=== PATIENT | male | born 1955 | race Caucasian/White ===

== ENCOUNTER → 2016-08-02 | Outpatient (CLI) | payer BC ==
[~2016-08-02] MED LIST: BISO1TAB4 PO; LEVO200T30 PO
--- NOTE | 2016-08-02 15:55 | Diagnostic Imaging Report ---
Indication: Cough since March. COMPARISON STUDIES: None. FINDINGS: Frontal and lateral views of the chest demonstrate the lungs to be clear, the heart, mediastinum and pulmonary vascularity are normal. IMPRESSION: Normal chest. Dictated by: Dictated on workstation # [id number]
== END ==
LOC: RAD 15:04
PROVIDERS: ATTEND Family Medicine
DX: R05 Cough (principal)
CPT/HCPCS: 71020

== ENCOUNTER 2017-07-08 05:38 | Outpatient (CLI) | payer BC ==
[~2017-07-08] VITALS: Ht 172.7 cm; Wt 77.1 kg
[2017-07-08] MEDS ORDERED: ATOR80TA76 PO (12:59)
[2017-07-08] MEDS ORDERED: GEMF600T3 PO (12:59)
[2017-07-08] MEDS ORDERED: BISO1TAB3 PO (12:59)
[2017-07-08] MEDS ORDERED: LEVO175T5 PO (12:59)
== END 2017-07-08 13:01 ==
LOC: PREOP 05:38
PROVIDERS: ATTEND Surgery
DX: Z01.818 Encounter for other preprocedural examination (principal); R19.4 Change in bowel habit; Z87.19 Personal history of other diseases of the digestive system

== ENCOUNTER 2018-07-16 10:35 | Outpatient (CLI) | payer BC ==
[~2018-07-16] VITALS: Ht 172.7 cm; Wt 77.1 kg
[~2018-07-16 10:35] MED LIST changes: +ATOR80TA76 PO; +BISO1TAB3 PO; +GEMF600T8 PO; +LEVO175T5 PO
[2018-07-17] MEDS ORDERED: HYDR-34 PO (12:08)
== END 2018-07-16 13:32 | disposition home or self-care (01) ==
LOC: PREOP 10:35
PROVIDERS: ATTEND Surgery
DX: Z01.818 Encounter for other preprocedural examination (principal)

== ENCOUNTER 2018-07-17 11:14 | Day surgery (SDC) | payer BC ==
[~2018-07-17] VITALS: Ht 172.7 cm; Wt 79.4 kg
[2018-07-17] VITALS (13 sets, daily range): BP systolic 96–130; BP diastolic 48–82
--- OUTSIDE RECORDS SUMMARY | 2018-07-17 11:21 | XMS REPORT | CCD ---
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 Name Role Phone PP Unavailable CCM Unavailable Summary Purpose Interface Exchange Insurance Providers Payer name Policy type / Coverage type Covered republican ID Effective Begin Date Effective End Date Blue Cross Blue [facility] Blue Cross/Blue Shield [id number] Unknown Unknown Family history Mother Diagnosis Age At Onset Coronary Artery Disease Unknown Breast cancer Unknown Father Diagnosis Age At Onset Hypertension Unknown Cancer Unknown Social History Social History Element Codes Description Effective Dates Frequency of drinks SNOMED CT: 168203439 10 drinks per week -varies- more on weekends 08/02/2016 Employment Unknown 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 [employer] 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 Marital status Unknown Single 08/12/2014 Number of children Unknown 0 08/12/[address]: 5135191 Quit less than 10 years ago 200608/12/[address]: 456930 Currently drinks alcohol 08/12/2014 Allergies, Adverse Reactions, Alerts Substance Reaction Codes Entered Date Inactivated Date Status * NO KNOWN DRUG ALLERGIES Unknown 08/12/2014 No Inactive Date Active Past Medical History Illness Codes Condition Status Onset Date Resolved Date Atrophy of thyroid (acquired) ICD-9: 244.8 ICD-10: E03.4 Active 02/01/2016 Unknown Essential (primary) hypertension ICD-9: 401.1 ICD-10: I10 Active 02/01/2016 Unknown Mixed hyperlipidemia ICD-9: 272.2 ICD-10: E78.2 Active 02/01/2016 Unknown Pain in right knee ICD -9: 719.46 ICD-10: M25.561 Active 11/27/2017 Unknown Cellulitis of back [any part except buttock] ICD-9: 682.2 ICD-10: L03.312 Active 09/19/2017 Unknown Encounter for general adult medical examination without abnormal findings ICD-9: V70.0 ICD-10: Z00.00 Active 08/11/2014 Unknown VACCIN FOR INFLUENZA ICD-9: V04.81 ICD-10: Z23 Active 01/01/2016 Unknown Melanocytic nevi of left lower limb, including hip ICD-9: 216.7 ICD-10: D22.72 Active 08/02/2016 Unknown Melanocytic nevi of right lower limb, including hip ICD-9: 216.7 ICD-10: D22.71 Active 08/02/2016 Unknown Other allergic rhinitis ICD-9: 477.8 ICD-10: J30.89 Active 08/02/2016 Unknown Candidal stomatitis ICD-9: 112.0 ICD-10: B37.0 Active 05/17/2016 Unknown Cough ICD-9: 786.2 ICD-10: R05 Active 05/17/2016 Unknown Acute bronchitis due to other specified organisms ICD-9: 466.0 ICD-10: J20.8 Active 05/02/2016 Unknown Cellulitis of head [any part, except face] ICD-9: 682.8 ICD-10: L03.811 Active 01/01/2016 Unknown Rash and other nonspecific skin eruption ICD-9: 782.1 ICD-10: R21 Active 01/01/2016 Unknown Other acute sinusitis ICD-9: 461.8 ICD-10: J01.80 Active 06/28/2015 Unknown Low back pain ICD-9: 724.2 ICD-10: M54.5 Active 05/18/2015 Unknown Hypothryroidism Unknown Active 12/28/2014 Unknown Hypothyroidism, unspecified ICD-9: 244.9 ICD-10: E03.9 Active 12/27/2014 Unknown Well adult exam ICD-9 : V70.0 Active 08/11/2014 Unknown Problems Condition Codes Effective Dates Condition Status Atrophy of thyroid (acquired) ICD-9: 244.8 ICD-10: E03.4 02/01/2016 Active Essential (primary) hypertension ICD-9: 401.1 ICD-10: I10 02/01/2016 Active Mixed hyperlipidemia ICD-9: 272.2 ICD-10: E78.2 02/01/2016 Active Pain in right knee ICD -9: 719.46 ICD-10: M25.561 11/27/2017 Active Cellulitis of back [any part except buttock] ICD-9: 682.2 ICD-10: L03.312 09/19/2017 Active Encounter for general adult medical examination without abnormal findings ICD-9: V70.0 ICD-10: Z00.00 08/11/2014 Active VACCIN FOR INFLUENZA ICD-9: V04.81 ICD-10: Z23 01/01/2016 Active Melanocytic nevi of left lower limb, including hip ICD-9: 216.7 ICD-10: D22.72 08/02/2016 Active Melanocytic nevi of right lower limb, including hip ICD-9: 216.7 ICD-10: D22.71 08/02/2016 Active Other allergic rhinitis ICD-9: 477.8 ICD-10: J30.89 08/02/2016 Active Candidal stomatitis ICD-9: 112.0 ICD-10: B37.0 05/17/2016 Active Cough ICD-9: 786.2 ICD-10: R05 05/17/2016 Active Acute bronchitis due to other specified organisms ICD-9: 466.0 ICD-10: J20.8 05/02/2016 Active Cellulitis of head [any part, except face] ICD-9: 682.8 ICD-10: L03.811 01/01/2016 Active Rash and other nonspecific skin eruption ICD-9: 782.1 ICD-10: R21 01/01/2016 Active Other acute sinusitis ICD-9: 461.8 ICD-10: J01.80 06/28/2015 Active Low back pain ICD-9: 724.2 ICD-10: M54.5 05/18/2015 Active Hypothryroidism Unknown 12/28/2014 Active Hypothyroidism, unspecified ICD-9: 244.9 ICD-10: E03.9 12/27/2014 Active Well adult exam ICD-9 : V70.0 08/11/2014 Active Medications Medication Codes Instructions Start Date Stop Date Status Fill Instructions gemfibrozil 600 mg tablet RxNorm: 286232 1 Tablet(s) PO BID 06/201802/19/2019 Active acyclovir 400 mg tablet RxNorm: 058231 TAKE ONE TABLET BY MOUTH DAILY 05/15/2018 08/12/2018 Active Flagyl 500 mg tablet RxNorm: 469882 1 Tablet(s) PO TID 201805/07/2018 Inactive Cipro 500 mg tablet RxNorm: 671505 1 Tablet(s) PO BID 201805/04/2018 Inactive Levothroid 175 mcg tablet RxNorm: 096450 TAKE ONE TABLET BY MOUTH DAILY ON EMPTY STOMACH 04/18/2018 10/14/2018 Active bisoprolol 5 mg-hydrochlorothiazide 6.25 mg tablet RxNorm: 806915 TAKE ONE TABLET BY MOUTH DAILY 04/18/2018 10/14/2018 Active Lipitor 80 mg tablet RxNorm: 839394 TAKE ONE TABLET BY MOUTH EVERY NIGHT AT BEDTIME 03/24/2018 07/21/2018 Active Penlac 8 % topical solution RxNorm: 742411 APPLY TO AFFECTED AREA(S) DAILY 03/24/2018 04/12/2018 Inactive alprazolam 0.5 mg tablet RxNorm: 209259 1/2 Tablet(s) PO BID as needed 02/18/2018 04/18/2018 Inactive acyclovir 400 mg tablet RxNorm: 088272 TAKE ONE TABLET BY MOUTH DAILY 02/18/2018 05/14/2018 Inactive acyclovir 400 mg tablet RxNorm: 963829 TAKE ONE TABLET BY MOUTH DAILY 11/11/2017 02/08/2018 Inactive bisoprolol 5 mg-hydrochlorothiazide 6.25 mg tablet RxNorm: 427876 TAKE ONE TABLET BY MOUTH DAILY 09/30/2017 03/28/2018 Inactive Lipitor 80 mg tablet RxNorm: 583750 TAKE ONE TABLET BY MOUTH EVERY NIGHT AT BEDTIME 09/30/2017 02/26/2018 Inactive Levothroid 175 mcg tablet RxNorm: 376579 Tablet(s) TAKE ONE TABLET BY MOUTH DAILY ON AN EMPTY STOMACH . 09/30/20172018 Inactive Bactrim DS 800 mg-160 mg tablet RxNorm: 484230 1 Tablet(s) PO BID 09/19/2017 09/25/2017 Inactive alprazolam 0.5 mg tablet RxNorm: 505773 1/2 Tablet(s) PO BID as needed 07/24/2017 09/20/2017 Inactive Zithromax Z-Bassam 250 mg tablet RxNorm: 552263 1 Tablet(s) PO UD 06/17/2017 07/23/2017 Inactive z pack as directed Levothroid 175 mcg tablet RxNorm: 353191 TAKE ONE TABLET BY MOUTH DAILY ON AN EMPTY STOMACH . NEED TO REPEAT LAB FOR TSH AND FREE T4 201708/31/2017 Inactive gemfibrozil 600 mg tablet RxNorm: 040849 1 Tablet(s) PO BID 03/201702/16/2018 Inactive Penlac 8 % topical solution RxNorm: 293505 1 Application TOP daily 05/23/2017 06/21/2017 Inactive ketoconazole 2 % topical cream RxNorm: 128798 1 Application TOP BID 05/23/2017 06/05/2017 Inactive Cipro 500 mg tablet RxNorm: 180134 1 Tablet(s) PO BID 201705/30/2017 Inactive Flagyl 500 mg tablet RxNorm: 447212 1 Tablet(s) PO TID 201705/30/2017 Inactive acyclovir 400 mg tablet RxNorm: 146375 TAKE ONE TABLET BY MOUTH DAILY 04/26/2017 10/22/2017 Inactive bisoprolol 5 mg-hydrochlorothiazide 6.25 mg tablet RxNorm: 472017 TAKE ONE TABLET BY MOUTH DAILY 03/11/2017 09/06/2017 Inactive Levothroid 175 mcg tablet RxNorm: 841664 TAKE ONE TABLET BY MOUTH DAILY ON AN EMPTY STOMACH . NEED TO REPEAT LAB FOR TSH AND FREE T4 201606/02/2017 Inactive Lipitor 80 mg tablet RxNorm: 571102 Tablet(s) PO TAKE ONE TABLET BY MOUTH EVERY NIGHT AT BEDTIME 12/24/2016 11/26/2017 Inactive Levothroid 175 mcg tablet RxNorm: 267574 TAKE ONE TABLET BY MOUTH DAILY ON AN EMPTY STOMACH . NEED TO REPEAT LAB FOR TSH AND FREE T4 201603/10/2017 Inactive hydrocodone 7.5 mg-acetaminophen 325 mg tablet RxNorm: 628744 1 Tablet(s) PO Q6 PRN 11/06/2016 12/05/2016 Inactive [SAVINGS FOR NON-COVERED DRUGS -- BIN:[id number], PCN: ASPROD1, Group: XXXXX, ID# [id number], Questions: . THIS IS NOT INSURANCE.] Soma 350 mg tablet RxNorm: 855029 1 Tablet(s) PO TID as needed 11/06/2016 No Stop Date Active alprazolam 0.5 mg tablet RxNorm: 735867 1/2 Tablet(s) PO BID as needed 10/05/2016 11/26/2017 Inactive Lipitor 80 mg tablet RxNorm: 572756 Tablet(s) PO TAKE ONE TABLET BY MOUTH EVERY NIGHT AT BEDTIME 09/04/2016 12/23/2016 Inactive Lipitor 40 mg tablet RxNorm: 806413 TAKE ONE TABLET BY MOUTH EVERY NIGHT AT BEDTIME 09/04/2016 09/03/2016 Inactive acyclovir 400 mg tablet RxNorm: 570388 TAKE ONE TABLET BY MOUTH DAILY 08/23/2016 02/18/2017 Inactive bisoprolol 5 mg-hydrochlorothiazide 6.25 mg tablet RxNorm: 485198 TAKE ONE TABLET BY MOUTH DAILY 08/23/2016 02/18/2017 Inactive Levothroid 175 mcg tablet RxNorm: 775225 Tablet(s) TAKE ONE TABLET BY MOUTH DAILY 08/22/2016 11/19/2016 Inactive Needs to repeat TSH et Free T4 labs acyclovir 400 mg tablet RxNorm: 649517 TAKE ONE TABLET BY MOUTH DAILY 08/21/2016 08/22/2016 Inactive prednisone 10 mg tablet RxNorm: 098378 Tablet(s) PO UD dispense a medrol dose pack 08/10/2016 07/23/2017 Inactive 6,5,4,3,2,1 prednisone 10 mg tablet RxNorm: 525791 Tablet(s) PO UD dispense a medrol dose pack 07/30/2016 08/09/2016 Inactive 6,5,4,3,2,1 cefdinir 300 mg capsule RxNorm: 668138 1 Capsule(s) PO BID 10/201608/08/2016 Inactive cefdinir 300 mg capsule RxNorm: 710309 1 Capsule(s) PO BID 10/201607/29/2016 Inactive Lipitor 40 mg tablet RxNorm: 351318 TAKE ONE TABLET BY MOUTH EVERY NIGHT AT BEDTIME 06/25/2016 09/03/2016 Inactive nystatin 100,000 unit/mL oral suspension RxNorm: 845682 5 Milliliter(s) PO TID 05/17/2016 05/21/2016 Inactive Zyrtec 10 mg tablet RxNorm: 1913913 1 Tablet(s) PO daily 05/1706/15/2016 Inactive Levothroid 175 mcg tablet RxNorm: 154240 TAKE ONE TABLET BY MOUTH DAILY 05/16/2016 08/13/2016 Inactive Levaquin 750 mg tablet RxNorm: 281969 1 Tablet(s) PO daily 05/09/2016 Inactive Levaquin 750 mg tablet RxNorm: 755211 1 Tablet(s) PO daily 05/14/2016 Inactive Phenergan-Codeine 6.25 mg-10 mg/5 mL syrup RxNorm: 184883 5-10 Milliliter(s) PO Q6 as needed cough 05/02/2016 No Stop Date Active prednisone 10 mg tablet RxNorm: 643470 Tablet(s) PO UD 201607/29/2016 Inactive 6,5,4,3,2,1 Kenalog 40 mg/mL suspension for injection RxNorm: 5728324 Milliliter(s) Inj 05/02/2016 05/02/2016 Inactive Phenergan-Codeine 6.25 mg-10 mg/5 mL syrup RxNorm: 876649 5-10 Milliliter(s) PO Q6 as needed cough 04/25/2016 05/01/2016 Inactive Zithromax Z-Bassam 250 mg tablet RxNorm: 888203 1 Tablet(s) PO UD 04/25/2016 07/29/2016 Inactive z pack as directed acyclovir 400 mg tablet RxNorm: 590135 TAKE ONE TABLET BY MOUTH DAILY 04/10/2016 07/08/2016 Inactive Zetia 10 mg tablet RxNorm: 428259 1 Tablet(s) PO daily 201505/22/2017 Inactive Zetia 10 mg tablet RxNorm: 178521 1 Tablet(s) PO daily 201503/06/2016 Inactive Lipitor 40 mg tablet RxNorm: 849932 Tablet(s) PO TAKE ONE TABLET BY MOUTH EVERY NIGHT AT BEDTIME 03/07/2016 06/24/2016 Inactive Patient is requesting 90 days supply Diflucan 150 mg tablet RxNorm: 462008 1 Tablet(s) PO daily 01/11/2016 Inactive Diflucan 150 mg tablet RxNorm: 421356 1 Tablet(s) PO daily 01/04/2016 Inactive hydrocodone 7.5 mg-acetaminophen 325 mg tablet RxNorm: 155859 1 Tablet(s) PO Q6 PRN 12/28/2015 01/26/2016 Inactive [SAVINGS FOR NON-COVERED DRUGS -- BIN:[id number], PCN: ASPROD1, Group: XXXXX, ID# [id number], Questions: . THIS IS NOT INSURANCE.] alprazolam 0.5 mg tablet RxNorm: 829766 1/2 Tablet(s) PO BID as needed 11/30/2015 10/04/2016 Inactive Levothroid 175 mcg tablet RxNorm: 687292 Tablet(s) TAKE ONE TABLET BY MOUTH DAILY 10/26/2015 04/22/2016 Inactive hydrocodone 7.5 mg-acetaminophen 325 mg tablet RxNorm: 009431 1 Tablet(s) PO Q6 PRN 08/30/2015 09/28/2015 Inactive [SAVINGS FOR NON-COVERED DRUGS -- BIN:836630, PCN: ASPROD1, Group: XXXXX, ID# [id number], Questions: . THIS IS NOT INSURANCE.] Ventolin HFA 90 mcg/actuation aerosol inhaler RxNorm: 981084 2 INH PRN dyspnea 08/04/2015 No Stop Date Active bisoprolol 5 mg-hydrochlorothiazide 6.25 mg tablet RxNorm: 210160 TAKE ONE TABLET BY MOUTH DAILY 07/11/2015 01/06/2016 Inactive Patient is requesting 90 days supply bisoprolol 5 mg-hydrochlorothiazide 6.25 mg tablet RxNorm: 409716 TAKE ONE TABLET BY MOUTH DAILY 07/11/2015 01/06/2016 Inactive Lipitor 10 mg tablet RxNorm: 829883 TAKE ONE TABLET BY MOUTH EVERY NIGHT AT BEDTIME 07/11/2015 01/06/2016 Inactive Patient is requesting 90 days supply Lipitor 10 mg tablet RxNorm: 707432 TAKE ONE TABLET BY MOUTH EVERY NIGHT AT BEDTIME 07/11/2015 05/13/2016 Inactive acyclovir 400 mg tablet RxNorm: 428025 1 Tablet(s) PO daily 08/22/2016 Inactive acyclovir 400 mg tablet RxNorm: 043432 1 Tablet(s) PO daily 07/10/2015 Inactive Zithromax Z-Bassam 250 mg tablet RxNorm: 626602 Tablet(s) PO UD 08/03/2015 Inactive acyclovir 400 mg tablet RxNorm: 829070 1 Tablet(s) PO daily 08/201507/05/2015 Inactive meloxicam 15 mg tablet RxNorm: 518305 TAKE ONE TABLET BY MOUTH DAILY 06/27/2015 11/23/2015 Inactive triamcinolone acetonide 0.1 % topical cream RxNorm: 3970965 1 Application TOP BID 05/19/2015 06/01/2015 Inactive apply very thin layer as directed hydrocodone 7.5 mg-acetaminophen 325 mg tablet RxNorm: 861659 1 Tablet(s) PO Q6 PRN 05/19/2015 08/29/2015 Inactive [SAVINGS FOR NON-COVERED DRUGS -- BIN:[id number], PCN: ASPROD1, Group: XXXXX, ID# [id number], Questions: . THIS IS NOT INSURANCE.] Cipro 500 mg tablet RxNorm: 282518 1 Tablet(s) PO BID 201504/20/2015 Inactive Cipro 500 mg tablet RxNorm: 016358 1 Tablet(s) PO BID 201504/30/2015 Inactive Flagyl 500 mg tablet RxNorm: 952712 1 Tablet(s) PO TID 201504/30/2015 Inactive Flagyl 500 mg tablet RxNorm: 231466 1 Tablet(s) PO TID 201504/20/2015 Inactive bisoprolol 5 mg-hydrochlorothiazide 6.25 mg tablet RxNorm: 342286 1 Tablet(s) PO daily 04/21/2015 07/10/2015 Inactive Levothroid 175 mcg tablet RxNorm: 499014 TAKE ONE TABLET BY MOUTH DAILY 04/18/2015 10/14/2015 Inactive hydrocodone 7.5 mg-acetaminophen 325 mg tablet RxNorm: 365420 1 Tablet(s) PO Q6 PRN 04/04/2015 05/18/2015 Inactive [SAVINGS FOR NON-COVERED DRUGS -- BIN:631719, PCN: ASPROD1, Group: XXXXX, ID# [id number], Questions: . THIS IS NOT INSURANCE.] Lipitor 10 mg tablet RxNorm: 796657 1 Tablet(s) PO QHS 201507/02/2015 Inactive azithromycin 250 mg tablet RxNorm: 997444 1 Tablet(s) PO UD Take 2 tabs on day one and 1 tab day 2-5 02/03/20152014 Inactive azithromycin 250 mg tablet RxNorm: 298846 1 Tablet(s) PO UD Take 2 tabs on day one and 1 tab day 2-5 02/03/20152014 Inactive Levothroid 175 mcg tablet RxNorm: 029048 TAKE ONE TABLET BY MOUTH DAILY 12/16/2014 03/15/2015 Inactive Lipitor 10 mg tablet RxNorm: 497923 1 Tablet(s) PO QHS 201403/07/2015 Inactive hydrocodone 7.5 mg-acetaminophen 325 mg tablet RxNorm: 708080 1 Tablet(s) PO Q6 PRN 12/08/2014 04/03/2015 Inactive [SAVINGS FOR NON-COVERED DRUGS -- BIN:386566, PCN: ASPROD1, Group: XXXXX, ID# [id number], Questions: . THIS IS NOT INSURANCE.] Lipitor 10 mg tablet RxNorm: 968892 1 Tablet(s) PO QHS 201412/07/2014 Inactive meloxicam 15 mg tablet RxNorm: 613407 1 Tablet(s) PO daily 04/01/2015 Inactive Levothroid 175 mcg tablet RxNorm: 668981 1 Tablet(s) PO daily 09/28/2014 12/15/2014 Inactive meloxicam 15 mg tablet RxNorm: 658485 1 Tablet(s) PO daily 09/10/2014 Inactive bisoprolol 2.5 mg-hydrochlorothiazide 6.25 mg tablet RxNorm: 323410 1 Tablet(s) PO daily 08/12/2014 11/09/2014 Inactive Levothroid 175 mcg tablet RxNorm: 002289 1 Tablet(s) PO daily 08/12/2014 09/27/2014 Inactive hydrocodone 7.5 mg-acetaminophen 325 mg tablet RxNorm: 535251 1 Tablet(s) PO Q6 PRN 08/12/2014 12/07/2014 Inactive [SAVINGS FOR NON-COVERED DRUGS -- BIN:[id number], PCN: ASPROD1, Group: XXXXX, ID# [id number], Questions: . THIS IS NOT INSURANCE.] acyclovir 400 mg tablet RxNorm: 876001 1 Tablet(s) PO daily 09/10/2014 Inactive hydrocodone 7.5 mg-acetaminophen 325 mg tablet RxNorm: 767035 1 Tablet(s) PO No Start Date 08/11/2014 Inactive Soma 350 mg tablet RxNorm: 366466 1 Tablet(s) PO TID as needed No Start Date 11/05/2016 Inactive alprazolam 0.5 mg tablet RxNorm: 826861 1/2 Tablet(s) PO BID as needed No Start Date 11/29/2015 Inactive Phenergan-Codeine 6.25 mg-10 mg/5 mL syrup RxNorm: 741854 5-10 Milliliter(s) PO Q6 as needed cough No Start Date 2016 Inactive Medication Administered Medication Codes Instructions Start Date Status Kenalog 40 mg/mL suspension for injection RxNorm: 9102620 Milliliter 05/02/2016 No longer Active Immunizations Vaccine Codes Date Status Influenza CVX: 141 01/28/2017 completed Influenza CVX: 141 01/02/2016 completed Influenza CVX: 141 12/28/2014 completed Assessments Condition Codes Effective Dates Essential (primary) hypertension ICD-10: I10 ICD-9: 401.1 11/27/2017 Pain in right knee ICD-10: M25.561 ICD-9: 719.46 11/27/2017 Atrophy of thyroid (acquired) ICD-10: E03.4 ICD-9: 244.8 11/27/2017 Mixed hyperlipidemia ICD-10: E78.2 ICD-9: 272.2 11/27/2017 Cellulitis of back [any part except buttock] ICD-10: L03.312 ICD-9: 682.2 09/19/2017 Encounter for general adult medical examination without abnormal findings ICD-10: Z00.00 ICD-9: V70.0 05/23/2017 VACCIN FOR INFLUENZA ICD-10: Z23 ICD-9: V04.81 01/28/2017 Melanocytic nevi of left lower limb, including hip ICD-10: D22.72 ICD-9: 216.7 08/02/2016 Melanocytic nevi of right lower limb, including hip ICD-10: D22.71 ICD-9: 216.7 08/02/2016 Other allergic rhinitis ICD-10: J30.89 ICD-9: 477.8 08/02/2016 Cough ICD-10: R05 ICD-9: 786.2 05/17/2016 Candidal stomatitis ICD-10: B37.0 ICD-9: 112.0 05/17/2016 Acute bronchitis due to other specified organisms ICD-10: J20.8 ICD-9: 466.0 05/02/2016 Rash and other nonspecific skin eruption ICD-10: R21 ICD-9: 782.1 01/02/2016 Cellulitis of head [any part, except face] ICD-10: L03.811 ICD-9: 682.8 01/02/2016 Other acute sinusitis ICD-10: J01.80 ICD-9: 461.8 06/29/2015 Low back pain ICD-10: M54.5 ICD-9: 724.2 05/19/2015 Hypothyroidism, unspecified ICD-10: E03.9 ICD-9: 244.9 12/28/2014 Well adult exam ICD-9: V70.0 08/12/2014 Reason For Visit Reason For Visit Effective Dates Notes hypertension 11/27/2017 arthropod bite 09/19/2017 hypertension 05/23/2017 vaccination against influenza 01/28/2017 hypertension 08/02/2016 sinus congestion 05/17/2016 sinus congestion 05/02/2016 hypertension 02/02/2016 rash 01/02/2016 scalp hypertension 08/04/2015 cough 06/29/2015 rash 05/19/2015 dry skin to upper eye lids cyst 12/28/2014 hypothyroid 08/12/2014 Results Observation Observation Code Item Item Code Result Date Thyroxine (T4) Free, Direct, S 360756 T4, FREE(DIRECT) 1.56 NG/DL 11/28/2017 TSH 620258 TSH 1.530 UIU/ML 11/28/2017 CBC With Differential/Platelet 949742 WBC 10.0 X10E3/UL 08/2017 CBC With Differential/Platelet 766633 RBC 4.78 X10E6/UL 08/2017 CBC With Differential/Platelet 312705 HEMOGLOBIN 14.3 G/DL 11/28/2017 CBC With Differential/Platelet 936790 HEMATOCRIT 41.9 % 08/2017 CBC With Differential/Platelet 462908 MCV 88 FL 11/28/2017 CBC With Differential/Platelet 796292 MCH 29.9 PG 2017 CBC With Differential/Platelet 264985 MCHC 34.1 G/DL 2017 CBC With Differential/Platelet 462502 RDW 13.4 % 11/28/2017 CBC With Differential/Platelet 088666 PLATELETS 309 X10E3/UL 11/28/2017 CBC With Differential/Platelet 896693 NEUTROPHILS 61 % 11/28 CBC With Differential/Platelet 186138 LYMPHS 30 % 2017 CBC With Differential/Platelet 537063 MONOCYTES 6 % 2017 CBC With Differential/Platelet 208123 EOS 2 % 11/28/2017 CBC With Differential/Platelet 234533 BASOS 0 % 11/28/2017 CBC With Differential/Platelet 961111 NEUTROPHILS (ABSOLUTE) 6.2 X10E3/UL 11/28/2017 CBC With Differential/Platelet 879296 LYMPHS (ABSOLUTE) 3.0 X10E3/UL 11/28/2017 CBC With Differential/Platelet 260709 MONOCYTES(ABSOLUTE) 0.6 X10E3/UL 11/28/2017 CBC With Differential/Platelet 255489 EOS (ABSOLUTE) 0.2 X10E3/UL 11/28/2017 CBC With Differential/Platelet 344431 BASO (ABSOLUTE) 0.0 X10E3/UL 11/28/2017 CBC With Differential/Platelet 164233 IMMATURE GRANULOCYTES 1 % 11/28/2017 CBC With Differential/Platelet 050800 IMMATURE GRANS (ABS) 0.1 X10E3/UL 11/28/2017 Lipid Panel w/ Chol/HDL Ratio 557914 CHOLESTEROL, TOTAL 145 MG/DL 11/28/2017 Lipid Panel w/ Chol/HDL Ratio 616177 TRIGLYCERIDES 216 MG/DL 11/28/2017 Lipid Panel w/ Chol/HDL Ratio 208188 HDL CHOLESTEROL 60 MG/DL 11/28/2017 Lipid Panel w/ Chol/HDL Ratio 050845 VLDL CHOLESTEROL CINDI 43 MG/DL 11/28/2017 Lipid Panel w/ Chol/HDL Ratio 091242 LDL CHOLESTEROL CALC 42 MG/DL 11/28/2017 Lipid Panel w/ Chol/HDL Ratio 781212 T. CHOL/HDL RATIO 2.4 RATIO 11/28/2017 Comp. Metabolic Panel (14) 298111 GLUCOSE 96 MG/DL 11/28 Comp. Metabolic Panel (14) 244276 BUN 15 MG/DL 11/28/2017 Comp. Metabolic Panel (14) 209228 CREATININE 0.91 MG/DL 11/28/2017 Comp. Metabolic Panel (14) 244597 EGFR IF NONAFRICN AM 91 ML/MIN/1.73 11/28/2017 Comp. Metabolic Panel (14) 723236 EGFR IF AFRICN AM 106 ML/MIN/1.73 11/28/2017 Comp. Metabolic Panel (14) 157216 BUN/ CREATININE RATIO 16 11/28/2017 Comp. Metabolic Panel (14) 310389 SODIUM 140 MMOL/L 2017 Comp. Metabolic Panel (14) 420327 POTASSIUM 4.1 MMOL/L 11/28/2017 Comp. Metabolic Panel (14) 435627 CHLORIDE 100 MMOL/L Comp. Metabolic Panel (14) 731813 CARBON DIOXIDE, TOTAL 25 MMOL/L 11/28/2017 Comp. Metabolic Panel (14) 532413 CALCIUM 9.1 MG/DL 08/2017 Comp. Metabolic Panel (14) 936975 Protein , Total 6.9 G/DL 11/28 Comp. Metabolic Panel (14) 645302 ALBUMIN 4.5 G/DL 11/28 Comp. Metabolic Panel (14) 457908 GLOBULIN, TOTAL 2.4 G/DL 11/28/2017 Comp. Metabolic Panel (14) 438068 A/G Ratio 1.9 11/28/2017 Comp. Metabolic Panel (14) 059065 BILIRUBIN, TOTAL 0.5 MG/DL 11/28/2017 Comp. Metabolic Panel (14) 000078 ALKALINE PHOSPHATASE 55 IU/L 11/28/2017 Comp. Metabolic Panel (14) 950532 AST ( SGOT) 18 IU/L 2017 Comp. Metabolic Panel (14) 261896 ALT ( SGPT) 24 IU/L 2017 Thyroxine (T4) Free, Direct, S 135263 T4, FREE(DIRECT) 1.35 ng/dL 06/24/2017 CBC With Differential/Platelet 607176 WBC 6.6 x10E3/uL 06/24 CBC With Differential/Platelet 089157 RBC 4.89 x10E6/uL 04/2017 CBC With Differential/Platelet 855703 HEMOGLOBIN 14.6 g/dL 06/24/2017 CBC With Differential/Platelet 874765 HEMATOCRIT 43.7 % 04/2017 CBC With Differential/Platelet 803401 MCV 89 fL 06/24/2017 CBC With Differential/Platelet 200399 MCH 29.9 pg 2017 CBC With Differential/Platelet 538599 MCHC 33.4 g/dL 2017 CBC With Differential/Platelet 200624 RDW 13.6 % 06/24/2017 CBC With Differential/Platelet 301900 PLATELETS 258 x10E3/uL 06/24/2017 CBC With Differential/Platelet 133471 NEUTROPHILS 51 % 06/24 CBC With Differential/Platelet 266198 LYMPHS 36 % 2017 CBC With Differential/Platelet 610166 MONOCYTES 9 % 2017 CBC With Differential/Platelet 260038 EOS 4 % 06/24/2017 CBC With Differential/Platelet 169237 BASOS 0 % 06/24/2017 CBC With Differential/Platelet 514510 NEUTROPHILS (ABSOLUTE) 3.3 x10E3/uL 06/24/2017 CBC With Differential/Platelet 005152 LYMPHS (ABSOLUTE) 2.3 x10E3/uL 06/24/2017 CBC With Differential/Platelet 832972 MONOCYTES(ABSOLUTE) 0.6 x10E3/uL 06/24/2017 CBC With Differential/Platelet 234995 EOS (ABSOLUTE) 0.3 x10E3/uL 06/24/2017 CBC With Differential/Platelet 013998 BASO (ABSOLUTE) 0.0 x10E3/uL 06/24/2017 CBC With Differential/Platelet 024885 IMMATURE GRANULOCYTES 0 % 06/24/2017 CBC With Differential/Platelet 439599 IMMATURE GRANS (ABS) 0.0 x10E3/uL 06/24/2017 Lipid Panel 397131 CHOLESTEROL, TOTAL 122 mg/dL 06/24/2017 Lipid Panel 315211 TRIGLYCERIDES 155 mg/dL 06/24/2017 Lipid Panel 311217 HDL CHOLESTEROL 52 mg/dL 06/24/2017 Lipid Panel 547243 VLDL CHOLESTEROL CINDI 31 mg/dL 06/24/2017 Lipid Panel 808745 LDL CHOLESTEROL CALC 39 mg/dL 06/24/2017 Comp. Metabolic Panel (14) 967895 GLUCOSE 101 mg/dL 04/2017 Comp. Metabolic Panel (14) 347013 BUN 12 mg/dL 06/24/2017 Comp. Metabolic Panel (14) 204856 CREATININE 0.95 mg/dL 06/24/2017 Comp. Metabolic Panel (14) 934921 EGFR IF NONAFRICN AM 87 mL/min/1.73 06/24/2017 Comp. Metabolic Panel (14) 346041 EGFR IF AFRICN AM 100 mL/min/1.73 06/24/2017 Comp. Metabolic Panel (14) 318632 BUN/ CREATININE RATIO 13 06/24/2017 Comp. Metabolic Panel (14) 125143 SODIUM 140 mmol/L 2017 Comp. Metabolic Panel (14) [id number] POTASSIUM 4.1 mmol/L 06/24/2017 Comp. Metabolic Panel (14) 941003 CHLORIDE 99 mmol/L 04/2017 Comp. Metabolic Panel (14) 584461 CARBON DIOXIDE, TOTAL 25 mmol/L 06/24/2017 Comp. Metabolic Panel (14) 853796 CALCIUM 9.5 mg/dL 04/2017 Comp. Metabolic Panel (14) 252789 Protein , Total 7.1 g/dL 06/24 Comp. Metabolic Panel (14) 518489 ALBUMIN 4.6 g/dL 06/24 Comp. Metabolic Panel (14) 779715 GLOBULIN, TOTAL 2.5 g/dL 06/24/2017 Comp. Metabolic Panel (14) 460139 A/G Ratio 1.8 06/24/2017 Comp. Metabolic Panel (14) 307623 BILIRUBIN, TOTAL 0.4 mg/dL 06/24/2017 Comp. Metabolic Panel (14) 483076 ALKALINE PHOSPHATASE 66 IU/L 06/24/2017 Comp. Metabolic Panel (14) 970330 AST ( SGOT) 45 IU/L 2017 Comp. Metabolic Panel (14) 731237 ALT ( SGPT) 41 IU/L 2017 TSH 843682 TSH 0.749 uIU/mL 06/24/2017 Comp. Metabolic Panel (14) 661365 GLUCOSE , SERUM 111 MG/DL Comp. Metabolic Panel (14) 362283 BUN 14 MG/DL 02/22/2016 Comp. Metabolic Panel (14) 656568 CREATININE, SERUM 1.03 MG/DL 02/22/2016 Comp. Metabolic Panel (14) 265078 EGFR IF NONAFRICN AM 79 ML/MIN/1.73 02/22/2016 Comp. Metabolic Panel (14) 584525 EGFR IF AFRICN AM 91 ML/MIN/1.73 02/22/2016 Comp. Metabolic Panel (14) 065642 BUN/ CREATININE RATIO 14 02/22/2016 Comp. Metabolic Panel (14) 605032 SODIUM , SERUM 140 MMOL/L Comp. Metabolic Panel (14) 073879 POTASSIUM, SERUM 3.9 MMOL/L 02/22/2016 Comp. Metabolic Panel (14) 071691 CHLORIDE, SERUM 99 MMOL/L 02/22/2016 Comp. Metabolic Panel (14) 712475 CARBON DIOXIDE, TOTAL 25 MMOL/L 02/22/2016 Comp. Metabolic Panel (14) 901295 CALCIUM , SERUM 9.1 MG/DL Comp. Metabolic Panel (14) 088449 PROTEIN , TOTAL, SERUM 6.5 G/DL 02/22/2016 Comp. Metabolic Panel (14) 193759 ALBUMIN , SERUM 4.1 G/DL 02/21 Comp. Metabolic Panel (14) 132113 GLOBULIN, TOTAL 2.4 G/DL 02/22/2016 Comp. Metabolic Panel (14) 318972 A/G Ratio 1.7 02/22/2016 Comp. Metabolic Panel (14) 321407 BILIRUBIN, TOTAL 0.2 MG/DL 02/22/2016 Comp. Metabolic Panel (14) 630472 ALKALINE PHOSPHATASE, S 72 IU/L 02/22/2016 Comp. Metabolic Panel (14) 207578 AST ( SGOT) 30 IU/L 2015 Comp. Metabolic Panel (14) 523802 ALT ( SGPT) 43 IU/L 2015 Lipid Panel 823175 CHOLESTEROL, TOTAL 183 MG/DL 02/22/2016 Lipid Panel 983098 TRIGLYCERIDES 509 MG/DL 02/22/2016 Lipid Panel 839263 HDL CHOLESTEROL 47 MG/DL 02/22/2016 Lipid Panel 372168 VLDL CHOLESTEROL CINDI COMMENT MG/DL 2015 Lipid Panel 875426 LDL CHOLESTEROL CALC COMMENT MG/DL 2015 TSH 454600 TSH 0.510 UIU/ML 02/22/2016 CBC With Differential/Platelet 629077 WBC 6.9 X10E3/UL 02/21 CBC With Differential/Platelet 908339 RBC 4.79 X10E6/UL CBC With Differential/Platelet 388872 HEMOGLOBIN 14.4 G/DL 02/22/2016 CBC With Differential/Platelet 322659 HEMATOCRIT 43.1 % CBC With Differential/Platelet 112332 MCV 90 FL 02/22/2016 CBC With Differential/Platelet 986236 MCH 30.1 PG 2015 CBC With Differential/Platelet 681095 MCHC 33.4 G/DL 2015 CBC With Differential/Platelet 263330 RDW 13.5 % 02/22/2016 CBC With Differential/Platelet 131765 PLATELETS 257 X10E3/UL 02/22/2016 CBC With Differential/Platelet 493396 NEUTROPHILS 57 % 02/21 CBC With Differential/Platelet 834643 LYMPHS 32 % 2015 CBC With Differential/Platelet 385211 MONOCYTES 8 % 2015 CBC With Differential/Platelet 935265 EOS 3 % 02/22/2016 CBC With Differential/Platelet 714242 BASOS 0 % 02/22/2016 CBC With Differential/Platelet 117143 NEUTROPHILS (ABSOLUTE) 4.0 X10E3/UL 02/22/2016 CBC With Differential/Platelet 085399 LYMPHS (ABSOLUTE) 2.2 X10E3/UL 02/22/2016 CBC With Differential/Platelet 933514 MONOCYTES(ABSOLUTE) 0.5 X10E3/UL 02/22/2016 CBC With Differential/Platelet 109094 EOS (ABSOLUTE) 0.2 X10E3/UL 02/22/2016 CBC With Differential/Platelet 730706 BASO (ABSOLUTE) 0.0 X10E3/UL 02/22/2016 CBC With Differential/Platelet 715676 IMMATURE GRANULOCYTES 0 % 02/22/2016 CBC With Differential/Platelet 087022 IMMATURE GRANS (ABS) 0.0 X10E3/UL 02/22/2016 Thyroxine (T4) Free, Direct, S 139058 T4, FREE(DIRECT) 1.39 NG/DL 02/22/2016 Cbc With Differential Ord2 WBC 6.1 K/uL 12/02/2014 Cbc With Differential Ord2 LYM 2.2 K/uL 12/02/2014 Cbc With Differential Ord2 LYM% 36.2 % 12/02/2014 Cbc With Differential Ord2 NEUT/GRAN 3.3 K/uL 12/02/2014 Cbc With Differential Ord2 NEUT/GRAN % 54.1 % 12/02/2014 Cbc With Differential Ord2 MID 0.6 K/uL 12/02/2014 Cbc With Differential Ord2 MID% 9.7 % 12/02/2014 Cbc With Differential Ord2 RBC 4.56 M/uL 12/02/2014 Cbc With Differential Ord2 HGB 14.2 g/dL 12/02/2014 Cbc With Differential Ord2 HCT 41.5 % 12/02/2014 Cbc With Differential Ord2 MCV 91 fL 12/02/2014 Cbc With Differential Ord2 MCH 31 pg 12/02/2014 Cbc With Differential Ord2 MCHC 34 g/dL 12/02/2014 Cbc With Differential Ord2 PLT 253 K/uL 12/02/2014 Cbc With Differential Ord2 RDW 13.2 % 12/02/2014 Comp Metabolic Jax249 NA 132 mEq/L 12/02/2014 Comp Metabolic Pva608 K 4.1 mEq/L 12/02/2014 Comp Metabolic Nqe206 CL 100 mEq/L 12/02/2014 Comp Metabolic Ekn498 CO2 26.0 mEq/L 12/02/2014 Comp Metabolic Kjg442 ANION GAP 10 12/02/2014 Comp Metabolic Lru543 GLUCOSE 107 mg/dL 12/02/2014 Comp Metabolic Bcb357 Creat 1.1 mg/dL 12/02/2014 Comp Metabolic Zpq136 eGFR 73 ml/min/1.73m2 12/02/2014 Comp Metabolic Rmr703 BUN 16 mg/dL 12/02/2014 Comp Metabolic Qry321 B/C Ratio 14.5 Ratio 12/02/2014 Comp Metabolic Zko919 CALCIUM 9.5 mg/dL 12/02/2014 Comp Metabolic Utj721 ALK PHOS 39 U/L 12/02/2014 Comp Metabolic Qfq358 AST(SGOT) 18 U/L 12/02/2014 Comp Metabolic Jje657 ALT(SGPT) 24 U/L 12/02/2014 Comp Metabolic Ojs248 BILI T 0.5 mg/dL 12/02/2014 Comp Metabolic Fnc271 ALBUMIN 4.2 g/dL 12/02/2014 Comp Metabolic Tzw214 TPRO 6.5 g/dL 12/02/2014 Comp Metabolic Jql046 GLOB 2.3 g/dL 12/02/2014 Comp Metabolic Pkk053 A/G Ratio 1.8 Ratio 12/02/2014 Comp Metabolic Uir050 Osmo 266 mOsmo 12/02/2014 Tsh Ord6 hTSH II 0.45 uIU/mL 12/02/2014 Total Psa Ord10 PSA 1.04 ng/mL 12/02/2014 Lipid Ord30 CHOL 226 mg/dL 12/02/2014 Lipid Ord30 HDL 42.0 mg/dl 12/02/2014 Lipid Ord30 TRIG 426 mg/dL 12/02/2014 Lipid Ord30 LDL Unable to calculate Due to elevated triglycerides mg/dL 12/02/2014 Lipid Ord30 C/HDL 5.4 Ratio 12/02/2014 Review of Systems System Result Effective Dates Constitutional recent illness 11/27/2017 Constitutional No anorexia 11/27/2017 Constitutional No night sweats 2017 Constitutional No chills 11/27/2017 Constitutional No diaphoresis 11/27/2017 Constitutional No fatigue 11/27/2017 Constitutional No fever 11/27/2017 Constitutional No insomnia 11/27/2017 Constitutional No malaise 11/27/2017 Eyes No eye discharge 11/27/2017 Eyes No eye erythema 11/27/2017 Ears/Nose/Throat/Neck No dizziness 2017 Ears/Nose/Throat/Neck No headache 2017 Ears/Nose/Throat/Neck nasal allergies 07/2017 Cardiovascular No chest pain/pressure 07/2017 Cardiovascular No edema 11/27/2017 Respiratory chest congestion 11/27/2017 Respiratory cough 11/27/2017 Gastrointestinal No abdominal pain 2017 Gastrointestinal No constipation 2017 Gastrointestinal No diarrhea 11/27/2017 Genitourinary/Nephrology No dysuria 11/27 Musculoskeletal stiffness 11/27/2017 Musculoskeletal arthralgia(s) 11/27/2017 Dermatologic No rash 11/27/2017 Dermatologic No sores 11/27/2017 Neurologic No alteration of consciousness 11/27/2017 Psychiatric No anxiety 11/27/2017 Psychiatric No depression 11/27/2017 Constitutional weight loss 11/27/2017 Constitutional No recent illness 2017 Constitutional No chills 09/19/2017 Constitutional No diaphoresis 09/19/2017 Constitutional No fever 09/19/2017 Eyes No eye erythema 09/19/2017 Ears/Nose/Throat/Neck No nasal discharge 09/19/2017 Cardiovascular No chest pain/pressure Cardiovascular No dyspnea 09/19/2017 Respiratory No dyspnea 09/19/2017 Respiratory No cough 09/19/2017 Gastrointestinal No abdominal pain 2017 Musculoskeletal No joint complaint 2017 Dermatologic sores 09/19/2017 Neurologic No alteration of consciousness 09/19/2017 Neurologic No mental status change 2017 Constitutional recent illness 05/23/2017 Constitutional No anorexia 05/23/2017 Constitutional No night sweats 2017 Constitutional No chills 05/23/2017 Constitutional No diaphoresis 05/23/2017 Constitutional No fatigue 05/23/2017 Constitutional No fever 05/23/2017 Constitutional No insomnia 05/23/2017 Constitutional No malaise 05/23/2017 Eyes No eye discharge 05/23/2017 Eyes No eye erythema 05/23/2017 Ears/Nose/Throat/Neck No dizziness 2017 Ears/Nose/Throat/Neck No headache 2017 Ears/Nose/Throat/Neck nasal allergies 03/2017 Cardiovascular No chest pain/pressure 03/2017 Cardiovascular No edema 05/23/2017 Respiratory chest congestion 05/23/2017 Respiratory cough 05/23/2017 Gastrointestinal No abdominal pain 2017 Gastrointestinal No constipation 2017 Gastrointestinal No diarrhea 05/23/2017 Genitourinary/Nephrology No dysuria 05/23 Musculoskeletal stiffness 05/23/2017 Musculoskeletal arthralgia(s) 05/23/2017 Dermatologic mole change 05/23/2017 Dermatologic No rash 05/23/2017 Dermatologic No sores 05/23/2017 Neurologic No alteration of consciousness 05/23/2017 Psychiatric No anxiety 05/23/2017 Psychiatric No depression 05/23/2017 Constitutional recent illness 08/02/2016 Constitutional No anorexia 08/02/2016 Constitutional No night sweats 2016 Constitutional No chills 08/02/2016 Constitutional No diaphoresis 08/02/2016 Constitutional No fatigue 08/02/2016 Constitutional No fever 08/02/2016 Constitutional No insomnia 08/02/2016 Constitutional No malaise 08/02/2016 Eyes No eye discharge 08/02/2016 Eyes No eye erythema 08/02/2016 Ears/Nose/Throat/Neck No dizziness 2016 Ears/Nose/Throat/Neck No headache 2016 Cardiovascular No chest pain/pressure 01/2017 Cardiovascular No edema 08/02/2016 Respiratory cough 08/02/2016 Gastrointestinal No abdominal pain 2016 Gastrointestinal No constipation 2016 Gastrointestinal No diarrhea 08/02/2016 Genitourinary/Nephrology No dysuria 08/02 Musculoskeletal stiffness 08/02/2016 Musculoskeletal arthralgia(s) 08/02/2016 Dermatologic mole change 08/02/2016 Dermatologic No rash 08/02/2016 Dermatologic No sores 08/02/2016 Neurologic No alteration of consciousness 08/02/2016 Psychiatric No anxiety 08/02/2016 Psychiatric No depression 08/02/2016 Ears/Nose/Throat/Neck nasal allergies 01/2017 Respiratory chest congestion 08/02/2016 Constitutional recent illness 05/17/2016 Constitutional No chills 05/17/2016 Constitutional No diaphoresis 05/17/2016 Constitutional No fever 05/17/2016 Eyes No eye erythema 05/17/2016 Ears/Nose/Throat/Neck nasal allergies Ears/Nose/Throat/Neck nasal discharge Ears/Nose/Throat/Neck postnasal drip Cardiovascular No chest pain/pressure Cardiovascular No dyspnea 05/17/2016 Respiratory productive sputum 05/17/2016 Respiratory cough 05/17/2016 Respiratory No dyspnea 05/17/2016 Respiratory No wheezing 05/17/2016 Gastrointestinal No constipation 2016 Gastrointestinal No diarrhea 05/17/2016 Gastrointestinal No nausea 05/17/2016 Gastrointestinal No vomiting 05/17/2016 Dermatologic No rash 05/17/2016 Neurologic No alteration of consciousness 05/17/2016 Neurologic No mental status change 2016 Constitutional recent illness 05/02/2016 Constitutional No chills 05/02/2016 Constitutional No diaphoresis 05/02/2016 Constitutional No fever 05/02/2016 Eyes No eye erythema 05/02/2016 Ears/Nose/Throat/Neck nasal allergies 10/2016 Ears/Nose/Throat/Neck nasal discharge 10/2016 Ears/Nose/Throat/Neck postnasal drip 10/2016 Cardiovascular No chest pain/pressure 10/2016 Cardiovascular No dyspnea 05/02/2016 Respiratory cough 05/02/2016 Respiratory No dyspnea 05/02/2016 Gastrointestinal No constipation 2016 Gastrointestinal No diarrhea 05/02/2016 Gastrointestinal No nausea 05/02/2016 Gastrointestinal No vomiting 05/02/2016 Dermatologic No rash 05/02/2016 Neurologic No alteration of consciousness 05/02/2016 Neurologic No mental status change 2016 Respiratory wheezing 05/02/2016 Respiratory productive sputum 05/02/2016 Constitutional No recent illness 2015 Constitutional No anorexia 02/02/2016 Constitutional No night sweats 2015 Constitutional No chills 02/02/2016 Constitutional No diaphoresis 02/02/2016 Constitutional No fatigue 02/02/2016 Constitutional No fever 02/02/2016 Constitutional No insomnia 02/02/2016 Constitutional No malaise 02/02/2016 Eyes No eye discharge 02/02/2016 Eyes No eye erythema 02/02/2016 Ears/Nose/Throat/Neck No dizziness 2015 Ears/Nose/Throat/Neck No headache 2015 Cardiovascular No chest pain/pressure 12/2015 Cardiovascular No edema 02/02/2016 Respiratory No cough 02/02/2016 Gastrointestinal No abdominal pain 2015 Gastrointestinal No constipation 2015 Gastrointestinal No diarrhea 02/02/2016 Genitourinary/Nephrology No dysuria 02/01 Dermatologic No rash 02/02/2016 Dermatologic No sores 02/02/2016 Neurologic No alteration of consciousness 02/02/2016 Dermatologic mole change 02/02/2016 Psychiatric No anxiety 02/02/2016 Psychiatric No depression 02/02/2016 Musculoskeletal stiffness 02/02/2016 Musculoskeletal arthralgia(s) 02/02/2016 Dermatologic rash 01/02/2016 Constitutional No recent illness 2015 Constitutional No anorexia 01/02/2016 Constitutional No night sweats 2015 Constitutional No chills 01/02/2016 Constitutional No diaphoresis 01/02/2016 Constitutional No fatigue 01/02/2016 Constitutional No fever 01/02/2016 Constitutional No insomnia 01/02/2016 Constitutional No malaise 01/02/2016 Constitutional No weight loss 01/02/2016 Constitutional No weight gain 01/02/2016 Constitutional No recent illness 2015 Constitutional No anorexia 08/04/2015 Constitutional No night sweats 2015 Constitutional No chills 08/04/2015 Constitutional No diaphoresis 08/04/2015 Constitutional No fatigue 08/04/2015 Constitutional No fever 08/04/2015 Constitutional No insomnia 08/04/2015 Constitutional No malaise 08/04/2015 Eyes No eye discharge 08/04/2015 Eyes No eye erythema 08/04/2015 Ears/Nose/Throat/Neck No dizziness 2015 Ears/Nose/Throat/Neck No headache 2015 Cardiovascular No chest pain/pressure 02/2016 Cardiovascular No edema 08/04/2015 Respiratory No cough 08/04/2015 Gastrointestinal No abdominal pain 2015 Gastrointestinal No constipation 2015 Gastrointestinal No diarrhea 08/04/2015 Genitourinary/Nephrology No dysuria 08/03 Musculoskeletal joint complaint 2015 Dermatologic No rash 08/04/2015 Dermatologic No sores 08/04/2015 Neurologic No alteration of consciousness 08/04/2015 Constitutional No chills 06/29/2015 Constitutional No diaphoresis 06/29/2015 Constitutional No fatigue 06/29/2015 Constitutional fever 06/29/2015 Constitutional No insomnia 06/29/2015 Constitutional No malaise 06/29/2015 Eyes No eye discharge 06/29/2015 Eyes No eye erythema 06/29/2015 Eyes eye discharge 06/29/2015 Ears/Nose/Throat/Neck nasal allergies 08/2015 Ears/Nose/Throat/Neck nasal discharge 08/2015 Cardiovascular No chest pain/pressure 08/2015 Cardiovascular No dyspnea 06/29/2015 Respiratory No chest congestion 2015 Respiratory cough 06/29/2015 Respiratory No dyspnea on exertion 2015 Respiratory No dyspnea 06/29/2015 Gastrointestinal No constipation 2015 Gastrointestinal No diarrhea 06/29/2015 Genitourinary/Nephrology No dysuria 06/28 Eyes No eye erythema 06/29/2015 Ears/Nose/Throat/Neck postnasal drip 08/2015 Ears/Nose/Throat/Neck sinus congestion Ears/Nose/Throat/Neck sore throat 2015 Respiratory productive sputum 06/29/2015 Gastrointestinal No nausea 06/29/2015 Gastrointestinal No vomiting 06/29/2015 Musculoskeletal No joint complaint 2015 Dermatologic No rash 06/29/2015 Constitutional No recent illness 2015 Constitutional No anorexia 05/19/2015 Constitutional No night sweats 2015 Constitutional No chills 05/19/2015 Constitutional No diaphoresis 05/19/2015 Constitutional No fatigue 05/19/2015 Constitutional No fever 05/19/2015 Constitutional No insomnia 05/19/2015 Constitutional No malaise 05/19/2015 Constitutional No weight loss 05/19/2015 Constitutional No weight gain 05/19/2015 Constitutional No obesity 05/19/2015 Eyes No eye discharge 05/19/2015 Eyes No eye erythema 05/19/2015 Eyes eyelid erythema 05/19/2015 Eyes No eyelid pain 05/19/2015 Ears/Nose/Throat/Neck nasal allergies Ears/Nose/Throat/Neck nasal discharge Musculoskeletal No muscle weakness 2015 Musculoskeletal myalgias 05/19/2015 Musculoskeletal joint complaint 2015 Cardiovascular No chest pain/pressure Cardiovascular No dyspnea 05/19/2015 Gastrointestinal No constipation 2015 Gastrointestinal No diarrhea 05/19/2015 Genitourinary/Nephrology No dysuria 05/19 Respiratory No cough 05/19/2015 Respiratory No chest tightness 2015 Respiratory No chest congestion 2015 Respiratory No dyspnea on exertion 2015 Respiratory No dyspnea 05/19/2015 Respiratory No cigarette smoking 2015 Dermatologic rash 05/19/2015 Constitutional No recent illness 2014 Constitutional No anorexia 12/28/2014 Constitutional No night sweats 2014 Constitutional No chills 12/28/2014 Constitutional No diaphoresis 12/28/2014 Constitutional No fatigue 12/28/2014 Constitutional No fever 12/28/2014 Constitutional No insomnia 12/28/2014 Constitutional No malaise 12/28/2014 Constitutional No weight loss 12/28/2014 Constitutional No weight gain 12/28/2014 Eyes No eye discharge 12/28/2014 Eyes No eye erythema 12/28/2014 Ears/Nose/Throat/Neck No dizziness 2014 Ears/Nose/Throat/Neck No headache 2014 Cardiovascular No chest pain/pressure 08/2014 Cardiovascular No edema 12/28/2014 Respiratory No cough 12/28/2014 Gastrointestinal No abdominal pain 2014 Gastrointestinal No constipation 2014 Gastrointestinal No diarrhea 12/28/2014 Genitourinary/Nephrology No dysuria 12/28 Dermatologic No rash 12/28/2014 Dermatologic No sores 12/28/2014 Neurologic No alteration of consciousness 12/28/2014 Musculoskeletal joint complaint 2014 Constitutional No recent illness 2014 Constitutional No anorexia 08/12/2014 Constitutional No night sweats 2014 Constitutional No diaphoresis 08/12/2014 Constitutional No chills 08/12/2014 Constitutional No fever 08/12/2014 Constitutional No fatigue 08/12/2014 Constitutional No insomnia 08/12/2014 Constitutional No malaise 08/12/2014 Constitutional No weight loss 08/12/2014 Constitutional No weight gain 08/12/2014 Eyes No eye discharge 08/12/2014 Eyes No eye erythema 08/12/2014 Ears/Nose/Throat/Neck No dizziness 2014 Ears/Nose/Throat/Neck No headache 2014 Cardiovascular No chest pain/pressure Cardiovascular No edema 08/12/2014 Respiratory No cough 08/12/2014 Gastrointestinal No abdominal pain 2014 Gastrointestinal No constipation 2014 Gastrointestinal No diarrhea 08/12/2014 Genitourinary/Nephrology No dysuria 08/12 Musculoskeletal joint complaint 2014 Dermatologic No rash 08/12/2014 Dermatologic No sores 08/12/2014 Neurologic No alteration of consciousness 08/12/2014 Physical Exam Exam Name System Name Item Name Status Result Effective Dates Notes Full Exam - General 1994 Constitutional general appearance Overall: well developed 11/27/2017 None Full Exam - General 1994 Constitutional general appearance Overall: in no acute distress 11/27/2017 None Full Exam - General 1994 Constitutional general appearance Overall: well nourished 11/27/2017 None Full Exam - General 1994 Eyes conjunctiva /eyelids Overall: conjunctiva clear 11/27/2017 None Full Exam - General 1994 Eyes conjunctiva /eyelids Overall: cornea clear 11/27/2017 None Full Exam - General 1994 Eyes conjunctiva /eyelids Overall: eyelids normal 11/27/2017 None Full Exam - General 1994 Eyes pupils and irises Overall: pupils equal, round, reactive to light and accomodation 11/27/2017 None Full Exam - General 1994 Ears/Nose/Throat otoscopic exam Overall: external auditory canals clear 11/27/2017 None Full Exam - General 1994 Ears/Nose/Throat otoscopic exam Tympanic membrane: bulging 11/27/2017 None Full Exam - General 1994 Ears/Nose/Throat otoscopic exam Tympanic membrane: air- fluid level 11/27/2017 None Full Exam - General 1994 Ears/Nose/Throat oral cavity/pharynx/larynx Overall: oral mucosa clear 11/27/2017 None Full Exam - General 1995 Ears/Nose/Throat oral cavity/pharynx/larynx Overall: oropharyngeal mucosa clear 11/27/2017 None Full Exam - General 1995 Ears/Nose/Throat oral cavity/pharynx/larynx Overall: no masses 11/27/2017 None Full Exam - General 1994 Respiratory auscultation Overall: breath sounds clear bilaterally 11/27/2017 None Full Exam - General 1994 Respiratory respiratory effort/rhythm Overall: no retractions 11/27/2017 None Full Exam - General 1994 Respiratory respiratory effort/rhythm Overall: normal rate 11/27/2017 None Full Exam - General 1994 Cardiovascular auscultation of heart Overall: regular rate 11/27/2017 None Full Exam - General 1994 Cardiovascular auscultation of heart Overall: normal heart sounds 11/27/2017 None Full Exam - General 1994 Cardiovascular auscultation of heart Overall: no murmurs 11/27/2017 None Full Exam - General 1994 Abdomen abdominal exam Overall: no tenderness 11/27/2017 None Full Exam - General 1994 Abdomen abdominal exam Overall: normal bowel sounds 11/27/2017 None Full Exam - General 1994 Lymphatic neck nodes Overall: anterior cervical chain benign 11/27/2017 None Full Exam - General 1994 Lymphatic neck nodes Overall: posterior cervical chain benign 11/27/2017 None Full Exam - General 1994 Musculoskeletal digits and nails MCPs: third 11/27/2017 None Full Exam - General 1994 Musculoskeletal digits and nails MCPs: nodule 11/27/2017 cyst at the base of 3rd finger Full Exam - General 1994 Musculoskeletal gait and station Overall: normal gait 11/27/2017 None Full Exam - General 1994 Musculoskeletal gait and station Overall: normal station 11/27/2017 None Full Exam - General 1994 Musculoskeletal head and neck Overall: head atraumatic 11/27/2017 None Full Exam - General 1994 Musculoskeletal head and neck Overall: cervical spine benign 11/27/2017 None Full Exam - General 1994 Neurologic deep tendon reflexes Overall: deep tendon reflexes intact 11/27/2017 None Full Exam - General 1994 Neurologic cranial nerves Overall: crainial nerves 2 - 12 grossly intact 11/27/2017 None Full Exam - General 1994 Psychiatric orientation/consciousness Overall: oriented to person, place and time 11/27/2017 None Full Exam - General 1994 Musculoskeletal digits and nails Nails: thickened 11/27/2017 great toenailes bilaterally - improved from last office visit Full Exam - Dermatology Constitutional general appearance Overall: well nourished 09/19/2017 None Full Exam - Dermatology Constitutional general appearance Overall: well developed 09/19/2017 None Full Exam - Dermatology Constitutional general appearance Overall: in no acute distress 09/19/2017 None Full Exam - Dermatology Eyes conjunctiva/ eyelids Overall: clear conjunctiva bilaterally 09/19/2017 None Full Exam - Dermatology Eyes conjunctiva/ eyelids Overall: clear corneas 09/19/2017 None Full Exam - Dermatology Eyes conjunctiva/ eyelids Overall: normal eyelids 09/19/2017 None Full Exam - Dermatology Ears/Nose/Throat lips/teeth/gingiva Overall: benign lips 09/19/2017 None Full Exam - Dermatology Respiratory respiratory effort/rhythm Overall: normal rate 09/19/2017 None Full Exam - Dermatology Respiratory respiratory effort/rhythm Overall: no retractions 09/19/2017 None Full Exam - Dermatology Musculoskeletal head and neck Overall: head atraumatic 09/19/2017 None Full Exam - Dermatology Musculoskeletal gait and station Overall: normal station 09/19/2017 None Full Exam - Dermatology Musculoskeletal gait and station Overall: normal gait 09/19/2017 None Full Exam - Dermatology Integument insp & palp - back Lesion: patch 09/19/2017 None Full Exam - Dermatology Integument insp & palp - back Location: on the left upper back 09/19/2017 side Full Exam - Dermatology Integument insp & palp - back Color: erythematous 09/19/2017 mild Full Exam - Dermatology Psychiatric orientation Overall: oriented to person, place and time 09/19/2017 None Full Exam - Dermatology Psychiatric mood and affect Overall: normal mood and affect 09/19/2017 None Full Exam - General 1994 Constitutional general appearance Overall: well developed 05/23/2017 None Full Exam - General 1994 Constitutional general appearance Overall: in no acute distress 05/23/2017 None Full Exam - General 1994 Constitutional general appearance Overall: well nourished 05/23/2017 None Full Exam - General 1994 Eyes conjunctiva /eyelids Overall: conjunctiva clear 05/23/2017 None Full Exam - General 1994 Eyes conjunctiva /eyelids Overall: cornea clear 05/23/2017 None Full Exam - General 1994 Eyes conjunctiva /eyelids Overall: eyelids normal 05/23/2017 None Full Exam - General 1994 Eyes pupils and irises Overall: pupils equal, round, reactive to light and accomodation 05/23/2017 None Full Exam - General 1994 Ears/Nose/Throat otoscopic exam Overall: external auditory canals clear 05/23/2017 None Full Exam - General 1994 Ears/Nose/Throat otoscopic exam Tympanic membrane: bulging 05/23/2017 None Full Exam - General 1994 Ears/Nose/Throat otoscopic exam Tympanic membrane: air- fluid level 05/23/2017 None Full Exam - General 1994 Ears/Nose/Throat oral cavity/pharynx/larynx Overall: oral mucosa clear 05/23/2017 None Full Exam - General 1994 Ears/Nose/Throat oral cavity/pharynx/larynx Overall: oropharyngeal mucosa clear 05/23/2017 None Full Exam - General 1994 Ears/Nose/Throat oral cavity/pharynx/larynx Overall: no masses 05/23/2017 None Full Exam - General 1994 Respiratory auscultation Overall: breath sounds clear bilaterally 05/23/2017 None Full Exam - General 1994 Respiratory respiratory effort/rhythm Overall: no retractions 05/23/2017 None Full Exam - General 1994 Respiratory respiratory effort/rhythm Overall: normal rate 05/23/2017 None Full Exam - General 1994 Cardiovascular auscultation of heart Overall: regular rate 05/23/2017 None Full Exam - General 1994 Cardiovascular auscultation of heart Overall: normal heart sounds 05/23/2017 None Full Exam - General 1994 Cardiovascular auscultation of heart Overall: no murmurs 05/23/2017 None Full Exam - General 1994 Abdomen abdominal exam Overall: no tenderness 05/23/2017 None Full Exam - General 1994 Abdomen abdominal exam Overall: normal bowel sounds 05/23/2017 None Full Exam - General 1994 Lymphatic neck nodes Overall: anterior cervical chain benign 05/23/2017 None Full Exam - General 1994 Lymphatic neck nodes Overall: posterior cervical chain benign 05/23/2017 None Full Exam - General 1994 Musculoskeletal gait and station Overall: normal gait 05/23/2017 None Full Exam - General 1994 Musculoskeletal gait and station Overall: normal station 05/23/2017 None Full Exam - General 1994 Musculoskeletal head and neck Overall: head atraumatic 05/23/2017 None Full Exam - General 1994 Musculoskeletal head and neck Overall: cervical spine benign 05/23/2017 None Full Exam - General 1994 Neurologic deep tendon reflexes Overall: deep tendon reflexes intact 05/23/2017 None Full Exam - General 1994 Neurologic cranial nerves Overall: crainial nerves 2 - 12 grossly intact 05/23/2017 None Full Exam - General 1994 Psychiatric orientation/consciousness Overall: oriented to person, place and time 05/23/2017 None Full Exam - General 1994 Constitutional general appearance Overall: well developed 08/02/2016 None Full Exam - General 1994 Constitutional general appearance Overall: in no acute distress 08/02/2016 None Full Exam - General 1994 Constitutional general appearance Overall: well nourished 08/02/2016 None Full Exam - General 1994 Eyes conjunctiva /eyelids Overall: conjunctiva clear 08/02/2016 None Full Exam - General 1994 Eyes conjunctiva /eyelids Overall: cornea clear 08/02/2016 None Full Exam - General 1994 Eyes conjunctiva /eyelids Overall: eyelids normal 08/02/2016 None Full Exam - General 1994 Eyes pupils and irises Overall: pupils equal, round, reactive to light and accomodation 08/02/2016 None Full Exam - General 1994 Ears/Nose/Throat otoscopic exam Overall: external auditory canals clear 08/02/2016 None Full Exam - General 1994 Ears/Nose/Throat oral cavity/pharynx/larynx Overall: oral mucosa clear 08/02/2016 None Full Exam - General 1994 Ears/Nose/Throat oral cavity/pharynx/larynx Overall: oropharyngeal mucosa clear 08/02/2016 None Full Exam - General 1994 Ears/Nose/Throat oral cavity/pharynx/larynx Overall: no masses 08/02/2016 None Full Exam - General 1994 Respiratory auscultation Overall: breath sounds clear bilaterally 08/02/2016 None Full Exam - General 1994 Respiratory respiratory effort/rhythm Overall: no retractions 08/02/2016 None Full Exam - General 1994 Respiratory respiratory effort/rhythm Overall: normal rate 08/02/2016 None Full Exam - General 1994 Cardiovascular auscultation of heart Overall: regular rate 08/02/2016 None Full Exam - General 1994 Cardiovascular auscultation of heart Overall: normal heart sounds 08/02/2016 None Full Exam - General 1994 Cardiovascular auscultation of heart Overall: no murmurs 08/02/2016 None Full Exam - General 1994 Abdomen abdominal exam Overall: no tenderness 08/02/2016 None Full Exam - General 1994 Abdomen abdominal exam Overall: normal bowel sounds 08/02/2016 None Full Exam - General 1994 Lymphatic neck nodes Overall: anterior cervical chain benign 08/02/2016 None Full Exam - General 1994 Lymphatic neck nodes Overall: posterior cervical chain benign 08/02/2016 None Full Exam - General 1994 Musculoskeletal digits and nails MCPs: third 08/02/2016 None Full Exam - General 1994 Musculoskeletal digits and nails MCPs: nodule 08/02/2016 cyst at the base of 3rd finger Full Exam - General 1994 Musculoskeletal gait and station Overall: normal gait 08/02/2016 None Full Exam - General 1994 Musculoskeletal gait and station Overall: normal station 08/02/2016 None Full Exam - General 1994 Musculoskeletal head and neck Overall: head atraumatic 08/02/2016 None Full Exam - General 1994 Musculoskeletal head and neck Overall: cervical spine benign 08/02/2016 None Full Exam - General 1994 Neurologic deep tendon reflexes Overall: deep tendon reflexes intact 08/02/2016 None Full Exam - General 1994 Neurologic cranial nerves Overall: crainial nerves 2 - 12 grossly intact 08/02/2016 None Full Exam - General 1994 Psychiatric orientation/consciousness Overall: oriented to person, place and time 08/02/2016 None Full Exam - General 1994 Ears/Nose/Throat otoscopic exam Tympanic membrane: bulging 08/02/2016 None Full Exam - General 1994 Ears/Nose/Throat otoscopic exam Tympanic membrane: air- fluid level 08/02/2016 None Full Exam - General 1994 Integument inspection of skin Rash/Lesions: macule 08/02/2016 4th toe on left foot under nail bed, 3rd toe on right foot under nail bed Full Exam - ENT Constitutional general appearance Overall: well nourished 05/17/2016 None Full Exam - ENT Constitutional general appearance Overall: well developed 05/17/2016 None Full Exam - ENT Constitutional general appearance Overall: in no acute distress 05/17/2016 None Full Exam - ENT Ears/Nose/Throat otoscopic exam Overall: external auditory canals normal 05/17/2016 None Full Exam - ENT Ears/Nose/Throat otoscopic exam Overall: tympanic membranes normal 05/17/2016 None Full Exam - ENT Ears/Nose/Throat lips/ teeth/gingiva Overall: benign lips 05/17/2016 None Full Exam - ENT Ears/Nose/Throat oropharynx Posterior Pharynx: clear post nasal drainage 05/17/2016 None Full Exam - ENT Respiratory inspection Overall: no retractions 05/17/2016 None Full Exam - ENT Respiratory inspection Overall: normal rate None Full Exam - ENT Cardiovascular auscultation of heart Rate: normal rate 05/17/2016 None Full Exam - ENT Cardiovascular auscultation of heart Rhythm: regular rhythm 05/17/2016 None Full Exam - ENT Lymphatic palpation of lymph nodes Overall: anterior cervical chain benign 05/17/2016 None Full Exam - ENT Lymphatic palpation of lymph nodes Overall: posterior cervical chain benign 05/17/2016 None Full Exam - ENT Neurologic mood and affect Overall: normal mood 05/17/2016 None Full Exam - ENT Neurologic mood and affect Overall: normal affect 05/17/2016 None Full Exam - ENT Neurologic orientation Overall: oriented to person, place and time 05/17/2016 None Full Exam - ENT Respiratory auscultation Overall: breath sounds clear bilaterally 05/17/2016 None Full Exam - ENT Ears/Nose/Throat oropharynx Oral mucosa: thrush 05/17/2016 None Full Exam - ENT Constitutional general appearance Overall: well nourished 05/02/2016 None Full Exam - ENT Constitutional general appearance Overall: well developed 05/02/2016 None Full Exam - ENT Constitutional general appearance Overall: in no acute distress 05/02/2016 None Full Exam - ENT Ears/Nose/Throat otoscopic exam Overall: external auditory canals normal 05/02/2016 None Full Exam - ENT Ears/Nose/Throat lips/ teeth/gingiva Overall: benign lips 05/02/2016 None Full Exam - ENT Ears/Nose/Throat oropharynx Overall: oral mucosa clear 05/02/2016 None Full Exam - ENT Ears/Nose/Throat oropharynx Posterior Pharynx: clear post nasal drainage 05/02/2016 None Full Exam - ENT Respiratory inspection Overall: no retractions 05/02/2016 None Full Exam - ENT Respiratory inspection Overall: normal rate 10/2016 None Full Exam - ENT Cardiovascular auscultation of heart Rate: normal rate 05/02/2016 None Full Exam - ENT Cardiovascular auscultation of heart Rhythm: regular rhythm 05/02/2016 None Full Exam - ENT Lymphatic palpation of lymph nodes Overall: anterior cervical chain benign 05/02/2016 None Full Exam - ENT Lymphatic palpation of lymph nodes Overall: posterior cervical chain benign 05/02/2016 None Full Exam - ENT Neurologic mood and affect Overall: normal mood 05/02/2016 None Full Exam - ENT Neurologic mood and affect Overall: normal affect 05/02/2016 None Full Exam - ENT Neurologic orientation Overall: oriented to person, place and time 05/02/2016 None Full Exam - ENT Ears/Nose/Throat otoscopic exam Overall: tympanic membranes normal 05/02/2016 None Full Exam - ENT Respiratory auscultation Diffuse: expiratory wheezes 05/02/2016 None Full Exam - General 1994 Constitutional general appearance Overall: well developed 02/02/2016 None Full Exam - General 1994 Constitutional general appearance Overall: in no acute distress 02/02/2016 None Full Exam - General 1994 Constitutional general appearance Overall: well nourished 02/02/2016 None Full Exam - General 1994 Eyes conjunctiva /eyelids Overall: conjunctiva clear 02/02/2016 None Full Exam - General 1994 Eyes conjunctiva /eyelids Overall: cornea clear 02/02/2016 None Full Exam - General 1994 Eyes conjunctiva /eyelids Overall: eyelids normal 02/02/2016 None Full Exam - General 1994 Eyes pupils and irises Overall: pupils equal, round, reactive to light and accomodation 02/02/2016 None Full Exam - General 1994 Ears/Nose/Throat otoscopic exam Overall: external auditory canals clear 02/02/2016 None Full Exam - General 1994 Ears/Nose/Throat otoscopic exam Overall: tympanic membranes clear 02/02/2016 None Full Exam - General 1994 Ears/Nose/Throat oral cavity/pharynx/larynx Overall: oral mucosa clear 02/02/2016 None Full Exam - General 1994 Ears/Nose/Throat oral cavity/pharynx/larynx Overall: oropharyngeal mucosa clear 02/02/2016 None Full Exam - General 1994 Ears/Nose/Throat oral cavity/pharynx/larynx Overall: no masses 02/02/2016 None Full Exam - General 1994 Neck thyroid Size: enlarged gland 12/2015 None Full Exam - General 1994 Respiratory auscultation Overall: breath sounds clear bilaterally 02/02/2016 None Full Exam - General 1994 Respiratory respiratory effort/rhythm Overall: no retractions 02/02/2016 None Full Exam - General 1994 Respiratory respiratory effort/rhythm Overall: normal rate 02/02/2016 None Full Exam - General 1994 Cardiovascular auscultation of heart Overall: regular rate 02/02/2016 None Full Exam - General 1994 Cardiovascular auscultation of heart Overall: normal heart sounds 02/02/2016 None Full Exam - General 1994 Cardiovascular auscultation of heart Overall: no murmurs 02/02/2016 None Full Exam - General 1994 Abdomen abdominal exam Overall: no tenderness 02/02/2016 None Full Exam - General 1994 Abdomen abdominal exam Overall: normal bowel sounds 02/02/2016 None Full Exam - General 1994 Lymphatic neck nodes Overall: anterior cervical chain benign 02/02/2016 None Full Exam - General 1994 Lymphatic neck nodes Overall: posterior cervical chain benign 02/02/2016 None Full Exam - General 1994 Musculoskeletal digits and nails MCPs: third 02/02/2016 None Full Exam - General 1994 Musculoskeletal digits and nails MCPs: nodule 02/02/2016 cyst at the base of 3rd finger Full Exam - General 1994 Musculoskeletal gait and station Overall: normal gait 02/02/2016 None Full Exam - General 1994 Musculoskeletal gait and station Overall: normal station 02/02/2016 None Full Exam - General 1994 Musculoskeletal head and neck Overall: head atraumatic 02/02/2016 None Full Exam - General 1994 Musculoskeletal head and neck Overall: cervical spine benign 02/02/2016 None Full Exam - General 1994 Integument inspection of skin Overall: no rash, lesions 02/02/2016 None Full Exam - General 1994 Neurologic deep tendon reflexes Overall: deep tendon reflexes intact 02/02/2016 None Full Exam - General 1994 Neurologic cranial nerves Overall: crainial nerves 2 - 12 grossly intact 02/02/2016 None Full Exam - General 1994 Psychiatric orientation/consciousness Overall: oriented to person, place and time 02/02/2016 None Full Exam - Dermatology Constitutional general appearance Overall: well nourished 01/02/2016 None Full Exam - Dermatology Constitutional general appearance Overall: well developed 01/02/2016 None Full Exam - Dermatology Constitutional general appearance Overall: in no acute distress 01/02/2016 None Full Exam - Dermatology Constitutional general appearance Overall: of normal body habitus 01/02/2016 None Full Exam - Dermatology Constitutional general appearance Overall: well groomed 01/02/2016 None Full Exam - Dermatology Psychiatric orientation Overall: oriented to person, place and time 01/02/2016 None Full Exam - Dermatology Integument insp & palp - head/face Location: on the scalp 01/02/2016 None Full Exam - Dermatology Integument insp & palp - head/face Lesion: papule 01/02/2016 None Full Exam - General 1994 Constitutional general appearance Overall: well developed 08/04/2015 None Full Exam - General 1994 Constitutional general appearance Overall: in no acute distress 08/04/2015 None Full Exam - General 1994 Constitutional general appearance Overall: well nourished 08/04/2015 None Full Exam - General 1994 Eyes conjunctiva /eyelids Overall: conjunctiva clear 08/04/2015 None Full Exam - General 1994 Eyes conjunctiva /eyelids Overall: cornea clear 08/04/2015 None Full Exam - General 1994 Eyes conjunctiva /eyelids Overall: eyelids normal 08/04/2015 None Full Exam - General 1994 Eyes pupils and irises Overall: pupils equal, round, reactive to light and accomodation 08/04/2015 None Full Exam - General 1994 Ears/Nose/Throat otoscopic exam Overall: external auditory canals clear 08/04/2015 None Full Exam - General 1994 Ears/Nose/Throat otoscopic exam Overall: tympanic membranes clear 08/04/2015 None Full Exam - General 1994 Ears/Nose/Throat oral cavity/pharynx/larynx Overall: oral mucosa clear 08/04/2015 None Full Exam - General 1994 Ears/Nose/Throat oral cavity/pharynx/larynx Overall: oropharyngeal mucosa clear 08/04/2015 None Full Exam - General 1994 Ears/Nose/Throat oral cavity/pharynx/larynx Overall: no masses 08/04/2015 None Full Exam - General 1994 Neck thyroid Size: enlarged gland 02/2016 None Full Exam - General 1994 Respiratory auscultation Overall: breath sounds clear bilaterally 08/04/2015 None Full Exam - General 1994 Respiratory respiratory effort/rhythm Overall: no retractions 08/04/2015 None Full Exam - General 1994 Respiratory respiratory effort/rhythm Overall: normal rate 08/04/2015 None Full Exam - General 1994 Cardiovascular auscultation of heart Overall: regular rate 08/04/2015 None Full Exam - General 1994 Cardiovascular auscultation of heart Overall: normal heart sounds 08/04/2015 None Full Exam - General 1994 Cardiovascular auscultation of heart Overall: no murmurs 08/04/2015 None Full Exam - General 1994 Abdomen abdominal exam Overall: no tenderness 08/04/2015 None Full Exam - General 1994 Abdomen abdominal exam Overall: normal bowel sounds 08/04/2015 None Full Exam - General 1994 Lymphatic neck nodes Overall: anterior cervical chain benign 08/04/2015 None Full Exam - General 1994 Lymphatic neck nodes Overall: posterior cervical chain benign 08/04/2015 None Full Exam - General 1994 Musculoskeletal digits and nails MCPs: third 08/04/2015 None Full Exam - General 1994 Musculoskeletal digits and nails MCPs: nodule 08/04/2015 cyst at the base of 3rd finger Full Exam - General 1994 Musculoskeletal gait and station Overall: normal gait 08/04/2015 None Full Exam - General 1994 Musculoskeletal gait and station Overall: normal station 08/04/2015 None Full Exam - General 1994 Musculoskeletal head and neck Overall: head atraumatic 08/04/2015 None Full Exam - General 1994 Musculoskeletal head and neck Overall: cervical spine benign 08/04/2015 None Full Exam - General 1994 Integument inspection of skin Overall: no rash, lesions 08/04/2015 None Full Exam - General 1994 Neurologic deep tendon reflexes Overall: deep tendon reflexes intact 08/04/2015 None Full Exam - General 1994 Neurologic cranial nerves Overall: crainial nerves 2 - 12 grossly intact 08/04/2015 None Full Exam - General 1994 Psychiatric orientation/consciousness Overall: oriented to person, place and time 08/04/2015 None Full Exam - General 1994 Constitutional general appearance Overall: well developed 06/29/2015 None Full Exam - General 1994 Constitutional general appearance Overall: in no acute distress 06/29/2015 None Full Exam - General 1994 Constitutional general appearance Overall: well nourished 06/29/2015 None Full Exam - General 1994 Eyes conjunctiva /eyelids Overall: conjunctiva clear 06/29/2015 None Full Exam - General 1994 Eyes conjunctiva /eyelids Overall: cornea clear 06/29/2015 None Full Exam - General 1994 Eyes pupils and irises Overall: pupils equal, round, reactive to light and accomodation 06/29/2015 None Full Exam - General 1994 Respiratory auscultation Overall: breath sounds clear bilaterally 06/29/2015 None Full Exam - General 1994 Respiratory respiratory effort/rhythm Overall: no retractions 06/29/2015 None Full Exam - General 1994 Respiratory respiratory effort/rhythm Overall: normal rate 06/29/2015 None Full Exam - General 1994 Cardiovascular extremities Overall: no clubbing 06/29/2015 None Full Exam - General 1994 Cardiovascular auscultation of heart Overall: regular rate 06/29/2015 None Full Exam - General 1994 Cardiovascular auscultation of heart Overall: normal heart sounds 06/29/2015 None Full Exam - General 1994 Musculoskeletal gait and station Overall: normal gait 06/29/2015 None Full Exam - General 1994 Musculoskeletal gait and station Overall: normal station 06/29/2015 None Full Exam - General 1994 Psychiatric orientation/consciousness Overall: oriented to person, place and time 06/29/2015 None Full Exam - General 1994 Psychiatric behavior/psychomotor activity Overall: no tics, normal psychomotor activity 06/29/2015 None Full Exam - General 1994 Psychiatric appearance Overall: well-groomed, good eye contact 06/29/2015 None Full Exam - General 1994 Eyes conjunctiva /eyelids Overall: eyelids normal 06/29/2015 None Full Exam - General 1994 Ears/Nose/Throat otoscopic exam Overall: external auditory canals clear 06/29/2015 None Full Exam - General 1994 Ears/Nose/Throat otoscopic exam Tympanic membrane: air- fluid level 06/29/2015 None Full Exam - General 1994 Ears/Nose/Throat internal nose Sinus tenderness: left maxillary 06/29/2015 None Full Exam - General 1994 Ears/Nose/Throat internal nose Sinus tenderness: right maxillary 06/29/2015 None Full Exam - General 1994 Ears/Nose/Throat internal nose Drainage: clear 06/29/2015 None Full Exam - General 1994 Ears/Nose/Throat internal nose Drainage: yellow 06/29/2015 None Full Exam - General 1994 Ears/Nose/Throat lips/teeth/gingiva Overall: benign lips 06/29/2015 None Full Exam - General 1994 Ears/Nose/Throat oral cavity/pharynx/larynx Overall: oral mucosa clear 06/29/2015 None Full Exam - General 1994 Ears/Nose/Throat oral cavity/pharynx/larynx Posterior Pharynx: clear post nasal drainage 06/29/2015 None Full Exam - General 1994 Constitutional general appearance Overall: well nourished 05/19/2015 None Full Exam - General 1994 Constitutional general appearance Overall: well developed 05/19/2015 None Full Exam - General 1994 Constitutional general appearance Overall: in no acute distress 05/19/2015 None Full Exam - General 1994 Eyes pupils and irises Overall: pupils equal, round, reactive to light and accomodation 05/19/2015 None Full Exam - General 1994 Eyes conjunctiva /eyelids Eyelid: edema 05/19/2015 None Full Exam - General 1994 Eyes conjunctiva /eyelids Eyelid: erythema 05/19/2015 None Full Exam - General 1994 Eyes conjunctiva /eyelids Overall: cornea clear 05/19/2015 None Full Exam - General 1994 Eyes conjunctiva /eyelids Overall: conjunctiva clear 05/19/2015 None Full Exam - General 1994 Respiratory auscultation Overall: breath sounds clear bilaterally 05/19/2015 None Full Exam - General 1994 Respiratory respiratory effort/rhythm Overall: normal rate 05/19/2015 None Full Exam - General 1994 Respiratory respiratory effort/rhythm Overall: no retractions 05/19/2015 None Full Exam - General 1994 Cardiovascular auscultation of heart Overall: regular rate 05/19/2015 None Full Exam - General 1994 Cardiovascular auscultation of heart Overall: normal heart sounds 05/19/2015 None Full Exam - General 1994 Cardiovascular auscultation of heart Overall: no murmurs 05/19/2015 None Full Exam - General 1994 Cardiovascular extremities Overall: no clubbing 05/19/2015 None Full Exam - General 1994 Musculoskeletal gait and station Overall: normal station 05/19/2015 None Full Exam - General 1994 Musculoskeletal gait and station Overall: normal gait 05/19/2015 None Full Exam - General 1994 Integument inspection of skin Dermatitis: dryness/ flaking 05/19/2015 None Full Exam - General 1994 Integument inspection of skin Dermatitis: erythema 05/19/2015 None Full Exam - General 1994 Integument inspection of skin Location: face 05/19/2015 BILATERAL EYELIDS Full Exam - General 1994 Psychiatric orientation/consciousness Overall: oriented to person, place and time 05/19/2015 None Full Exam - General 1994 Psychiatric behavior/psychomotor activity Overall: no tics, normal psychomotor activity 05/19/2015 None Full Exam - General 1994 Psychiatric appearance Overall: well-groomed, good eye contact 05/19/2015 None Full Exam - General 1994 Constitutional general appearance Overall: well developed 12/28/2014 None Full Exam - General 1994 Constitutional general appearance Overall: in no acute distress 12/28/2014 None Full Exam - General 1994 Constitutional general appearance Overall: well nourished 12/28/2014 None Full Exam - General 1994 Eyes conjunctiva /eyelids Overall: conjunctiva clear 12/28/2014 None Full Exam - General 1994 Eyes conjunctiva /eyelids Overall: cornea clear 12/28/2014 None Full Exam - General 1994 Eyes conjunctiva /eyelids Overall: eyelids normal 12/28/2014 None Full Exam - General 1994 Eyes pupils and irises Overall: pupils equal, round, reactive to light and accomodation 12/28/2014 None Full Exam - General 1994 Ears/Nose/Throat otoscopic exam Overall: external auditory canals clear 12/28/2014 None Full Exam - General 1994 Ears/Nose/Throat otoscopic exam Overall: tympanic membranes clear 12/28/2014 None Full Exam - General 1994 Ears/Nose/Throat oral cavity/pharynx/larynx Overall: oral mucosa clear 12/28/2014 None Full Exam - General 1994 Ears/Nose/Throat oral cavity/pharynx/larynx Overall: oropharyngeal mucosa clear 12/28/2014 None Full Exam - General 1994 Ears/Nose/Throat oral cavity/pharynx/larynx Overall: no masses 12/28/2014 None Full Exam - General 1994 Neck thyroid Size: enlarged gland 08/2014 None Full Exam - General 1994 Respiratory auscultation Overall: breath sounds clear bilaterally 12/28/2014 None Full Exam - General 1994 Respiratory respiratory effort/rhythm Overall: no retractions 12/28/2014 None Full Exam - General 1994 Respiratory respiratory effort/rhythm Overall: normal rate 12/28/2014 None Full Exam - General 1994 Cardiovascular auscultation of heart Overall: regular rate 12/28/2014 None Full Exam - General 1994 Cardiovascular auscultation of heart Overall: normal heart sounds 12/28/2014 None Full Exam - General 1994 Cardiovascular auscultation of heart Overall: no murmurs 12/28/2014 None Full Exam - General 1994 Abdomen abdominal exam Overall: no tenderness 12/28/2014 None Full Exam - General 1994 Abdomen abdominal exam Overall: normal bowel sounds 12/28/2014 None Full Exam - General 1994 Lymphatic neck nodes Overall: anterior cervical chain benign 12/28/2014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 opposite hand per nostril to spray in the nasal steroid allergy spray. Thrush - recent abx use - will send RX Ongoing cough - will have pt take his PPI daily, will treat for allergies 05/17/2016 Appointment: Rose Ferrer WPtel: [address] [place] [address] (15 min) Moderate 05/17/2016 Patient Education: Patient Medication Summary Completed 05/17/2016 Patient Education: Obesity Completed 05/17/2016 Visit Plan: Bronchitis - acute case of bronchitis identified. Pt has been given antibiotics, steroids as appropriate, and pt has been instructed to call if symptoms are not improved, or if symptoms acutely worsen. 05/02/2016 Visit Plan: Bronchitis - acute case of bronchitis identified. Pt has been given antibiotics, steroids as appropriate, and pt has been instructed to call if symptoms are not improved, or if symptoms acutely worsen. 05/02/2016 Appointment: Rose Ferrer WPtel: [facility] (15 min) Moderate 05/02/2016 Patient Education: Patient Medication Summary Completed 05/02/2016 Visit Plan: Well Adult - pt was counseled about diet, exercise, and encouraged to follow a heart healthy diet and increase activity level. The patient was instructed to RTC yearly for well adult exams and PRN for acute illnesses. The pt was also instructed to have yearly labs for check of cholesterol, thyroid, chem panel, CBC, and renal functioning. Hypertension - well controlled - continue with current medications, continue with no added salt diet. Pt has been encouraged to exercise daily. The pt has been advised to call the office if there are any acute concerns about change in blood pressure readings at home. Hyperlipidemia - pt has been counseled about appropriate diet , exercise, and need for low fat food choices. I have discussed the need for the patient to take medications as prescribed. If the patient has negative side effects from the medication, they are to CALL the office and not abruptly discontinue the medication without discussion with a practitioner in the office. We will check labs in 3-6 months for follow up on the patient's chronic medical problem and to assure normal liver response to medications. 02/02/2016 Visit Plan: Well Adult - pt was counseled about diet, exercise, and encouraged to follow a heart healthy diet and increase activity level. The patient was instructed to RTC yearly for well adult exams and PRN for acute illnesses. The pt was also instructed to have yearly labs for check of cholesterol, thyroid, chem panel, CBC, and renal functioning. Hypertension - well controlled - continue with current medications, continue with no added salt diet. Pt has been encouraged to exercise daily. The pt has been advised to call the office if there are any acute concerns about change in blood pressure readings at home. Hyperlipidemia - pt has been counseled about appropriate diet , exercise, and need for low fat food choices. I have discussed the need for the patient to take medications as prescribed. If the patient has negative side effects from the medication, they are to CALL the office and not abruptly discontinue the medication without discussion with a practitioner in the office. We will check labs in 3-6 months for follow up on the patient's chronic medical problem and to assure normal liver response to medications. 02/02/2016 Appointment: [facility] [address] [id number] [place] (30 min) Complex 02/02/2016 Patient Education: Patient Medication Summary Completed 02/02/2016 Visit Plan: Wkltdbiglgbd-dzuxj-fhupvpa of pustule today in the office-will treat as indicated-patient verbalized understanding of plan. 01/02/2016 Visit Plan: Rfbgllhdzbnr-levch-nohhrlg of pustule today in the office-will treat as indicated-patient verbalized understanding of plan. 01/02/2016 Appointment: Mon[facility] Berkowitz [facility] [address] [id number] [place] (30 min) Complex 01/02/2016 Patient Education: Patient Medication Summary Completed 01/02/2016 Visit Plan: Hypertension - well controlled - continue with current medications, continue with no added salt diet. Pt has been encouraged to exercise daily. The pt has been advised to call the office if there are any acute concerns about change in blood pressure readings at home. 08/04/2015 Appointment: Laura Hurt [facility] [address] [id number] (30 min) Complex 08/04/2015 Patient Education: Patient Medication Summary Completed 08/04/2015 Patient Education: Obesity Completed 08/04/2015 Appointment: (30 min) Complex 07/05/2015 Visit Plan: Allergies - chronic - recommended pt to use allergy medication as prescribed. Pt has been counseled as to the appropriate use of the medication. Pt to call if allergy symptoms are not controlled with the medication. If using nasal spray, instructions as follows: Nasal spray- use twice daily, one spray per nostril twice daily, after 30 minutes, rinse out nose with saline spray.. Use opposite hand per nostril to spray in the nasal steroid allergy spray. Sinusitis - Pt has acute infection - pain in face, maxillary region, Pt informed to use decongestant, RX given to patient, sinus rinses also recommended. Call if symptoms do not show improvement. 06/29/2015 Appointment: (15 min) Moderate 06/29/2015 Patient Education: Patient Medication Summary Completed 06/29/2015 Patient Education: Obesity Completed 06/29/2015 Visit Plan: Chronic Back pain - the patient was counseled to always first attempt to use modalities other than pain medication for alleviation of the muscle spasms and pain. The patient was also encouraged to continue with back exercises as previously directed. Pt is to use pain medication as directed. If pain medications are used inappropriately or early refills are requested, the patient understands that is a breech of trust/ contract and could result in the patient's termination from this medical practice. Erythema of eyelids-RX sent to patient's pharmacy and instructed on use-recommend washing with cetaphil-start anti histamine daily for allergies and call in 2 weeks with update on symptoms 05/19/2015 Appointment: (30 min) Complex 05/19/2015 Patient Education: Patient Medication Summary Completed 05/19/2015 Visit Plan: Hypothyroidism - pt with chronic hypothyroidism , continue with current medication, will monitor pt to signs or symptoms of lack of adequate supplementation. Pt is to continue with current dose of medication unless directed otherwise. Check labs at regular intervals wither q 3 months or q 6 months based on previous levels of control. Hyperlipidemia - pt has been counseled about appropriate diet, exercise, and need for low fat food choices. I have discussed the need for the patient to take medications as prescribed. If the patient has negative side effects from the medication, they are to CALL the office and not abruptly discontinue the medication without discussion with a practitioner in the office. We will check labs in 3-6 months for follow up on the patient's chronic medical problem and to assure normal liver response to medications. Cyst of right 3rd finger-use pennsaid to area- call if painful-increasing in size or new symptoms develop 12/28/2014 Appointment: (15 min) Moderate 12/28/2014 Patient Education: Patient Medication Summary Completed 12/28/2014 Visit Plan: Well Adult - pt was counseled about diet, exercise, and encouraged to follow a heart healthy diet and increase activity level. The patient was instructed to RTC yearly for well adult exams and PRN for acute illnesses. The pt was also instructed to have yearly labs for check of cholesterol, thyroid, chem panel, CBC, and renal functioning. Hypothyroidism - pt with chronic hypothyroidism, continue with current medication, will monitor pt to signs or symptoms of lack of adequate supplementation. Pt is to continue with current dose of medication unless directed otherwise. Check labs at regular intervals wither q 3 months or q 6 months based on previous levels of control. Chronic Back pain - the patient was counseled to always first attempt to use modalities other than pain medication for alleviation of the muscle spasms and pain. The patient was also encouraged to continue with back exercises as previously directed. Pt is to use pain medication as directed. If pain medications are used inappropriately or early refills are requested, the patient understands that is a breech of trust/contract and could result in the patient's termination from this medical practice. 08/12/2014 Appointment: (S) New Patient 08/12/2014 Patient Education: Patient Medication Summary Completed 08/12/2014 Appointment: (S) New Patient 08/10/2014 Referral: Ricardo Guzman 05/28 Referral info faxed. 05/29 Referral info received. They have called and left a message for him to call back to schedule. Appointment Requested Referral: Ricardo Guzman Referral Appointment Requested Instructions Comment carbon fiber arch support spray anti-persperant cuturelle - probiotic - over the counter supplement - take daily . Hypertension - well controlled - continue with current medications, continue with no added salt diet. Pt has been encouraged to exercise daily. The pt has been advised to call the office if there are any acute concerns about change in blood pressure readings at home. . Hypertension - well controlled - continue with current medications, continue with no added salt diet. Pt has been encouraged to exercise daily. The pt has been advised to call the office if there are any acute concerns about change in blood pressure readings at home. Hyperlipidemia - pt has been counseled about appropriate diet, exercise, and need for low fat food choices. I have discussed the need for the patient to take medications as prescribed. If the patient has negative side effects from the medication, they are to CALL the office and not abruptly discontinue the medication without discussion with a practitioner in the office. We will check labs in 3-6 months for follow up on the patient's chronic medical problem and to assure normal liver response to medications. Hypothyroidism - pt with chronic hypothyroidism, continue with current medication, will monitor pt to signs or symptoms of lack of adequate supplementation. Pt is to continue with current dose of medication unless directed otherwise. Check labs at regular intervals wither q 3 months or q 6 months based on previous levels of control. Knee pain - chronic intermittent pain - worse with specific activities - recommended only as needed use of the hydrocodone. Prevacid - daily in the morning for 2 weeks Zyrtec allergy medicine - 1 daily for 2 weeks Nystatin Swish and Swallow. . Allergies - chronic - recommended pt to use allergy medication as prescribed. Pt has been counseled as to the appropriate use of the medication. Pt to call if allergy symptoms are not controlled with the medication. If using nasal spray, instructions as follows: Nasal spray- use twice daily, one spray per nostril twice daily, after 30 minutes, rinse out nose with saline spray.. Use opposite hand per nostril to spray in the nasal steroid allergy spray. Thrush - recent abx use - will send RX Ongoing cough - will have pt take his PPI daily, will treat for allergies . Bronchitis - acute case of bronchitis identified. Pt has been given antibiotics, steroids as appropriate, and pt has been instructed to call if symptoms are not improved, or if symptoms acutely worsen. . Bronchitis - acute case of bronchitis identified. Pt has been given antibiotics, steroids as appropriate, and pt has been instructed to call if symptoms are not improved, or if symptoms acutely worsen. . Hypothyroidism - pt with chronic hypothyroidism, continue with current medication, will monitor pt to signs or symptoms of lack of adequate supplementation. Pt is to continue with current dose of medication unless directed otherwise. Check labs at regular intervals wither q 3 months or q 6 months based on previous levels of control. Hyperlipidemia - pt has been counseled about appropriate diet, exercise, and need for low fat food choices. I have discussed the need for the patient to take medications as prescribed. If the patient has negative side effects from the medication, they are to CALL the office and not abruptly discontinue the medication without discussion with a practitioner in the office. We will check labs in 3-6 months for follow up on the patient's chronic medical problem and to assure normal liver response to medications. Cyst of right 3rd finger-use pennsaid to area-call if painful-increasing in size or new symptoms develop . Well Adult - pt was counseled about diet, exercise, and encouraged to follow a heart healthy diet and increase activity level. The patient was instructed to RTC yearly for well adult exams and PRN for acute illnesses. The pt was also instructed to have yearly labs for check of cholesterol, thyroid, chem panel, CBC, and renal functioning. Hypertension - well controlled - continue with current medications, continue with no added salt diet. Pt has been encouraged to exercise daily. The pt has been advised to call the office if there are any acute concerns about change in blood pressure readings at home. Hyperlipidemia - pt has been counseled about appropriate diet, exercise, and need for low fat food choices. I have discussed the need for the patient to take medications as prescribed. If the patient has negative side effects from the medication, they are to CALL the office and not abruptly discontinue the medication without discussion with a practitioner in the office. We will check labs in 3-6 months for follow up on the patient's chronic medical problem and to assure normal liver response to medications. . Well Adult - pt was counseled about diet, exercise, and encouraged to follow a heart healthy diet and increase activity level. The patient was instructed to RTC yearly for well adult exams and PRN for acute illnesses. The pt was also instructed to have yearly labs for check of cholesterol, thyroid, chem panel, CBC, and renal functioning. Hypertension - well controlled - continue with current medications, continue with no added salt diet. Pt has been encouraged to exercise daily. The pt has been advised to call the office if there are any acute concerns about change in blood pressure readings at home. Hyperlipidemia - pt has been counseled about appropriate diet, exercise, and need for low fat food choices. I have discussed the need for the patient to take medications as prescribed. If the patient has negative side effects from the medication, they are to CALL the office and not abruptly discontinue the medication without discussion with a practitioner in the office. We will check labs in 3-6 months for follow up on the patient's chronic medical problem and to assure normal liver response to medications. . Nggtgsszcgkl-hrsju-yhozmvg of pustule today in the office -will treat as indicated-patient verbalized understanding of plan. . Rdttgdjrdsmq-vgukv-lxgxrct of pustule today in the office -will treat as indicated-patient verbalized understanding of plan. . Allergies - chronic - recommended pt to use allergy medication as prescribed. Pt has been counseled as to the appropriate use of the medication. Pt to call if allergy symptoms are not controlled with the medication. If using nasal spray, instructions as follows: Nasal spray- use twice daily, one spray per nostril twice daily, after 30 minutes, rinse out nose with saline spray.. Use opposite hand per nostril to spray in the nasal steroid allergy spray. Sinusitis - Pt has acute infection - pain in face, maxillary region, Pt informed to use decongestant, RX given to patient, sinus rinses also recommended. Call if symptoms do not show improvement. . Hypertension - well controlled - continue with current medications, continue with no added salt diet. Pt has been encouraged to exercise daily. The pt has been advised to call the office if there are any acute concerns about change in blood pressure readings at home. Hypothyroidism - pt with chronic hypothyroidism, continue with current medication, will monitor pt to signs or symptoms of lack of adequate supplementation. Pt is to continue with current dose of medication unless directed otherwise. Check labs at regular intervals wither q 3 months or q 6 months based on previous levels of control. Hyperlipidemia - pt has been counseled about appropriate diet, exercise, and need for low fat food choices. I have discussed the need for the patient to take medications as prescribed. If the patient has negative side effects from the medication, they are to CALL the office and not abruptly discontinue the medication without discussion with a practitioner in the office. We will check labs in 3-6 months for follow up on the patient's chronic medical problem and to assure normal liver response to medications. dark macular lesions under nails - pt to call if not improved in one month . Cellulitis - continue with oral antibiotics as previously directed, return to clinic as previously directed, call for acute change in symptoms, worsening redness, warmth, discharge. we will call dr. guzman for colonoscopy - to be done sometime after the first week of june . Well Adult - pt was counseled about diet, exercise, and encouraged to follow a heart healthy diet and increase activity level. The patient was instructed to RTC yearly for well adult exams and PRN for acute illnesses. The pt was also instructed to have yearly labs for check of cholesterol, thyroid, chem panel, CBC, and renal functioning. Hypertension - well controlled - continue with current medications, continue with no added salt diet. Pt has been encouraged to exercise daily. The pt has been advised to call the office if there are any acute concerns about change in blood pressure readings at home. Hypothyroidism - pt with chronic hypothyroidism, continue with current medication, will monitor pt to signs or symptoms of lack of adequate supplementation. Pt is to continue with current dose of medication unless directed otherwise. Check labs at regular intervals wither q 3 months or q 6 months based on previous levels of control. referral to dr guzman for colonoscopy . Chronic Back pain - the patient was counseled to always first attempt to use modalities other than pain medication for alleviation of the muscle spasms and pain. The patient was also encouraged to continue with back exercises as previously directed. Pt is to use pain medication as directed. If pain medications are used inappropriately or early refills are requested, the patient understands that is a breech of trust/contract and could result in the patient's termination from this medical practice. Erythema of eyelids-RX sent to patient's pharmacy and instructed on use- recommend washing with cetaphil-start anti histamine daily for allergies and call in 2 weeks with update on symptoms . Well Adult - pt was counseled about diet, exercise, and encouraged to follow a heart healthy diet and increase activity level. The patient was instructed to RTC yearly for well adult exams and PRN for acute illnesses. The pt was also instructed to have yearly labs for check of cholesterol, thyroid, chem panel, CBC, and renal functioning. Hypothyroidism - pt with chronic hypothyroidism, continue with current medication, will monitor pt to signs or symptoms of lack of adequate supplementation. Pt is to continue with current dose of medication unless directed otherwise. Check labs at regular intervals wither q 3 months or q 6 months based on previous levels of control. Chronic Back pain - the patient was counseled to always first attempt to use modalities other than pain medication for alleviation of the muscle spasms and pain. The patient was also encouraged to continue with back exercises as previously directed. Pt is to use pain medication as directed. If pain medications are used inappropriately or early refills are requested, the patient understands that is a breech of trust/contract and could result in the patient's termination from this medical practice.
--- OUTSIDE RECORDS SUMMARY | 2018-07-17 11:23 | XMS REPORT | CCD ---
Author Author Monae Berkowitz MD, [facility] Address [address] [place] [address] Phone Care Team Providers Care [employer] Reading Teacher Name Role Phone PP Unavailable CCM Unavailable Summary Purpose Interface Exchange Insurance Providers Payer name Policy type / Coverage type Covered green party ID Effective Begin Date Effective End Date Blue Cross Blue [facility] Blue Cross/Blue Shield [id number] Unknown Unknown Family history Mother Diagnosis Age At Onset Coronary Artery Disease Unknown Breast cancer Unknown Father Diagnosis Age At Onset Hypertension Unknown Cancer Unknown Social History Social History Element Codes Description Effective Dates Frequency of drinks SNOMED CT: 116251066 10 drinks per week -varies- more on weekends 08/02/2016 Employment Unknown 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 Marital status Unknown Single 08/12/2014 Number of children Unknown 0 08/12/[address]: 3886099 Quit less than 10 years ago 200608/12/[address]: 390187 Currently drinks alcohol 08/12/2014 Allergies, Adverse Reactions, [...] Start Date Stop Date Status Fill Instructions Flagyl 500 mg tablet RxNorm: 696897 1 Tablet(s) PO TID 201805/07/2018 Inactive Cipro 500 mg tablet RxNorm: 913169 1 Tablet(s) PO BID 201805/04/2018 Inactive Levothroid 175 mcg tablet RxNorm: 791860 TAKE ONE TABLET BY MOUTH DAILY ON EMPTY STOMACH 04/18/2018 10/14/2018 Active bisoprolol 5 mg-hydrochlorothiazide 6.25 mg tablet RxNorm: 241163 TAKE ONE TABLET BY MOUTH DAILY 04/18/2018 10/14/2018 Active Lipitor 80 mg tablet RxNorm: 980463 TAKE ONE TABLET BY MOUTH EVERY NIGHT AT BEDTIME 03/24/2018 07/21/2018 Active Penlac 8 % topical solution RxNorm: 259165 APPLY TO AFFECTED AREA(S) DAILY 03/24/2018 04/12/2018 Inactive alprazolam 0.5 mg tablet RxNorm: 826967 1/2 Tablet(s) PO BID as needed 02/18/2018 04/18/2018 Inactive acyclovir 400 mg tablet RxNorm: 153261 TAKE ONE TABLET BY MOUTH DAILY 02/18/2018 05/14/2018 Inactive acyclovir 400 mg tablet RxNorm: 540081 TAKE ONE TABLET BY MOUTH DAILY 11/11/2017 02/08/2018 Inactive bisoprolol 5 mg-hydrochlorothiazide 6.25 mg tablet RxNorm: 510539 TAKE ONE TABLET BY MOUTH DAILY 09/30/2017 03/28/2018 Inactive Lipitor 80 mg tablet RxNorm: 601712 TAKE ONE TABLET BY MOUTH EVERY NIGHT AT BEDTIME 09/30/2017 02/26/2018 Inactive Levothroid 175 mcg tablet RxNorm: 953078 Tablet(s) TAKE ONE TABLET BY MOUTH DAILY ON AN EMPTY STOMACH . 09/30/20172018 Inactive Bactrim DS 800 mg-160 mg tablet RxNorm: 847532 1 Tablet(s) PO BID 09/19/2017 09/25/2017 Inactive alprazolam 0.5 mg tablet RxNorm: 327470 1/2 Tablet(s) PO BID as needed 07/24/2017 09/20/2017 Inactive Zithromax Z-Bassam 250 mg tablet RxNorm: 638222 1 Tablet(s) PO UD 06/17/2017 07/23/2017 Inactive z pack as directed Levothroid 175 mcg tablet RxNorm: 497575 TAKE ONE TABLET BY MOUTH DAILY ON AN EMPTY STOMACH . NEED TO REPEAT LAB FOR TSH AND FREE T4 201708/31/2017 Inactive gemfibrozil 600 mg tablet RxNorm: 824850 1 Tablet(s) PO BID 03/201702/16/2018 Inactive Penlac 8 % topical solution RxNorm: 269780 1 Application TOP daily 05/23/2017 06/21/2017 Inactive ketoconazole 2 % topical cream RxNorm: 441156 1 Application TOP BID 05/23/2017 06/05/2017 Inactive Cipro 500 mg tablet RxNorm: 661847 1 Tablet(s) PO BID 201705/30/2017 Inactive Flagyl 500 mg tablet RxNorm: 643234 1 Tablet(s) PO TID 201705/30/2017 Inactive acyclovir 400 mg tablet RxNorm: 962623 TAKE ONE TABLET BY MOUTH DAILY 04/26/2017 10/22/2017 Inactive bisoprolol 5 mg-hydrochlorothiazide 6.25 mg tablet RxNorm: 298010 TAKE ONE TABLET BY MOUTH DAILY 03/11/2017 09/06/2017 Inactive Levothroid 175 mcg tablet RxNorm: 780518 TAKE ONE TABLET BY MOUTH DAILY ON AN EMPTY STOMACH . NEED TO REPEAT LAB FOR TSH AND FREE T4 201606/02/2017 Inactive Lipitor 80 mg tablet RxNorm: 961486 Tablet(s) PO TAKE ONE TABLET BY MOUTH EVERY NIGHT AT BEDTIME 12/24/2016 11/26/2017 Inactive Levothroid 175 mcg tablet RxNorm: 888154 TAKE ONE TABLET BY MOUTH DAILY ON AN EMPTY STOMACH . NEED TO REPEAT LAB FOR TSH AND FREE T4 201603/10/2017 Inactive hydrocodone 7.5 mg-acetaminophen 325 mg tablet RxNorm: 145384 1 Tablet(s) PO Q6 PRN 11/06/2016 12/05/2016 Inactive [SAVINGS FOR NON-COVERED DRUGS -- BIN:[id number], PCN: ASPROD1, Group: XXXXX, ID# [id number], Questions: . THIS IS NOT INSURANCE.] Soma 350 mg tablet RxNorm: 747213 1 Tablet(s) PO TID as needed 11/06/2016 No Stop Date Active alprazolam 0.5 mg tablet RxNorm: 786582 1/2 Tablet(s) PO BID as needed 10/05/2016 11/26/2017 Inactive Lipitor 80 mg tablet RxNorm: 784193 Tablet(s) PO TAKE ONE TABLET BY MOUTH EVERY NIGHT AT BEDTIME 09/04/2016 12/23/2016 Inactive Lipitor 40 mg tablet RxNorm: 926640 TAKE ONE TABLET BY MOUTH EVERY NIGHT AT BEDTIME 09/04/2016 09/03/2016 Inactive acyclovir 400 mg tablet RxNorm: 980266 TAKE ONE TABLET BY MOUTH DAILY 08/23/2016 02/18/2017 Inactive bisoprolol 5 mg-hydrochlorothiazide 6.25 mg tablet RxNorm: 407204 TAKE ONE TABLET BY MOUTH DAILY 08/23/2016 02/18/2017 Inactive Levothroid 175 mcg tablet RxNorm: 928047 Tablet(s) TAKE ONE TABLET BY MOUTH DAILY 08/22/2016 11/19/2016 Inactive Needs to repeat TSH et Free T4 labs acyclovir 400 mg tablet RxNorm: 969698 TAKE ONE TABLET BY MOUTH DAILY 08/21/2016 08/22/2016 Inactive prednisone 10 mg tablet RxNorm: 103741 Tablet(s) PO UD dispense a medrol dose pack 08/10/2016 07/23/2017 Inactive 6,5,4,3,2,1 prednisone 10 mg tablet RxNorm: 733827 Tablet(s) PO UD dispense a medrol dose pack 07/30/2016 08/09/2016 Inactive 6,5,4,3,2,1 cefdinir 300 mg capsule RxNorm: 384154 1 Capsule(s) PO BID 10/201608/08/2016 Inactive cefdinir 300 mg capsule RxNorm: 353049 1 Capsule(s) PO BID 10/201607/29/2016 Inactive Lipitor 40 mg tablet RxNorm: 405396 TAKE ONE TABLET BY MOUTH EVERY NIGHT AT BEDTIME 06/25/2016 09/03/2016 Inactive nystatin 100,000 unit/mL oral suspension RxNorm: 462746 5 Milliliter(s) PO TID 05/17/2016 05/21/2016 Inactive Zyrtec 10 mg tablet RxNorm: 5832860 1 Tablet(s) PO daily 05/1706/15/2016 Inactive Levothroid 175 mcg tablet RxNorm: 539724 TAKE ONE TABLET BY MOUTH DAILY 05/16/2016 08/13/2016 Inactive Levaquin 750 mg tablet RxNorm: 393534 1 Tablet(s) PO daily 05/09/2016 Inactive Levaquin 750 mg tablet RxNorm: 249810 1 Tablet(s) PO daily 05/14/2016 Inactive Phenergan-Codeine 6.25 mg-10 mg/5 mL syrup RxNorm: 818963 5-10 Milliliter(s) PO Q6 as needed cough 05/02/2016 No Stop Date Active prednisone 10 mg tablet RxNorm: 426914 Tablet(s) PO UD 201607/29/2016 Inactive 6,5,4,3,2,1 Kenalog 40 mg/mL suspension for injection RxNorm: 9807587 Milliliter(s) Inj 05/02/2016 05/02/2016 Inactive Phenergan-Codeine 6.25 mg-10 mg/5 mL syrup RxNorm: 083169 5-10 Milliliter(s) PO Q6 as needed cough 04/25/2016 05/01/2016 Inactive Zithromax Z-Bassam 250 mg tablet RxNorm: 075714 1 Tablet(s) PO UD 04/25/2016 07/29/2016 Inactive z pack as directed acyclovir 400 mg tablet RxNorm: 304281 TAKE ONE TABLET BY MOUTH DAILY 04/10/2016 07/08/2016 Inactive Zetia 10 mg tablet RxNorm: 186467 1 Tablet(s) PO daily 201505/22/2017 Inactive Zetia 10 mg tablet RxNorm: 818942 1 Tablet(s) PO daily 201503/06/2016 Inactive Lipitor 40 mg tablet RxNorm: 639160 Tablet(s) PO TAKE ONE TABLET BY MOUTH EVERY NIGHT AT BEDTIME 03/07/2016 06/24/2016 Inactive Patient is requesting 90 days supply Diflucan 150 mg tablet RxNorm: 403553 1 Tablet(s) PO daily 01/11/2016 Inactive Diflucan 150 mg tablet RxNorm: 491649 1 Tablet(s) PO daily 01/04/2016 Inactive hydrocodone 7.5 mg-acetaminophen 325 mg tablet RxNorm: 702303 1 Tablet(s) PO Q6 PRN 12/28/2015 01/26/2016 Inactive [SAVINGS FOR NON-COVERED DRUGS -- BIN:[id number], PCN: ASPROD1, Group: XXXXX, ID# [id number], Questions: . THIS IS NOT INSURANCE.] alprazolam 0.5 mg tablet RxNorm: 977216 1/2 Tablet(s) PO BID as needed 11/30/2015 10/04/2016 Inactive Levothroid 175 mcg tablet RxNorm: 307570 Tablet(s) TAKE ONE TABLET BY MOUTH DAILY 10/26/2015 04/22/2016 Inactive hydrocodone 7.5 mg-acetaminophen 325 mg tablet RxNorm: 260453 1 Tablet(s) PO Q6 PRN 08/30/2015 09/28/2015 Inactive [SAVINGS FOR NON-COVERED DRUGS -- BIN:388909, PCN: ASPROD1, Group: XXXXX, ID# [id number], Questions: . THIS IS NOT INSURANCE.] Ventolin HFA 90 mcg/actuation aerosol inhaler RxNorm: 833503 2 INH PRN dyspnea 08/04/2015 No Stop Date Active bisoprolol 5 mg-hydrochlorothiazide 6.25 mg tablet RxNorm: 165007 TAKE ONE TABLET BY MOUTH DAILY 07/11/2015 01/06/2016 Inactive Patient is requesting 90 days supply bisoprolol 5 mg-hydrochlorothiazide 6.25 mg tablet RxNorm: 426299 TAKE ONE TABLET BY MOUTH DAILY 07/11/2015 01/06/2016 Inactive Lipitor 10 mg tablet RxNorm: 524906 TAKE ONE TABLET BY MOUTH EVERY NIGHT AT BEDTIME 07/11/2015 01/06/2016 Inactive Patient is requesting 90 days supply Lipitor 10 mg tablet RxNorm: 769622 TAKE ONE TABLET BY MOUTH EVERY NIGHT AT BEDTIME 07/11/2015 05/13/2016 Inactive acyclovir 400 mg tablet RxNorm: 390112 1 Tablet(s) PO daily 08/22/2016 Inactive acyclovir 400 mg tablet RxNorm: 889457 1 Tablet(s) PO daily 07/10/2015 Inactive Zithromax Z-Bassam 250 mg tablet RxNorm: 161676 Tablet(s) PO UD 08/03/2015 Inactive acyclovir 400 mg tablet RxNorm: 583071 1 Tablet(s) PO daily 08/201507/05/2015 Inactive meloxicam 15 mg tablet RxNorm: 237580 TAKE ONE TABLET BY MOUTH DAILY 06/27/2015 11/23/2015 Inactive triamcinolone acetonide 0.1 % topical cream RxNorm: 9702970 1 Application TOP BID 05/19/2015 06/01/2015 Inactive apply very thin layer as directed hydrocodone 7.5 mg-acetaminophen 325 mg tablet RxNorm: 438684 1 Tablet(s) PO Q6 PRN 05/19/2015 08/29/2015 Inactive [SAVINGS FOR NON-COVERED DRUGS -- BIN:787043, PCN: ASPROD1, Group: XXXXX, ID# [id number], Questions: . THIS IS NOT INSURANCE.] Cipro 500 mg tablet RxNorm: 453603 1 Tablet(s) PO BID 201504/20/2015 Inactive Cipro 500 mg tablet RxNorm: 380612 1 Tablet(s) PO BID 201504/30/2015 Inactive Flagyl 500 mg tablet RxNorm: 683053 1 Tablet(s) PO TID 201504/30/2015 Inactive Flagyl 500 mg tablet RxNorm: 725539 1 Tablet(s) PO TID 201504/20/2015 Inactive bisoprolol 5 mg-hydrochlorothiazide 6.25 mg tablet RxNorm: 701464 1 Tablet(s) PO daily 04/21/2015 07/10/2015 Inactive Levothroid 175 mcg tablet RxNorm: 773312 TAKE ONE TABLET BY MOUTH DAILY 04/18/2015 10/14/2015 Inactive hydrocodone 7.5 mg-acetaminophen 325 mg tablet RxNorm: 775672 1 Tablet(s) PO Q6 PRN 04/04/2015 05/18/2015 Inactive [SAVINGS FOR NON-COVERED DRUGS -- BIN:202763, PCN: ASPROD1, Group: XXXXX, ID# [id number], Questions: . THIS IS NOT INSURANCE.] Lipitor 10 mg tablet RxNorm: 304563 1 Tablet(s) PO QHS 201507/02/2015 Inactive azithromycin 250 mg tablet RxNorm: 876275 1 Tablet(s) PO UD Take 2 tabs on day one and 1 tab day 2-5 02/03/20152014 Inactive azithromycin 250 mg tablet RxNorm: 741189 1 Tablet(s) PO UD Take 2 tabs on day one and 1 tab day 2-5 02/03/20152014 Inactive Levothroid 175 mcg tablet RxNorm: 619294 TAKE ONE TABLET BY MOUTH DAILY 12/16/2014 03/15/2015 Inactive Lipitor 10 mg tablet RxNorm: 394420 1 Tablet(s) PO QHS 201403/07/2015 Inactive hydrocodone 7.5 mg-acetaminophen 325 mg tablet RxNorm: 315798 1 Tablet(s) PO Q6 PRN 12/08/2014 04/03/2015 Inactive [SAVINGS FOR NON-COVERED DRUGS -- BIN:087512, PCN: ASPROD1, Group: XXXXX, ID# [id number], Questions: . THIS IS NOT INSURANCE.] Lipitor 10 mg tablet RxNorm: 502711 1 Tablet(s) PO QHS 201412/07/2014 Inactive meloxicam 15 mg tablet RxNorm: 417478 1 Tablet(s) PO daily 04/01/2015 Inactive Levothroid 175 mcg tablet RxNorm: 111317 1 Tablet(s) PO daily 09/28/2014 12/15/2014 Inactive meloxicam 15 mg tablet RxNorm: 213555 1 Tablet(s) PO daily 09/10/2014 Inactive bisoprolol 2.5 mg-hydrochlorothiazide 6.25 mg tablet RxNorm: 234862 1 Tablet(s) PO daily 08/12/2014 11/09/2014 Inactive Levothroid 175 mcg tablet RxNorm: 332346 1 Tablet(s) PO daily 08/12/2014 09/27/2014 Inactive hydrocodone 7.5 mg-acetaminophen 325 mg tablet RxNorm: 440111 1 Tablet(s) PO Q6 PRN 08/12/2014 12/07/2014 Inactive [SAVINGS FOR NON-COVERED DRUGS -- BIN:408888, PCN: ASPROD1, Group: XXXXX, ID# [id number], Questions: . THIS IS NOT INSURANCE.] acyclovir 400 mg tablet RxNorm: 694819 1 Tablet(s) PO daily 09/10/2014 Inactive hydrocodone 7.5 mg-acetaminophen 325 mg tablet RxNorm: 115571 1 Tablet(s) PO No Start Date 08/11/2014 Inactive Soma 350 mg tablet RxNorm: 337770 1 Tablet(s) PO TID as needed No Start Date 11/05/2016 Inactive alprazolam 0.5 mg tablet RxNorm: 240012 1/2 Tablet(s) PO BID as needed No Start Date 11/29/2015 Inactive Phenergan-Codeine 6.25 mg-10 mg/5 mL syrup RxNorm: 823293 5-10 Milliliter(s) PO Q6 as needed cough No Start Date 2016 Inactive Medication Administered Medication Codes Instructions Start Date Status Kenalog 40 mg/mL suspension for injection RxNorm: 3993655 Milliliter 05/02/2016 No longer Active Immunizations Vaccine [...] Observation Code Item Item Code Result Date Comp. Metabolic Panel (14) 089755 GLUCOSE 96 MG/DL 11/28 Comp. Metabolic Panel (14) 679149 BUN 15 MG/DL 11/28/2017 Comp. Metabolic Panel (14) 794000 CREATININE 0.91 MG/DL 11/28/2017 Comp. Metabolic Panel (14) 932458 EGFR IF NONAFRICN AM 91 ML/MIN/1.73 11/28/2017 Comp. Metabolic Panel (14) 347252 EGFR IF AFRICN AM 106 ML/MIN/1.73 11/28/2017 Comp. Metabolic Panel (14) 955369 BUN/ CREATININE RATIO 16 11/28/2017 Comp. Metabolic Panel (14) 949256 SODIUM 140 MMOL/L 2017 Comp. Metabolic Panel (14) 926858 POTASSIUM 4.1 MMOL/L 11/28/2017 Comp. Metabolic Panel (14) 822358 CHLORIDE 100 MMOL/L Comp. Metabolic Panel (14) 311264 CARBON DIOXIDE, TOTAL 25 MMOL/L 11/28/2017 Comp. Metabolic Panel (14) 422754 CALCIUM 9.1 MG/DL 08/2017 Comp. Metabolic Panel (14) 290379 Protein , Total 6.9 G/DL 11/28 Comp. Metabolic Panel (14) 848117 ALBUMIN 4.5 G/DL 11/28 Comp. Metabolic Panel (14) 722801 GLOBULIN, TOTAL 2.4 G/DL 11/28/2017 Comp. Metabolic Panel (14) 050340 A/G Ratio 1.9 11/28/2017 Comp. Metabolic Panel (14) 400928 BILIRUBIN, TOTAL 0.5 MG/DL 11/28/2017 Comp. Metabolic Panel (14) 743939 ALKALINE PHOSPHATASE 55 IU/L 11/28/2017 Comp. Metabolic Panel (14) 787222 AST ( SGOT) 18 IU/L 2017 Comp. Metabolic Panel (14) 329288 ALT ( SGPT) 24 IU/L 2017 Lipid Panel w/ Chol/HDL Ratio 482179 CHOLESTEROL, TOTAL 145 MG/DL 11/28/2017 Lipid Panel w/ Chol/HDL Ratio 746725 TRIGLYCERIDES 216 MG/DL 11/28/2017 Lipid Panel w/ Chol/HDL Ratio 325261 HDL CHOLESTEROL 60 MG/DL 11/28/2017 Lipid Panel w/ Chol/HDL Ratio 011445 VLDL CHOLESTEROL CINDI 43 MG/DL 11/28/2017 Lipid Panel w/ Chol/HDL Ratio 441053 LDL CHOLESTEROL CALC 42 MG/DL 11/28/2017 Lipid Panel w/ Chol/HDL Ratio 679144 T. CHOL/HDL RATIO 2.4 RATIO 11/28/2017 CBC With Differential/Platelet 490611 WBC 10.0 X10E3/UL 08/2017 CBC With Differential/Platelet 515872 RBC 4.78 X10E6/UL 08/2017 CBC With Differential/Platelet 489375 HEMOGLOBIN 14.3 G/DL 11/28/2017 CBC With Differential/Platelet 970932 HEMATOCRIT 41.9 % 08/2017 CBC With Differential/Platelet 173383 MCV 88 FL 11/28/2017 CBC With Differential/Platelet 650833 MCH 29.9 PG 2017 CBC With Differential/Platelet 730021 MCHC 34.1 G/DL 2017 CBC With Differential/Platelet 598544 RDW 13.4 % 11/28/2017 CBC With Differential/Platelet 940691 PLATELETS 309 X10E3/UL 11/28/2017 CBC With Differential/Platelet 931512 NEUTROPHILS 61 % 11/28 CBC With Differential/Platelet 430537 LYMPHS 30 % 2017 CBC With Differential/Platelet 155155 MONOCYTES 6 % 2017 CBC With Differential/Platelet 767855 EOS 2 % 11/28/2017 CBC With Differential/Platelet 359108 BASOS 0 % 11/28/2017 CBC With Differential/Platelet 946528 NEUTROPHILS (ABSOLUTE) 6.2 X10E3/UL 11/28/2017 CBC With Differential/Platelet 047259 LYMPHS (ABSOLUTE) 3.0 X10E3/UL 11/28/2017 CBC With Differential/Platelet 761251 MONOCYTES(ABSOLUTE) 0.6 X10E3/UL 11/28/2017 CBC With Differential/Platelet 529287 EOS (ABSOLUTE) 0.2 X10E3/UL 11/28/2017 CBC With Differential/Platelet 778835 BASO (ABSOLUTE) 0.0 X10E3/UL 11/28/2017 CBC With Differential/Platelet 690034 IMMATURE GRANULOCYTES 1 % 11/28/2017 CBC With Differential/Platelet 631954 IMMATURE GRANS (ABS) 0.1 X10E3/UL 11/28/2017 Thyroxine (T4) Free, Direct, S 285435 T4, FREE(DIRECT) 1.56 NG/DL 11/28/2017 TSH 561312 TSH 1.530 UIU/ML 11/28/2017 TSH 764319 TSH 0.749 uIU/mL 06/24/2017 Comp. Metabolic Panel (14) 940970 GLUCOSE 101 mg/dL 04/2017 Comp. Metabolic Panel (14) 303787 BUN 12 mg/dL 06/24/2017 Comp. Metabolic Panel (14) 592044 CREATININE 0.95 mg/dL 06/24/2017 Comp. Metabolic Panel (14) 196486 EGFR IF NONAFRICN AM 87 mL/min/1.73 06/24/2017 Comp. Metabolic Panel (14) 503618 EGFR IF AFRICN AM 100 mL/min/1.73 06/24/2017 Comp. Metabolic Panel (14) 932611 BUN/ CREATININE RATIO 13 06/24/2017 Comp. Metabolic Panel (14) 073726 SODIUM 140 mmol/L 2017 Comp. Metabolic Panel (14) 522577 POTASSIUM 4.1 mmol/L 06/24/2017 Comp. Metabolic Panel (14) 190285 CHLORIDE 99 mmol/L 04/2017 Comp. Metabolic Panel (14) 861008 CARBON DIOXIDE, TOTAL 25 mmol/L 06/24/2017 Comp. Metabolic Panel (14) 666764 CALCIUM 9.5 mg/dL 04/2017 Comp. Metabolic Panel (14) 321225 Protein , Total 7.1 g/dL 06/24 Comp. Metabolic Panel (14) 218670 ALBUMIN 4.6 g/dL 06/24 Comp. Metabolic Panel (14) 626711 GLOBULIN, TOTAL 2.5 g/dL 06/24/2017 Comp. Metabolic Panel (14) 006696 A/G Ratio 1.8 06/24/2017 Comp. Metabolic Panel (14) 958416 BILIRUBIN, TOTAL 0.4 mg/dL 06/24/2017 Comp. Metabolic Panel (14) 403026 ALKALINE PHOSPHATASE 66 IU/L 06/24/2017 Comp. Metabolic Panel (14) 150529 AST ( SGOT) 45 IU/L 2017 Comp. Metabolic Panel (14) 615560 ALT ( SGPT) 41 IU/L 2017 Lipid Panel 800686 CHOLESTEROL, TOTAL 122 mg/dL 06/24/2017 Lipid Panel 592257 TRIGLYCERIDES 155 mg/dL 06/24/2017 Lipid Panel 627310 HDL CHOLESTEROL 52 mg/dL 06/24/2017 Lipid Panel 628626 VLDL CHOLESTEROL CINDI 31 mg/dL 06/24/2017 Lipid Panel 881875 LDL CHOLESTEROL CALC 39 mg/dL 06/24/2017 CBC With Differential/Platelet 377324 WBC 6.6 x10E3/uL 06/24 CBC With Differential/Platelet 802109 RBC 4.89 x10E6/uL 04/2017 CBC With Differential/Platelet 455567 HEMOGLOBIN 14.6 g/dL 06/24/2017 CBC With Differential/Platelet 795475 HEMATOCRIT 43.7 % 04/2017 CBC With Differential/Platelet 149698 MCV 89 fL 06/24/2017 CBC With Differential/Platelet 434264 MCH 29.9 pg 2017 CBC With Differential/Platelet 888669 MCHC 33.4 g/dL 2017 CBC With Differential/Platelet 280344 RDW 13.6 % 06/24/2017 CBC With Differential/Platelet 391166 PLATELETS 258 x10E3/uL 06/24/2017 CBC With Differential/Platelet 653086 NEUTROPHILS 51 % 06/24 CBC With Differential/Platelet 436822 LYMPHS 36 % 2017 CBC With Differential/Platelet 261352 MONOCYTES 9 % 2017 CBC With Differential/Platelet 289581 EOS 4 % 06/24/2017 CBC With Differential/Platelet 791523 BASOS 0 % 06/24/2017 CBC With Differential/Platelet 746893 NEUTROPHILS (ABSOLUTE) 3.3 x10E3/uL 06/24/2017 CBC With Differential/Platelet 783949 LYMPHS (ABSOLUTE) 2.3 x10E3/uL 06/24/2017 CBC With Differential/Platelet 510103 MONOCYTES(ABSOLUTE) 0.6 x10E3/uL 06/24/2017 CBC With Differential/Platelet 553455 EOS (ABSOLUTE) 0.3 x10E3/uL 06/24/2017 CBC With Differential/Platelet 905028 BASO (ABSOLUTE) 0.0 x10E3/uL 06/24/2017 CBC With Differential/Platelet 742499 IMMATURE GRANULOCYTES 0 % 06/24/2017 CBC With Differential/Platelet 013663 IMMATURE GRANS (ABS) 0.0 x10E3/uL 06/24/2017 Thyroxine (T4) Free, Direct, S 110370 T4, FREE(DIRECT) 1.35 ng/dL 06/24/2017 Comp. Metabolic Panel (14) 537139 GLUCOSE , SERUM 111 MG/DL Comp. Metabolic Panel (14) 360413 BUN 14 MG/DL 02/22/2016 Comp. Metabolic Panel (14) 248287 CREATININE, SERUM 1.03 MG/DL 02/22/2016 Comp. Metabolic Panel (14) 108125 EGFR IF NONAFRICN AM 79 ML/MIN/1.73 02/22/2016 Comp. Metabolic Panel (14) 469445 EGFR IF AFRICN AM 91 ML/MIN/1.73 02/22/2016 Comp. Metabolic Panel (14) 440894 BUN/ CREATININE RATIO 14 02/22/2016 Comp. Metabolic Panel (14) 616499 SODIUM , SERUM 140 MMOL/L Comp. Metabolic Panel (14) 586505 POTASSIUM, SERUM 3.9 MMOL/L 02/22/2016 Comp. Metabolic Panel (14) 578537 CHLORIDE, SERUM 99 MMOL/L 02/22/2016 Comp. Metabolic Panel (14) 756453 CARBON DIOXIDE, TOTAL 25 MMOL/L 02/22/2016 Comp. Metabolic Panel (14) 779640 CALCIUM , SERUM 9.1 MG/DL Comp. Metabolic Panel (14) 275380 PROTEIN , TOTAL, SERUM 6.5 G/DL 02/22/2016 Comp. Metabolic Panel (14) 738958 ALBUMIN , SERUM 4.1 G/DL 02/21 Comp. Metabolic Panel (14) 032482 GLOBULIN, TOTAL 2.4 G/DL 02/22/2016 Comp. Metabolic Panel (14) 580097 A/G Ratio 1.7 02/22/2016 Comp. Metabolic Panel (14) 093749 BILIRUBIN, TOTAL 0.2 MG/DL 02/22/2016 Comp. Metabolic Panel (14) 338416 ALKALINE PHOSPHATASE, S 72 IU/L 02/22/2016 Comp. Metabolic Panel (14) 105540 AST ( SGOT) 30 IU/L 2015 Comp. Metabolic Panel (14) 513744 ALT ( SGPT) 43 IU/L 2015 CBC With Differential/Platelet 022146 WBC 6.9 X10E3/UL 02/21 CBC With Differential/Platelet 697801 RBC 4.79 X10E6/UL CBC With Differential/Platelet 353381 HEMOGLOBIN 14.4 G/DL 02/22/2016 CBC With Differential/Platelet 292301 HEMATOCRIT 43.1 % CBC With Differential/Platelet 840272 MCV 90 FL 02/22/2016 CBC With Differential/Platelet 148065 MCH 30.1 PG 2015 CBC With Differential/Platelet 940671 MCHC 33.4 G/DL 2015 CBC With Differential/Platelet 456136 RDW 13.5 % 02/22/2016 CBC With Differential/Platelet 130928 PLATELETS 257 X10E3/UL 02/22/2016 CBC With Differential/Platelet 064280 NEUTROPHILS 57 % 02/21 CBC With Differential/Platelet 636615 LYMPHS 32 % 2015 CBC With Differential/Platelet 888753 MONOCYTES 8 % 2015 CBC With Differential/Platelet 116567 EOS 3 % 02/22/2016 CBC With Differential/Platelet 820036 BASOS 0 % 02/22/2016 CBC With Differential/Platelet 475558 NEUTROPHILS (ABSOLUTE) 4.0 X10E3/UL 02/22/2016 CBC With Differential/Platelet 915207 LYMPHS (ABSOLUTE) 2.2 X10E3/UL 02/22/2016 CBC With Differential/Platelet 170645 MONOCYTES(ABSOLUTE) 0.5 X10E3/UL 02/22/2016 CBC With Differential/Platelet 953936 EOS (ABSOLUTE) 0.2 X10E3/UL 02/22/2016 CBC With Differential/Platelet 249117 BASO (ABSOLUTE) 0.0 X10E3/UL 02/22/2016 CBC With Differential/Platelet 796730 IMMATURE GRANULOCYTES 0 % 02/22/2016 CBC With Differential/Platelet 557586 IMMATURE GRANS (ABS) 0.0 X10E3/UL 02/22/2016 TSH 590690 TSH 0.510 UIU/ML 02/22/2016 Lipid Panel 416712 CHOLESTEROL, TOTAL 183 MG/DL 02/22/2016 Lipid Panel 418102 TRIGLYCERIDES 509 MG/DL 02/22/2016 Lipid Panel 661926 HDL CHOLESTEROL 47 MG/DL 02/22/2016 Lipid Panel 842443 VLDL CHOLESTEROL CINDI COMMENT MG/DL 2015 Lipid Panel 508217 LDL CHOLESTEROL CALC COMMENT MG/DL 2015 Thyroxine (T4) Free, Direct, S 718976 T4, FREE(DIRECT) 1.39 NG/DL 02/22/2016 Comp Metabolic Gva340 NA 132 mEq/L 12/02/2014 Comp Metabolic Vyn035 K 4.1 mEq/L 12/02/2014 Comp Metabolic Lyx763 CL 100 mEq/L 12/02/2014 Comp Metabolic Pym233 CO2 26.0 mEq/L 12/02/2014 Comp Metabolic Gfs441 ANION GAP 10 12/02/2014 Comp Metabolic Brq362 GLUCOSE 107 mg/dL 12/02/2014 Comp Metabolic Jzj660 Creat 1.1 mg/dL 12/02/2014 Comp Metabolic Hce736 eGFR 73 ml/min/1.73m2 12/02/2014 Comp Metabolic Gro856 BUN 16 mg/dL 12/02/2014 Comp Metabolic Krl378 B/C Ratio 14.5 Ratio 12/02/2014 Comp Metabolic Hwr243 CALCIUM 9.5 mg/dL 12/02/2014 Comp Metabolic Huu722 ALK PHOS 39 U/L 12/02/2014 Comp Metabolic Czm085 AST(SGOT) 18 U/L 12/02/2014 Comp Metabolic Vbw008 ALT(SGPT) 24 U/L 12/02/2014 Comp Metabolic Oom512 BILI T 0.5 mg/dL 12/02/2014 Comp Metabolic Jnd241 ALBUMIN 4.2 g/dL 12/02/2014 Comp Metabolic Zwd548 TPRO 6.5 g/dL 12/02/2014 Comp Metabolic Cpe672 GLOB 2.3 g/dL 12/02/2014 Comp Metabolic Icz954 A/G Ratio 1.8 Ratio 12/02/2014 Comp Metabolic Zly434 Osmo 266 mOsmo 12/02/2014 Tsh Ord6 hTSH II 0.45 uIU/mL 12/02/2014 Cbc With Differential Ord2 WBC 6.1 K/uL [...] With Differential Ord2 RDW 13.2 % 12/02/2014 Total Psa Ord10 PSA 1.04 ng/mL [...] 1994 Ears/Nose/Throat oral cavity/pharynx/larynx Overall: no masses 11/27/2017 None Full Exam - General 1995 Respiratory auscultation Overall: breath sounds clear bilaterally [...] Procedure Codes Date IMMUNIZATION ADMIN CPT -4: 34703 01/28/2017 FLU VAC NO PRSV 4 MONTY 3 YRS+ CPT-4: 45585 01/28/2017 TRIAMCINOLONE ACET INJ NOS CPT-4: J3301 05/02/2016 IMMUNIZATION ADMIN CPT -4: 23548 01/02/2016 FLU VACC 4 MONTY 3 YRS PLUS IM Assigned to/Ana Bella, Formatting Model/CDA Sections SNOMED CT: 33323074 CPT-4: 72856Evujjgh 01/02/2016 IMMUNIZATION ADMIN CPT -4: 78590 12/28/2014 IIV4 FLU VACC NO PRESERV ID Assigned to/Ana Bella, Formatting Model/CDA Sections SNOMED CT: 35815285 CPT-4: 74111Kfzjmdp 12/28/2014 Vital Signs Date Vital 11/27/2017 Blood Pressure 1: 122/76 Code : 8480-6 BMI: 27.2 Code : 24886-6 Heart Rate 1 : 58 bpm Height: 5'8" SpO2: 98% Weight: 179 lbs 09/19/2017 Blood Pressure 1: 122/60 Code : 8480-6 BMI: 29.8 Code : 73662-1 Heart Rate 1 : 57 bpm Height: 5'8" SpO2: 93% Weight: 196 lbs 05/23/2017 Blood Pressure 1: 122/74 Code : 8480-6 BMI: 29.2 Code : 18725-6 Heart Rate 1 : 68 bpm Height: 5'8" SpO2: 97% Weight: 192 lbs 08/02/2016 Blood Pressure 1: 142/80 Code : 8480-6 BMI: 28.1 Code : 31037-5 Heart Rate 1 : 61 bpm Height: 5'8" SpO2: 98% Weight: 185 lbs 05/17/2016 Blood Pressure 1: 126/74 Code : 8480-6 BMI: 27.7 Code : 74402-5 Heart Rate 1 : 60 bpm Height: 5'8" SpO2: 95% Temperature: 37.0 (C) / 98.6 (F) Weight: 182 lbs 05/02/2016 Blood Pressure 1: 106/68 Code : 8480-6 BMI: 27.8 Code : 40197-5 Heart Rate 1 : 58 bpm Height: 5'8" SpO2: 97% Temperature: 36.7 (C) / 98.1 (F) Weight: 183 lbs 02/02/2016 Blood Pressure 1: 124/76 Code : 8480-6 BMI: 28.0 Code : 94650-0 Heart Rate 1 : 68 bpm Height: 5'8" SpO2: 98% Weight: 184 lbs 01/02/2016 Blood Pressure 1: 130/72 Code : 8480-6 BMI: 28.0 Code : 91957-9 Heart Rate 1 : 62 bpm Height: 5'8" SpO2: 96% Weight: 184 lbs 08/04/2015 Blood Pressure 1: 128/76 Code : 8480-6 BMI: 27.7 Code : 85087-0 Heart Rate 1 : 64 bpm Height: 5'8" SpO2: 98% Weight: 182 lbs 06/29/2015 Blood Pressure 1: 142/84 Code : 8480-6 BMI: 28.0 Code : 33039-7 Heart Rate 1 : 55 bpm Height: 5'8" SpO2: 97% Weight: 184 lbs 05/19/2015 Blood Pressure 1: 120/78 Code : 8480-6 BMI: 27.2 Code : 96785-9 Heart Rate 1 : 86 bpm Height: 5'8" Weight: 179 lbs 12/28/2014 Blood Pressure 1: 130/68 Code : 8480-6 BMI: 27.7 Code : 51576-8 Heart Rate 1 : 52 bpm Height: 5'8" SpO2: 98% Weight: 182 lbs 08/12/2014 Blood Pressure 1: 118/70 Code : 8480-6 BMI: 27.7 Code : 41111-7 Heart Rate 1 : 64 bpm Height: [...] Directive data Encounters Encounter Performer Location Codes ([id number]) 87914 EST. PATIENT, LEVEL IV Diagnosis: Mixed hyperlipidemia[ICD10: E78.2] Diagnosis: Essential (primary) hypertension[ICD10: I10] Diagnosis: Atrophy of thyroid (acquired)[ICD10: E03.4] Diagnosis: Pain in right knee[ICD10: M25.561] Laura Hurt MD, [facility] CPT-4: 64832 11/27/2017 71403 EST. PATIENT, LEVEL III Diagnosis: Cellulitis of back [any part except buttock][ICD10: L03.312] [facility] CPT-4: 94623 09/19/2017 ([id number]) PREV VISIT EST AGE 40-64 Diagnosis: Encounter for general adult medical examination without abnormal findings[ICD10: Z00.00] Laura Hurt MD, [facility] CPT-4: 45948 05/23/2017 ([id number]) 14705 EST. PATIENT, LEVEL IV Diagnosis: Essential (primary) hypertension[ICD10: I10] Diagnosis: Atrophy of thyroid (acquired)[ICD10: E03.4] Diagnosis: Mixed hyperlipidemia[ICD10: E78.2] Diagnosis: Other allergic rhinitis[ICD10: J30.89] Diagnosis: Melanocytic nevi of left lower limb, including hip[ICD10: D22.72] Diagnosis: Melanocytic nevi of right lower limb, including hip[ICD10: D22.71] Laura Hurt MD, [facility] CPT-4: 71893 08/02/2016 14512 EST. PATIENT, LEVEL III Diagnosis: Other allergic rhinitis[ICD10: J30.89] Diagnosis: Cough[ICD10: R05] Diagnosis: Candidal stomatitis[ICD10: B37.0] [facility] CPT -4: 00346 05/17/2016 78417 EST. PATIENT, LEVEL III Diagnosis: Acute bronchitis due to other specified organisms[ICD10: J20.8] Rose Hurt MD, [facility] CPT-4: 67939 05/02/2016 ([id number]) PREV VISIT EST AGE 40-64 Diagnosis: Atrophy of thyroid (acquired)[ICD10: E03.4] Diagnosis: Mixed hyperlipidemia[ICD10: E78.2] Diagnosis: Essential (primary) hypertension[ICD10: I10] Diagnosis: Encounter for general adult medical examination without abnormal findings[ICD10: Z00.00] Laura Hurt MD, [facility] CPT-4: 90698 02/02/2016 41679 EST. PATIENT, LEVEL II Diagnosis: Cellulitis of head [any part, except face][ICD10: L03.811] Diagnosis: Rash and other nonspecific skin eruption[ICD10: R21] Diagnosis: VACCIN FOR INFLUENZA[ICD10: Z23] Monae Hurt MD, [facility] CPT-4: 40437 01/02/2016 ([id number]) 67171 EST. PATIENT, LEVEL III Diagnosis: Essential (primary) hypertension[ICD10: I10] Laura Hurt MD, [facility] CPT-4: 40144 08/04/2015 53867 EST. PATIENT, LEVEL IV Diagnosis: Other acute sinusitis[ICD10: J01.80] Diagnosis: Other allergic rhinitis[ICD10: J30.89] Rose Hurt MD, [facility] CPT-4: 67937 06/29/2015 ([id number]) 09857 EST. PATIENT, LEVEL III Diagnosis: Low back pain[ICD10: M54.5] Diagnosis: Rash and other nonspecific skin eruption[ICD10: R21] Monae Hurt MD, [facility] CPT-4: 56578 05/19/2015 ([id number]) 54271 EST. PATIENT, LEVEL III Diagnosis: Mixed hyperlipidemia[ICD10: E78.2] Diagnosis: Hypothyroidism, unspecified[ICD10: E03.9] Monae Hurt MD, [facility] CPT-4: 84124 12/28/2014 ([id number]) PREV VISIT NEW AGE 40-64 Diagnosis: Well adult exam[ICD9: V70.0] Monae Hurt MD, [facility] CPT-4: 72854 08/12/2014 Plan of Care Planned Activity Notes [...] the hydrocodone. 11/27/2017 Appointment: Laura Hurt WPtel: [facility]5 [facility] (15 min) Moderate 11/27/2017 Patient Education: [...] warmth, discharge. 09/19/2017 Appointment: Rose Ferrer WPtel: [facility]5 [facility] (15 min) Moderate 09/19/2017 Patient Education: Patient Medication Summary Completed 09/19/2017 Appointment: Rose Ferrer WPtel: [facility]5 [facility] (15 min) Moderate 06/18/2017 Visit Plan: Well [...] for colonoscopy 05/23/2017 [phone] ([facility] min) Moderate 05/23/2017 Patient Education: Patient Medication Summary Completed 05/23/2017 Care Plan: Referral Order SNOMED-CT : [id number] Pending 05/23/2017 Appointment: Injection 01/28/2017 Patient Education: [...] one month 08/02/2016 Appointment: [phone] (30 min) Complex 08/02/2016 Patient Education: Patient [...] for allergies 05/17/2016 Appointment: Rose Ferrer WPtel: [phone] [facility]66[facility] (15 min) Moderate 05/17/2016 Patient Education: Patient [...] acutely worsen. 05/02/2016 Appointment: Rose Ferrer WPtel: [phone] [facility] (15 min) Moderate 05/02/2016 Patient Education: Patient [...] to medications. 02/02/2016 Appointment: [phone] [place] (30 min) Complex 02/02/2016 Patient Education: Patient Medication Summary Completed 02/02/2016 Visit Plan: Okvwrytsztld-beouu-cznppvn of pustule today in the office-will treat as indicated-patient verbalized understanding of plan. 01/02/2016 Visit Plan: Radwdbtssmim-mtvzr-feyivpg of pustule today in the office-will treat as indicated-patient verbalized understanding of plan. 01/02/2016 App[facility]ment[phone] [place] (30 min) Complex 01/02/2016 Patient Education: [...] home. 08/04/2015 Appointment: [phone] (30 min) Complex 08/04/2015 Patient Education: Patient [...] daily in the morning for 2 weeks Zte allergy medicine - 1 daily for 2 [...] assure normal liver response to medications. . Zojalwxvudiw-otjgx-gwnyhvb of pustule today in the office -will treat as indicated-patient verbalized understanding of plan. . Cihueemmvgxd-pmzvh-qlweisi of pustule today in the office -will [...]
--- OUTSIDE RECORDS SUMMARY | 2018-07-17 11:25 | XMS REPORT | CCD ---
Author Author Monae Berkowitz MD, [facility] Address [address] [place] [address] Phone Care Team Providers Care Director Special Education Name Role Phone PP Unavailable CCM Unavailable Summary Purpose Interface Exchange Insurance Providers Payer name Policy type / Coverage type Covered constitution party ID Effective Begin Date Effective End Date Blue Cross Blue [facility] Blue Cross/Blue Shield [id number] Unknown Unknown Family history Mother Diagnosis Age At Onset Coronary Artery Disease Unknown Breast cancer Unknown Father Diagnosis Age At Onset Hypertension Unknown Cancer Unknown Social History Social History Element Codes Description Effective Dates Frequency of drinks SNOMED CT: 190884841 10 drinks per week -varies- more on weekends 08/02/2016 Employment Unknown 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 Marital status Unknown Single 08/12/2014 Number of children Unknown 0 08/12/[address]: 2063769 Quit less than 10 years ago 200608/12/[address]: 404622 Currently drinks alcohol 08/12/2014 Allergies, Adverse Reactions, [...] Fill Instructions Flagyl 500 mg tablet RxNorm: 996175 1 Tablet(s) PO TID 201805/07/2018 Active Cipro 500 mg tablet RxNorm: 094368 1 Tablet(s) PO BID 201805/04/2018 Active Levothroid 175 mcg tablet RxNorm: 104174 TAKE ONE TABLET BY MOUTH DAILY ON EMPTY STOMACH 04/18/2018 10/14/2018 Active bisoprolol 5 mg-hydrochlorothiazide 6.25 mg tablet RxNorm: 404063 TAKE ONE TABLET BY MOUTH DAILY 04/18/2018 10/14/2018 Active Lipitor 80 mg tablet RxNorm: 479958 TAKE ONE TABLET BY MOUTH EVERY NIGHT AT BEDTIME 03/24/2018 07/21/2018 Active Penlac 8 % topical solution RxNorm: 025286 APPLY TO AFFECTED AREA(S) DAILY 03/24/2018 04/12/2018 Inactive alprazolam 0.5 mg tablet RxNorm: 925145 1/2 Tablet(s) PO BID as needed 02/18/2018 04/18/2018 Inactive acyclovir 400 mg tablet RxNorm: 506277 TAKE ONE TABLET BY MOUTH DAILY 02/18/2018 05/18/2018 Active acyclovir 400 mg tablet RxNorm: 040745 TAKE ONE TABLET BY MOUTH DAILY 11/11/2017 02/08/2018 Inactive bisoprolol 5 mg-hydrochlorothiazide 6.25 mg tablet RxNorm: 485766 TAKE ONE TABLET BY MOUTH DAILY 09/30/2017 03/28/2018 Inactive Lipitor 80 mg tablet RxNorm: 428504 TAKE ONE TABLET BY MOUTH EVERY NIGHT AT BEDTIME 09/30/2017 02/26/2018 Inactive Levothroid 175 mcg tablet RxNorm: 087852 Tablet(s) TAKE ONE TABLET BY MOUTH DAILY ON AN EMPTY STOMACH . 09/30/20172018 Inactive Bactrim DS 800 mg-160 mg tablet RxNorm: 177807 1 Tablet(s) PO BID 09/19/2017 09/25/2017 Inactive alprazolam 0.5 mg tablet RxNorm: 439642 1/2 Tablet(s) PO BID as needed 07/24/2017 09/20/2017 Inactive Zithromax Z-Bassam 250 mg tablet RxNorm: 369191 1 Tablet(s) PO UD 06/17/2017 07/23/2017 Inactive z pack as directed Levothroid 175 mcg tablet RxNorm: 746725 TAKE ONE TABLET BY MOUTH DAILY ON AN EMPTY STOMACH . NEED TO REPEAT LAB FOR TSH AND FREE T4 201708/31/2017 Inactive gemfibrozil 600 mg tablet RxNorm: 648291 1 Tablet(s) PO BID 03/201702/16/2018 Inactive Penlac 8 % topical solution RxNorm: 855693 1 Application TOP daily 05/23/2017 06/21/2017 Inactive ketoconazole 2 % topical cream RxNorm: 876604 1 Application TOP BID 05/23/2017 06/05/2017 Inactive Cipro 500 mg tablet RxNorm: 693642 1 Tablet(s) PO BID 201705/30/2017 Inactive Flagyl 500 mg tablet RxNorm: 248380 1 Tablet(s) PO TID 201705/30/2017 Inactive acyclovir 400 mg tablet RxNorm: 658563 TAKE ONE TABLET BY MOUTH DAILY 04/26/2017 10/22/2017 Inactive bisoprolol 5 mg-hydrochlorothiazide 6.25 mg tablet RxNorm: 547290 TAKE ONE TABLET BY MOUTH DAILY 03/11/2017 09/06/2017 Inactive Levothroid 175 mcg tablet RxNorm: 809746 TAKE ONE TABLET BY MOUTH DAILY ON AN EMPTY STOMACH . NEED TO REPEAT LAB FOR TSH AND FREE T4 201606/02/2017 Inactive Lipitor 80 mg tablet RxNorm: 208593 Tablet(s) PO TAKE ONE TABLET BY MOUTH EVERY NIGHT AT BEDTIME 12/24/2016 11/26/2017 Inactive Levothroid 175 mcg tablet RxNorm: 600031 TAKE ONE TABLET BY MOUTH DAILY ON AN EMPTY STOMACH . NEED TO REPEAT LAB FOR TSH AND FREE T4 201603/10/2017 Inactive hydrocodone 7.5 mg-acetaminophen 325 mg tablet RxNorm: 491893 1 Tablet(s) PO Q6 PRN 11/06/2016 12/05/2016 Inactive [SAVINGS FOR NON-COVERED DRUGS -- BIN:[id number], PCN: ASPROD1, Group: XXXXX, ID# [id number], Questions: . THIS IS NOT INSURANCE.] Soma 350 mg tablet RxNorm: 373236 1 Tablet(s) PO TID as needed 11/06/2016 No Stop Date Active alprazolam 0.5 mg tablet RxNorm: 448476 1/2 Tablet(s) PO BID as needed 10/05/2016 11/26/2017 Inactive Lipitor 80 mg tablet RxNorm: 833163 Tablet(s) PO TAKE ONE TABLET BY MOUTH EVERY NIGHT AT BEDTIME 09/04/2016 12/23/2016 Inactive Lipitor 40 mg tablet RxNorm: 050495 TAKE ONE TABLET BY MOUTH EVERY NIGHT AT BEDTIME 09/04/2016 09/03/2016 Inactive acyclovir 400 mg tablet RxNorm: 819708 TAKE ONE TABLET BY MOUTH DAILY 08/23/2016 02/18/2017 Inactive bisoprolol 5 mg-hydrochlorothiazide 6.25 mg tablet RxNorm: 176404 TAKE ONE TABLET BY MOUTH DAILY 08/23/2016 02/18/2017 Inactive Levothroid 175 mcg tablet RxNorm: 835277 Tablet(s) TAKE ONE TABLET BY MOUTH DAILY 08/22/2016 11/19/2016 Inactive Needs to repeat TSH et Free T4 labs acyclovir 400 mg tablet RxNorm: 341737 TAKE ONE TABLET BY MOUTH DAILY 08/21/2016 08/22/2016 Inactive prednisone 10 mg tablet RxNorm: 790630 Tablet(s) PO UD dispense a medrol dose pack 08/10/2016 07/23/2017 Inactive 6,5,4,3,2,1 prednisone 10 mg tablet RxNorm: 497056 Tablet(s) PO UD dispense a medrol dose pack 07/30/2016 08/09/2016 Inactive 6,5,4,3,2,1 cefdinir 300 mg capsule RxNorm: 313125 1 Capsule(s) PO BID 10/201608/08/2016 Inactive cefdinir 300 mg capsule RxNorm: 359949 1 Capsule(s) PO BID 10/201607/29/2016 Inactive Lipitor 40 mg tablet RxNorm: 958637 TAKE ONE TABLET BY MOUTH EVERY NIGHT AT BEDTIME 06/25/2016 09/03/2016 Inactive nystatin 100,000 unit/mL oral suspension RxNorm: 990846 5 Milliliter(s) PO TID 05/17/2016 05/21/2016 Inactive Zyrtec 10 mg tablet RxNorm: 3053972 1 Tablet(s) PO daily 05/1706/15/2016 Inactive Levothroid 175 mcg tablet RxNorm: 210317 TAKE ONE TABLET BY MOUTH DAILY 05/16/2016 08/13/2016 Inactive Levaquin 750 mg tablet RxNorm: 731924 1 Tablet(s) PO daily 05/09/2016 Inactive Levaquin 750 mg tablet RxNorm: 490934 1 Tablet(s) PO daily 05/14/2016 Inactive Phenergan-Codeine 6.25 mg-10 mg/5 mL syrup RxNorm: 577635 5-10 Milliliter(s) PO Q6 as needed cough 05/02/2016 No Stop Date Active prednisone 10 mg tablet RxNorm: 911969 Tablet(s) PO UD 201607/29/2016 Inactive 6,5,4,3,2,1 Kenalog 40 mg/mL suspension for injection RxNorm: 9809474 Milliliter(s) Inj 05/02/2016 05/02/2016 Inactive Phenergan-Codeine 6.25 mg-10 mg/5 mL syrup RxNorm: 953516 5-10 Milliliter(s) PO Q6 as needed cough 04/25/2016 05/01/2016 Inactive Zithromax Z-Bassam 250 mg tablet RxNorm: 231463 1 Tablet(s) PO UD 04/25/2016 07/29/2016 Inactive z pack as directed acyclovir 400 mg tablet RxNorm: 881437 TAKE ONE TABLET BY MOUTH DAILY 04/10/2016 07/08/2016 Inactive Zetia 10 mg tablet RxNorm: 387439 1 Tablet(s) PO daily 201505/22/2017 Inactive Zetia 10 mg tablet RxNorm: 888209 1 Tablet(s) PO daily 201503/06/2016 Inactive Lipitor 40 mg tablet RxNorm: 807128 Tablet(s) PO TAKE ONE TABLET BY MOUTH EVERY NIGHT AT BEDTIME 03/07/2016 06/24/2016 Inactive Patient is requesting 90 days supply Diflucan 150 mg tablet RxNorm: 332801 1 Tablet(s) PO daily 01/11/2016 Inactive Diflucan 150 mg tablet RxNorm: 602286 1 Tablet(s) PO daily 01/04/2016 Inactive hydrocodone 7.5 mg-acetaminophen 325 mg tablet RxNorm: 950668 1 Tablet(s) PO Q6 PRN 12/28/2015 01/26/2016 Inactive [SAVINGS FOR NON-COVERED DRUGS -- BIN:090833, PCN: ASPROD1, Group: XXXXX, ID# [id number], Questions: . THIS IS NOT INSURANCE.] alprazolam 0.5 mg tablet RxNorm: 094094 1/2 Tablet(s) PO BID as needed 11/30/2015 10/04/2016 Inactive Levothroid 175 mcg tablet RxNorm: 877966 Tablet(s) TAKE ONE TABLET BY MOUTH DAILY 10/26/2015 04/22/2016 Inactive hydrocodone 7.5 mg-acetaminophen 325 mg tablet RxNorm: 099139 1 Tablet(s) PO Q6 PRN 08/30/2015 09/28/2015 Inactive [SAVINGS FOR NON-COVERED DRUGS -- BIN:945856, PCN: ASPROD1, Group: XXXXX, ID# [id number], Questions: . THIS IS NOT INSURANCE.] Ventolin HFA 90 mcg/actuation aerosol inhaler RxNorm: 399716 2 INH PRN dyspnea 08/04/2015 No Stop Date Active bisoprolol 5 mg-hydrochlorothiazide 6.25 mg tablet RxNorm: 966063 TAKE ONE TABLET BY MOUTH DAILY 07/11/2015 01/06/2016 Inactive Patient is requesting 90 days supply bisoprolol 5 mg-hydrochlorothiazide 6.25 mg tablet RxNorm: 224647 TAKE ONE TABLET BY MOUTH DAILY 07/11/2015 01/06/2016 Inactive Lipitor 10 mg tablet RxNorm: 832442 TAKE ONE TABLET BY MOUTH EVERY NIGHT AT BEDTIME 07/11/2015 01/06/2016 Inactive Patient is requesting 90 days supply Lipitor 10 mg tablet RxNorm: 177111 TAKE ONE TABLET BY MOUTH EVERY NIGHT AT BEDTIME 07/11/2015 05/13/2016 Inactive acyclovir 400 mg tablet RxNorm: 118655 1 Tablet(s) PO daily 08/22/2016 Inactive acyclovir 400 mg tablet RxNorm: 324243 1 Tablet(s) PO daily 07/10/2015 Inactive Zithromax Z-Bassam 250 mg tablet RxNorm: 755905 Tablet(s) PO UD 08/03/2015 Inactive acyclovir 400 mg tablet RxNorm: 088673 1 Tablet(s) PO daily 08/201507/05/2015 Inactive meloxicam 15 mg tablet RxNorm: 076086 TAKE ONE TABLET BY MOUTH DAILY 06/27/2015 11/23/2015 Inactive triamcinolone acetonide 0.1 % topical cream RxNorm: 9766502 1 Application TOP BID 05/19/2015 06/01/2015 Inactive apply very thin layer as directed hydrocodone 7.5 mg-acetaminophen 325 mg tablet RxNorm: 341807 1 Tablet(s) PO Q6 PRN 05/19/2015 08/29/2015 Inactive [SAVINGS FOR NON-COVERED DRUGS -- BIN:922012, PCN: ASPROD1, Group: XXXXX, ID# [id number], Questions: . THIS IS NOT INSURANCE.] Cipro 500 mg tablet RxNorm: 818447 1 Tablet(s) PO BID 201504/20/2015 Inactive Cipro 500 mg tablet RxNorm: 213906 1 Tablet(s) PO BID 201504/30/2015 Inactive Flagyl 500 mg tablet RxNorm: 780200 1 Tablet(s) PO TID 201504/30/2015 Inactive Flagyl 500 mg tablet RxNorm: 006535 1 Tablet(s) PO TID 201504/20/2015 Inactive bisoprolol 5 mg-hydrochlorothiazide 6.25 mg tablet RxNorm: 188620 1 Tablet(s) PO daily 04/21/2015 07/10/2015 Inactive Levothroid 175 mcg tablet RxNorm: 809564 TAKE ONE TABLET BY MOUTH DAILY 04/18/2015 10/14/2015 Inactive hydrocodone 7.5 mg-acetaminophen 325 mg tablet RxNorm: 223175 1 Tablet(s) PO Q6 PRN 04/04/2015 05/18/2015 Inactive [SAVINGS FOR NON-COVERED DRUGS -- BIN:880968, PCN: ASPROD1, Group: XXXXX, ID# [id number], Questions: . THIS IS NOT INSURANCE.] Lipitor 10 mg tablet RxNorm: 556991 1 Tablet(s) PO QHS 201507/02/2015 Inactive azithromycin 250 mg tablet RxNorm: 899978 1 Tablet(s) PO UD Take 2 tabs on day one and 1 tab day 2-5 02/03/20152014 Inactive azithromycin 250 mg tablet RxNorm: 944605 1 Tablet(s) PO UD Take 2 tabs on day one and 1 tab day 2-5 02/03/20152014 Inactive Levothroid 175 mcg tablet RxNorm: 945301 TAKE ONE TABLET BY MOUTH DAILY 12/16/2014 03/15/2015 Inactive Lipitor 10 mg tablet RxNorm: 304210 1 Tablet(s) PO QHS 201403/07/2015 Inactive hydrocodone 7.5 mg-acetaminophen 325 mg tablet RxNorm: 087364 1 Tablet(s) PO Q6 PRN 12/08/2014 04/03/2015 Inactive [SAVINGS FOR NON-COVERED DRUGS -- BIN:104818, PCN: ASPROD1, Group: XXXXX, ID# [id number], Questions: . THIS IS NOT INSURANCE.] Lipitor 10 mg tablet RxNorm: 881595 1 Tablet(s) PO QHS 201412/07/2014 Inactive meloxicam 15 mg tablet RxNorm: 819918 1 Tablet(s) PO daily 04/01/2015 Inactive Levothroid 175 mcg tablet RxNorm: 220452 1 Tablet(s) PO daily 09/28/2014 12/15/2014 Inactive meloxicam 15 mg tablet RxNorm: 004011 1 Tablet(s) PO daily 09/10/2014 Inactive bisoprolol 2.5 mg-hydrochlorothiazide 6.25 mg tablet RxNorm: 818607 1 Tablet(s) PO daily 08/12/2014 11/09/2014 Inactive Levothroid 175 mcg tablet RxNorm: 145120 1 Tablet(s) PO daily 08/12/2014 09/27/2014 Inactive hydrocodone 7.5 mg-acetaminophen 325 mg tablet RxNorm: 307206 1 Tablet(s) PO Q6 PRN 08/12/2014 12/07/2014 Inactive [SAVINGS FOR NON-COVERED DRUGS -- BIN:944011, PCN: ASPROD1, Group: XXXXX, ID# [id number], Questions: . THIS IS NOT INSURANCE.] acyclovir 400 mg tablet RxNorm: 817160 1 Tablet(s) PO daily 09/10/2014 Inactive hydrocodone 7.5 mg-acetaminophen 325 mg tablet RxNorm: 757749 1 Tablet(s) PO No Start Date 08/11/2014 Inactive Soma 350 mg tablet RxNorm: 216787 1 Tablet(s) PO TID as needed No Start Date 11/05/2016 Inactive alprazolam 0.5 mg tablet RxNorm: 078887 1/2 Tablet(s) PO BID as needed No Start Date 11/29/2015 Inactive Phenergan-Codeine 6.25 mg-10 mg/5 mL syrup RxNorm: 701885 5-10 Milliliter(s) PO Q6 as needed cough No Start Date 2016 Inactive Medication Administered Medication Codes Instructions Start Date Status Kenalog 40 mg/mL suspension for injection RxNorm: 0059081 Milliliter 05/02/2016 No longer Active Immunizations Vaccine [...] Code Result Date Comp. Metabolic Panel (14) 076555 GLUCOSE 96 MG/DL 11/28 Comp. Metabolic Panel (14) 922297 BUN 15 MG/DL 11/28/2017 Comp. Metabolic Panel (14) 308291 CREATININE 0.91 MG/DL 11/28/2017 Comp. Metabolic Panel (14) 852800 EGFR IF NONAFRICN AM 91 ML/MIN/1.73 11/28/2017 Comp. Metabolic Panel (14) 946682 EGFR IF AFRICN AM 106 ML/MIN/1.73 11/28/2017 Comp. Metabolic Panel (14) 691032 BUN/ CREATININE RATIO 16 11/28/2017 Comp. Metabolic Panel (14) 980067 SODIUM 140 MMOL/L 2017 Comp. Metabolic Panel (14) 591310 POTASSIUM 4.1 MMOL/L 11/28/2017 Comp. Metabolic Panel (14) 112402 CHLORIDE 100 MMOL/L Comp. Metabolic Panel (14) 127011 CARBON DIOXIDE, TOTAL 25 MMOL/L 11/28/2017 Comp. Metabolic Panel (14) 517749 CALCIUM 9.1 MG/DL 08/2017 Comp. Metabolic Panel (14) 534800 Protein , Total 6.9 G/DL 11/28 Comp. Metabolic Panel (14) 740071 ALBUMIN 4.5 G/DL 11/28 Comp. Metabolic Panel (14) 449198 GLOBULIN, TOTAL 2.4 G/DL 11/28/2017 Comp. Metabolic Panel (14) 191942 A/G Ratio 1.9 11/28/2017 Comp. Metabolic Panel (14) 692979 BILIRUBIN, TOTAL 0.5 MG/DL 11/28/2017 Comp. Metabolic Panel (14) 722962 ALKALINE PHOSPHATASE 55 IU/L 11/28/2017 Comp. Metabolic Panel (14) 710702 AST ( SGOT) 18 IU/L 2017 Comp. Metabolic Panel (14) 634198 ALT ( SGPT) 24 IU/L 2017 Lipid Panel w/ Chol/HDL Ratio 406164 CHOLESTEROL, TOTAL 145 MG/DL 11/28/2017 Lipid Panel w/ Chol/HDL Ratio 410347 TRIGLYCERIDES 216 MG/DL 11/28/2017 Lipid Panel w/ Chol/HDL Ratio 405357 HDL CHOLESTEROL 60 MG/DL 11/28/2017 Lipid Panel w/ Chol/HDL Ratio 191914 VLDL CHOLESTEROL CINDI 43 MG/DL 11/28/2017 Lipid Panel w/ Chol/HDL Ratio 783359 LDL CHOLESTEROL CALC 42 MG/DL 11/28/2017 Lipid Panel w/ Chol/HDL Ratio 571875 T. CHOL/HDL RATIO 2.4 RATIO 11/28/2017 CBC With Differential/Platelet 158145 WBC 10.0 X10E3/UL 08/2017 CBC With Differential/Platelet 368307 RBC 4.78 X10E6/UL 08/2017 CBC With Differential/Platelet 898873 HEMOGLOBIN 14.3 G/DL 11/28/2017 CBC With Differential/Platelet 654730 HEMATOCRIT 41.9 % 08/2017 CBC With Differential/Platelet 240749 MCV 88 FL 11/28/2017 CBC With Differential/Platelet 368092 MCH 29.9 PG 2017 CBC With Differential/Platelet 392354 MCHC 34.1 G/DL 2017 CBC With Differential/Platelet 033454 RDW 13.4 % 11/28/2017 CBC With Differential/Platelet 512283 PLATELETS 309 X10E3/UL 11/28/2017 CBC With Differential/Platelet 466804 NEUTROPHILS 61 % 11/28 CBC With Differential/Platelet 258471 LYMPHS 30 % 2017 CBC With Differential/Platelet 832448 MONOCYTES 6 % 2017 CBC With Differential/Platelet 559013 EOS 2 % 11/28/2017 CBC With Differential/Platelet 481860 BASOS 0 % 11/28/2017 CBC With Differential/Platelet 990675 NEUTROPHILS (ABSOLUTE) 6.2 X10E3/UL 11/28/2017 CBC With Differential/Platelet 419191 LYMPHS (ABSOLUTE) 3.0 X10E3/UL 11/28/2017 CBC With Differential/Platelet 157412 MONOCYTES(ABSOLUTE) 0.6 X10E3/UL 11/28/2017 CBC With Differential/Platelet 085508 EOS (ABSOLUTE) 0.2 X10E3/UL 11/28/2017 CBC With Differential/Platelet 807360 BASO (ABSOLUTE) 0.0 X10E3/UL 11/28/2017 CBC With Differential/Platelet 103094 IMMATURE GRANULOCYTES 1 % 11/28/2017 CBC With Differential/Platelet 637001 IMMATURE GRANS (ABS) 0.1 X10E3/UL 11/28/2017 Thyroxine (T4) Free, Direct, S 106656 T4, FREE(DIRECT) 1.56 NG/DL 11/28/2017 TSH 042812 TSH 1.530 UIU/ML 11/28/2017 TSH 525839 TSH 0.749 uIU/mL 06/24/2017 Comp. Metabolic Panel (14) 153547 GLUCOSE 101 mg/dL 04/2017 Comp. Metabolic Panel (14) 122587 BUN 12 mg/dL 06/24/2017 Comp. Metabolic Panel (14) 517828 CREATININE 0.95 mg/dL 06/24/2017 Comp. Metabolic Panel (14) 418935 EGFR IF NONAFRICN AM 87 mL/min/1.73 06/24/2017 Comp. Metabolic Panel (14) 438061 EGFR IF AFRICN AM 100 mL/min/1.73 06/24/2017 Comp. Metabolic Panel (14) 030343 BUN/ CREATININE RATIO 13 06/24/2017 Comp. Metabolic Panel (14) 336027 SODIUM 140 mmol/L 2017 Comp. Metabolic Panel (14) 793692 POTASSIUM 4.1 mmol/L 06/24/2017 Comp. Metabolic Panel (14) 865525 CHLORIDE 99 mmol/L 04/2017 Comp. Metabolic Panel (14) 785927 CARBON DIOXIDE, TOTAL 25 mmol/L 06/24/2017 Comp. Metabolic Panel (14) 570777 CALCIUM 9.5 mg/dL 04/2017 Comp. Metabolic Panel (14) 362172 Protein , Total 7.1 g/dL 06/24 Comp. Metabolic Panel (14) 275059 ALBUMIN 4.6 g/dL 06/24 Comp. Metabolic Panel (14) 243338 GLOBULIN, TOTAL 2.5 g/dL 06/24/2017 Comp. Metabolic Panel (14) 529233 A/G Ratio 1.8 06/24/2017 Comp. Metabolic Panel (14) 964800 BILIRUBIN, TOTAL 0.4 mg/dL 06/24/2017 Comp. Metabolic Panel (14) 227361 ALKALINE PHOSPHATASE 66 IU/L 06/24/2017 Comp. Metabolic Panel (14) 118247 AST ( SGOT) 45 IU/L 2017 Comp. Metabolic Panel (14) 695243 ALT ( SGPT) 41 IU/L 2017 Lipid Panel 643563 CHOLESTEROL, TOTAL 122 mg/dL 06/24/2017 Lipid Panel 260170 TRIGLYCERIDES 155 mg/dL 06/24/2017 Lipid Panel 318102 HDL CHOLESTEROL 52 mg/dL 06/24/2017 Lipid Panel 361180 VLDL CHOLESTEROL CINDI 31 mg/dL 06/24/2017 Lipid Panel 751670 LDL CHOLESTEROL CALC 39 mg/dL 06/24/2017 CBC With Differential/Platelet 299063 WBC 6.6 x10E3/uL 06/24 CBC With Differential/Platelet 485936 RBC 4.89 x10E6/uL 04/2017 CBC With Differential/Platelet 834901 HEMOGLOBIN 14.6 g/dL 06/24/2017 CBC With Differential/Platelet 947574 HEMATOCRIT 43.7 % 04/2017 CBC With Differential/Platelet 213706 MCV 89 fL 06/24/2017 CBC With Differential/Platelet 773799 MCH 29.9 pg 2017 CBC With Differential/Platelet 194404 MCHC 33.4 g/dL 2017 CBC With Differential/Platelet 305779 RDW 13.6 % 06/24/2017 CBC With Differential/Platelet 554737 PLATELETS 258 x10E3/uL 06/24/2017 CBC With Differential/Platelet 309382 NEUTROPHILS 51 % 06/24 CBC With Differential/Platelet 307807 LYMPHS 36 % 2017 CBC With Differential/Platelet 874215 MONOCYTES 9 % 2017 CBC With Differential/Platelet 816068 EOS 4 % 06/24/2017 CBC With Differential/Platelet 075603 BASOS 0 % 06/24/2017 CBC With Differential/Platelet 430309 NEUTROPHILS (ABSOLUTE) 3.3 x10E3/uL 06/24/2017 CBC With Differential/Platelet 482611 LYMPHS (ABSOLUTE) 2.3 x10E3/uL 06/24/2017 CBC With Differential/Platelet 031058 MONOCYTES(ABSOLUTE) 0.6 x10E3/uL 06/24/2017 CBC With Differential/Platelet 104932 EOS (ABSOLUTE) 0.3 x10E3/uL 06/24/2017 CBC With Differential/Platelet 097480 BASO (ABSOLUTE) 0.0 x10E3/uL 06/24/2017 CBC With Differential/Platelet 659521 IMMATURE GRANULOCYTES 0 % 06/24/2017 CBC With Differential/Platelet 210505 IMMATURE GRANS (ABS) 0.0 x10E3/uL 06/24/2017 Thyroxine (T4) Free, Direct, S 297357 T4, FREE(DIRECT) 1.35 ng/dL 06/24/2017 Comp. Metabolic Panel (14) 720954 GLUCOSE , SERUM 111 MG/DL Comp. Metabolic Panel (14) 455908 BUN 14 MG/DL 02/22/2016 Comp. Metabolic Panel (14) 109616 CREATININE, SERUM 1.03 MG/DL 02/22/2016 Comp. Metabolic Panel (14) 481964 EGFR IF NONAFRICN AM 79 ML/MIN/1.73 02/22/2016 Comp. Metabolic Panel (14) 961617 EGFR IF AFRICN AM 91 ML/MIN/1.73 02/22/2016 Comp. Metabolic Panel (14) 288613 BUN/ CREATININE RATIO 14 02/22/2016 Comp. Metabolic Panel (14) 358447 SODIUM , SERUM 140 MMOL/L Comp. Metabolic Panel (14) 453553 POTASSIUM, SERUM 3.9 MMOL/L 02/22/2016 Comp. Metabolic Panel (14) 290267 CHLORIDE, SERUM 99 MMOL/L 02/22/2016 Comp. Metabolic Panel (14) 731321 CARBON DIOXIDE, TOTAL 25 MMOL/L 02/22/2016 Comp. Metabolic Panel (14) 739466 CALCIUM , SERUM 9.1 MG/DL Comp. Metabolic Panel (14) 542163 PROTEIN , TOTAL, SERUM 6.5 G/DL 02/22/2016 Comp. Metabolic Panel (14) 237903 ALBUMIN , SERUM 4.1 G/DL 02/21 Comp. Metabolic Panel (14) 476172 GLOBULIN, TOTAL 2.4 G/DL 02/22/2016 Comp. Metabolic Panel (14) 633410 A/G Ratio 1.7 02/22/2016 Comp. Metabolic Panel (14) 543557 BILIRUBIN, TOTAL 0.2 MG/DL 02/22/2016 Comp. Metabolic Panel (14) 657617 ALKALINE PHOSPHATASE, S 72 IU/L 02/22/2016 Comp. Metabolic Panel (14) 167861 AST ( SGOT) 30 IU/L 2015 Comp. Metabolic Panel (14) 102699 ALT ( SGPT) 43 IU/L 2015 CBC With Differential/Platelet 147490 WBC 6.9 X10E3/UL 02/21 CBC With Differential/Platelet 795351 RBC 4.79 X10E6/UL CBC With Differential/Platelet 006296 HEMOGLOBIN 14.4 G/DL 02/22/2016 CBC With Differential/Platelet 804072 HEMATOCRIT 43.1 % CBC With Differential/Platelet 914005 MCV 90 FL 02/22/2016 CBC With Differential/Platelet 363865 MCH 30.1 PG 2015 CBC With Differential/Platelet 483399 MCHC 33.4 G/DL 2015 CBC With Differential/Platelet 106768 RDW 13.5 % 02/22/2016 CBC With Differential/Platelet 977456 PLATELETS 257 X10E3/UL 02/22/2016 CBC With Differential/Platelet 663609 NEUTROPHILS 57 % 02/21 CBC With Differential/Platelet 120582 LYMPHS 32 % 2015 CBC With Differential/Platelet 337719 MONOCYTES 8 % 2015 CBC With Differential/Platelet 218415 EOS 3 % 02/22/2016 CBC With Differential/Platelet 823216 BASOS 0 % 02/22/2016 CBC With Differential/Platelet 271223 NEUTROPHILS (ABSOLUTE) 4.0 X10E3/UL 02/22/2016 CBC With Differential/Platelet 679711 LYMPHS (ABSOLUTE) 2.2 X10E3/UL 02/22/2016 CBC With Differential/Platelet 490687 MONOCYTES(ABSOLUTE) 0.5 X10E3/UL 02/22/2016 CBC With Differential/Platelet 353511 EOS (ABSOLUTE) 0.2 X10E3/UL 02/22/2016 CBC With Differential/Platelet 442755 BASO (ABSOLUTE) 0.0 X10E3/UL 02/22/2016 CBC With Differential/Platelet 751473 IMMATURE GRANULOCYTES 0 % 02/22/2016 CBC With Differential/Platelet 588470 IMMATURE GRANS (ABS) 0.0 X10E3/UL 02/22/2016 TSH 355395 TSH 0.510 UIU/ML 02/22/2016 Lipid Panel 925632 CHOLESTEROL, TOTAL 183 MG/DL 02/22/2016 Lipid Panel 957557 TRIGLYCERIDES 509 MG/DL 02/22/2016 Lipid Panel 885097 HDL CHOLESTEROL 47 MG/DL 02/22/2016 Lipid Panel 098746 VLDL CHOLESTEROL CINDI COMMENT MG/DL 2015 Lipid Panel 319048 LDL CHOLESTEROL CALC COMMENT MG/DL 2015 Thyroxine (T4) Free, Direct, S 111816 T4, FREE(DIRECT) 1.39 NG/DL 02/22/2016 Comp Metabolic Iwi390 NA 132 mEq/L 12/02/2014 Comp Metabolic Hrq397 K 4.1 mEq/L 12/02/2014 Comp Metabolic Guw036 CL 100 mEq/L 12/02/2014 Comp Metabolic Hmd203 CO2 26.0 mEq/L 12/02/2014 Comp Metabolic Lwy517 ANION GAP 10 12/02/2014 Comp Metabolic Orq804 GLUCOSE 107 mg/dL 12/02/2014 Comp Metabolic Fdq183 Creat 1.1 mg/dL 12/02/2014 Comp Metabolic Qmh045 eGFR 73 ml/min/1.73m2 12/02/2014 Comp Metabolic Bvm023 BUN 16 mg/dL 12/02/2014 Comp Metabolic Zax268 B/C Ratio 14.5 Ratio 12/02/2014 Comp Metabolic Eip686 CALCIUM 9.5 mg/dL 12/02/2014 Comp Metabolic Szn277 ALK PHOS 39 U/L 12/02/2014 Comp Metabolic Qzn454 AST(SGOT) 18 U/L 12/02/2014 Comp Metabolic Cuk668 ALT(SGPT) 24 U/L 12/02/2014 Comp Metabolic Dib343 BILI T 0.5 mg/dL 12/02/2014 Comp Metabolic Huu954 ALBUMIN 4.2 g/dL 12/02/2014 Comp Metabolic Gob338 TPRO 6.5 g/dL 12/02/2014 Comp Metabolic Qlu043 GLOB 2.3 g/dL 12/02/2014 Comp Metabolic Uoi933 A/G Ratio 1.8 Ratio 12/02/2014 Comp Metabolic Yzf538 Osmo 266 mOsmo 12/02/2014 Tsh Ord6 hTSH [...] Procedure Codes Date IMMUNIZATION ADMIN CPT -4: 90995 01/28/2017 FLU VAC NO PRSV 4 MONTY 3 YRS+ CPT-4: 01636 01/28/2017 TRIAMCINOLONE ACET INJ NOS CPT-4: J3301 05/02/2016 IMMUNIZATION ADMIN CPT -4: 15032 01/02/2016 FLU VACC 4 MONTY 3 YRS PLUS IM Formatting Model/CDA Sections, Assigned to/Ana Bella SNOMED CT: [id number] CPT-4: 94287Qoaqgud 01/02/2016 IMMUNIZATION ADMIN CPT -4: 12472 12/28/2014 IIV4 FLU VACC NO PRESERV ID Formatting Model/CDA Sections, Assigned to/Ana Bella SNOMED CT: [id number] CPT-4: 00056Ebmkjbu 12/28/2014 Vital Signs Date Vital 11/27/2017 Blood Pressure 1: 122/76 Code : 8480-6 BMI: 27.2 Code : 05525-1 Heart Rate 1 : 58 bpm Height: 5'8" SpO2: 98% Weight: 179 lbs 09/19/2017 Blood Pressure 1: 122/60 Code : 8480-6 BMI: 29.8 Code : 94116-8 Heart Rate 1 : 57 bpm Height: 5'8" SpO2: 93% Weight: 196 lbs 05/23/2017 Blood Pressure 1: 122/74 Code : 8480-6 BMI: 29.2 Code : 16729-6 Heart Rate 1 : 68 bpm Height: 5'8" SpO2: 97% Weight: 192 lbs 08/02/2016 Blood Pressure 1: 142/80 Code : 8480-6 BMI: 28.1 Code : 47897-1 Heart Rate 1 : 61 bpm Height: 5'8" SpO2: 98% Weight: 185 lbs 05/17/2016 Blood Pressure 1: 126/74 Code : 8480-6 BMI: 27.7 Code : 63301-6 Heart Rate 1 : 60 bpm Height: 5'8" SpO2: 95% Temperature: 37.0 (C) / 98.6 (F) Weight: 182 lbs 05/02/2016 Blood Pressure 1: 106/68 Code : 8480-6 BMI: 27.8 Code : 37067-3 Heart Rate 1 : 58 bpm Height: 5'8" SpO2: 97% Temperature: 36.7 (C) / 98.1 (F) Weight: 183 lbs 02/02/2016 Blood Pressure 1: 124/76 Code : 8480-6 BMI: 28.0 Code : 99449-4 Heart Rate 1 : 68 bpm Height: 5'8" SpO2: 98% Weight: 184 lbs 01/02/2016 Blood Pressure 1: 130/72 Code : 8480-6 BMI: 28.0 Code : 37330-6 Heart Rate 1 : 62 bpm Height: 5'8" SpO2: 96% Weight: 184 lbs 08/04/2015 Blood Pressure 1: 128/76 Code : 8480-6 BMI: 27.7 Code : 68789-9 Heart Rate 1 : 64 bpm Height: 5'8" SpO2: 98% Weight: 182 lbs 06/29/2015 Blood Pressure 1: 142/84 Code : 8480-6 BMI: 28.0 Code : 57111-1 Heart Rate 1 : 55 bpm Height: 5'8" SpO2: 97% Weight: 184 lbs 05/19/2015 Blood Pressure 1: 120/78 Code : 8480-6 BMI: 27.2 Code : 77242-8 Heart Rate 1 : 86 bpm Height: 5'8" Weight: 179 lbs 12/28/2014 Blood Pressure 1: 130/68 Code : 8480-6 BMI: 27.7 Code : 74534-3 Heart Rate 1 : 52 bpm Height: 5'8" SpO2: 98% Weight: 182 lbs 08/12/2014 Blood Pressure 1: 118/70 Code : 8480-6 BMI: 27.7 Code : 88767-0 Heart Rate 1 : 64 bpm Height: [...] Directive data Encounters Encounter Performer Location Codes ([id number]) [id number] EST. PATIENT, LEVEL IV Diagnosis: Mixed hyperlipidemia[ICD10: E78.2] Diagnosis: Essential (primary) hypertension[ICD10: I10] Diagnosis: Atrophy of thyroid (acquired)[ICD10: E03.4] Diagnosis: Pain in right knee[ICD10: M25.561] Laura Hurt MD, [facility] CPT-4: 21724 11/27/2017 [id number] EST. PATIENT, LEVEL III Diagnosis: Cellulitis of back [any part except buttock][ICD10: L03.312] [facility] CPT-4: 58399 09/19/2017 ([id number]) PREV VISIT EST AGE 40-64 Diagnosis: Encounter for general adult medical examination without abnormal findings[ICD10: Z00.00] Laura Hurt MD, [facility] CPT-4: 61366 05/23/2017 ([id number]) 63226 EST. PATIENT, LEVEL IV Diagnosis: Essential (primary) hypertension[ICD10: I10] Diagnosis: Atrophy of thyroid (acquired)[ICD10: E03.4] Diagnosis: Mixed hyperlipidemia[ICD10: E78.2] Diagnosis: Other allergic rhinitis[ICD10: J30.89] Diagnosis: Melanocytic nevi of left lower limb, including hip[ICD10: D22.72] Diagnosis: Melanocytic nevi of right lower limb, including hip[ICD10: D22.71] Laura Hurt MD, [facility] CPT-4: 36146 08/02/2016 46983 EST. PATIENT, LEVEL III Diagnosis: Other allergic rhinitis[ICD10: J30.89] Diagnosis: Cough[ICD10: R05] Diagnosis: Candidal stomatitis[ICD10: B37.0] [facility] CPT -4: 98061 05/17/2016 90012 EST. PATIENT, LEVEL III Diagnosis: Acute bronchitis due to other specified organisms[ICD10: J20.8] Rose Hurt MD, [facility] CPT-4: 03860 05/02/2016 ([id number]) PREV VISIT EST AGE 40-64 Diagnosis: Atrophy of thyroid (acquired)[ICD10: E03.4] Diagnosis: Mixed hyperlipidemia[ICD10: E78.2] Diagnosis: Essential (primary) hypertension[ICD10: I10] Diagnosis: Encounter for general adult medical examination without abnormal findings[ICD10: Z00.00] Laura Hurt MD, [facility] CPT-4: 67445 02/02/2016 62286 EST. PATIENT, LEVEL II Diagnosis: Cellulitis of head [any part, except face][ICD10: L03.811] Diagnosis: Rash and other nonspecific skin eruption[ICD10: R21] Diagnosis: VACCIN FOR INFLUENZA[ICD10: Z23] Monae Hurt MD, [facility] CPT-4: 03408 01/02/2016 ([id number]) 73798 EST. PATIENT, LEVEL III Diagnosis: Essential (primary) hypertension[ICD10: I10] Laura Hurt MD, [facility] CPT-4: 34417 08/04/2015 73217 EST. PATIENT, LEVEL IV Diagnosis: Other acute sinusitis[ICD10: J01.80] Diagnosis: Other allergic rhinitis[ICD10: J30.89] Rose Hurt MD, [facility] CPT-4: 13351 06/29/2015 ([id number]) 01632 EST. PATIENT, LEVEL III Diagnosis: Low back pain[ICD10: M54.5] Diagnosis: Rash and other nonspecific skin eruption[ICD10: R21] Monae Hurt MD, [facility] CPT-4: 64142 05/19/2015 ([id number]) 35505 EST. PATIENT, LEVEL III Diagnosis: Mixed hyperlipidemia[ICD10: E78.2] Diagnosis: Hypothyroidism, unspecified[ICD10: E03.9] Monae Hurt MD, [facility] CPT-4: 42388 12/28/2014 ([id number]) PREV VISIT NEW AGE 40-64 Diagnosis: Well adult exam[ICD9: V70.0] Monae Hurt MD, [facility] CPT-4: 27565 08/12/2014 Plan of Care Planned Activity Notes [...] the hydrocodone. 11/27/2017 Appointment: Laura Hurt WPtel: [facility]5 [facility] (15 min) Moderate 11/27/2017 Patient Education: Patient [...] warmth, discharge. 09/19/2017 Appointment: Rose Ferrer WPtel: [facility]5 [facility] (15 min) Moderate 09/19/2017 Patient Education: Patient Medication Summary Completed 09/19/2017 Appointment: Rose Ferrer WPtel: [facility]5 [facility] (15 min) Moderate 06/18/2017 Visit Plan: Well [...] for colonoscopy 05/23/2017 [phone] ([facility]) Moderate 05/23/2017 Patient Education: Patient Medication Summary Completed 05/23/2017 Care Plan: Referral Order SNOMED-CT : [id number] Pending 05/23/2017 Appointment: Injection 01/28/2017 Patient Education: [...] one month 08/02/2016 [phone] (30 min) Complex 08/02/2016 Patient Education: Patient [...] allergies 05/17/2016 Appointment: Rose Ferrer WPtel: [phone] [facility] (15 min) Moderate 05/17/2016 Patient Education: Patient [...] acutely worsen. 05/02/2016 Appointment: Rose Ferrer WPtel: [phone] [facility] (15 min) Moderate 05/02/2016 Patient Education: Patient [...] medications. 02/02/2016 App[facility]ment: [phone] [place] (30 min) Complex 02/02/2016 Patient Education: Patient Medication Summary Completed 02/02/2016 Visit Plan: Rksagdnqlagt-enppq-bvsnniy of pustule today in the office-will treat as indicated-patient verbalized understanding of plan. 01/02/2016 Visit Plan: Dorasvlwyxmj-dgjfj-zolzngx of pustule today in the office-will treat as indicated-patient verbalized understanding of plan. 01/02/2016 App[facility]ment[phone] [place] (30 min) Complex 01/02/2016 Patient Education: [...] home. 08/04/2015 Appointment: [phone] (30 min) Complex 08/04/2015 Patient Education: Patient [...] assure normal liver response to medications. . Pncgkmytjgtv-mcfak-kbtlhgg of pustule today in the office -will treat as indicated-patient verbalized understanding of plan. . Ilhgwtmmzdph-hhuxi-mpaviup of pustule today in the office -will [...]
--- OUTSIDE RECORDS SUMMARY | 2018-07-17 11:28 | XMS REPORT | CCD ---
Author Author Monae Berkowitz MD, [facility] Address [address] [place] [address] Phone Care Team Providers Care Vegetable Cook Name Role Phone PP Unavailable CCM Unavailable Summary Purpose Interface Exchange Insurance Providers Payer name Policy type / Coverage type Covered green party ID Effective Begin Date Effective End Date Blue Cross Blue [facility] Blue Cross/Blue Shield [id number] Unknown Unknown Family history Mother Diagnosis Age At Onset Coronary Artery Disease Unknown Breast cancer Unknown Father Diagnosis Age At Onset Hypertension Unknown Cancer Unknown Social History Social History Element Codes Description Effective Dates Frequency of drinks SNOMED CT: 705747039 10 drinks per week -varies- more on weekends 08/02/2016 Employment Unknown 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 Marital status Unknown Single 08/12/2014 Number of children Unknown 0 08/12/[address]: 3958837 Quit less than 10 years ago 200608/12/[address]: 368507 Currently drinks alcohol 08/12/2014 Allergies, Adverse Reactions, [...] Start Date Stop Date Status Fill Instructions bisoprolol 5 mg-hydrochlorothiazide 6.25 mg tablet RxNorm: 323423 TAKE ONE TABLET BY MOUTH DAILY 04/18/2018 10/14/2018 Active Lipitor 80 mg tablet RxNorm: 051306 TAKE ONE TABLET BY MOUTH EVERY NIGHT AT BEDTIME 03/24/2018 07/21/2018 Active Penlac 8 % topical solution RxNorm: 761416 APPLY TO AFFECTED AREA(S) DAILY 03/24/2018 04/12/2018 Inactive alprazolam 0.5 mg tablet RxNorm: 509147 1/2 Tablet(s) PO BID as needed 02/18/2018 04/18/2018 Inactive acyclovir 400 mg tablet RxNorm: 955935 TAKE ONE TABLET BY MOUTH DAILY 02/18/2018 05/18/2018 Active acyclovir 400 mg tablet RxNorm: 469771 TAKE ONE TABLET BY MOUTH DAILY 11/11/2017 02/08/2018 Inactive Levothroid 175 mcg tablet RxNorm: 049304 Tablet(s) TAKE ONE TABLET BY MOUTH DAILY ON AN EMPTY STOMACH . 09/30/20172018 Inactive bisoprolol 5 mg-hydrochlorothiazide 6.25 mg tablet RxNorm: 638726 TAKE ONE TABLET BY MOUTH DAILY 09/30/2017 03/28/2018 Inactive Lipitor 80 mg tablet RxNorm: 817401 TAKE ONE TABLET BY MOUTH EVERY NIGHT AT BEDTIME 09/30/2017 02/26/2018 Inactive Bactrim DS 800 mg-160 mg tablet RxNorm: 938702 1 Tablet(s) PO BID 09/19/2017 09/25/2017 Inactive alprazolam 0.5 mg tablet RxNorm: 920870 1/2 Tablet(s) PO BID as needed 07/24/2017 09/20/2017 Inactive Zithromax Z-Bassam 250 mg tablet RxNorm: 107072 1 Tablet(s) PO UD 06/17/2017 07/23/2017 Inactive z pack as directed Levothroid 175 mcg tablet RxNorm: 541014 TAKE ONE TABLET BY MOUTH DAILY ON AN EMPTY STOMACH . NEED TO REPEAT LAB FOR TSH AND FREE T4 201708/31/2017 Inactive gemfibrozil 600 mg tablet RxNorm: 745025 1 Tablet(s) PO BID 03/201702/16/2018 Inactive Penlac 8 % topical solution RxNorm: 384445 1 Application TOP daily 05/23/2017 06/21/2017 Inactive ketoconazole 2 % topical cream RxNorm: 935095 1 Application TOP BID 05/23/2017 06/05/2017 Inactive Cipro 500 mg tablet RxNorm: 233240 1 Tablet(s) PO BID 201705/30/2017 Inactive Flagyl 500 mg tablet RxNorm: 800426 1 Tablet(s) PO TID 201705/30/2017 Inactive acyclovir 400 mg tablet RxNorm: 761638 TAKE ONE TABLET BY MOUTH DAILY 04/26/2017 10/22/2017 Inactive bisoprolol 5 mg-hydrochlorothiazide 6.25 mg tablet RxNorm: 389281 TAKE ONE TABLET BY MOUTH DAILY 03/11/2017 09/06/2017 Inactive Levothroid 175 mcg tablet RxNorm: 665841 TAKE ONE TABLET BY MOUTH DAILY ON AN EMPTY STOMACH . NEED TO REPEAT LAB FOR TSH AND FREE T4 201606/02/2017 Inactive Lipitor 80 mg tablet RxNorm: 749366 Tablet(s) PO TAKE ONE TABLET BY MOUTH EVERY NIGHT AT BEDTIME 12/24/2016 11/26/2017 Inactive Levothroid 175 mcg tablet RxNorm: 687802 TAKE ONE TABLET BY MOUTH DAILY ON AN EMPTY STOMACH . NEED TO REPEAT LAB FOR TSH AND FREE T4 201603/10/2017 Inactive hydrocodone 7.5 mg-acetaminophen 325 mg tablet RxNorm: 226591 1 Tablet(s) PO Q6 PRN 11/06/2016 12/05/2016 Inactive [SAVINGS FOR NON-COVERED DRUGS -- BIN:[id number], PCN: ASPROD1, Group: XXXXX, ID# [id number], Questions: . THIS IS NOT INSURANCE.] Soma 350 mg tablet RxNorm: 702809 1 Tablet(s) PO TID as needed 11/06/2016 No Stop Date Active alprazolam 0.5 mg tablet RxNorm: 113220 1/2 Tablet(s) PO BID as needed 10/05/2016 11/26/2017 Inactive Lipitor 80 mg tablet RxNorm: 186760 Tablet(s) PO TAKE ONE TABLET BY MOUTH EVERY NIGHT AT BEDTIME 09/04/2016 12/23/2016 Inactive Lipitor 40 mg tablet RxNorm: 796050 TAKE ONE TABLET BY MOUTH EVERY NIGHT AT BEDTIME 09/04/2016 09/03/2016 Inactive acyclovir 400 mg tablet RxNorm: 887909 TAKE ONE TABLET BY MOUTH DAILY 08/23/2016 02/18/2017 Inactive bisoprolol 5 mg-hydrochlorothiazide 6.25 mg tablet RxNorm: 986274 TAKE ONE TABLET BY MOUTH DAILY 08/23/2016 02/18/2017 Inactive Levothroid 175 mcg tablet RxNorm: 875595 Tablet(s) TAKE ONE TABLET BY MOUTH DAILY 08/22/2016 11/19/2016 Inactive Needs to repeat TSH et Free T4 labs acyclovir 400 mg tablet RxNorm: 927741 TAKE ONE TABLET BY MOUTH DAILY 08/21/2016 08/22/2016 Inactive prednisone 10 mg tablet RxNorm: 223515 Tablet(s) PO UD dispense a medrol dose pack 08/10/2016 07/23/2017 Inactive 6,5,4,3,2,1 prednisone 10 mg tablet RxNorm: 552005 Tablet(s) PO UD dispense a medrol dose pack 07/30/2016 08/09/2016 Inactive 6,5,4,3,2,1 cefdinir 300 mg capsule RxNorm: 407819 1 Capsule(s) PO BID 10/201608/08/2016 Inactive cefdinir 300 mg capsule RxNorm: 132069 1 Capsule(s) PO BID 10/201607/29/2016 Inactive Lipitor 40 mg tablet RxNorm: 157563 TAKE ONE TABLET BY MOUTH EVERY NIGHT AT BEDTIME 06/25/2016 09/03/2016 Inactive nystatin 100,000 unit/mL oral suspension RxNorm: 221183 5 Milliliter(s) PO TID 05/17/2016 05/21/2016 Inactive Zyrtec 10 mg tablet RxNorm: 7198591 1 Tablet(s) PO daily 05/1706/15/2016 Inactive Levothroid 175 mcg tablet RxNorm: 611989 TAKE ONE TABLET BY MOUTH DAILY 05/16/2016 08/13/2016 Inactive Levaquin 750 mg tablet RxNorm: 306187 1 Tablet(s) PO daily 05/09/2016 Inactive Levaquin 750 mg tablet RxNorm: 869870 1 Tablet(s) PO daily 05/14/2016 Inactive Phenergan-Codeine 6.25 mg-10 mg/5 mL syrup RxNorm: 834303 5-10 Milliliter(s) PO Q6 as needed cough 05/02/2016 No Stop Date Active prednisone 10 mg tablet RxNorm: 346464 Tablet(s) PO UD 201607/29/2016 Inactive 6,5,4,3,2,1 Kenalog 40 mg/mL suspension for injection RxNorm: 8363142 Milliliter(s) Inj 05/02/2016 05/02/2016 Inactive Phenergan-Codeine 6.25 mg-10 mg/5 mL syrup RxNorm: 533356 5-10 Milliliter(s) PO Q6 as needed cough 04/25/2016 05/01/2016 Inactive Zithromax Z-Bassam 250 mg tablet RxNorm: 815294 1 Tablet(s) PO UD 04/25/2016 07/29/2016 Inactive z pack as directed acyclovir 400 mg tablet RxNorm: 923872 TAKE ONE TABLET BY MOUTH DAILY 04/10/2016 07/08/2016 Inactive Zetia 10 mg tablet RxNorm: 421709 1 Tablet(s) PO daily 201505/22/2017 Inactive Zetia 10 mg tablet RxNorm: 154610 1 Tablet(s) PO daily 201503/06/2016 Inactive Lipitor 40 mg tablet RxNorm: 774396 Tablet(s) PO TAKE ONE TABLET BY MOUTH EVERY NIGHT AT BEDTIME 03/07/2016 06/24/2016 Inactive Patient is requesting 90 days supply Diflucan 150 mg tablet RxNorm: 600092 1 Tablet(s) PO daily 01/11/2016 Inactive Diflucan 150 mg tablet RxNorm: 908653 1 Tablet(s) PO daily 01/04/2016 Inactive hydrocodone 7.5 mg-acetaminophen 325 mg tablet RxNorm: 965655 1 Tablet(s) PO Q6 PRN 12/28/2015 01/26/2016 Inactive [SAVINGS FOR NON-COVERED DRUGS -- BIN:000937, PCN: ASPROD1, Group: XXXXX, ID# [id number], Questions: . THIS IS NOT INSURANCE.] alprazolam 0.5 mg tablet RxNorm: 477925 1/2 Tablet(s) PO BID as needed 11/30/2015 10/04/2016 Inactive Levothroid 175 mcg tablet RxNorm: 670018 Tablet(s) TAKE ONE TABLET BY MOUTH DAILY 10/26/2015 04/22/2016 Inactive hydrocodone 7.5 mg-acetaminophen 325 mg tablet RxNorm: 077930 1 Tablet(s) PO Q6 PRN 08/30/2015 09/28/2015 Inactive [SAVINGS FOR NON-COVERED DRUGS -- BIN:[id number], PCN: ASPROD1, Group: XXXXX, ID# [id number], Questions: . THIS IS NOT INSURANCE.] Ventolin HFA 90 mcg/actuation aerosol inhaler RxNorm: 744542 2 INH PRN dyspnea 08/04/2015 No Stop Date Active bisoprolol 5 mg-hydrochlorothiazide 6.25 mg tablet RxNorm: 557152 TAKE ONE TABLET BY MOUTH DAILY 07/11/2015 01/06/2016 Inactive Patient is requesting 90 days supply bisoprolol 5 mg-hydrochlorothiazide 6.25 mg tablet RxNorm: 127345 TAKE ONE TABLET BY MOUTH DAILY 07/11/2015 01/06/2016 Inactive Lipitor 10 mg tablet RxNorm: 114506 TAKE ONE TABLET BY MOUTH EVERY NIGHT AT BEDTIME 07/11/2015 01/06/2016 Inactive Patient is requesting 90 days supply Lipitor 10 mg tablet RxNorm: 261584 TAKE ONE TABLET BY MOUTH EVERY NIGHT AT BEDTIME 07/11/2015 05/13/2016 Inactive acyclovir 400 mg tablet RxNorm: 866919 1 Tablet(s) PO daily 08/22/2016 Inactive acyclovir 400 mg tablet RxNorm: 048099 1 Tablet(s) PO daily 07/10/2015 Inactive Zithromax Z-Bassam 250 mg tablet RxNorm: 819656 Tablet(s) PO UD 08/03/2015 Inactive acyclovir 400 mg tablet RxNorm: 952917 1 Tablet(s) PO daily 08/201507/05/2015 Inactive meloxicam 15 mg tablet RxNorm: 270033 TAKE ONE TABLET BY MOUTH DAILY 06/27/2015 11/23/2015 Inactive triamcinolone acetonide 0.1 % topical cream RxNorm: 4645260 1 Application TOP BID 05/19/2015 06/01/2015 Inactive apply very thin layer as directed hydrocodone 7.5 mg-acetaminophen 325 mg tablet RxNorm: 551811 1 Tablet(s) PO Q6 PRN 05/19/2015 08/29/2015 Inactive [SAVINGS FOR NON-COVERED DRUGS -- BIN:[id number], PCN: ASPROD1, Group: XXXXX, ID# [id number], Questions: . THIS IS NOT INSURANCE.] Cipro 500 mg tablet RxNorm: 249683 1 Tablet(s) PO BID 201504/20/2015 Inactive Cipro 500 mg tablet RxNorm: 694607 1 Tablet(s) PO BID 201504/30/2015 Inactive Flagyl 500 mg tablet RxNorm: 609548 1 Tablet(s) PO TID 201504/30/2015 Inactive Flagyl 500 mg tablet RxNorm: 282011 1 Tablet(s) PO TID 201504/20/2015 Inactive bisoprolol 5 mg-hydrochlorothiazide 6.25 mg tablet RxNorm: 397963 1 Tablet(s) PO daily 04/21/2015 07/10/2015 Inactive Levothroid 175 mcg tablet RxNorm: 988679 TAKE ONE TABLET BY MOUTH DAILY 04/18/2015 10/14/2015 Inactive hydrocodone 7.5 mg-acetaminophen 325 mg tablet RxNorm: 774969 1 Tablet(s) PO Q6 PRN 04/04/2015 05/18/2015 Inactive [SAVINGS FOR NON-COVERED DRUGS -- BIN:362219, PCN: ASPROD1, Group: XXXXX, ID# [id number], Questions: . THIS IS NOT INSURANCE.] Lipitor 10 mg tablet RxNorm: 557672 1 Tablet(s) PO QHS 201507/02/2015 Inactive azithromycin 250 mg tablet RxNorm: 125589 1 Tablet(s) PO UD Take 2 tabs on day one and 1 tab day 2-5 02/03/20152014 Inactive azithromycin 250 mg tablet RxNorm: 779399 1 Tablet(s) PO UD Take 2 tabs on day one and 1 tab day 2-5 02/03/20152014 Inactive Levothroid 175 mcg tablet RxNorm: 537964 TAKE ONE TABLET BY MOUTH DAILY 12/16/2014 03/15/2015 Inactive Lipitor 10 mg tablet RxNorm: 816369 1 Tablet(s) PO QHS 201403/07/2015 Inactive hydrocodone 7.5 mg-acetaminophen 325 mg tablet RxNorm: 840647 1 Tablet(s) PO Q6 PRN 12/08/2014 04/03/2015 Inactive [SAVINGS FOR NON-COVERED DRUGS -- BIN:[id number], PCN: ASPROD1, Group: XXXXX, ID# [id number], Questions: . THIS IS NOT INSURANCE.] Lipitor 10 mg tablet RxNorm: 351766 1 Tablet(s) PO QHS 201412/07/2014 Inactive meloxicam 15 mg tablet RxNorm: 285460 1 Tablet(s) PO daily 04/01/2015 Inactive Levothroid 175 mcg tablet RxNorm: 693178 1 Tablet(s) PO daily 09/28/2014 12/15/2014 Inactive meloxicam 15 mg tablet RxNorm: 895127 1 Tablet(s) PO daily 09/10/2014 Inactive bisoprolol 2.5 mg-hydrochlorothiazide 6.25 mg tablet RxNorm: 867408 1 Tablet(s) PO daily 08/12/2014 11/09/2014 Inactive Levothroid 175 mcg tablet RxNorm: 989493 1 Tablet(s) PO daily 08/12/2014 09/27/2014 Inactive hydrocodone 7.5 mg-acetaminophen 325 mg tablet RxNorm: 462306 1 Tablet(s) PO Q6 PRN 08/12/2014 12/07/2014 Inactive [SAVINGS FOR NON-COVERED DRUGS -- BIN:[id number], PCN: ASPROD1, Group: XXXXX, ID# [id number], Questions: . THIS IS NOT INSURANCE.] acyclovir 400 mg tablet RxNorm: 669917 1 Tablet(s) PO daily 09/10/2014 Inactive hydrocodone 7.5 mg-acetaminophen 325 mg tablet RxNorm: 725142 1 Tablet(s) PO No Start Date 08/11/2014 Inactive Soma 350 mg tablet RxNorm: 749749 1 Tablet(s) PO TID as needed No Start Date 11/05/2016 Inactive alprazolam 0.5 mg tablet RxNorm: 240191 1/2 Tablet(s) PO BID as needed No Start Date 11/29/2015 Inactive Phenergan-Codeine 6.25 mg-10 mg/5 mL syrup RxNorm: 125812 5-10 Milliliter(s) PO Q6 as needed cough No Start Date 2016 Inactive Medication Administered Medication Codes Instructions Start Date Status Kenalog 40 mg/mL suspension for injection RxNorm: 8673706 Milliliter 05/02/2016 No longer Active Immunizations Vaccine [...] Observation Code Item Item Code Result Date TSH 588188 TSH 1.530 UIU/ML 11/28/2017 Thyroxine (T4) Free, Direct, S 793139 T4, FREE(DIRECT) 1.56 NG/DL 11/28/2017 CBC With Differential/Platelet 863892 WBC 10.0 X10E3/UL 08/2017 CBC With Differential/Platelet 311304 RBC 4.78 X10E6/UL 08/2017 CBC With Differential/Platelet 750226 HEMOGLOBIN 14.3 G/DL 11/28/2017 CBC With Differential/Platelet 065106 HEMATOCRIT 41.9 % 08/2017 CBC With Differential/Platelet 816446 MCV 88 FL 11/28/2017 CBC With Differential/Platelet 388284 MCH 29.9 PG 2017 CBC With Differential/Platelet 746577 MCHC 34.1 G/DL 2017 CBC With Differential/Platelet 658258 RDW 13.4 % 11/28/2017 CBC With Differential/Platelet 502297 PLATELETS 309 X10E3/UL 11/28/2017 CBC With Differential/Platelet 559168 NEUTROPHILS 61 % 11/28 CBC With Differential/Platelet 709845 LYMPHS 30 % 2017 CBC With Differential/Platelet 344595 MONOCYTES 6 % 2017 CBC With Differential/Platelet 783640 EOS 2 % 11/28/2017 CBC With Differential/Platelet 169322 BASOS 0 % 11/28/2017 CBC With Differential/Platelet 676802 NEUTROPHILS (ABSOLUTE) 6.2 X10E3/UL 11/28/2017 CBC With Differential/Platelet 856679 LYMPHS (ABSOLUTE) 3.0 X10E3/UL 11/28/2017 CBC With Differential/Platelet 130178 MONOCYTES(ABSOLUTE) 0.6 X10E3/UL 11/28/2017 CBC With Differential/Platelet 917083 EOS (ABSOLUTE) 0.2 X10E3/UL 11/28/2017 CBC With Differential/Platelet 590457 BASO (ABSOLUTE) 0.0 X10E3/UL 11/28/2017 CBC With Differential/Platelet 242330 IMMATURE GRANULOCYTES 1 % 11/28/2017 CBC With Differential/Platelet 363720 IMMATURE GRANS (ABS) 0.1 X10E3/UL 11/28/2017 Lipid Panel w/ Chol/HDL Ratio 225941 CHOLESTEROL, TOTAL 145 MG/DL 11/28/2017 Lipid Panel w/ Chol/HDL Ratio 551172 TRIGLYCERIDES 216 MG/DL 11/28/2017 Lipid Panel w/ Chol/HDL Ratio 889860 HDL CHOLESTEROL 60 MG/DL 11/28/2017 Lipid Panel w/ Chol/HDL Ratio 957931 VLDL CHOLESTEROL CINDI 43 MG/DL 11/28/2017 Lipid Panel w/ Chol/HDL Ratio 415852 LDL CHOLESTEROL CALC 42 MG/DL 11/28/2017 Lipid Panel w/ Chol/HDL Ratio 782613 T. CHOL/HDL RATIO 2.4 RATIO 11/28/2017 Comp. Metabolic Panel (14) 103154 GLUCOSE 96 MG/DL 11/28 Comp. Metabolic Panel (14) 669881 BUN 15 MG/DL 11/28/2017 Comp. Metabolic Panel (14) 032449 CREATININE 0.91 MG/DL 11/28/2017 Comp. Metabolic Panel (14) 668380 EGFR IF NONAFRICN AM 91 ML/MIN/1.73 11/28/2017 Comp. Metabolic Panel (14) 458699 EGFR IF AFRICN AM 106 ML/MIN/1.73 11/28/2017 Comp. Metabolic Panel (14) 337254 BUN/ CREATININE RATIO 16 11/28/2017 Comp. Metabolic Panel (14) 653046 SODIUM 140 MMOL/L 2017 Comp. Metabolic Panel (14) 166197 POTASSIUM 4.1 MMOL/L 11/28/2017 Comp. Metabolic Panel (14) 605695 CHLORIDE 100 MMOL/L Comp. Metabolic Panel (14) 570519 CARBON DIOXIDE, TOTAL 25 MMOL/L 11/28/2017 Comp. Metabolic Panel (14) 855599 CALCIUM 9.1 MG/DL 08/2017 Comp. Metabolic Panel (14) 571248 Protein , Total 6.9 G/DL 11/28 Comp. Metabolic Panel (14) 233519 ALBUMIN 4.5 G/DL 11/28 Comp. Metabolic Panel (14) 671181 GLOBULIN, TOTAL 2.4 G/DL 11/28/2017 Comp. Metabolic Panel (14) 975919 A/G Ratio 1.9 11/28/2017 Comp. Metabolic Panel (14) 480979 BILIRUBIN, TOTAL 0.5 MG/DL 11/28/2017 Comp. Metabolic Panel (14) 919046 ALKALINE PHOSPHATASE 55 IU/L 11/28/2017 Comp. Metabolic Panel (14) 891742 AST ( SGOT) 18 IU/L 2017 Comp. Metabolic Panel (14) 794947 ALT ( SGPT) 24 IU/L 2017 CBC With Differential/Platelet 051803 WBC 6.6 x10E3/uL 06/24 CBC With Differential/Platelet 580900 RBC 4.89 x10E6/uL 04/2017 CBC With Differential/Platelet 361577 HEMOGLOBIN 14.6 g/dL 06/24/2017 CBC With Differential/Platelet 894489 HEMATOCRIT 43.7 % 04/2017 CBC With Differential/Platelet 457152 MCV 89 fL 06/24/2017 CBC With Differential/Platelet 007407 MCH 29.9 pg 2017 CBC With Differential/Platelet 129897 MCHC 33.4 g/dL 2017 CBC With Differential/Platelet 778247 RDW 13.6 % 06/24/2017 CBC With Differential/Platelet 843300 PLATELETS 258 x10E3/uL 06/24/2017 CBC With Differential/Platelet 239710 NEUTROPHILS 51 % 06/24 CBC With Differential/Platelet 016753 LYMPHS 36 % 2017 CBC With Differential/Platelet 370586 MONOCYTES 9 % 2017 CBC With Differential/Platelet 573616 EOS 4 % 06/24/2017 CBC With Differential/Platelet 044320 BASOS 0 % 06/24/2017 CBC With Differential/Platelet 815760 NEUTROPHILS (ABSOLUTE) 3.3 x10E3/uL 06/24/2017 CBC With Differential/Platelet 553081 LYMPHS (ABSOLUTE) 2.3 x10E3/uL 06/24/2017 CBC With Differential/Platelet 081283 MONOCYTES(ABSOLUTE) 0.6 x10E3/uL 06/24/2017 CBC With Differential/Platelet 446281 EOS (ABSOLUTE) 0.3 x10E3/uL 06/24/2017 CBC With Differential/Platelet 719440 BASO (ABSOLUTE) 0.0 x10E3/uL 06/24/2017 CBC With Differential/Platelet 914150 IMMATURE GRANULOCYTES 0 % 06/24/2017 CBC With Differential/Platelet 130712 IMMATURE GRANS (ABS) 0.0 x10E3/uL 06/24/2017 Thyroxine (T4) Free, Direct, S 663230 T4, FREE(DIRECT) 1.35 ng/dL 06/24/2017 Lipid Panel 164801 CHOLESTEROL, TOTAL 122 mg/dL 06/24/2017 Lipid Panel 938588 TRIGLYCERIDES 155 mg/dL 06/24/2017 Lipid Panel 967693 HDL CHOLESTEROL 52 mg/dL 06/24/2017 Lipid Panel 024234 VLDL CHOLESTEROL CINDI 31 mg/dL 06/24/2017 Lipid Panel 460030 LDL CHOLESTEROL CALC 39 mg/dL 06/24/2017 Comp. Metabolic Panel (14) 927191 GLUCOSE 101 mg/dL 04/2017 Comp. Metabolic Panel (14) 620012 BUN 12 mg/dL 06/24/2017 Comp. Metabolic Panel (14) 197481 CREATININE 0.95 mg/dL 06/24/2017 Comp. Metabolic Panel (14) 138255 EGFR IF NONAFRICN AM 87 mL/min/1.73 06/24/2017 Comp. Metabolic Panel (14) 957445 EGFR IF AFRICN AM 100 mL/min/1.73 06/24/2017 Comp. Metabolic Panel (14) 789782 BUN/ CREATININE RATIO 13 06/24/2017 Comp. Metabolic Panel (14) 631802 SODIUM 140 mmol/L 2017 Comp. Metabolic Panel (14) 722160 POTASSIUM 4.1 mmol/L 06/24/2017 Comp. Metabolic Panel (14) 244941 CHLORIDE 99 mmol/L 04/2017 Comp. Metabolic Panel (14) 669891 CARBON DIOXIDE, TOTAL 25 mmol/L 06/24/2017 Comp. Metabolic Panel (14) 709796 CALCIUM 9.5 mg/dL 04/2017 Comp. Metabolic Panel (14) 112683 Protein , Total 7.1 g/dL 06/24 Comp. Metabolic Panel (14) 017038 ALBUMIN 4.6 g/dL 06/24 Comp. Metabolic Panel (14) 946527 GLOBULIN, TOTAL 2.5 g/dL 06/24/2017 Comp. Metabolic Panel (14) 671271 A/G Ratio 1.8 06/24/2017 Comp. Metabolic Panel (14) 191440 BILIRUBIN, TOTAL 0.4 mg/dL 06/24/2017 Comp. Metabolic Panel (14) 692672 ALKALINE PHOSPHATASE 66 IU/L 06/24/2017 Comp. Metabolic Panel (14) 629467 AST ( SGOT) 45 IU/L 2017 Comp. Metabolic Panel (14) 342081 ALT ( SGPT) 41 IU/L 2017 TSH 697227 TSH 0.749 uIU/mL 06/24/2017 CBC With Differential/Platelet 814885 WBC 6.9 X10E3/UL 02/21 CBC With Differential/Platelet 516941 RBC 4.79 X10E6/UL CBC With Differential/Platelet 697535 HEMOGLOBIN 14.4 G/DL 02/22/2016 CBC With Differential/Platelet 109005 HEMATOCRIT 43.1 % CBC With Differential/Platelet 667187 MCV 90 FL 02/22/2016 CBC With Differential/Platelet 987490 MCH 30.1 PG 2015 CBC With Differential/Platelet 893443 MCHC 33.4 G/DL 2015 CBC With Differential/Platelet 899866 RDW 13.5 % 02/22/2016 CBC With Differential/Platelet 051462 PLATELETS 257 X10E3/UL 02/22/2016 CBC With Differential/Platelet 746475 NEUTROPHILS 57 % 02/21 CBC With Differential/Platelet 089292 LYMPHS 32 % 2015 CBC With Differential/Platelet 310836 MONOCYTES 8 % 2015 CBC With Differential/Platelet 674103 EOS 3 % 02/22/2016 CBC With Differential/Platelet 220157 BASOS 0 % 02/22/2016 CBC With Differential/Platelet 450847 NEUTROPHILS (ABSOLUTE) 4.0 X10E3/UL 02/22/2016 CBC With Differential/Platelet 114616 LYMPHS (ABSOLUTE) 2.2 X10E3/UL 02/22/2016 CBC With Differential/Platelet 073078 MONOCYTES(ABSOLUTE) 0.5 X10E3/UL 02/22/2016 CBC With Differential/Platelet 131722 EOS (ABSOLUTE) 0.2 X10E3/UL 02/22/2016 CBC With Differential/Platelet 798227 BASO (ABSOLUTE) 0.0 X10E3/UL 02/22/2016 CBC With Differential/Platelet 582385 IMMATURE GRANULOCYTES 0 % 02/22/2016 CBC With Differential/Platelet 994913 IMMATURE GRANS (ABS) 0.0 X10E3/UL 02/22/2016 Lipid Panel 706605 CHOLESTEROL, TOTAL 183 MG/DL 02/22/2016 Lipid Panel 234066 TRIGLYCERIDES 509 MG/DL 02/22/2016 Lipid Panel 376952 HDL CHOLESTEROL 47 MG/DL 02/22/2016 Lipid Panel 553073 VLDL CHOLESTEROL CINDI COMMENT MG/DL 2015 Lipid Panel 345151 LDL CHOLESTEROL CALC COMMENT MG/DL 2015 TSH 038644 TSH 0.510 UIU/ML 02/22/2016 Thyroxine (T4) Free, Direct, S 448192 T4, FREE(DIRECT) 1.39 NG/DL 02/22/2016 Comp. Metabolic Panel (14) 573580 GLUCOSE , SERUM 111 MG/DL Comp. Metabolic Panel (14) 215132 BUN 14 MG/DL 02/22/2016 Comp. Metabolic Panel (14) 741923 CREATININE, SERUM 1.03 MG/DL 02/22/2016 Comp. Metabolic Panel (14) 407762 EGFR IF NONAFRICN AM 79 ML/MIN/1.73 02/22/2016 Comp. Metabolic Panel (14) 542544 EGFR IF AFRICN AM 91 ML/MIN/1.73 02/22/2016 Comp. Metabolic Panel (14) 111298 BUN/ CREATININE RATIO 14 02/22/2016 Comp. Metabolic Panel (14) 457537 SODIUM , SERUM 140 MMOL/L Comp. Metabolic Panel (14) 372573 POTASSIUM, SERUM 3.9 MMOL/L 02/22/2016 Comp. Metabolic Panel (14) 234240 CHLORIDE, SERUM 99 MMOL/L 02/22/2016 Comp. Metabolic Panel (14) 263548 CARBON DIOXIDE, TOTAL 25 MMOL/L 02/22/2016 Comp. Metabolic Panel (14) 760327 CALCIUM , SERUM 9.1 MG/DL Comp. Metabolic Panel (14) 669749 PROTEIN , TOTAL, SERUM 6.5 G/DL 02/22/2016 Comp. Metabolic Panel (14) 970994 ALBUMIN , SERUM 4.1 G/DL 02/21 Comp. Metabolic Panel (14) 572468 GLOBULIN, TOTAL 2.4 G/DL 02/22/2016 Comp. Metabolic Panel (14) 013497 A/G Ratio 1.7 02/22/2016 Comp. Metabolic Panel (14) 670609 BILIRUBIN, TOTAL 0.2 MG/DL 02/22/2016 Comp. Metabolic Panel (14) 499488 ALKALINE PHOSPHATASE, S 72 IU/L 02/22/2016 Comp. Metabolic Panel (14) 237189 AST ( SGOT) 30 IU/L 2015 Comp. Metabolic Panel (14) 322842 ALT ( SGPT) 43 IU/L 2015 Lipid Ord30 CHOL 226 mg/dL 12/02/2014 Lipid Ord30 HDL 42.0 mg/dl 12/02/2014 Lipid Ord30 TRIG 426 mg/dL 12/02/2014 Lipid Ord30 LDL Unable to calculate Due to elevated triglycerides mg/dL 12/02/2014 Lipid Ord30 C/HDL 5.4 Ratio 12/02/2014 Comp Metabolic Fcp750 NA 132 mEq/L 12/02/2014 Comp Metabolic Hjf242 K 4.1 mEq/L 12/02/2014 Comp Metabolic Vwc402 CL 100 mEq/L 12/02/2014 Comp Metabolic Pqj767 CO2 26.0 mEq/L 12/02/2014 Comp Metabolic Fqy966 ANION GAP 10 12/02/2014 Comp Metabolic Ilp962 GLUCOSE 107 mg/dL 12/02/2014 Comp Metabolic Fuj605 Creat 1.1 mg/dL 12/02/2014 Comp Metabolic Hrz581 eGFR 73 ml/min/1.73m2 12/02/2014 Comp Metabolic Vbq542 BUN 16 mg/dL 12/02/2014 Comp Metabolic Vtu605 B/C Ratio 14.5 Ratio 12/02/2014 Comp Metabolic Gqq404 CALCIUM 9.5 mg/dL 12/02/2014 Comp Metabolic Lqc308 ALK PHOS 39 U/L 12/02/2014 Comp Metabolic Nud335 AST(SGOT) 18 U/L 12/02/2014 Comp Metabolic Htd384 ALT(SGPT) 24 U/L 12/02/2014 Comp Metabolic Vek666 BILI T 0.5 mg/dL 12/02/2014 Comp Metabolic Sjg667 ALBUMIN 4.2 g/dL 12/02/2014 Comp Metabolic Fdk849 TPRO 6.5 g/dL 12/02/2014 Comp Metabolic Qnu714 GLOB 2.3 g/dL 12/02/2014 Comp Metabolic Kld630 A/G Ratio 1.8 Ratio 12/02/2014 Comp Metabolic Jgk438 Osmo 266 mOsmo 12/02/2014 Cbc With Differential Ord2 WBC 6.1 [...] Total Psa Ord10 PSA 1.04 ng/mL 12/02/2014 Tsh Ord6 hTSH II 0.45 uIU/mL 12/02/2014 Review of Systems System Result Effective [...] Procedure Codes Date IMMUNIZATION ADMIN CPT -4: 44361 01/28/2017 FLU VAC NO PRSV 4 MONTY 3 YRS+ CPT-4: 66169 01/28/2017 TRIAMCINOLONE ACET INJ NOS CPT-4: J3301 05/02/2016 IMMUNIZATION ADMIN CPT -4: 16496 01/02/2016 FLU VACC 4 MONTY 3 YRS PLUS IM Formatting Model/CDA Sections, Assigned to/Ana Bella SNOMED CT: [id number] CPT-4: 46111Uukjged 01/02/2016 IMMUNIZATION ADMIN CPT -4: 88543 12/28/2014 IIV4 FLU VACC NO PRESERV ID Assigned to/Ana Bella, Formatting Model/CDA Sections SNOMED CT: 86175772 CPT-4: 85747Ambxzun 12/28/2014 Vital Signs Date Vital 11/27/2017 Blood Pressure 1: 122/76 Code : 8480-6 BMI: 27.2 Code : 71869-5 Heart Rate 1 : 58 bpm Height: 5'8" SpO2: 98% Weight: 179 lbs 09/19/2017 Blood Pressure 1: 122/60 Code : 8480-6 BMI: 29.8 Code : 99755-1 Heart Rate 1 : 57 bpm Height: 5'8" SpO2: 93% Weight: 196 lbs 05/23/2017 Blood Pressure 1: 122/74 Code : 8480-6 BMI: 29.2 Code : 03606-3 Heart Rate 1 : 68 bpm Height: 5'8" SpO2: 97% Weight: 192 lbs 08/02/2016 Blood Pressure 1: 142/80 Code : 8480-6 BMI: 28.1 Code : 47618-4 Heart Rate 1 : 61 bpm Height: 5'8" SpO2: 98% Weight: 185 lbs 05/17/2016 Blood Pressure 1: 126/74 Code : 8480-6 BMI: 27.7 Code : 67691-3 Heart Rate 1 : 60 bpm Height: 5'8" SpO2: 95% Temperature: 37.0 (C) / 98.6 (F) Weight: 182 lbs 05/02/2016 Blood Pressure 1: 106/68 Code : 8480-6 BMI: 27.8 Code : 14746-9 Heart Rate 1 : 58 bpm Height: 5'8" SpO2: 97% Temperature: 36.7 (C) / 98.1 (F) Weight: 183 lbs 02/02/2016 Blood Pressure 1: 124/76 Code : 8480-6 BMI: 28.0 Code : 06455-1 Heart Rate 1 : 68 bpm Height: 5'8" SpO2: 98% Weight: 184 lbs 01/02/2016 Blood Pressure 1: 130/72 Code : 8480-6 BMI: 28.0 Code : 03169-1 Heart Rate 1 : 62 bpm Height: 5'8" SpO2: 96% Weight: 184 lbs 08/04/2015 Blood Pressure 1: 128/76 Code : 8480-6 BMI: 27.7 Code : 25756-3 Heart Rate 1 : 64 bpm Height: 5'8" SpO2: 98% Weight: 182 lbs 06/29/2015 Blood Pressure 1: 142/84 Code : 8480-6 BMI: 28.0 Code : 61061-5 Heart Rate 1 : 55 bpm Height: 5'8" SpO2: 97% Weight: 184 lbs 05/19/2015 Blood Pressure 1: 120/78 Code : 8480-6 BMI: 27.2 Code : 19824-6 Heart Rate 1 : 86 bpm Height: 5'8" Weight: 179 lbs 12/28/2014 Blood Pressure 1: 130/68 Code : 8480-6 BMI: 27.7 Code : 43631-3 Heart Rate 1 : 52 bpm Height: 5'8" SpO2: 98% Weight: 182 lbs 08/12/2014 Blood Pressure 1: 118/70 Code : 8480-6 BMI: 27.7 Code : 38152-0 Heart Rate 1 : 64 bpm Height: [...] data Encounters Encounter Performer Location Codes Date (214 EST. PATIENT, LEVEL IV Diagnosis: Mixed hyperlipidemia[ICD10: E78.2] Diagnosis: Essential (primary) hypertension[ICD10: I10] Diagnosis: Atrophy of thyroid (acquired)[ICD10: E03.4] Diagnosis: Pain in right knee[ICD10: M25.561] [facility] CPT-4: 91230 11/27/2017 [id number] EST. PATIENT, LEVEL III Diagnosis: Cellulitis of back [any part except buttock][ICD10: L03.312] [facility] CPT-4: 27832 09/19/2017 ([id number]) PREV VISIT EST AGE 40-64 Diagnosis: Encounter for general adult medical examination without abnormal findings[ICD10: Z00.00] Laura Hurt MD, [facility] CPT-4: 84163 05/23/2017 ([id number]) 63932 EST. PATIENT, LEVEL IV Diagnosis: Essential (primary) hypertension[ICD10: I10] Diagnosis: Atrophy of thyroid (acquired)[ICD10: E03.4] Diagnosis: Mixed hyperlipidemia[ICD10: E78.2] Diagnosis: Other allergic rhinitis[ICD10: J30.89] Diagnosis: Melanocytic nevi of left lower limb, including hip[ICD10: D22.72] Diagnosis: Melanocytic nevi of right lower limb, including hip[ICD10: D22.71] Laura Hurt MD, [facility] CPT-4: 26293 08/02/2016 [id number] EST. PATIENT, LEVEL III Diagnosis: Other allergic rhinitis[ICD10: J30.89] Diagnosis: Cough[ICD10: R05] Diagnosis: Candidal stomatitis[ICD10: B37.0] Rose Hurt MD, [facility] CPT -4: 67862 05/17/2016 [id number] EST. PATIENT, LEVEL III Diagnosis: Acute bronchitis due to other specified organisms[ICD10: J20.8] Rose Hurt MD, [facility] CPT-4: 97063 05/02/2016 ([id number]) PREV VISIT EST AGE 40-64 Diagnosis: Atrophy of thyroid (acquired)[ICD10: E03.4] Diagnosis: Mixed hyperlipidemia[ICD10: E78.2] Diagnosis: Essential (primary) hypertension[ICD10: I10] Diagnosis: Encounter for general adult medical examination without abnormal findings[ICD10: Z00.00] Laura Hurt MD, [facility] CPT-4: 97335 02/02/2016 26942 EST. PATIENT, LEVEL II Diagnosis: Cellulitis of head [any part, except face][ICD10: L03.811] Diagnosis: Rash and other nonspecific skin eruption[ICD10: R21] Diagnosis: VACCIN FOR INFLUENZA[ICD10: Z23] Monae Hurt MD, [facility] CPT-4: 72687 01/02/2016 ([id number]) 47498 EST. PATIENT, LEVEL III Diagnosis: Essential (primary) hypertension[ICD10: I10] Laura Hurt MD, [facility] CPT-4: 53662 08/04/2015 70324 EST. PATIENT, LEVEL IV Diagnosis: Other acute sinusitis[ICD10: J01.80] Diagnosis: Other allergic rhinitis[ICD10: J30.89] [facility] CPT-4: 81798 06/29/2015 ([id number]) 86614 EST. PATIENT, LEVEL III Diagnosis: Low back pain[ICD10: M54.5] Diagnosis: Rash and other nonspecific skin eruption[ICD10: R21] [facility] CPT-4: 24013 05/19/2015 ([id number]) 81817 EST. PATIENT, LEVEL III Diagnosis: Mixed hyperlipidemia[ICD10: E78.2] Diagnosis: Hypothyroidism, unspecified[ICD10: E03.9] Monae Hurt MD, [facility] CPT-4: 74534 12/28/2014 ([id number]) PREV VISIT NEW AGE 40-64 Diagnosis: Well adult exam[ICD9: V70.0] Monae Hurt MD, [facility] CPT-4: 85030 08/12/2014 Plan of Care Planned Activity Notes [...] the hydrocodone. 11/27/2017 Appointment: Laura Hurt WPtel: [phone] [facility] [place] (15 min) Moderate 11/27/2017 Patient Education: Patient [...] warmth, discharge. 09/19/2017 Appointment: Rose Ferrer WPtel: [phone] [facility] [place] (15 min) Moderate 09/19/2017 Patient Education: Patient Medication Summary Completed 09/19/2017 Appointment: Rose Ferrer WPtel: [facility] [place] (15 min) Moderate 06/18/2017 Visit Plan: Well [...] colonoscopy 05/23/2017 Appointment: Laura Hurt WPtel: [phone] [facility] [place] (15 min) Moderate 05/23/2017 Patient Education: Patient Medication Summary Completed 05/23/2017 Care Plan: Referral Order SNOMED-CT : [id number] Pending 05/23/2017 Appointment: Injection 01/28/2017 Patient Education: [...] month 08/02/2016 Appointment: [phone] ([facility] min) Complex 08/02/2016 Patient Education: Patient [...] for allergies 05/17/2016 [phone] ([facility] min) Moderate 05/17/2016 Patient Education: Patient [...] acutely worsen. 05/02/2016 Appointment: Rose Ferrer WPtel: [phone] [facility] (15 min) Moderate 05/02/2016 Patient Education: [...] to medications. 02/02/2016 Appointment: Laura Hurt WPtel: [phone] [facility] (30 min) Complex 02/02/2016 Patient Education: Patient Medication Summary Completed 02/02/2016 Visit Plan: Dpfyutmildxz-sceyu-xbzccry of pustule today in the office-will treat as indicated-patient verbalized understanding of plan. 01/02/2016 Visit Plan: Wusjnncdilqa-cuhgx-cjywaei of pustule today in the office-will treat as indicated-patient verbalized understanding of plan. 01/02/2016 Appointment: Monae Berkowitz WPtel: [phone] (30 min) Complex 01/02/2016 Patient Education: Patient [...] home. 08/04/2015 Appointment: [phone] (30 min) Complex 08/04/2015 Patient Education: Patient [...] assure normal liver response to medications. . Bwghpjzjeyew-rtlas-pnzbgfy of pustule today in the office -will treat as indicated-patient verbalized understanding of plan. . Uwkjodfnyksr-ascer-lwkomwz of pustule today in the office -will [...]
--- OUTSIDE RECORDS SUMMARY | 2018-07-17 11:30 | XMS REPORT | CCD ---
Author Author Monae Berkowitz MD, [facility] Address [address] [place] [address] Phone Care Team Providers Care Refractory Manager Name Role Phone PP Unavailable CCM Unavailable Summary Purpose Interface Exchange Insurance Providers Payer name Policy type / Coverage type Covered green party ID Effective Begin Date Effective End Date Blue Cross Blue [facility] Blue Cross/Blue Shield [id number] Unknown Unknown Family history Mother Diagnosis Age At Onset Coronary Artery Disease Unknown Breast cancer Unknown Father Diagnosis Age At Onset Hypertension Unknown Cancer Unknown Social History Social History Element Codes Description Effective Dates Frequency of drinks SNOMED CT: 094739344 10 drinks per week -varies- more on weekends 08/02/2016 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[employer] 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 Marital status Unknown Single 08/12/2014 Number of children Unknown 0 08/12/[address]: 8499444 Quit less than 10 years ago 200608/12/[address]: 147416 Currently drinks alcohol 08/12/2014 Allergies, Adverse Reactions, [...] Start Date Stop Date Status Fill Instructions Penlac 8 % topical solution RxNorm: 237762 APPLY TO AFFECTED AREA(S) DAILY 03/24/2018 04/12/2018 Active Lipitor 80 mg tablet RxNorm: 232217 TAKE ONE TABLET BY MOUTH EVERY NIGHT AT BEDTIME 03/24/2018 07/21/2018 Active alprazolam 0.5 mg tablet RxNorm: 154973 1/2 Tablet(s) PO BID as needed 02/18/2018 04/18/2018 Active acyclovir 400 mg tablet RxNorm: 068937 TAKE ONE TABLET BY MOUTH DAILY 02/18/2018 05/18/2018 Active acyclovir 400 mg tablet RxNorm: 089773 TAKE ONE TABLET BY MOUTH DAILY 11/11/2017 02/08/2018 Inactive bisoprolol 5 mg-hydrochlorothiazide 6.25 mg tablet RxNorm: 131945 TAKE ONE TABLET BY MOUTH DAILY 09/30/2017 03/28/2018 Active Levothroid 175 mcg tablet RxNorm: 125385 Tablet(s) TAKE ONE TABLET BY MOUTH DAILY ON AN EMPTY STOMACH . 09/30/20172018 Active Lipitor 80 mg tablet RxNorm: 358236 TAKE ONE TABLET BY MOUTH EVERY NIGHT AT BEDTIME 09/30/2017 02/26/2018 Inactive Bactrim DS 800 mg-160 mg tablet RxNorm: 802518 1 Tablet(s) PO BID 09/19/2017 09/25/2017 Inactive alprazolam 0.5 mg tablet RxNorm: 611729 1/2 Tablet(s) PO BID as needed 07/24/2017 09/20/2017 Inactive Zithromax Z-Bassam 250 mg tablet RxNorm: 686360 1 Tablet(s) PO UD 06/17/2017 07/23/2017 Inactive z pack as directed Levothroid 175 mcg tablet RxNorm: 143464 TAKE ONE TABLET BY MOUTH DAILY ON AN EMPTY STOMACH . NEED TO REPEAT LAB FOR TSH AND FREE T4 201708/31/2017 Inactive gemfibrozil 600 mg tablet RxNorm: 139698 1 Tablet(s) PO BID 03/201702/16/2018 Inactive Penlac 8 % topical solution RxNorm: 180430 1 Application TOP daily 05/23/2017 06/21/2017 Inactive ketoconazole 2 % topical cream RxNorm: 816157 1 Application TOP BID 05/23/2017 06/05/2017 Inactive Cipro 500 mg tablet RxNorm: 983099 1 Tablet(s) PO BID 201705/30/2017 Inactive Flagyl 500 mg tablet RxNorm: 626355 1 Tablet(s) PO TID 201705/30/2017 Inactive acyclovir 400 mg tablet RxNorm: 916341 TAKE ONE TABLET BY MOUTH DAILY 04/26/2017 10/22/2017 Inactive bisoprolol 5 mg-hydrochlorothiazide 6.25 mg tablet RxNorm: 060319 TAKE ONE TABLET BY MOUTH DAILY 03/11/2017 09/06/2017 Inactive Levothroid 175 mcg tablet RxNorm: 721307 TAKE ONE TABLET BY MOUTH DAILY ON AN EMPTY STOMACH . NEED TO REPEAT LAB FOR TSH AND FREE T4 201606/02/2017 Inactive Lipitor 80 mg tablet RxNorm: 249029 Tablet(s) PO TAKE ONE TABLET BY MOUTH EVERY NIGHT AT BEDTIME 12/24/2016 11/26/2017 Inactive Levothroid 175 mcg tablet RxNorm: 283944 TAKE ONE TABLET BY MOUTH DAILY ON AN EMPTY STOMACH . NEED TO REPEAT LAB FOR TSH AND FREE T4 201603/10/2017 Inactive hydrocodone 7.5 mg-acetaminophen 325 mg tablet RxNorm: 175897 1 Tablet(s) PO Q6 PRN 11/06/2016 12/05/2016 Inactive [SAVINGS FOR NON-COVERED DRUGS -- BIN:[id number], PCN: ASPROD1, Group: XXXXX, ID# [id number], Questions: . THIS IS NOT INSURANCE.] Soma 350 mg tablet RxNorm: 989051 1 Tablet(s) PO TID as needed 11/06/2016 No Stop Date Active alprazolam 0.5 mg tablet RxNorm: 256247 1/2 Tablet(s) PO BID as needed 10/05/2016 11/26/2017 Inactive Lipitor 80 mg tablet RxNorm: 781816 Tablet(s) PO TAKE ONE TABLET BY MOUTH EVERY NIGHT AT BEDTIME 09/04/2016 12/23/2016 Inactive Lipitor 40 mg tablet RxNorm: 686081 TAKE ONE TABLET BY MOUTH EVERY NIGHT AT BEDTIME 09/04/2016 09/03/2016 Inactive acyclovir 400 mg tablet RxNorm: 367066 TAKE ONE TABLET BY MOUTH DAILY 08/23/2016 02/18/2017 Inactive bisoprolol 5 mg-hydrochlorothiazide 6.25 mg tablet RxNorm: 693728 TAKE ONE TABLET BY MOUTH DAILY 08/23/2016 02/18/2017 Inactive Levothroid 175 mcg tablet RxNorm: 964225 Tablet(s) TAKE ONE TABLET BY MOUTH DAILY 08/22/2016 11/19/2016 Inactive Needs to repeat TSH et Free T4 labs acyclovir 400 mg tablet RxNorm: 687666 TAKE ONE TABLET BY MOUTH DAILY 08/21/2016 08/22/2016 Inactive prednisone 10 mg tablet RxNorm: 331637 Tablet(s) PO UD dispense a medrol dose pack 08/10/2016 07/23/2017 Inactive 6,5,4,3,2,1 prednisone 10 mg tablet RxNorm: 444053 Tablet(s) PO UD dispense a medrol dose pack 07/30/2016 08/09/2016 Inactive 6,5,4,3,2,1 cefdinir 300 mg capsule RxNorm: 741075 1 Capsule(s) PO BID 10/201608/08/2016 Inactive cefdinir 300 mg capsule RxNorm: 481553 1 Capsule(s) PO BID 10/201607/29/2016 Inactive Lipitor 40 mg tablet RxNorm: 794488 TAKE ONE TABLET BY MOUTH EVERY NIGHT AT BEDTIME 06/25/2016 09/03/2016 Inactive nystatin 100,000 unit/mL oral suspension RxNorm: 396001 5 Milliliter(s) PO TID 05/17/2016 05/21/2016 Inactive Zyrtec 10 mg tablet RxNorm: 4528555 1 Tablet(s) PO daily 05/1706/15/2016 Inactive Levothroid 175 mcg tablet RxNorm: 387331 TAKE ONE TABLET BY MOUTH DAILY 05/16/2016 08/13/2016 Inactive Levaquin 750 mg tablet RxNorm: 742939 1 Tablet(s) PO daily 05/09/2016 Inactive Levaquin 750 mg tablet RxNorm: 733698 1 Tablet(s) PO daily 05/14/2016 Inactive Phenergan-Codeine 6.25 mg-10 mg/5 mL syrup RxNorm: 500436 5-10 Milliliter(s) PO Q6 as needed cough 05/02/2016 No Stop Date Active prednisone 10 mg tablet RxNorm: 073368 Tablet(s) PO UD 201607/29/2016 Inactive 6,5,4,3,2,1 Kenalog 40 mg/mL suspension for injection RxNorm: 0623306 Milliliter(s) Inj 05/02/2016 05/02/2016 Inactive Phenergan-Codeine 6.25 mg-10 mg/5 mL syrup RxNorm: 963675 5-10 Milliliter(s) PO Q6 as needed cough 04/25/2016 05/01/2016 Inactive Zithromax Z-Bassam 250 mg tablet RxNorm: 171347 1 Tablet(s) PO UD 04/25/2016 07/29/2016 Inactive z pack as directed acyclovir 400 mg tablet RxNorm: 499281 TAKE ONE TABLET BY MOUTH DAILY 04/10/2016 07/08/2016 Inactive Zetia 10 mg tablet RxNorm: 471346 1 Tablet(s) PO daily 201505/22/2017 Inactive Zetia 10 mg tablet RxNorm: 403624 1 Tablet(s) PO daily 201503/06/2016 Inactive Lipitor 40 mg tablet RxNorm: 809458 Tablet(s) PO TAKE ONE TABLET BY MOUTH EVERY NIGHT AT BEDTIME 03/07/2016 06/24/2016 Inactive Patient is requesting 90 days supply Diflucan 150 mg tablet RxNorm: 126104 1 Tablet(s) PO daily 01/11/2016 Inactive Diflucan 150 mg tablet RxNorm: 364714 1 Tablet(s) PO daily 01/04/2016 Inactive hydrocodone 7.5 mg-acetaminophen 325 mg tablet RxNorm: 961017 1 Tablet(s) PO Q6 PRN 12/28/2015 01/26/2016 Inactive [SAVINGS FOR NON-COVERED DRUGS -- BIN:[id number], PCN: ASPROD1, Group: XXXXX, ID# [id number], Questions: . THIS IS NOT INSURANCE.] alprazolam 0.5 mg tablet RxNorm: 084420 1/2 Tablet(s) PO BID as needed 11/30/2015 10/04/2016 Inactive Levothroid 175 mcg tablet RxNorm: 635991 Tablet(s) TAKE ONE TABLET BY MOUTH DAILY 10/26/2015 04/22/2016 Inactive hydrocodone 7.5 mg-acetaminophen 325 mg tablet RxNorm: 103066 1 Tablet(s) PO Q6 PRN 08/30/2015 09/28/2015 Inactive [SAVINGS FOR NON-COVERED DRUGS -- BIN:[id number], PCN: ASPROD1, Group: XXXXX, ID# [id number], Questions: . THIS IS NOT INSURANCE.] Ventolin HFA 90 mcg/actuation aerosol inhaler RxNorm: 193301 2 INH PRN dyspnea 08/04/2015 No Stop Date Active bisoprolol 5 mg-hydrochlorothiazide 6.25 mg tablet RxNorm: 863911 TAKE ONE TABLET BY MOUTH DAILY 07/11/2015 01/06/2016 Inactive Patient is requesting 90 days supply bisoprolol 5 mg-hydrochlorothiazide 6.25 mg tablet RxNorm: 142560 TAKE ONE TABLET BY MOUTH DAILY 07/11/2015 01/06/2016 Inactive Lipitor 10 mg tablet RxNorm: 021271 TAKE ONE TABLET BY MOUTH EVERY NIGHT AT BEDTIME 07/11/2015 01/06/2016 Inactive Patient is requesting 90 days supply Lipitor 10 mg tablet RxNorm: 960994 TAKE ONE TABLET BY MOUTH EVERY NIGHT AT BEDTIME 07/11/2015 05/13/2016 Inactive acyclovir 400 mg tablet RxNorm: 084109 1 Tablet(s) PO daily 08/22/2016 Inactive acyclovir 400 mg tablet RxNorm: 815674 1 Tablet(s) PO daily 07/10/2015 Inactive Zithromax Z-Bassam 250 mg tablet RxNorm: 067995 Tablet(s) PO UD 08/03/2015 Inactive acyclovir 400 mg tablet RxNorm: 468300 1 Tablet(s) PO daily 08/201507/05/2015 Inactive meloxicam 15 mg tablet RxNorm: 165485 TAKE ONE TABLET BY MOUTH DAILY 06/27/2015 11/23/2015 Inactive triamcinolone acetonide 0.1 % topical cream RxNorm: 7870600 1 Application TOP BID 05/19/2015 06/01/2015 Inactive apply very thin layer as directed hydrocodone 7.5 mg-acetaminophen 325 mg tablet RxNorm: 074030 1 Tablet(s) PO Q6 PRN 05/19/2015 08/29/2015 Inactive [SAVINGS FOR NON-COVERED DRUGS -- BIN:[id number], PCN: ASPROD1, Group: XXXXX, ID# [id number], Questions: . THIS IS NOT INSURANCE.] Cipro 500 mg tablet RxNorm: 469331 1 Tablet(s) PO BID 201504/20/2015 Inactive Cipro 500 mg tablet RxNorm: 156681 1 Tablet(s) PO BID 201504/30/2015 Inactive Flagyl 500 mg tablet RxNorm: 251295 1 Tablet(s) PO TID 201504/30/2015 Inactive Flagyl 500 mg tablet RxNorm: 287304 1 Tablet(s) PO TID 201504/20/2015 Inactive bisoprolol 5 mg-hydrochlorothiazide 6.25 mg tablet RxNorm: 022649 1 Tablet(s) PO daily 04/21/2015 07/10/2015 Inactive Levothroid 175 mcg tablet RxNorm: 096426 TAKE ONE TABLET BY MOUTH DAILY 04/18/2015 10/14/2015 Inactive hydrocodone 7.5 mg-acetaminophen 325 mg tablet RxNorm: 406241 1 Tablet(s) PO Q6 PRN 04/04/2015 05/18/2015 Inactive [SAVINGS FOR NON-COVERED DRUGS -- BIN:272166, PCN: ASPROD1, Group: XXXXX, ID# [id number], Questions: . THIS IS NOT INSURANCE.] Lipitor 10 mg tablet RxNorm: 343716 1 Tablet(s) PO QHS 201507/02/2015 Inactive azithromycin 250 mg tablet RxNorm: 314491 1 Tablet(s) PO UD Take 2 tabs on day one and 1 tab day 2-5 02/03/20152014 Inactive azithromycin 250 mg tablet RxNorm: 678176 1 Tablet(s) PO UD Take 2 tabs on day one and 1 tab day 2-5 02/03/20152014 Inactive Levothroid 175 mcg tablet RxNorm: 712323 TAKE ONE TABLET BY MOUTH DAILY 12/16/2014 03/15/2015 Inactive Lipitor 10 mg tablet RxNorm: 103278 1 Tablet(s) PO QHS 201403/07/2015 Inactive hydrocodone 7.5 mg-acetaminophen 325 mg tablet RxNorm: 122723 1 Tablet(s) PO Q6 PRN 12/08/2014 04/03/2015 Inactive [SAVINGS FOR NON-COVERED DRUGS -- BIN:930436, PCN: ASPROD1, Group: XXXXX, ID# [id number], Questions: . THIS IS NOT INSURANCE.] Lipitor 10 mg tablet RxNorm: 774566 1 Tablet(s) PO QHS 201412/07/2014 Inactive meloxicam 15 mg tablet RxNorm: 916075 1 Tablet(s) PO daily 04/01/2015 Inactive Levothroid 175 mcg tablet RxNorm: 122827 1 Tablet(s) PO daily 09/28/2014 12/15/2014 Inactive meloxicam 15 mg tablet RxNorm: 890721 1 Tablet(s) PO daily 09/10/2014 Inactive bisoprolol 2.5 mg-hydrochlorothiazide 6.25 mg tablet RxNorm: 007161 1 Tablet(s) PO daily 08/12/2014 11/09/2014 Inactive Levothroid 175 mcg tablet RxNorm: 265252 1 Tablet(s) PO daily 08/12/2014 09/27/2014 Inactive hydrocodone 7.5 mg-acetaminophen 325 mg tablet RxNorm: 869802 1 Tablet(s) PO Q6 PRN 08/12/2014 12/07/2014 Inactive [SAVINGS FOR NON-COVERED DRUGS -- BIN:[id number], PCN: ASPROD1, Group: XXXXX, ID# [id number], Questions: . THIS IS NOT INSURANCE.] acyclovir 400 mg tablet RxNorm: 887717 1 Tablet(s) PO daily 09/10/2014 Inactive hydrocodone 7.5 mg-acetaminophen 325 mg tablet RxNorm: 472668 1 Tablet(s) PO No Start Date 08/11/2014 Inactive Soma 350 mg tablet RxNorm: 906481 1 Tablet(s) PO TID as needed No Start Date 11/05/2016 Inactive alprazolam 0.5 mg tablet RxNorm: 682555 1/2 Tablet(s) PO BID as needed No Start Date 11/29/2015 Inactive Phenergan-Codeine 6.25 mg-10 mg/5 mL syrup RxNorm: 336604 5-10 Milliliter(s) PO Q6 as needed cough No Start Date 2016 Inactive Medication Administered Medication Codes Instructions Start Date Status Kenalog 40 mg/mL suspension for injection RxNorm: 4102680 Milliliter 05/02/2016 No longer Active Immunizations Vaccine [...] Code Result Date Comp. Metabolic Panel (14) 717035 GLUCOSE 96 MG/DL 11/28 Comp. Metabolic Panel (14) 976227 BUN 15 MG/DL 11/28/2017 Comp. Metabolic Panel (14) 503601 CREATININE 0.91 MG/DL 11/28/2017 Comp. Metabolic Panel (14) 132994 EGFR IF NONAFRICN AM 91 ML/MIN/1.73 11/28/2017 Comp. Metabolic Panel (14) 118023 EGFR IF AFRICN AM 106 ML/MIN/1.73 11/28/2017 Comp. Metabolic Panel (14) 705531 BUN/ CREATININE RATIO 16 11/28/2017 Comp. Metabolic Panel (14) 850329 SODIUM 140 MMOL/L 2017 Comp. Metabolic Panel (14) 765211 POTASSIUM 4.1 MMOL/L 11/28/2017 Comp. Metabolic Panel (14) 213361 CHLORIDE 100 MMOL/L Comp. Metabolic Panel (14) 724784 CARBON DIOXIDE, TOTAL 25 MMOL/L 11/28/2017 Comp. Metabolic Panel (14) 717390 CALCIUM 9.1 MG/DL 08/2017 Comp. Metabolic Panel (14) 417767 Protein , Total 6.9 G/DL 11/28 Comp. Metabolic Panel (14) 488920 ALBUMIN 4.5 G/DL 11/28 Comp. Metabolic Panel (14) 467477 GLOBULIN, TOTAL 2.4 G/DL 11/28/2017 Comp. Metabolic Panel (14) 921206 A/G Ratio 1.9 11/28/2017 Comp. Metabolic Panel (14) 019524 BILIRUBIN, TOTAL 0.5 MG/DL 11/28/2017 Comp. Metabolic Panel (14) 889980 ALKALINE PHOSPHATASE 55 IU/L 11/28/2017 Comp. Metabolic Panel (14) 049005 AST ( SGOT) 18 IU/L 2017 Comp. Metabolic Panel (14) 632996 ALT ( SGPT) 24 IU/L 2017 Lipid Panel w/ Chol/HDL Ratio 961474 CHOLESTEROL, TOTAL 145 MG/DL 11/28/2017 Lipid Panel w/ Chol/HDL Ratio 426979 TRIGLYCERIDES 216 MG/DL 11/28/2017 Lipid Panel w/ Chol/HDL Ratio 184799 HDL CHOLESTEROL 60 MG/DL 11/28/2017 Lipid Panel w/ Chol/HDL Ratio 271042 VLDL CHOLESTEROL CINDI 43 MG/DL 11/28/2017 Lipid Panel w/ Chol/HDL Ratio 381831 LDL CHOLESTEROL CALC 42 MG/DL 11/28/2017 Lipid Panel w/ Chol/HDL Ratio 502235 T. CHOL/HDL RATIO 2.4 RATIO 11/28/2017 CBC With Differential/Platelet 840244 WBC 10.0 X10E3/UL 08/2017 CBC With Differential/Platelet 019576 RBC 4.78 X10E6/UL 08/2017 CBC With Differential/Platelet 166206 HEMOGLOBIN 14.3 G/DL 11/28/2017 CBC With Differential/Platelet 592380 HEMATOCRIT 41.9 % 08/2017 CBC With Differential/Platelet 115621 MCV 88 FL 11/28/2017 CBC With Differential/Platelet 082735 MCH 29.9 PG 2017 CBC With Differential/Platelet 686781 MCHC 34.1 G/DL 2017 CBC With Differential/Platelet 251827 RDW 13.4 % 11/28/2017 CBC With Differential/Platelet 864351 PLATELETS 309 X10E3/UL 11/28/2017 CBC With Differential/Platelet 053012 NEUTROPHILS 61 % 11/28 CBC With Differential/Platelet 008360 LYMPHS 30 % 2017 CBC With Differential/Platelet 448379 MONOCYTES 6 % 2017 CBC With Differential/Platelet 263286 EOS 2 % 11/28/2017 CBC With Differential/Platelet 768646 BASOS 0 % 11/28/2017 CBC With Differential/Platelet 176761 NEUTROPHILS (ABSOLUTE) 6.2 X10E3/UL 11/28/2017 CBC With Differential/Platelet 844620 LYMPHS (ABSOLUTE) 3.0 X10E3/UL 11/28/2017 CBC With Differential/Platelet 258600 MONOCYTES(ABSOLUTE) 0.6 X10E3/UL 11/28/2017 CBC With Differential/Platelet 503089 EOS (ABSOLUTE) 0.2 X10E3/UL 11/28/2017 CBC With Differential/Platelet 497984 BASO (ABSOLUTE) 0.0 X10E3/UL 11/28/2017 CBC With Differential/Platelet 575251 IMMATURE GRANULOCYTES 1 % 11/28/2017 CBC With Differential/Platelet 806867 IMMATURE GRANS (ABS) 0.1 X10E3/UL 11/28/2017 Thyroxine (T4) Free, Direct, S 496618 T4, FREE(DIRECT) 1.56 NG/DL 11/28/2017 TSH 553102 TSH 1.530 UIU/ML 11/28/2017 TSH 191443 TSH 0.749 uIU/mL 06/24/2017 Comp. Metabolic Panel (14) 360918 GLUCOSE 101 mg/dL 04/2017 Comp. Metabolic Panel (14) 910920 BUN 12 mg/dL 06/24/2017 Comp. Metabolic Panel (14) 451883 CREATININE 0.95 mg/dL 06/24/2017 Comp. Metabolic Panel (14) 828980 EGFR IF NONAFRICN AM 87 mL/min/1.73 06/24/2017 Comp. Metabolic Panel (14) 479416 EGFR IF AFRICN AM 100 mL/min/1.73 06/24/2017 Comp. Metabolic Panel (14) 075592 BUN/ CREATININE RATIO 13 06/24/2017 Comp. Metabolic Panel (14) 134597 SODIUM 140 mmol/L 2017 Comp. Metabolic Panel (14) 838543 POTASSIUM 4.1 mmol/L 06/24/2017 Comp. Metabolic Panel (14) 419155 CHLORIDE 99 mmol/L 04/2017 Comp. Metabolic Panel (14) 631829 CARBON DIOXIDE, TOTAL 25 mmol/L 06/24/2017 Comp. Metabolic Panel (14) 502468 CALCIUM 9.5 mg/dL 04/2017 Comp. Metabolic Panel (14) 097112 Protein , Total 7.1 g/dL 06/24 Comp. Metabolic Panel (14) 114593 ALBUMIN 4.6 g/dL 06/24 Comp. Metabolic Panel (14) 964049 GLOBULIN, TOTAL 2.5 g/dL 06/24/2017 Comp. Metabolic Panel (14) 286654 A/G Ratio 1.8 06/24/2017 Comp. Metabolic Panel (14) 554059 BILIRUBIN, TOTAL 0.4 mg/dL 06/24/2017 Comp. Metabolic Panel (14) 279693 ALKALINE PHOSPHATASE 66 IU/L 06/24/2017 Comp. Metabolic Panel (14) 674025 AST ( SGOT) 45 IU/L 2017 Comp. Metabolic Panel (14) 554871 ALT ( SGPT) 41 IU/L 2017 Lipid Panel 667280 CHOLESTEROL, TOTAL 122 mg/dL 06/24/2017 Lipid Panel 168401 TRIGLYCERIDES 155 mg/dL 06/24/2017 Lipid Panel 907247 HDL CHOLESTEROL 52 mg/dL 06/24/2017 Lipid Panel 417258 VLDL CHOLESTEROL CINDI 31 mg/dL 06/24/2017 Lipid Panel 155785 LDL CHOLESTEROL CALC 39 mg/dL 06/24/2017 CBC With Differential/Platelet 404344 WBC 6.6 x10E3/uL 06/24 CBC With Differential/Platelet 864389 RBC 4.89 x10E6/uL 04/2017 CBC With Differential/Platelet 503766 HEMOGLOBIN 14.6 g/dL 06/24/2017 CBC With Differential/Platelet 342703 HEMATOCRIT 43.7 % 04/2017 CBC With Differential/Platelet 829019 MCV 89 fL 06/24/2017 CBC With Differential/Platelet 246599 MCH 29.9 pg 2017 CBC With Differential/Platelet 591990 MCHC 33.4 g/dL 2017 CBC With Differential/Platelet 642267 RDW 13.6 % 06/24/2017 CBC With Differential/Platelet 852143 PLATELETS 258 x10E3/uL 06/24/2017 CBC With Differential/Platelet 985540 NEUTROPHILS 51 % 06/24 CBC With Differential/Platelet 146872 LYMPHS 36 % 2017 CBC With Differential/Platelet 740308 MONOCYTES 9 % 2017 CBC With Differential/Platelet 108231 EOS 4 % 06/24/2017 CBC With Differential/Platelet 153807 BASOS 0 % 06/24/2017 CBC With Differential/Platelet 462150 NEUTROPHILS (ABSOLUTE) 3.3 x10E3/uL 06/24/2017 CBC With Differential/Platelet 054985 LYMPHS (ABSOLUTE) 2.3 x10E3/uL 06/24/2017 CBC With Differential/Platelet 603289 MONOCYTES(ABSOLUTE) 0.6 x10E3/uL 06/24/2017 CBC With Differential/Platelet 074793 EOS (ABSOLUTE) 0.3 x10E3/uL 06/24/2017 CBC With Differential/Platelet 897786 BASO (ABSOLUTE) 0.0 x10E3/uL 06/24/2017 CBC With Differential/Platelet 112780 IMMATURE GRANULOCYTES 0 % 06/24/2017 CBC With Differential/Platelet 256056 IMMATURE GRANS (ABS) 0.0 x10E3/uL 06/24/2017 Thyroxine (T4) Free, Direct, S 698303 T4, FREE(DIRECT) 1.35 ng/dL 06/24/2017 Comp. Metabolic Panel (14) 030733 GLUCOSE , SERUM 111 MG/DL Comp. Metabolic Panel (14) 915247 BUN 14 MG/DL 02/22/2016 Comp. Metabolic Panel (14) 955727 CREATININE, SERUM 1.03 MG/DL 02/22/2016 Comp. Metabolic Panel (14) 004138 EGFR IF NONAFRICN AM 79 ML/MIN/1.73 02/22/2016 Comp. Metabolic Panel (14) 514073 EGFR IF AFRICN AM 91 ML/MIN/1.73 02/22/2016 Comp. Metabolic Panel (14) 656642 BUN/ CREATININE RATIO 14 02/22/2016 Comp. Metabolic Panel (14) 558388 SODIUM , SERUM 140 MMOL/L Comp. Metabolic Panel (14) 588797 POTASSIUM, SERUM 3.9 MMOL/L 02/22/2016 Comp. Metabolic Panel (14) 734828 CHLORIDE, SERUM 99 MMOL/L 02/22/2016 Comp. Metabolic Panel (14) 728385 CARBON DIOXIDE, TOTAL 25 MMOL/L 02/22/2016 Comp. Metabolic Panel (14) 171003 CALCIUM , SERUM 9.1 MG/DL Comp. Metabolic Panel (14) 188618 PROTEIN , TOTAL, SERUM 6.5 G/DL 02/22/2016 Comp. Metabolic Panel (14) 508567 ALBUMIN , SERUM 4.1 G/DL 02/21 Comp. Metabolic Panel (14) 281224 GLOBULIN, TOTAL 2.4 G/DL 02/22/2016 Comp. Metabolic Panel (14) 328860 A/G Ratio 1.7 02/22/2016 Comp. Metabolic Panel (14) 139970 BILIRUBIN, TOTAL 0.2 MG/DL 02/22/2016 Comp. Metabolic Panel (14) 594563 ALKALINE PHOSPHATASE, S 72 IU/L 02/22/2016 Comp. Metabolic Panel (14) 761994 AST ( SGOT) 30 IU/L 2015 Comp. Metabolic Panel (14) 877966 ALT ( SGPT) 43 IU/L 2015 CBC With Differential/Platelet 878465 WBC 6.9 X10E3/UL 02/21 CBC With Differential/Platelet 058839 RBC 4.79 X10E6/UL CBC With Differential/Platelet 998598 HEMOGLOBIN 14.4 G/DL 02/22/2016 CBC With Differential/Platelet 399052 HEMATOCRIT 43.1 % CBC With Differential/Platelet 279318 MCV 90 FL 02/22/2016 CBC With Differential/Platelet 127186 MCH 30.1 PG 2015 CBC With Differential/Platelet 551769 MCHC 33.4 G/DL 2015 CBC With Differential/Platelet 495645 RDW 13.5 % 02/22/2016 CBC With Differential/Platelet 299937 PLATELETS 257 X10E3/UL 02/22/2016 CBC With Differential/Platelet 483451 NEUTROPHILS 57 % 02/21 CBC With Differential/Platelet 005318 LYMPHS 32 % 2015 CBC With Differential/Platelet 386824 MONOCYTES 8 % 2015 CBC With Differential/Platelet 743582 EOS 3 % 02/22/2016 CBC With Differential/Platelet 152040 BASOS 0 % 02/22/2016 CBC With Differential/Platelet 407564 NEUTROPHILS (ABSOLUTE) 4.0 X10E3/UL 02/22/2016 CBC With Differential/Platelet 966007 LYMPHS (ABSOLUTE) 2.2 X10E3/UL 02/22/2016 CBC With Differential/Platelet 015885 MONOCYTES(ABSOLUTE) 0.5 X10E3/UL 02/22/2016 CBC With Differential/Platelet 684942 EOS (ABSOLUTE) 0.2 X10E3/UL 02/22/2016 CBC With Differential/Platelet 851693 BASO (ABSOLUTE) 0.0 X10E3/UL 02/22/2016 CBC With Differential/Platelet 908782 IMMATURE GRANULOCYTES 0 % 02/22/2016 CBC With Differential/Platelet 783109 IMMATURE GRANS (ABS) 0.0 X10E3/UL 02/22/2016 TSH 922421 TSH 0.510 UIU/ML 02/22/2016 Lipid Panel 946738 CHOLESTEROL, TOTAL 183 MG/DL 02/22/2016 Lipid Panel 501311 TRIGLYCERIDES 509 MG/DL 02/22/2016 Lipid Panel 183835 HDL CHOLESTEROL 47 MG/DL 02/22/2016 Lipid Panel 607877 VLDL CHOLESTEROL CINDI COMMENT MG/DL 2015 Lipid Panel 251398 LDL CHOLESTEROL CALC COMMENT MG/DL 2015 Thyroxine (T4) Free, Direct, S 188925 T4, FREE(DIRECT) 1.39 NG/DL 02/22/2016 Comp Metabolic Zve098 NA 132 mEq/L 12/02/2014 Comp Metabolic Xwy765 K 4.1 mEq/L 12/02/2014 Comp Metabolic Cpq391 CL 100 mEq/L 12/02/2014 Comp Metabolic Bda984 CO2 26.0 mEq/L 12/02/2014 Comp Metabolic Hja560 ANION GAP 10 12/02/2014 Comp Metabolic Cqt195 GLUCOSE 107 mg/dL 12/02/2014 Comp Metabolic Yad937 Creat 1.1 mg/dL 12/02/2014 Comp Metabolic Ubh474 eGFR 73 ml/min/1.73m2 12/02/2014 Comp Metabolic Nya597 BUN 16 mg/dL 12/02/2014 Comp Metabolic Dsw360 B/C Ratio 14.5 Ratio 12/02/2014 Comp Metabolic Ejc797 CALCIUM 9.5 mg/dL 12/02/2014 Comp Metabolic Rzh496 ALK PHOS 39 U/L 12/02/2014 Comp Metabolic Ngz181 AST(SGOT) 18 U/L 12/02/2014 Comp Metabolic Ysl713 ALT(SGPT) 24 U/L 12/02/2014 Comp Metabolic Vtp752 BILI T 0.5 mg/dL 12/02/2014 Comp Metabolic Qpo298 ALBUMIN 4.2 g/dL 12/02/2014 Comp Metabolic Dij863 TPRO 6.5 g/dL 12/02/2014 Comp Metabolic Irv842 GLOB 2.3 g/dL 12/02/2014 Comp Metabolic Yzu616 A/G Ratio 1.8 Ratio 12/02/2014 Comp Metabolic Urq179 Osmo 266 mOsmo 12/02/2014 Tsh Ord6 hTSH [...] clear 08/12/2014 None Full Exam - General 1995 Eyes pupils and irises Overall: pupils equal, round, reactive to light and accomodation 08/12/2014 None Procedures Procedure Codes Date IMMUNIZATION ADMIN CPT -4: 87943 01/28/2017 FLU VAC NO PRSV 4 MONTY 3 YRS+ CPT-4: 73318 01/28/2017 TRIAMCINOLONE ACET INJ NOS CPT-4: J3301 05/02/2016 IMMUNIZATION ADMIN CPT -4: 48655 01/02/2016 FLU VACC 4 MONTY 3 YRS PLUS IM Formatting Model/CDA Sections, Assigned to/Ana Bella SNOMED CT: [id number] CPT-4: 20411Mxxaemv 01/02/2016 IMMUNIZATION ADMIN CPT -4: 88907 12/28/2014 IIV4 FLU VACC NO PRESERV ID Formatting Model/CDA Sections, Assigned to/Ana Bella SNOMED CT: [id number] CPT-4: 27778Hgxvogm 12/28/2014 Vital Signs Date Vital 11/27/2017 Blood Pressure 1: 122/76 Code : 8480-6 BMI: 27.2 Code : 38101-8 Heart Rate 1 : 58 bpm Height: 5'8" SpO2: 98% Weight: 179 lbs 09/19/2017 Blood Pressure 1: 122/60 Code : 8480-6 BMI: 29.8 Code : 30824-0 Heart Rate 1 : 57 bpm Height: 5'8" SpO2: 93% Weight: 196 lbs 05/23/2017 Blood Pressure 1: 122/74 Code : 8480-6 BMI: 29.2 Code : 27282-3 Heart Rate 1 : 68 bpm Height: 5'8" SpO2: 97% Weight: 192 lbs 08/02/2016 Blood Pressure 1: 142/80 Code : 8480-6 BMI: 28.1 Code : 61761-0 Heart Rate 1 : 61 bpm Height: 5'8" SpO2: 98% Weight: 185 lbs 05/17/2016 Blood Pressure 1: 126/74 Code : 8480-6 BMI: 27.7 Code : 30271-4 Heart Rate 1 : 60 bpm Height: 5'8" SpO2: 95% Temperature: 37.0 (C) / 98.6 (F) Weight: 182 lbs 05/02/2016 Blood Pressure 1: 106/68 Code : 8480-6 BMI: 27.8 Code : 85151-4 Heart Rate 1 : 58 bpm Height: 5'8" SpO2: 97% Temperature: 36.7 (C) / 98.1 (F) Weight: 183 lbs 02/02/2016 Blood Pressure 1: 124/76 Code : 8480-6 BMI: 28.0 Code : 28127-2 Heart Rate 1 : 68 bpm Height: 5'8" SpO2: 98% Weight: 184 lbs 01/02/2016 Blood Pressure 1: 130/72 Code : 8480-6 BMI: 28.0 Code : 48309-6 Heart Rate 1 : 62 bpm Height: 5'8" SpO2: 96% Weight: 184 lbs 08/04/2015 Blood Pressure 1: 128/76 Code : 8480-6 BMI: 27.7 Code : 08435-9 Heart Rate 1 : 64 bpm Height: 5'8" SpO2: 98% Weight: 182 lbs 06/29/2015 Blood Pressure 1: 142/84 Code : 8480-6 BMI: 28.0 Code : 95643-3 Heart Rate 1 : 55 bpm Height: 5'8" SpO2: 97% Weight: 184 lbs 05/19/2015 Blood Pressure 1: 120/78 Code : 8480-6 BMI: 27.2 Code : 54733-0 Heart Rate 1 : 86 bpm Height: 5'8" Weight: 179 lbs 12/28/2014 Blood Pressure 1: 130/68 Code : 8480-6 BMI: 27.7 Code : 49179-2 Heart Rate 1 : 52 bpm Height: 5'8" SpO2: 98% Weight: 182 lbs 08/12/2014 Blood Pressure 1: 118/70 Code : 8480-6 BMI: 27.7 Code : 00320-3 Heart Rate 1 : 64 bpm Height: [...] data Encounters Encounter Performer Location Codes Date () [id number] EST. PATIENT, LEVEL IV Diagnosis: Mixed hyperlipidemia[ICD10: E78.2] Diagnosis: Essential (primary) hypertension[ICD10: I10] Diagnosis: Atrophy of thyroid (acquired)[ICD10: E03.4] Diagnosis: Pain in right knee[ICD10: M25.561] [facility] CPT-4: 00693 11/27/2017 [id number] EST. PATIENT, LEVEL III Diagnosis: Cellulitis of back [any part except buttock][ICD10: L03.312] [facility] CPT-4: 56451 09/19/2017 ([id number]) PREV VISIT EST AGE 40-64 Diagnosis: Encounter for general adult medical examination without abnormal findings[ICD10: Z00.00] [facility] CPT-4: 20578 05/23/2017 ([id number]) 05029 EST. PATIENT, LEVEL IV Diagnosis: Essential (primary) hypertension[ICD10: I10] Diagnosis: Atrophy of thyroid (acquired)[ICD10: E03.4] Diagnosis: Mixed hyperlipidemia[ICD10: E78.2] Diagnosis: Other allergic rhinitis[ICD10: J30.89] Diagnosis: Melanocytic nevi of left lower limb, including hip[ICD10: D22.72] Diagnosis: Melanocytic nevi of right lower limb, including hip[ICD10: D22.71] Laura Hurt MD, [facility] CPT-4: 59639 08/02/2016 66515 EST. PATIENT, LEVEL III Diagnosis: Other allergic rhinitis[ICD10: J30.89] Diagnosis: Cough[ICD10: R05] Diagnosis: Candidal stomatitis[ICD10: B37.0] Rose Hurt MD, [facility] CPT -4: 02004 05/17/2016 11448 EST. PATIENT, LEVEL III Diagnosis: Acute bronchitis due to other specified organisms[ICD10: J20.8] Rose Hurt MD, [facility] CPT-4: 04522 05/02/2016 ([id number]) PREV VISIT EST AGE 40-64 Diagnosis: Atrophy of thyroid (acquired)[ICD10: E03.4] Diagnosis: Mixed hyperlipidemia[ICD10: E78.2] Diagnosis: Essential (primary) hypertension[ICD10: I10] Diagnosis: Encounter for general adult medical examination without abnormal findings[ICD10: Z00.00] Laura Hurt MD, [facility] CPT-4: 51328 02/02/2016 52446 EST. PATIENT, LEVEL II Diagnosis: Cellulitis of head [any part, except face][ICD10: L03.811] Diagnosis: Rash and other nonspecific skin eruption[ICD10: R21] Diagnosis: VACCIN FOR INFLUENZA[ICD10: Z23] Monae Hurt MD, [facility] CPT-4: 78088 01/02/2016 ([id number]) 59036 EST. PATIENT, LEVEL III Diagnosis: Essential (primary) hypertension[ICD10: I10] Laura Hurt MD, [facility] CPT-4: 10101 08/04/2015 86075 EST. PATIENT, LEVEL IV Diagnosis: Other acute sinusitis[ICD10: J01.80] Diagnosis: Other allergic rhinitis[ICD10: J30.89] Rose Hurt MD, [facility] CPT-4: 27870 06/29/2015 ([id number]) 08335 EST. PATIENT, LEVEL III Diagnosis: Low back pain[ICD10: M54.5] Diagnosis: Rash and other nonspecific skin eruption[ICD10: R21] [facility] CPT-4: 96275 05/19/2015 ([id number]) 58475 EST. PATIENT, LEVEL III Diagnosis: Mixed hyperlipidemia[ICD10: E78.2] Diagnosis: Hypothyroidism, unspecified[ICD10: E03.9] Monae Hurt MD, [facility] CPT-4: 52124 12/28/2014 ([id number]) PREV VISIT NEW AGE 40-64 Diagnosis: Well adult exam[ICD9: V70.0] Monae Hurt MD, [facility] CPT-4: 94290 08/12/2014 Plan of Care Planned Activity Notes [...] the hydrocodone. 11/27/2017 Appointment: Laura Hurt WPtel: [phone] [facility] (15 min) Moderate 11/27/2017 Patient Education: Patient [...] warmth, discharge. 09/19/2017 Appointment: Rose Ferrer WPtel: [phone] [facility] (15 min) Moderate 09/19/2017 Patient Education: Patient Medication Summary Completed 09/19/2017 Appointment: Rose Ferrer WPtel: [phone] [facility] (15 min) Moderate 06/18/2017 Visit Plan: [...] colonoscopy 05/23/2017 Appointment: Laura Hurt WPtel: [phone] [facility] [place] (15 min) Moderate 05/23/2017 Patient Education: Patient Medication Summary Completed 05/23/2017 Care Plan: Referral Order SNOMED-CT : [id number] Pending 05/23/2017 Appointment: Injection 01/28/2017 Patient Education: [...] month 08/02/2016 [phone] ([facility] min) Complex 08/02/2016 Patient Education: Patient [...] allergies 05/17/2016 [phone] ([facility] min) Moderate 05/17/2016 Patient Education: Patient [...] acutely worsen. 05/02/2016 Appointment: [facility] Fer[facility] (15 min) Moderate 05/02/2016 Patient Education: Patient [...] to medications. 02/02/2016 Appointment: Laura Hurt WPtel: [phone] [facility] (30 min) Complex 02/02/2016 Patient Education: Patient Medication Summary Completed 02/02/2016 Visit Plan: Dvjwzxksdkrb-hnyza-qflkbvy of pustule today in the office-will treat as indicated-patient verbalized understanding of plan. 01/02/2016 Visit Plan: Vibufrlelopz-tyhoa-hrjxmci of pustule today in the office-will treat as indicated-patient verbalized understanding of plan. 01/02/2016 Appointment: Monae Berkowitz WPtel: [phone] [phone] [place] (30 min) Complex 01/02/2016 Patient Education: [...] at home. 08/04/2015 Appointment: Laura Hurt WPtel: [phone] [facility] (30 min) Complex 08/04/2015 Patient Education: Patient [...] assure normal liver response to medications. . Nhqgtsxpeyag-axbdf-fkufabe of pustule today in the office -will treat as indicated-patient verbalized understanding of plan. . Xrecbtmiowsv-pqxzh-bqlpffg of pustule today in the office -will [...]
--- OUTSIDE RECORDS SUMMARY | 2018-07-17 11:33 | XMS REPORT | CCD ---
Author Author Monae Berkowitz MD, [facility] Address [address] [place] [address] Phone Care Team Providers Care Detonator Maker Name Role Phone PP Unavailable CCM Unavailable Summary Purpose Interface Exchange Insurance Providers Payer name Policy type / Coverage type Covered republican ID Effective Begin Date Effective End Date Blue Cross Blue [facility] Blue Cross/Blue Shield [id number] Unknown Unknown Family history Mother Diagnosis Age At Onset Coronary Artery Disease Unknown Breast cancer Unknown Father Diagnosis Age At Onset Hypertension Unknown Cancer Unknown Social History Social History Element Codes Description Effective Dates Frequency of drinks SNOMED CT: 447435782 10 drinks per week -varies- more on weekends 08/02/2016 Employment Unknown 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 Marital status Unknown Single 08/12/2014 Number of children Unknown 0 08/12/[address]: 3810296 Quit less than 10 years ago 200608/12/[address]: 751819 Currently drinks alcohol 08/12/2014 Allergies, Adverse Reactions, [...] Start Date Stop Date Status Fill Instructions Lipitor 80 mg tablet RxNorm: 833069 TAKE ONE TABLET BY MOUTH EVERY NIGHT AT BEDTIME 03/24/2018 07/21/2018 Active alprazolam 0.5 mg tablet RxNorm: 500509 1/2 Tablet(s) PO BID as needed 02/18/2018 04/18/2018 Active acyclovir 400 mg tablet RxNorm: 779785 TAKE ONE TABLET BY MOUTH DAILY 02/18/2018 05/18/2018 Active acyclovir 400 mg tablet RxNorm: 291053 TAKE ONE TABLET BY MOUTH DAILY 11/11/2017 02/08/2018 Inactive bisoprolol 5 mg-hydrochlorothiazide 6.25 mg tablet RxNorm: 159708 TAKE ONE TABLET BY MOUTH DAILY 09/30/2017 03/28/2018 Active Levothroid 175 mcg tablet RxNorm: 741063 Tablet(s) TAKE ONE TABLET BY MOUTH DAILY ON AN EMPTY STOMACH . 09/30/20172018 Active Lipitor 80 mg tablet RxNorm: 584743 TAKE ONE TABLET BY MOUTH EVERY NIGHT AT BEDTIME 09/30/2017 02/26/2018 Inactive Bactrim DS 800 mg-160 mg tablet RxNorm: 422345 1 Tablet(s) PO BID 09/19/2017 09/25/2017 Inactive alprazolam 0.5 mg tablet RxNorm: 331534 1/2 Tablet(s) PO BID as needed 07/24/2017 09/20/2017 Inactive Zithromax Z-Bassam 250 mg tablet RxNorm: 178195 1 Tablet(s) PO UD 06/17/2017 07/23/2017 Inactive z pack as directed Levothroid 175 mcg tablet RxNorm: 375064 TAKE ONE TABLET BY MOUTH DAILY ON AN EMPTY STOMACH . NEED TO REPEAT LAB FOR TSH AND FREE T4 201708/31/2017 Inactive gemfibrozil 600 mg tablet RxNorm: 666630 1 Tablet(s) PO BID 03/201702/16/2018 Inactive Penlac 8 % topical solution RxNorm: 925139 1 Application TOP daily 05/23/2017 06/21/2017 Inactive ketoconazole 2 % topical cream RxNorm: 015377 1 Application TOP BID 05/23/2017 06/05/2017 Inactive Cipro 500 mg tablet RxNorm: 578282 1 Tablet(s) PO BID 201705/30/2017 Inactive Flagyl 500 mg tablet RxNorm: 966206 1 Tablet(s) PO TID 201705/30/2017 Inactive acyclovir 400 mg tablet RxNorm: 709803 TAKE ONE TABLET BY MOUTH DAILY 04/26/2017 10/22/2017 Inactive bisoprolol 5 mg-hydrochlorothiazide 6.25 mg tablet RxNorm: 697771 TAKE ONE TABLET BY MOUTH DAILY 03/11/2017 09/06/2017 Inactive Levothroid 175 mcg tablet RxNorm: 421142 TAKE ONE TABLET BY MOUTH DAILY ON AN EMPTY STOMACH . NEED TO REPEAT LAB FOR TSH AND FREE T4 201606/02/2017 Inactive Lipitor 80 mg tablet RxNorm: 975331 Tablet(s) PO TAKE ONE TABLET BY MOUTH EVERY NIGHT AT BEDTIME 12/24/2016 11/26/2017 Inactive Levothroid 175 mcg tablet RxNorm: 527981 TAKE ONE TABLET BY MOUTH DAILY ON AN EMPTY STOMACH . NEED TO REPEAT LAB FOR TSH AND FREE T4 201603/10/2017 Inactive hydrocodone 7.5 mg-acetaminophen 325 mg tablet RxNorm: 914478 1 Tablet(s) PO Q6 PRN 11/06/2016 12/05/2016 Inactive [SAVINGS FOR NON-COVERED DRUGS -- BIN:[id number], PCN: ASPROD1, Group: XXXXX, ID# [id number], Questions: . THIS IS NOT INSURANCE.] Soma 350 mg tablet RxNorm: 387196 1 Tablet(s) PO TID as needed 11/06/2016 No Stop Date Active alprazolam 0.5 mg tablet RxNorm: 362372 1/2 Tablet(s) PO BID as needed 10/05/2016 11/26/2017 Inactive Lipitor 80 mg tablet RxNorm: 520399 Tablet(s) PO TAKE ONE TABLET BY MOUTH EVERY NIGHT AT BEDTIME 09/04/2016 12/23/2016 Inactive Lipitor 40 mg tablet RxNorm: 283461 TAKE ONE TABLET BY MOUTH EVERY NIGHT AT BEDTIME 09/04/2016 09/03/2016 Inactive acyclovir 400 mg tablet RxNorm: 290855 TAKE ONE TABLET BY MOUTH DAILY 08/23/2016 02/18/2017 Inactive bisoprolol 5 mg-hydrochlorothiazide 6.25 mg tablet RxNorm: 271270 TAKE ONE TABLET BY MOUTH DAILY 08/23/2016 02/18/2017 Inactive Levothroid 175 mcg tablet RxNorm: 364133 Tablet(s) TAKE ONE TABLET BY MOUTH DAILY 08/22/2016 11/19/2016 Inactive Needs to repeat TSH et Free T4 labs acyclovir 400 mg tablet RxNorm: 643165 TAKE ONE TABLET BY MOUTH DAILY 08/21/2016 08/22/2016 Inactive prednisone 10 mg tablet RxNorm: 584644 Tablet(s) PO UD dispense a medrol dose pack 08/10/2016 07/23/2017 Inactive 6,5,4,3,2,1 prednisone 10 mg tablet RxNorm: 122594 Tablet(s) PO UD dispense a medrol dose pack 07/30/2016 08/09/2016 Inactive 6,5,4,3,2,1 cefdinir 300 mg capsule RxNorm: 678958 1 Capsule(s) PO BID 10/201608/08/2016 Inactive cefdinir 300 mg capsule RxNorm: 218653 1 Capsule(s) PO BID 10/201607/29/2016 Inactive Lipitor 40 mg tablet RxNorm: 566043 TAKE ONE TABLET BY MOUTH EVERY NIGHT AT BEDTIME 06/25/2016 09/03/2016 Inactive nystatin 100,000 unit/mL oral suspension RxNorm: 363743 5 Milliliter(s) PO TID 05/17/2016 05/21/2016 Inactive Zyrtec 10 mg tablet RxNorm: 4990209 1 Tablet(s) PO daily 05/1706/15/2016 Inactive Levothroid 175 mcg tablet RxNorm: 295020 TAKE ONE TABLET BY MOUTH DAILY 05/16/2016 08/13/2016 Inactive Levaquin 750 mg tablet RxNorm: 359984 1 Tablet(s) PO daily 05/09/2016 Inactive Levaquin 750 mg tablet RxNorm: 514508 1 Tablet(s) PO daily 05/14/2016 Inactive Phenergan-Codeine 6.25 mg-10 mg/5 mL syrup RxNorm: 722056 5-10 Milliliter(s) PO Q6 as needed cough 05/02/2016 No Stop Date Active prednisone 10 mg tablet RxNorm: 315211 Tablet(s) PO UD 201607/29/2016 Inactive 6,5,4,3,2,1 Kenalog 40 mg/mL suspension for injection RxNorm: 1994320 Milliliter(s) Inj 05/02/2016 05/02/2016 Inactive Phenergan-Codeine 6.25 mg-10 mg/5 mL syrup RxNorm: 978002 5-10 Milliliter(s) PO Q6 as needed cough 04/25/2016 05/01/2016 Inactive Zithromax Z-Bassam 250 mg tablet RxNorm: 748589 1 Tablet(s) PO UD 04/25/2016 07/29/2016 Inactive z pack as directed acyclovir 400 mg tablet RxNorm: 957160 TAKE ONE TABLET BY MOUTH DAILY 04/10/2016 07/08/2016 Inactive Zetia 10 mg tablet RxNorm: 917061 1 Tablet(s) PO daily 201505/22/2017 Inactive Zetia 10 mg tablet RxNorm: 936869 1 Tablet(s) PO daily 201503/06/2016 Inactive Lipitor 40 mg tablet RxNorm: 693909 Tablet(s) PO TAKE ONE TABLET BY MOUTH EVERY NIGHT AT BEDTIME 03/07/2016 06/24/2016 Inactive Patient is requesting 90 days supply Diflucan 150 mg tablet RxNorm: 113704 1 Tablet(s) PO daily 01/11/2016 Inactive Diflucan 150 mg tablet RxNorm: 396541 1 Tablet(s) PO daily 01/04/2016 Inactive hydrocodone 7.5 mg-acetaminophen 325 mg tablet RxNorm: 278620 1 Tablet(s) PO Q6 PRN 12/28/2015 01/26/2016 Inactive [SAVINGS FOR NON-COVERED DRUGS -- BIN:[id number], PCN: ASPROD1, Group: XXXXX, ID# [id number], Questions: . THIS IS NOT INSURANCE.] alprazolam 0.5 mg tablet RxNorm: 478101 1/2 Tablet(s) PO BID as needed 11/30/2015 10/04/2016 Inactive Levothroid 175 mcg tablet RxNorm: 662426 Tablet(s) TAKE ONE TABLET BY MOUTH DAILY 10/26/2015 04/22/2016 Inactive hydrocodone 7.5 mg-acetaminophen 325 mg tablet RxNorm: 687598 1 Tablet(s) PO Q6 PRN 08/30/2015 09/28/2015 Inactive [SAVINGS FOR NON-COVERED DRUGS -- BIN:277895, PCN: ASPROD1, Group: XXXXX, ID# [id number], Questions: . THIS IS NOT INSURANCE.] Ventolin HFA 90 mcg/actuation aerosol inhaler RxNorm: 419398 2 INH PRN dyspnea 08/04/2015 No Stop Date Active bisoprolol 5 mg-hydrochlorothiazide 6.25 mg tablet RxNorm: 079585 TAKE ONE TABLET BY MOUTH DAILY 07/11/2015 01/06/2016 Inactive Patient is requesting 90 days supply bisoprolol 5 mg-hydrochlorothiazide 6.25 mg tablet RxNorm: 073153 TAKE ONE TABLET BY MOUTH DAILY 07/11/2015 01/06/2016 Inactive Lipitor 10 mg tablet RxNorm: 846339 TAKE ONE TABLET BY MOUTH EVERY NIGHT AT BEDTIME 07/11/2015 01/06/2016 Inactive Patient is requesting 90 days supply Lipitor 10 mg tablet RxNorm: 117774 TAKE ONE TABLET BY MOUTH EVERY NIGHT AT BEDTIME 07/11/2015 05/13/2016 Inactive acyclovir 400 mg tablet RxNorm: 770626 1 Tablet(s) PO daily 08/22/2016 Inactive acyclovir 400 mg tablet RxNorm: 280558 1 Tablet(s) PO daily 07/10/2015 Inactive Zithromax Z-Bassam 250 mg tablet RxNorm: 527726 Tablet(s) PO UD 08/03/2015 Inactive acyclovir 400 mg tablet RxNorm: 902209 1 Tablet(s) PO daily 08/201507/05/2015 Inactive meloxicam 15 mg tablet RxNorm: 287902 TAKE ONE TABLET BY MOUTH DAILY 06/27/2015 11/23/2015 Inactive triamcinolone acetonide 0.1 % topical cream RxNorm: 3831517 1 Application TOP BID 05/19/2015 06/01/2015 Inactive apply very thin layer as directed hydrocodone 7.5 mg-acetaminophen 325 mg tablet RxNorm: 481848 1 Tablet(s) PO Q6 PRN 05/19/2015 08/29/2015 Inactive [SAVINGS FOR NON-COVERED DRUGS -- BIN:[id number], PCN: ASPROD1, Group: XXXXX, ID# [id number], Questions: . THIS IS NOT INSURANCE.] Cipro 500 mg tablet RxNorm: 490952 1 Tablet(s) PO BID 201504/20/2015 Inactive Cipro 500 mg tablet RxNorm: 017124 1 Tablet(s) PO BID 201504/30/2015 Inactive Flagyl 500 mg tablet RxNorm: 591042 1 Tablet(s) PO TID 201504/30/2015 Inactive Flagyl 500 mg tablet RxNorm: 202914 1 Tablet(s) PO TID 201504/20/2015 Inactive bisoprolol 5 mg-hydrochlorothiazide 6.25 mg tablet RxNorm: 790085 1 Tablet(s) PO daily 04/21/2015 07/10/2015 Inactive Levothroid 175 mcg tablet RxNorm: 743562 TAKE ONE TABLET BY MOUTH DAILY 04/18/2015 10/14/2015 Inactive hydrocodone 7.5 mg-acetaminophen 325 mg tablet RxNorm: 582228 1 Tablet(s) PO Q6 PRN 04/04/2015 05/18/2015 Inactive [SAVINGS FOR NON-COVERED DRUGS -- BIN:[id number], PCN: ASPROD1, Group: XXXXX, ID# [id number], Questions: . THIS IS NOT INSURANCE.] Lipitor 10 mg tablet RxNorm: 620540 1 Tablet(s) PO QHS 201507/02/2015 Inactive azithromycin 250 mg tablet RxNorm: 969745 1 Tablet(s) PO UD Take 2 tabs on day one and 1 tab day 2-5 02/03/20152014 Inactive azithromycin 250 mg tablet RxNorm: 398450 1 Tablet(s) PO UD Take 2 tabs on day one and 1 tab day 2-5 02/03/20152014 Inactive Levothroid 175 mcg tablet RxNorm: 979007 TAKE ONE TABLET BY MOUTH DAILY 12/16/2014 03/15/2015 Inactive Lipitor 10 mg tablet RxNorm: 764132 1 Tablet(s) PO QHS 201403/07/2015 Inactive hydrocodone 7.5 mg-acetaminophen 325 mg tablet RxNorm: 182026 1 Tablet(s) PO Q6 PRN 12/08/2014 04/03/2015 Inactive [SAVINGS FOR NON-COVERED DRUGS -- BIN:068643, PCN: ASPROD1, Group: XXXXX, ID# [id number], Questions: . THIS IS NOT INSURANCE.] Lipitor 10 mg tablet RxNorm: 871999 1 Tablet(s) PO QHS 201412/07/2014 Inactive meloxicam 15 mg tablet RxNorm: 835831 1 Tablet(s) PO daily 04/01/2015 Inactive Levothroid 175 mcg tablet RxNorm: 747003 1 Tablet(s) PO daily 09/28/2014 12/15/2014 Inactive meloxicam 15 mg tablet RxNorm: 098230 1 Tablet(s) PO daily 09/10/2014 Inactive bisoprolol 2.5 mg-hydrochlorothiazide 6.25 mg tablet RxNorm: 012405 1 Tablet(s) PO daily 08/12/2014 11/09/2014 Inactive Levothroid 175 mcg tablet RxNorm: 631255 1 Tablet(s) PO daily 08/12/2014 09/27/2014 Inactive hydrocodone 7.5 mg-acetaminophen 325 mg tablet RxNorm: 750237 1 Tablet(s) PO Q6 PRN 08/12/2014 12/07/2014 Inactive [SAVINGS FOR NON-COVERED DRUGS -- BIN:443825, PCN: ASPROD1, Group: XXXXX, ID# [id number], Questions: . THIS IS NOT INSURANCE.] acyclovir 400 mg tablet RxNorm: 013862 1 Tablet(s) PO daily 09/10/2014 Inactive hydrocodone 7.5 mg-acetaminophen 325 mg tablet RxNorm: 769508 1 Tablet(s) PO No Start Date 08/11/2014 Inactive Soma 350 mg tablet RxNorm: 617880 1 Tablet(s) PO TID as needed No Start Date 11/05/2016 Inactive alprazolam 0.5 mg tablet RxNorm: 558088 1/2 Tablet(s) PO BID as needed No Start Date 11/29/2015 Inactive Phenergan-Codeine 6.25 mg-10 mg/5 mL syrup RxNorm: 171719 5-10 Milliliter(s) PO Q6 as needed cough No Start Date 2016 Inactive Medication Administered Medication Codes Instructions Start Date Status Kenalog 40 mg/mL suspension for injection RxNorm: 8227736 Milliliter 05/02/2016 No longer Active Immunizations Vaccine [...] Code Result Date Comp. Metabolic Panel (14) 698003 GLUCOSE 96 MG/DL 11/28 Comp. Metabolic Panel (14) 131004 BUN 15 MG/DL 11/28/2017 Comp. Metabolic Panel (14) 957958 CREATININE 0.91 MG/DL 11/28/2017 Comp. Metabolic Panel (14) 217165 EGFR IF NONAFRICN AM 91 ML/MIN/1.73 11/28/2017 Comp. Metabolic Panel (14) 789143 EGFR IF AFRICN AM 106 ML/MIN/1.73 11/28/2017 Comp. Metabolic Panel (14) 556792 BUN/ CREATININE RATIO 16 11/28/2017 Comp. Metabolic Panel (14) 144937 SODIUM 140 MMOL/L 2017 Comp. Metabolic Panel (14) 885200 POTASSIUM 4.1 MMOL/L 11/28/2017 Comp. Metabolic Panel (14) 113745 CHLORIDE 100 MMOL/L Comp. Metabolic Panel (14) 714216 CARBON DIOXIDE, TOTAL 25 MMOL/L 11/28/2017 Comp. Metabolic Panel (14) 177647 CALCIUM 9.1 MG/DL 08/2017 Comp. Metabolic Panel (14) 554551 Protein , Total 6.9 G/DL 11/28 Comp. Metabolic Panel (14) 467962 ALBUMIN 4.5 G/DL 11/28 Comp. Metabolic Panel (14) 464967 GLOBULIN, TOTAL 2.4 G/DL 11/28/2017 Comp. Metabolic Panel (14) 390810 A/G Ratio 1.9 11/28/2017 Comp. Metabolic Panel (14) 468172 BILIRUBIN, TOTAL 0.5 MG/DL 11/28/2017 Comp. Metabolic Panel (14) 979460 ALKALINE PHOSPHATASE 55 IU/L 11/28/2017 Comp. Metabolic Panel (14) 914052 AST ( SGOT) 18 IU/L 2017 Comp. Metabolic Panel (14) 245433 ALT ( SGPT) 24 IU/L 2017 Lipid Panel w/ Chol/HDL Ratio 322918 CHOLESTEROL, TOTAL 145 MG/DL 11/28/2017 Lipid Panel w/ Chol/HDL Ratio 553763 TRIGLYCERIDES 216 MG/DL 11/28/2017 Lipid Panel w/ Chol/HDL Ratio 037022 HDL CHOLESTEROL 60 MG/DL 11/28/2017 Lipid Panel w/ Chol/HDL Ratio 168912 VLDL CHOLESTEROL CINDI 43 MG/DL 11/28/2017 Lipid Panel w/ Chol/HDL Ratio 804170 LDL CHOLESTEROL CALC 42 MG/DL 11/28/2017 Lipid Panel w/ Chol/HDL Ratio 851558 T. CHOL/HDL RATIO 2.4 RATIO 11/28/2017 CBC With Differential/Platelet 051715 WBC 10.0 X10E3/UL 08/2017 CBC With Differential/Platelet 182909 RBC 4.78 X10E6/UL 08/2017 CBC With Differential/Platelet 647785 HEMOGLOBIN 14.3 G/DL 11/28/2017 CBC With Differential/Platelet 310817 HEMATOCRIT 41.9 % 08/2017 CBC With Differential/Platelet 942669 MCV 88 FL 11/28/2017 CBC With Differential/Platelet 771908 MCH 29.9 PG 2017 CBC With Differential/Platelet 240260 MCHC 34.1 G/DL 2017 CBC With Differential/Platelet 751949 RDW 13.4 % 11/28/2017 CBC With Differential/Platelet 581787 PLATELETS 309 X10E3/UL 11/28/2017 CBC With Differential/Platelet 883743 NEUTROPHILS 61 % 11/28 CBC With Differential/Platelet 965654 LYMPHS 30 % 2017 CBC With Differential/Platelet 600875 MONOCYTES 6 % 2017 CBC With Differential/Platelet 327403 EOS 2 % 11/28/2017 CBC With Differential/Platelet 954333 BASOS 0 % 11/28/2017 CBC With Differential/Platelet 997348 NEUTROPHILS (ABSOLUTE) 6.2 X10E3/UL 11/28/2017 CBC With Differential/Platelet 342543 LYMPHS (ABSOLUTE) 3.0 X10E3/UL 11/28/2017 CBC With Differential/Platelet 418127 MONOCYTES(ABSOLUTE) 0.6 X10E3/UL 11/28/2017 CBC With Differential/Platelet 936328 EOS (ABSOLUTE) 0.2 X10E3/UL 11/28/2017 CBC With Differential/Platelet 607789 BASO (ABSOLUTE) 0.0 X10E3/UL 11/28/2017 CBC With Differential/Platelet 804562 IMMATURE GRANULOCYTES 1 % 11/28/2017 CBC With Differential/Platelet 246775 IMMATURE GRANS (ABS) 0.1 X10E3/UL 11/28/2017 Thyroxine (T4) Free, Direct, S 657749 T4, FREE(DIRECT) 1.56 NG/DL 11/28/2017 TSH 480916 TSH 1.530 UIU/ML 11/28/2017 TSH 459162 TSH 0.749 uIU/mL 06/24/2017 Comp. Metabolic Panel (14) 857943 GLUCOSE 101 mg/dL 04/2017 Comp. Metabolic Panel (14) 818323 BUN 12 mg/dL 06/24/2017 Comp. Metabolic Panel (14) 218420 CREATININE 0.95 mg/dL 06/24/2017 Comp. Metabolic Panel (14) 266080 EGFR IF NONAFRICN AM 87 mL/min/1.73 06/24/2017 Comp. Metabolic Panel (14) 475345 EGFR IF AFRICN AM 100 mL/min/1.73 06/24/2017 Comp. Metabolic Panel (14) 960151 BUN/ CREATININE RATIO 13 06/24/2017 Comp. Metabolic Panel (14) 864432 SODIUM 140 mmol/L 2017 Comp. Metabolic Panel (14) 708523 POTASSIUM 4.1 mmol/L 06/24/2017 Comp. Metabolic Panel (14) 599642 CHLORIDE 99 mmol/L 04/2017 Comp. Metabolic Panel (14) 318235 CARBON DIOXIDE, TOTAL 25 mmol/L 06/24/2017 Comp. Metabolic Panel (14) 032804 CALCIUM 9.5 mg/dL 04/2017 Comp. Metabolic Panel (14) 316279 Protein , Total 7.1 g/dL 06/24 Comp. Metabolic Panel (14) 463827 ALBUMIN 4.6 g/dL 06/24 Comp. Metabolic Panel (14) 955066 GLOBULIN, TOTAL 2.5 g/dL 06/24/2017 Comp. Metabolic Panel (14) 890428 A/G Ratio 1.8 06/24/2017 Comp. Metabolic Panel (14) 196998 BILIRUBIN, TOTAL 0.4 mg/dL 06/24/2017 Comp. Metabolic Panel (14) 013078 ALKALINE PHOSPHATASE 66 IU/L 06/24/2017 Comp. Metabolic Panel (14) 241614 AST ( SGOT) 45 IU/L 2017 Comp. Metabolic Panel (14) 586870 ALT ( SGPT) 41 IU/L 2017 Lipid Panel 701066 CHOLESTEROL, TOTAL 122 mg/dL 06/24/2017 Lipid Panel 009528 TRIGLYCERIDES 155 mg/dL 06/24/2017 Lipid Panel 617411 HDL CHOLESTEROL 52 mg/dL 06/24/2017 Lipid Panel 925534 VLDL CHOLESTEROL CINDI 31 mg/dL 06/24/2017 Lipid Panel 001777 LDL CHOLESTEROL CALC 39 mg/dL 06/24/2017 CBC With Differential/Platelet 470510 WBC 6.6 x10E3/uL 06/24 CBC With Differential/Platelet 337613 RBC 4.89 x10E6/uL 04/2017 CBC With Differential/Platelet 295782 HEMOGLOBIN 14.6 g/dL 06/24/2017 CBC With Differential/Platelet 952890 HEMATOCRIT 43.7 % 04/2017 CBC With Differential/Platelet 598280 MCV 89 fL 06/24/2017 CBC With Differential/Platelet 415919 MCH 29.9 pg 2017 CBC With Differential/Platelet 042456 MCHC 33.4 g/dL 2017 CBC With Differential/Platelet 479031 RDW 13.6 % 06/24/2017 CBC With Differential/Platelet 577465 PLATELETS 258 x10E3/uL 06/24/2017 CBC With Differential/Platelet 415255 NEUTROPHILS 51 % 06/24 CBC With Differential/Platelet 182692 LYMPHS 36 % 2017 CBC With Differential/Platelet 762531 MONOCYTES 9 % 2017 CBC With Differential/Platelet 108262 EOS 4 % 06/24/2017 CBC With Differential/Platelet 368885 BASOS 0 % 06/24/2017 CBC With Differential/Platelet 620675 NEUTROPHILS (ABSOLUTE) 3.3 x10E3/uL 06/24/2017 CBC With Differential/Platelet 774800 LYMPHS (ABSOLUTE) 2.3 x10E3/uL 06/24/2017 CBC With Differential/Platelet 547891 MONOCYTES(ABSOLUTE) 0.6 x10E3/uL 06/24/2017 CBC With Differential/Platelet 392118 EOS (ABSOLUTE) 0.3 x10E3/uL 06/24/2017 CBC With Differential/Platelet 336937 BASO (ABSOLUTE) 0.0 x10E3/uL 06/24/2017 CBC With Differential/Platelet 075313 IMMATURE GRANULOCYTES 0 % 06/24/2017 CBC With Differential/Platelet 928529 IMMATURE GRANS (ABS) 0.0 x10E3/uL 06/24/2017 Thyroxine (T4) Free, Direct, S 432660 T4, FREE(DIRECT) 1.35 ng/dL 06/24/2017 Comp. Metabolic Panel (14) 768526 GLUCOSE , SERUM 111 MG/DL Comp. Metabolic Panel (14) 553251 BUN 14 MG/DL 02/22/2016 Comp. Metabolic Panel (14) 807802 CREATININE, SERUM 1.03 MG/DL 02/22/2016 Comp. Metabolic Panel (14) 039019 EGFR IF NONAFRICN AM 79 ML/MIN/1.73 02/22/2016 Comp. Metabolic Panel (14) 772971 EGFR IF AFRICN AM 91 ML/MIN/1.73 02/22/2016 Comp. Metabolic Panel (14) 288931 BUN/ CREATININE RATIO 14 02/22/2016 Comp. Metabolic Panel (14) 716696 SODIUM , SERUM 140 MMOL/L Comp. Metabolic Panel (14) 472160 POTASSIUM, SERUM 3.9 MMOL/L 02/22/2016 Comp. Metabolic Panel (14) 133016 CHLORIDE, SERUM 99 MMOL/L 02/22/2016 Comp. Metabolic Panel (14) 835426 CARBON DIOXIDE, TOTAL 25 MMOL/L 02/22/2016 Comp. Metabolic Panel (14) 283553 CALCIUM , SERUM 9.1 MG/DL Comp. Metabolic Panel (14) 910439 PROTEIN , TOTAL, SERUM 6.5 G/DL 02/22/2016 Comp. Metabolic Panel (14) 531010 ALBUMIN , SERUM 4.1 G/DL 02/21 Comp. Metabolic Panel (14) 372819 GLOBULIN, TOTAL 2.4 G/DL 02/22/2016 Comp. Metabolic Panel (14) 556066 A/G Ratio 1.7 02/22/2016 Comp. Metabolic Panel (14) 134141 BILIRUBIN, TOTAL 0.2 MG/DL 02/22/2016 Comp. Metabolic Panel (14) 393749 ALKALINE PHOSPHATASE, S 72 IU/L 02/22/2016 Comp. Metabolic Panel (14) 002616 AST ( SGOT) 30 IU/L 2015 Comp. Metabolic Panel (14) 255926 ALT ( SGPT) 43 IU/L 2015 CBC With Differential/Platelet 785173 WBC 6.9 X10E3/UL 02/21 CBC With Differential/Platelet 354422 RBC 4.79 X10E6/UL CBC With Differential/Platelet 120548 HEMOGLOBIN 14.4 G/DL 02/22/2016 CBC With Differential/Platelet 043908 HEMATOCRIT 43.1 % CBC With Differential/Platelet 930922 MCV 90 FL 02/22/2016 CBC With Differential/Platelet 142238 MCH 30.1 PG 2015 CBC With Differential/Platelet 697427 MCHC 33.4 G/DL 2015 CBC With Differential/Platelet 365312 RDW 13.5 % 02/22/2016 CBC With Differential/Platelet 733734 PLATELETS 257 X10E3/UL 02/22/2016 CBC With Differential/Platelet 561627 NEUTROPHILS 57 % 02/21 CBC With Differential/Platelet 164508 LYMPHS 32 % 2015 CBC With Differential/Platelet 392170 MONOCYTES 8 % 2015 CBC With Differential/Platelet 675868 EOS 3 % 02/22/2016 CBC With Differential/Platelet 408700 BASOS 0 % 02/22/2016 CBC With Differential/Platelet 999515 NEUTROPHILS (ABSOLUTE) 4.0 X10E3/UL 02/22/2016 CBC With Differential/Platelet 518399 LYMPHS (ABSOLUTE) 2.2 X10E3/UL 02/22/2016 CBC With Differential/Platelet 435337 MONOCYTES(ABSOLUTE) 0.5 X10E3/UL 02/22/2016 CBC With Differential/Platelet 647062 EOS (ABSOLUTE) 0.2 X10E3/UL 02/22/2016 CBC With Differential/Platelet 693169 BASO (ABSOLUTE) 0.0 X10E3/UL 02/22/2016 CBC With Differential/Platelet 685079 IMMATURE GRANULOCYTES 0 % 02/22/2016 CBC With Differential/Platelet 129053 IMMATURE GRANS (ABS) 0.0 X10E3/UL 02/22/2016 TSH 200329 TSH 0.510 UIU/ML 02/22/2016 Lipid Panel 027979 CHOLESTEROL, TOTAL 183 MG/DL 02/22/2016 Lipid Panel 980702 TRIGLYCERIDES 509 MG/DL 02/22/2016 Lipid Panel 601929 HDL CHOLESTEROL 47 MG/DL 02/22/2016 Lipid Panel 590818 VLDL CHOLESTEROL CINDI COMMENT MG/DL 2015 Lipid Panel 072933 LDL CHOLESTEROL CALC COMMENT MG/DL 2015 Thyroxine (T4) Free, Direct, S 858744 T4, FREE(DIRECT) 1.39 NG/DL 02/22/2016 Comp Metabolic Djz059 NA 132 mEq/L 12/02/2014 Comp Metabolic Nsk522 K 4.1 mEq/L 12/02/2014 Comp Metabolic Gdn735 CL 100 mEq/L 12/02/2014 Comp Metabolic Vhb268 CO2 26.0 mEq/L 12/02/2014 Comp Metabolic Bir786 ANION GAP 10 12/02/2014 Comp Metabolic Ohy967 GLUCOSE 107 mg/dL 12/02/2014 Comp Metabolic Cax336 Creat 1.1 mg/dL 12/02/2014 Comp Metabolic Ojh345 eGFR 73 ml/min/1.73m2 12/02/2014 Comp Metabolic Zjq382 BUN 16 mg/dL 12/02/2014 Comp Metabolic Pmo727 B/C Ratio 14.5 Ratio 12/02/2014 Comp Metabolic Ldf547 CALCIUM 9.5 mg/dL 12/02/2014 Comp Metabolic Vpw513 ALK PHOS 39 U/L 12/02/2014 Comp Metabolic Zqg443 AST(SGOT) 18 U/L 12/02/2014 Comp Metabolic Zrw510 ALT(SGPT) 24 U/L 12/02/2014 Comp Metabolic Zku625 BILI T 0.5 mg/dL 12/02/2014 Comp Metabolic Dzd731 ALBUMIN 4.2 g/dL 12/02/2014 Comp Metabolic Wrf567 TPRO 6.5 g/dL 12/02/2014 Comp Metabolic Khh195 GLOB 2.3 g/dL 12/02/2014 Comp Metabolic Aap789 A/G Ratio 1.8 Ratio 12/02/2014 Comp Metabolic Fpa441 Osmo 266 mOsmo 12/02/2014 Tsh Ord6 hTSH [...] level 08/02/2016 None Full Exam - General 1995 Integument inspection of skin Rash/Lesions: macule 08/02/2016 [...] Procedure Codes Date IMMUNIZATION ADMIN CPT -4: 73947 01/28/2017 FLU VAC NO PRSV 4 MONTY 3 YRS+ CPT-4: 60643 01/28/2017 TRIAMCINOLONE ACET INJ NOS CPT-4: J3301 05/02/2016 IMMUNIZATION ADMIN CPT -4: 76369 01/02/2016 FLU VACC 4 MONTY 3 YRS PLUS IM Formatting Model/CDA Sections, Assigned to/Ana Bella SNOMED CT: [id number] CPT-4: 75910Bfrathw 01/02/2016 IMMUNIZATION ADMIN CPT -4: 73499 12/28/2014 IIV4 FLU VACC NO PRESERV ID Formatting Model/CDA Sections, Assigned to/Ana Bella SNOMED CT: [id number] CPT-4: 47381Pzbowxv 12/28/2014 Vital Signs Date Vital 11/27/2017 Blood Pressure 1: 122/76 Code : 8480-6 BMI: 27.2 Code : 85757-7 Heart Rate 1 : 58 bpm Height: 5'8" SpO2: 98% Weight: 179 lbs 09/19/2017 Blood Pressure 1: 122/60 Code : 8480-6 BMI: 29.8 Code : 52704-9 Heart Rate 1 : 57 bpm Height: 5'8" SpO2: 93% Weight: 196 lbs 05/23/2017 Blood Pressure 1: 122/74 Code : 8480-6 BMI: 29.2 Code : 24795-4 Heart Rate 1 : 68 bpm Height: 5'8" SpO2: 97% Weight: 192 lbs 08/02/2016 Blood Pressure 1: 142/80 Code : 8480-6 BMI: 28.1 Code : 29641-4 Heart Rate 1 : 61 bpm Height: 5'8" SpO2: 98% Weight: 185 lbs 05/17/2016 Blood Pressure 1: 126/74 Code : 8480-6 BMI: 27.7 Code : 86116-3 Heart Rate 1 : 60 bpm Height: 5'8" SpO2: 95% Temperature: 37.0 (C) / 98.6 (F) Weight: 182 lbs 05/02/2016 Blood Pressure 1: 106/68 Code : 8480-6 BMI: 27.8 Code : 43586-0 Heart Rate 1 : 58 bpm Height: 5'8" SpO2: 97% Temperature: 36.7 (C) / 98.1 (F) Weight: 183 lbs 02/02/2016 Blood Pressure 1: 124/76 Code : 8480-6 BMI: 28.0 Code : 67960-5 Heart Rate 1 : 68 bpm Height: 5'8" SpO2: 98% Weight: 184 lbs 01/02/2016 Blood Pressure 1: 130/72 Code : 8480-6 BMI: 28.0 Code : 25426-9 Heart Rate 1 : 62 bpm Height: 5'8" SpO2: 96% Weight: 184 lbs 08/04/2015 Blood Pressure 1: 128/76 Code : 8480-6 BMI: 27.7 Code : 63077-3 Heart Rate 1 : 64 bpm Height: 5'8" SpO2: 98% Weight: 182 lbs 06/29/2015 Blood Pressure 1: 142/84 Code : 8480-6 BMI: 28.0 Code : 87524-9 Heart Rate 1 : 55 bpm Height: 5'8" SpO2: 97% Weight: 184 lbs 05/19/2015 Blood Pressure 1: 120/78 Code : 8480-6 BMI: 27.2 Code : 83456-0 Heart Rate 1 : 86 bpm Height: 5'8" Weight: 179 lbs 12/28/2014 Blood Pressure 1: 130/68 Code : 8480-6 BMI: 27.7 Code : 30806-6 Heart Rate 1 : 52 bpm Height: 5'8" SpO2: 98% Weight: 182 lbs 08/12/2014 Blood Pressure 1: 118/70 Code : 8480-6 BMI: 27.7 Code : 47032-1 Heart Rate 1 : 64 bpm Height: [...] data Encounters Encounter Performer Location Codes Date ( EST. PATIENT, LEVEL IV Diagnosis: Mixed hyperlipidemia[ICD10: E78.2] Diagnosis: Essential (primary) hypertension[ICD10: I10] Diagnosis: Atrophy of thyroid (acquired)[ICD10: E03.4] Diagnosis: Pain in right knee[ICD10: M25.561] [facility] CPT-4: 96408 11/27/2017 73211 EST. PATIENT, LEVEL III Diagnosis: Cellulitis of back [any part except buttock][ICD10: L03.312] [facility] CPT-4: 96998 09/19/2017 ([id number]) PREV VISIT EST AGE 40-64 Diagnosis: Encounter for general adult medical examination without abnormal findings[ICD10: Z00.00] [facility] CPT-4: 25400 05/23/2017 ([id number]) 72630 EST. PATIENT, LEVEL IV Diagnosis: Essential (primary) hypertension[ICD10: I10] Diagnosis: Atrophy of thyroid (acquired)[ICD10: E03.4] Diagnosis: Mixed hyperlipidemia[ICD10: E78.2] Diagnosis: Other allergic rhinitis[ICD10: J30.89] Diagnosis: Melanocytic nevi of left lower limb, including hip[ICD10: D22.72] Diagnosis: Melanocytic nevi of right lower limb, including hip[ICD10: D22.71] Laura Hurt MD, [facility] CPT-4: 06502 08/02/2016 [id number] EST. PATIENT, LEVEL III Diagnosis: Other allergic rhinitis[ICD10: J30.89] Diagnosis: Cough[ICD10: R05] Diagnosis: Candidal stomatitis[ICD10: B37.0] Rose Hurt MD, [facility] CPT -4: 25084 05/17/2016 [id number] EST. PATIENT, LEVEL III Diagnosis: Acute bronchitis due to other specified organisms[ICD10: J20.8] Rose Hurt MD, [facility] CPT-4: 42180 05/02/2016 ([id number]) PREV VISIT EST AGE 40-64 Diagnosis: Atrophy of thyroid (acquired)[ICD10: E03.4] Diagnosis: Mixed hyperlipidemia[ICD10: E78.2] Diagnosis: Essential (primary) hypertension[ICD10: I10] Diagnosis: Encounter for general adult medical examination without abnormal findings[ICD10: Z00.00] Laura Hurt MD, [facility] CPT-4: 39906 02/02/2016 [id number] EST. PATIENT, LEVEL II Diagnosis: Cellulitis of head [any part, except face][ICD10: L03.811] Diagnosis: Rash and other nonspecific skin eruption[ICD10: R21] Diagnosis: VACCIN FOR INFLUENZA[ICD10: Z23] Monae Hurt MD, [facility] CPT-4: 35053 01/02/2016 ([id number]) 25307 EST. PATIENT, LEVEL III Diagnosis: Essential (primary) hypertension[ICD10: I10] Laura Hurt MD, [facility] CPT-4: 76040 08/04/2015 52404 EST. PATIENT, LEVEL IV Diagnosis: Other acute sinusitis[ICD10: J01.80] Diagnosis: Other allergic rhinitis[ICD10: J30.89] [facility] CPT-4: 99878 06/29/2015 ([id number]) 37005 EST. PATIENT, LEVEL III Diagnosis: Low back pain[ICD10: M54.5] Diagnosis: Rash and other nonspecific skin eruption[ICD10: R21] [facility] CPT-4: 34959 05/19/2015 ([id number]) 21843 EST. PATIENT, LEVEL III Diagnosis: Mixed hyperlipidemia[ICD10: E78.2] Diagnosis: Hypothyroidism, unspecified[ICD10: E03.9] [facility] CPT-4: 69135 12/28/2014 ([id number]) PREV VISIT NEW AGE 40-64 Diagnosis: Well adult exam[ICD9: V70.0] [facility] CPT-4: 90347 08/12/2014 Plan of Care Planned Activity Notes [...] the hydrocodone. 11/27/2017 Appointment: Laura Hurt WPtel: [address] [place], [place] [phone] (15 min) Moderate 11/27/2017 Patient Education: Patient [...] warmth, discharge. 09/19/2017 Appointment: Rose Ferrer WPtel: [phone] [facility] [place] (15 min) Moderate 09/19/2017 Patient Education: Patient Medication Summary Completed 09/19/2017 Appointment: Rose Ferrer WPtel: [facility] (15 min) Moderate 06/18/2017 Visit Plan: Well [...] for colonoscopy 05/23/2017 Appointment: Laura Hurt WPtel: [id number] [place] (15 min) Moderate 05/23/2017 Patient Education: Patient Medication Summary Completed 05/23/2017 Care Plan: Referral Order SNOMED-CT : [id number] Pending 05/23/2017 Appointment: Injection 01/28/2017 Patient Education: [...] Hurt WPtel: [phone] [id number] (30 min) Complex 08/02/2016 Patient Education: Patient [...] allergies 05/17/2016 Appointment: Rose Ferrer WPtel: [phone] [id number] (15 min) Moderate 05/17/2016 Patient Education: Patient [...] acutely worsen. 05/02/2016 Appointment: Rose Ferrer WPtel[facility] (15 min) Moderate 05/02/2016 Patient Education: Patient [...] to medications. 02/02/2016 Appointment: Laura Hurt WPtel: [phone] [id number] (30 min) Complex 02/02/2016 Patient Education: Patient Medication Summary Completed 02/02/2016 Visit Plan: Xhpvjrrcliyj-mcori-mlfqwbt of pustule today in the office-will treat as indicated-patient verbalized understanding of plan. 01/02/2016 Visit Plan: Gaesiophilox-iwdpq-guiuins of pustule today in the office-will treat as indicated-patient verbalized understanding of plan. 01/02/2016 Appointment: Monae Berkowitz WPtel: [phone] [phone] (30 min) Complex 01/02/2016 Patient Education: Patient Medication Summary Completed 01/02/2016 Visit Plan: Hypertension - well controlled - continue with current medications, continue with no added salt diet. Pt has been encouraged to exercise daily. The pt has been advised to call the office if there are any acute concerns about change in blood pressure readings at home. 08/04/2015 App[facility]ment[phone] [facility] ([facility] min) Complex 08/04/2015 Patient Education: Patient [...] assure normal liver response to medications. . Gmqzzuoezusc-btgww-xqcfono of pustule today in the office -will treat as indicated-patient verbalized understanding of plan. . Icuffbkklzcm-syjtu-llyxotg of pustule today in the office -will [...]
--- OUTSIDE RECORDS SUMMARY | 2018-07-17 11:35 | XMS REPORT | CCD ---
Author Author Monae Berkowitz MD, [facility] Address [address] [place] [address] Phone Care Team Providers Care Medical Coder Name Role Phone PP Unavailable CCM Unavailable Summary Purpose Interface Exchange Insurance Providers Payer name Policy type / Coverage type Covered libertarian ID Effective Begin Date Effective End Date Blue Cross Blue [facility] Blue Cross/Blue Shield [id number] Unknown Unknown Family history Mother Diagnosis Age At Onset Coronary Artery Disease Unknown Breast cancer Unknown Father Diagnosis Age At Onset Hypertension Unknown Cancer Unknown Social History Social History Element Codes Description Effective Dates Frequency of drinks SNOMED CT: 621753161 10 drinks per week -varies- more on weekends 08/02/2016 Employment Unknown 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[employer] 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 Marital status Unknown Single 08/12/2014 Number of children Unknown 0 08/12/[address]: 5267266 Quit less than 10 years ago 200608/12/[address]: 843097 Currently drinks alcohol 08/12/2014 Allergies, Adverse Reactions, [...] Start Date Stop Date Status Fill Instructions alprazolam 0.5 mg tablet RxNorm: 301171 1/2 Tablet(s) PO BID as needed 02/18/2018 04/18/2018 Active acyclovir 400 mg tablet RxNorm: 899520 TAKE ONE TABLET BY MOUTH DAILY 02/18/2018 05/18/2018 Active acyclovir 400 mg tablet RxNorm: 763687 TAKE ONE TABLET BY MOUTH DAILY 11/11/2017 02/08/2018 Inactive bisoprolol 5 mg-hydrochlorothiazide 6.25 mg tablet RxNorm: 764867 TAKE ONE TABLET BY MOUTH DAILY 09/30/2017 03/28/2018 Active Lipitor 80 mg tablet RxNorm: 579905 TAKE ONE TABLET BY MOUTH EVERY NIGHT AT BEDTIME 09/30/2017 02/26/2018 Active Levothroid 175 mcg tablet RxNorm: 472098 Tablet(s) TAKE ONE TABLET BY MOUTH DAILY ON AN EMPTY STOMACH . 09/30/20172018 Active Bactrim DS 800 mg-160 mg tablet RxNorm: 048097 1 Tablet(s) PO BID 09/19/2017 09/25/2017 Inactive alprazolam 0.5 mg tablet RxNorm: 955898 1/2 Tablet(s) PO BID as needed 07/24/2017 09/20/2017 Inactive Zithromax Z-Bassam 250 mg tablet RxNorm: 171004 1 Tablet(s) PO UD 06/17/2017 07/23/2017 Inactive z pack as directed Levothroid 175 mcg tablet RxNorm: 089798 TAKE ONE TABLET BY MOUTH DAILY ON AN EMPTY STOMACH . NEED TO REPEAT LAB FOR TSH AND FREE T4 201708/31/2017 Inactive gemfibrozil 600 mg tablet RxNorm: 680680 1 Tablet(s) PO BID 03/201702/16/2018 Inactive Penlac 8 % topical solution RxNorm: 409740 1 Application TOP daily 05/23/2017 06/21/2017 Inactive ketoconazole 2 % topical cream RxNorm: 074636 1 Application TOP BID 05/23/2017 06/05/2017 Inactive Cipro 500 mg tablet RxNorm: 355000 1 Tablet(s) PO BID 201705/30/2017 Inactive Flagyl 500 mg tablet RxNorm: 884479 1 Tablet(s) PO TID 201705/30/2017 Inactive acyclovir 400 mg tablet RxNorm: 552524 TAKE ONE TABLET BY MOUTH DAILY 04/26/2017 10/22/2017 Inactive bisoprolol 5 mg-hydrochlorothiazide 6.25 mg tablet RxNorm: 072023 TAKE ONE TABLET BY MOUTH DAILY 03/11/2017 09/06/2017 Inactive Levothroid 175 mcg tablet RxNorm: 710127 TAKE ONE TABLET BY MOUTH DAILY ON AN EMPTY STOMACH . NEED TO REPEAT LAB FOR TSH AND FREE T4 201606/02/2017 Inactive Lipitor 80 mg tablet RxNorm: 044029 Tablet(s) PO TAKE ONE TABLET BY MOUTH EVERY NIGHT AT BEDTIME 12/24/2016 11/26/2017 Inactive Levothroid 175 mcg tablet RxNorm: 692773 TAKE ONE TABLET BY MOUTH DAILY ON AN EMPTY STOMACH . NEED TO REPEAT LAB FOR TSH AND FREE T4 201603/10/2017 Inactive hydrocodone 7.5 mg-acetaminophen 325 mg tablet RxNorm: 452157 1 Tablet(s) PO Q6 PRN 11/06/2016 12/05/2016 Inactive [SAVINGS FOR NON-COVERED DRUGS -- BIN:[id number], PCN: ASPROD1, Group: XXXXX, ID# [id number], Questions: . THIS IS NOT INSURANCE.] Soma 350 mg tablet RxNorm: 070109 1 Tablet(s) PO TID as needed 11/06/2016 No Stop Date Active alprazolam 0.5 mg tablet RxNorm: 773686 1/2 Tablet(s) PO BID as needed 10/05/2016 11/26/2017 Inactive Lipitor 80 mg tablet RxNorm: 972196 Tablet(s) PO TAKE ONE TABLET BY MOUTH EVERY NIGHT AT BEDTIME 09/04/2016 12/23/2016 Inactive Lipitor 40 mg tablet RxNorm: 060024 TAKE ONE TABLET BY MOUTH EVERY NIGHT AT BEDTIME 09/04/2016 09/03/2016 Inactive acyclovir 400 mg tablet RxNorm: 804568 TAKE ONE TABLET BY MOUTH DAILY 08/23/2016 02/18/2017 Inactive bisoprolol 5 mg-hydrochlorothiazide 6.25 mg tablet RxNorm: 584010 TAKE ONE TABLET BY MOUTH DAILY 08/23/2016 02/18/2017 Inactive Levothroid 175 mcg tablet RxNorm: 321630 Tablet(s) TAKE ONE TABLET BY MOUTH DAILY 08/22/2016 11/19/2016 Inactive Needs to repeat TSH et Free T4 labs acyclovir 400 mg tablet RxNorm: 769896 TAKE ONE TABLET BY MOUTH DAILY 08/21/2016 08/22/2016 Inactive prednisone 10 mg tablet RxNorm: 260238 Tablet(s) PO UD dispense a medrol dose pack 08/10/2016 07/23/2017 Inactive 6,5,4,3,2,1 prednisone 10 mg tablet RxNorm: 161529 Tablet(s) PO UD dispense a medrol dose pack 07/30/2016 08/09/2016 Inactive 6,5,4,3,2,1 cefdinir 300 mg capsule RxNorm: 315607 1 Capsule(s) PO BID 10/201608/08/2016 Inactive cefdinir 300 mg capsule RxNorm: 916921 1 Capsule(s) PO BID 10/201607/29/2016 Inactive Lipitor 40 mg tablet RxNorm: 284460 TAKE ONE TABLET BY MOUTH EVERY NIGHT AT BEDTIME 06/25/2016 09/03/2016 Inactive nystatin 100,000 unit/mL oral suspension RxNorm: 576721 5 Milliliter(s) PO TID 05/17/2016 05/21/2016 Inactive Zyrtec 10 mg tablet RxNorm: 3086246 1 Tablet(s) PO daily 05/1706/15/2016 Inactive Levothroid 175 mcg tablet RxNorm: 766468 TAKE ONE TABLET BY MOUTH DAILY 05/16/2016 08/13/2016 Inactive Levaquin 750 mg tablet RxNorm: 050561 1 Tablet(s) PO daily 05/09/2016 Inactive Levaquin 750 mg tablet RxNorm: 486274 1 Tablet(s) PO daily 05/14/2016 Inactive Phenergan-Codeine 6.25 mg-10 mg/5 mL syrup RxNorm: 539909 5-10 Milliliter(s) PO Q6 as needed cough 05/02/2016 No Stop Date Active prednisone 10 mg tablet RxNorm: 272210 Tablet(s) PO UD 201607/29/2016 Inactive 6,5,4,3,2,1 Kenalog 40 mg/mL suspension for injection RxNorm: 0568747 Milliliter(s) Inj 05/02/2016 05/02/2016 Inactive Phenergan-Codeine 6.25 mg-10 mg/5 mL syrup RxNorm: 515015 5-10 Milliliter(s) PO Q6 as needed cough 04/25/2016 05/01/2016 Inactive Zithromax Z-Bassam 250 mg tablet RxNorm: 692826 1 Tablet(s) PO UD 04/25/2016 07/29/2016 Inactive z pack as directed acyclovir 400 mg tablet RxNorm: 062981 TAKE ONE TABLET BY MOUTH DAILY 04/10/2016 07/08/2016 Inactive Zetia 10 mg tablet RxNorm: 921563 1 Tablet(s) PO daily 201505/22/2017 Inactive Zetia 10 mg tablet RxNorm: 798437 1 Tablet(s) PO daily 201503/06/2016 Inactive Lipitor 40 mg tablet RxNorm: 095028 Tablet(s) PO TAKE ONE TABLET BY MOUTH EVERY NIGHT AT BEDTIME 03/07/2016 06/24/2016 Inactive Patient is requesting 90 days supply Diflucan 150 mg tablet RxNorm: 982650 1 Tablet(s) PO daily 01/11/2016 Inactive Diflucan 150 mg tablet RxNorm: 825460 1 Tablet(s) PO daily 01/04/2016 Inactive hydrocodone 7.5 mg-acetaminophen 325 mg tablet RxNorm: 195162 1 Tablet(s) PO Q6 PRN 12/28/2015 01/26/2016 Inactive [SAVINGS FOR NON-COVERED DRUGS -- BIN:101392, PCN: ASPROD1, Group: XXXXX, ID# [id number], Questions: . THIS IS NOT INSURANCE.] alprazolam 0.5 mg tablet RxNorm: 224510 1/2 Tablet(s) PO BID as needed 11/30/2015 10/04/2016 Inactive Levothroid 175 mcg tablet RxNorm: 817545 Tablet(s) TAKE ONE TABLET BY MOUTH DAILY 10/26/2015 04/22/2016 Inactive hydrocodone 7.5 mg-acetaminophen 325 mg tablet RxNorm: 653955 1 Tablet(s) PO Q6 PRN 08/30/2015 09/28/2015 Inactive [SAVINGS FOR NON-COVERED DRUGS -- BIN:231087, PCN: ASPROD1, Group: XXXXX, ID# [id number], Questions: . THIS IS NOT INSURANCE.] Ventolin HFA 90 mcg/actuation aerosol inhaler RxNorm: 305195 2 INH PRN dyspnea 08/04/2015 No Stop Date Active bisoprolol 5 mg-hydrochlorothiazide 6.25 mg tablet RxNorm: 344547 TAKE ONE TABLET BY MOUTH DAILY 07/11/2015 01/06/2016 Inactive Patient is requesting 90 days supply bisoprolol 5 mg-hydrochlorothiazide 6.25 mg tablet RxNorm: 017484 TAKE ONE TABLET BY MOUTH DAILY 07/11/2015 01/06/2016 Inactive Lipitor 10 mg tablet RxNorm: 286477 TAKE ONE TABLET BY MOUTH EVERY NIGHT AT BEDTIME 07/11/2015 01/06/2016 Inactive Patient is requesting 90 days supply Lipitor 10 mg tablet RxNorm: 298536 TAKE ONE TABLET BY MOUTH EVERY NIGHT AT BEDTIME 07/11/2015 05/13/2016 Inactive acyclovir 400 mg tablet RxNorm: 185291 1 Tablet(s) PO daily 08/22/2016 Inactive acyclovir 400 mg tablet RxNorm: 936267 1 Tablet(s) PO daily 07/10/2015 Inactive Zithromax Z-Bassam 250 mg tablet RxNorm: 348729 Tablet(s) PO UD 08/03/2015 Inactive acyclovir 400 mg tablet RxNorm: 320726 1 Tablet(s) PO daily 08/201507/05/2015 Inactive meloxicam 15 mg tablet RxNorm: 419936 TAKE ONE TABLET BY MOUTH DAILY 06/27/2015 11/23/2015 Inactive triamcinolone acetonide 0.1 % topical cream RxNorm: 1838394 1 Application TOP BID 05/19/2015 06/01/2015 Inactive apply very thin layer as directed hydrocodone 7.5 mg-acetaminophen 325 mg tablet RxNorm: 249102 1 Tablet(s) PO Q6 PRN 05/19/2015 08/29/2015 Inactive [SAVINGS FOR NON-COVERED DRUGS -- BIN:[id number], PCN: ASPROD1, Group: XXXXX, ID# [id number], Questions: . THIS IS NOT INSURANCE.] Cipro 500 mg tablet RxNorm: 857317 1 Tablet(s) PO BID 201504/20/2015 Inactive Cipro 500 mg tablet RxNorm: 427674 1 Tablet(s) PO BID 201504/30/2015 Inactive Flagyl 500 mg tablet RxNorm: 672682 1 Tablet(s) PO TID 201504/30/2015 Inactive Flagyl 500 mg tablet RxNorm: 900408 1 Tablet(s) PO TID 201504/20/2015 Inactive bisoprolol 5 mg-hydrochlorothiazide 6.25 mg tablet RxNorm: 618469 1 Tablet(s) PO daily 04/21/2015 07/10/2015 Inactive Levothroid 175 mcg tablet RxNorm: 451093 TAKE ONE TABLET BY MOUTH DAILY 04/18/2015 10/14/2015 Inactive hydrocodone 7.5 mg-acetaminophen 325 mg tablet RxNorm: 740463 1 Tablet(s) PO Q6 PRN 04/04/2015 05/18/2015 Inactive [SAVINGS FOR NON-COVERED DRUGS -- BIN:860311, PCN: ASPROD1, Group: XXXXX, ID# [id number], Questions: . THIS IS NOT INSURANCE.] Lipitor 10 mg tablet RxNorm: 119048 1 Tablet(s) PO QHS 201507/02/2015 Inactive azithromycin 250 mg tablet RxNorm: 039072 1 Tablet(s) PO UD Take 2 tabs on day one and 1 tab day 2-5 02/03/20152014 Inactive azithromycin 250 mg tablet RxNorm: 588351 1 Tablet(s) PO UD Take 2 tabs on day one and 1 tab day 2-5 02/03/20152014 Inactive Levothroid 175 mcg tablet RxNorm: 136503 TAKE ONE TABLET BY MOUTH DAILY 12/16/2014 03/15/2015 Inactive Lipitor 10 mg tablet RxNorm: 560775 1 Tablet(s) PO QHS 201403/07/2015 Inactive hydrocodone 7.5 mg-acetaminophen 325 mg tablet RxNorm: 130266 1 Tablet(s) PO Q6 PRN 12/08/2014 04/03/2015 Inactive [SAVINGS FOR NON-COVERED DRUGS -- BIN:222073, PCN: ASPROD1, Group: XXXXX, ID# [id number], Questions: . THIS IS NOT INSURANCE.] Lipitor 10 mg tablet RxNorm: 864179 1 Tablet(s) PO QHS 201412/07/2014 Inactive meloxicam 15 mg tablet RxNorm: 623538 1 Tablet(s) PO daily 04/01/2015 Inactive Levothroid 175 mcg tablet RxNorm: 070815 1 Tablet(s) PO daily 09/28/2014 12/15/2014 Inactive meloxicam 15 mg tablet RxNorm: 939769 1 Tablet(s) PO daily 09/10/2014 Inactive bisoprolol 2.5 mg-hydrochlorothiazide 6.25 mg tablet RxNorm: 635279 1 Tablet(s) PO daily 08/12/2014 11/09/2014 Inactive Levothroid 175 mcg tablet RxNorm: 199780 1 Tablet(s) PO daily 08/12/2014 09/27/2014 Inactive hydrocodone 7.5 mg-acetaminophen 325 mg tablet RxNorm: 987394 1 Tablet(s) PO Q6 PRN 08/12/2014 12/07/2014 Inactive [SAVINGS FOR NON-COVERED DRUGS -- BIN:096018, PCN: ASPROD1, Group: XXXXX, ID# [id number], Questions: . THIS IS NOT INSURANCE.] acyclovir 400 mg tablet RxNorm: 912085 1 Tablet(s) PO daily 09/10/2014 Inactive hydrocodone 7.5 mg-acetaminophen 325 mg tablet RxNorm: 128234 1 Tablet(s) PO No Start Date 08/11/2014 Inactive Soma 350 mg tablet RxNorm: 488311 1 Tablet(s) PO TID as needed No Start Date 11/05/2016 Inactive alprazolam 0.5 mg tablet RxNorm: 300921 1/2 Tablet(s) PO BID as needed No Start Date 11/29/2015 Inactive Phenergan-Codeine 6.25 mg-10 mg/5 mL syrup RxNorm: 574701 5-10 Milliliter(s) PO Q6 as needed cough No Start Date 2016 Inactive Medication Administered Medication Codes Instructions Start Date Status Kenalog 40 mg/mL suspension for injection RxNorm: 7289527 Milliliter 05/02/2016 No longer Active Immunizations Vaccine [...] Code Result Date Comp. Metabolic Panel (14) 655152 GLUCOSE 96 MG/DL 11/28 Comp. Metabolic Panel (14) 095769 BUN 15 MG/DL 11/28/2017 Comp. Metabolic Panel (14) 606679 CREATININE 0.91 MG/DL 11/28/2017 Comp. Metabolic Panel (14) 168272 EGFR IF NONAFRICN AM 91 ML/MIN/1.73 11/28/2017 Comp. Metabolic Panel (14) 063720 EGFR IF AFRICN AM 106 ML/MIN/1.73 11/28/2017 Comp. Metabolic Panel (14) 111860 BUN/ CREATININE RATIO 16 11/28/2017 Comp. Metabolic Panel (14) 813916 SODIUM 140 MMOL/L 2017 Comp. Metabolic Panel (14) 642105 POTASSIUM 4.1 MMOL/L 11/28/2017 Comp. Metabolic Panel (14) 824386 CHLORIDE 100 MMOL/L Comp. Metabolic Panel (14) 638214 CARBON DIOXIDE, TOTAL 25 MMOL/L 11/28/2017 Comp. Metabolic Panel (14) 897968 CALCIUM 9.1 MG/DL 08/2017 Comp. Metabolic Panel (14) 812943 Protein , Total 6.9 G/DL 11/28 Comp. Metabolic Panel (14) 271365 ALBUMIN 4.5 G/DL 11/28 Comp. Metabolic Panel (14) 818963 GLOBULIN, TOTAL 2.4 G/DL 11/28/2017 Comp. Metabolic Panel (14) 943906 A/G Ratio 1.9 11/28/2017 Comp. Metabolic Panel (14) 247936 BILIRUBIN, TOTAL 0.5 MG/DL 11/28/2017 Comp. Metabolic Panel (14) 078010 ALKALINE PHOSPHATASE 55 IU/L 11/28/2017 Comp. Metabolic Panel (14) 745549 AST ( SGOT) 18 IU/L 2017 Comp. Metabolic Panel (14) 916293 ALT ( SGPT) 24 IU/L 2017 Lipid Panel w/ Chol/HDL Ratio 668582 CHOLESTEROL, TOTAL 145 MG/DL 11/28/2017 Lipid Panel w/ Chol/HDL Ratio 680641 TRIGLYCERIDES 216 MG/DL 11/28/2017 Lipid Panel w/ Chol/HDL Ratio 533553 HDL CHOLESTEROL 60 MG/DL 11/28/2017 Lipid Panel w/ Chol/HDL Ratio 458696 VLDL CHOLESTEROL CINDI 43 MG/DL 11/28/2017 Lipid Panel w/ Chol/HDL Ratio 118893 LDL CHOLESTEROL CALC 42 MG/DL 11/28/2017 Lipid Panel w/ Chol/HDL Ratio 001967 T. CHOL/HDL RATIO 2.4 RATIO 11/28/2017 CBC With Differential/Platelet 534758 WBC 10.0 X10E3/UL 08/2017 CBC With Differential/Platelet 640891 RBC 4.78 X10E6/UL 08/2017 CBC With Differential/Platelet 025237 HEMOGLOBIN 14.3 G/DL 11/28/2017 CBC With Differential/Platelet 138663 HEMATOCRIT 41.9 % 08/2017 CBC With Differential/Platelet 573208 MCV 88 FL 11/28/2017 CBC With Differential/Platelet 575215 MCH 29.9 PG 2017 CBC With Differential/Platelet 159662 MCHC 34.1 G/DL 2017 CBC With Differential/Platelet 666498 RDW 13.4 % 11/28/2017 CBC With Differential/Platelet 936384 PLATELETS 309 X10E3/UL 11/28/2017 CBC With Differential/Platelet 730830 NEUTROPHILS 61 % 11/28 CBC With Differential/Platelet 752573 LYMPHS 30 % 2017 CBC With Differential/Platelet 308877 MONOCYTES 6 % 2017 CBC With Differential/Platelet 577966 EOS 2 % 11/28/2017 CBC With Differential/Platelet 413999 BASOS 0 % 11/28/2017 CBC With Differential/Platelet 598257 NEUTROPHILS (ABSOLUTE) 6.2 X10E3/UL 11/28/2017 CBC With Differential/Platelet 169674 LYMPHS (ABSOLUTE) 3.0 X10E3/UL 11/28/2017 CBC With Differential/Platelet 828914 MONOCYTES(ABSOLUTE) 0.6 X10E3/UL 11/28/2017 CBC With Differential/Platelet 401654 EOS (ABSOLUTE) 0.2 X10E3/UL 11/28/2017 CBC With Differential/Platelet 502988 BASO (ABSOLUTE) 0.0 X10E3/UL 11/28/2017 CBC With Differential/Platelet 496053 IMMATURE GRANULOCYTES 1 % 11/28/2017 CBC With Differential/Platelet 094458 IMMATURE GRANS (ABS) 0.1 X10E3/UL 11/28/2017 Thyroxine (T4) Free, Direct, S 640589 T4, FREE(DIRECT) 1.56 NG/DL 11/28/2017 TSH 769761 TSH 1.530 UIU/ML 11/28/2017 TSH 763540 TSH 0.749 uIU/mL 06/24/2017 Comp. Metabolic Panel (14) 876443 GLUCOSE 101 mg/dL 04/2017 Comp. Metabolic Panel (14) 295758 BUN 12 mg/dL 06/24/2017 Comp. Metabolic Panel (14) 135910 CREATININE 0.95 mg/dL 06/24/2017 Comp. Metabolic Panel (14) 394106 EGFR IF NONAFRICN AM 87 mL/min/1.73 06/24/2017 Comp. Metabolic Panel (14) 085290 EGFR IF AFRICN AM 100 mL/min/1.73 06/24/2017 Comp. Metabolic Panel (14) 596529 BUN/ CREATININE RATIO 13 06/24/2017 Comp. Metabolic Panel (14) 778029 SODIUM 140 mmol/L 2017 Comp. Metabolic Panel (14) 025256 POTASSIUM 4.1 mmol/L 06/24/2017 Comp. Metabolic Panel (14) 175213 CHLORIDE 99 mmol/L 04/2017 Comp. Metabolic Panel (14) 221729 CARBON DIOXIDE, TOTAL 25 mmol/L 06/24/2017 Comp. Metabolic Panel (14) 873937 CALCIUM 9.5 mg/dL 04/2017 Comp. Metabolic Panel (14) 872933 Protein , Total 7.1 g/dL 06/24 Comp. Metabolic Panel (14) 278399 ALBUMIN 4.6 g/dL 06/24 Comp. Metabolic Panel (14) 959056 GLOBULIN, TOTAL 2.5 g/dL 06/24/2017 Comp. Metabolic Panel (14) 164151 A/G Ratio 1.8 06/24/2017 Comp. Metabolic Panel (14) 368022 BILIRUBIN, TOTAL 0.4 mg/dL 06/24/2017 Comp. Metabolic Panel (14) 014818 ALKALINE PHOSPHATASE 66 IU/L 06/24/2017 Comp. Metabolic Panel (14) 805250 AST ( SGOT) 45 IU/L 2017 Comp. Metabolic Panel (14) 715627 ALT ( SGPT) 41 IU/L 2017 Lipid Panel 573107 CHOLESTEROL, TOTAL 122 mg/dL 06/24/2017 Lipid Panel 615999 TRIGLYCERIDES 155 mg/dL 06/24/2017 Lipid Panel 344530 HDL CHOLESTEROL 52 mg/dL 06/24/2017 Lipid Panel 703637 VLDL CHOLESTEROL CINDI 31 mg/dL 06/24/2017 Lipid Panel 947673 LDL CHOLESTEROL CALC 39 mg/dL 06/24/2017 CBC With Differential/Platelet 150433 WBC 6.6 x10E3/uL 06/24 CBC With Differential/Platelet 596780 RBC 4.89 x10E6/uL 04/2017 CBC With Differential/Platelet 043797 HEMOGLOBIN 14.6 g/dL 06/24/2017 CBC With Differential/Platelet 666919 HEMATOCRIT 43.7 % 04/2017 CBC With Differential/Platelet 578368 MCV 89 fL 06/24/2017 CBC With Differential/Platelet 740842 MCH 29.9 pg 2017 CBC With Differential/Platelet 042368 MCHC 33.4 g/dL 2017 CBC With Differential/Platelet 973489 RDW 13.6 % 06/24/2017 CBC With Differential/Platelet 840791 PLATELETS 258 x10E3/uL 06/24/2017 CBC With Differential/Platelet 355167 NEUTROPHILS 51 % 06/24 CBC With Differential/Platelet 732707 LYMPHS 36 % 2017 CBC With Differential/Platelet 549418 MONOCYTES 9 % 2017 CBC With Differential/Platelet 878950 EOS 4 % 06/24/2017 CBC With Differential/Platelet 371439 BASOS 0 % 06/24/2017 CBC With Differential/Platelet 866207 NEUTROPHILS (ABSOLUTE) 3.3 x10E3/uL 06/24/2017 CBC With Differential/Platelet 392017 LYMPHS (ABSOLUTE) 2.3 x10E3/uL 06/24/2017 CBC With Differential/Platelet 179455 MONOCYTES(ABSOLUTE) 0.6 x10E3/uL 06/24/2017 CBC With Differential/Platelet 155288 EOS (ABSOLUTE) 0.3 x10E3/uL 06/24/2017 CBC With Differential/Platelet 491177 BASO (ABSOLUTE) 0.0 x10E3/uL 06/24/2017 CBC With Differential/Platelet 111620 IMMATURE GRANULOCYTES 0 % 06/24/2017 CBC With Differential/Platelet 685371 IMMATURE GRANS (ABS) 0.0 x10E3/uL 06/24/2017 Thyroxine (T4) Free, Direct, S 204141 T4, FREE(DIRECT) 1.35 ng/dL 06/24/2017 Comp. Metabolic Panel (14) 485244 GLUCOSE , SERUM 111 MG/DL Comp. Metabolic Panel (14) 390466 BUN 14 MG/DL 02/22/2016 Comp. Metabolic Panel (14) 778909 CREATININE, SERUM 1.03 MG/DL 02/22/2016 Comp. Metabolic Panel (14) 465961 EGFR IF NONAFRICN AM 79 ML/MIN/1.73 02/22/2016 Comp. Metabolic Panel (14) 737297 EGFR IF AFRICN AM 91 ML/MIN/1.73 02/22/2016 Comp. Metabolic Panel (14) 162822 BUN/ CREATININE RATIO 14 02/22/2016 Comp. Metabolic Panel (14) 045931 SODIUM , SERUM 140 MMOL/L Comp. Metabolic Panel (14) 739683 POTASSIUM, SERUM 3.9 MMOL/L 02/22/2016 Comp. Metabolic Panel (14) 514829 CHLORIDE, SERUM 99 MMOL/L 02/22/2016 Comp. Metabolic Panel (14) 715857 CARBON DIOXIDE, TOTAL 25 MMOL/L 02/22/2016 Comp. Metabolic Panel (14) 770355 CALCIUM , SERUM 9.1 MG/DL Comp. Metabolic Panel (14) 858837 PROTEIN , TOTAL, SERUM 6.5 G/DL 02/22/2016 Comp. Metabolic Panel (14) 154844 ALBUMIN , SERUM 4.1 G/DL 02/21 Comp. Metabolic Panel (14) 799170 GLOBULIN, TOTAL 2.4 G/DL 02/22/2016 Comp. Metabolic Panel (14) 520827 A/G Ratio 1.7 02/22/2016 Comp. Metabolic Panel (14) 423643 BILIRUBIN, TOTAL 0.2 MG/DL 02/22/2016 Comp. Metabolic Panel (14) 162854 ALKALINE PHOSPHATASE, S 72 IU/L 02/22/2016 Comp. Metabolic Panel (14) 131218 AST ( SGOT) 30 IU/L 2015 Comp. Metabolic Panel (14) 649004 ALT ( SGPT) 43 IU/L 2015 CBC With Differential/Platelet 204757 WBC 6.9 X10E3/UL 02/21 CBC With Differential/Platelet 405199 RBC 4.79 X10E6/UL CBC With Differential/Platelet 941805 HEMOGLOBIN 14.4 G/DL 02/22/2016 CBC With Differential/Platelet 877916 HEMATOCRIT 43.1 % CBC With Differential/Platelet 525428 MCV 90 FL 02/22/2016 CBC With Differential/Platelet 735394 MCH 30.1 PG 2015 CBC With Differential/Platelet 977605 MCHC 33.4 G/DL 2015 CBC With Differential/Platelet 688965 RDW 13.5 % 02/22/2016 CBC With Differential/Platelet 752875 PLATELETS 257 X10E3/UL 02/22/2016 CBC With Differential/Platelet 440397 NEUTROPHILS 57 % 02/21 CBC With Differential/Platelet 319728 LYMPHS 32 % 2015 CBC With Differential/Platelet 546979 MONOCYTES 8 % 2015 CBC With Differential/Platelet 983941 EOS 3 % 02/22/2016 CBC With Differential/Platelet 896597 BASOS 0 % 02/22/2016 CBC With Differential/Platelet 317330 NEUTROPHILS (ABSOLUTE) 4.0 X10E3/UL 02/22/2016 CBC With Differential/Platelet 070137 LYMPHS (ABSOLUTE) 2.2 X10E3/UL 02/22/2016 CBC With Differential/Platelet 713095 MONOCYTES(ABSOLUTE) 0.5 X10E3/UL 02/22/2016 CBC With Differential/Platelet 026877 EOS (ABSOLUTE) 0.2 X10E3/UL 02/22/2016 CBC With Differential/Platelet 430045 BASO (ABSOLUTE) 0.0 X10E3/UL 02/22/2016 CBC With Differential/Platelet 252534 IMMATURE GRANULOCYTES 0 % 02/22/2016 CBC With Differential/Platelet 155869 IMMATURE GRANS (ABS) 0.0 X10E3/UL 02/22/2016 TSH 022831 TSH 0.510 UIU/ML 02/22/2016 Lipid Panel 876592 CHOLESTEROL, TOTAL 183 MG/DL 02/22/2016 Lipid Panel 889392 TRIGLYCERIDES 509 MG/DL 02/22/2016 Lipid Panel 609631 HDL CHOLESTEROL 47 MG/DL 02/22/2016 Lipid Panel 881006 VLDL CHOLESTEROL CINDI COMMENT MG/DL 2015 Lipid Panel 387333 LDL CHOLESTEROL CALC COMMENT MG/DL 2015 Thyroxine (T4) Free, Direct, S 999060 T4, FREE(DIRECT) 1.39 NG/DL 02/22/2016 Comp Metabolic Hje547 NA 132 mEq/L 12/02/2014 Comp Metabolic Sct012 K 4.1 mEq/L 12/02/2014 Comp Metabolic Ylh241 CL 100 mEq/L 12/02/2014 Comp Metabolic Riv545 CO2 26.0 mEq/L 12/02/2014 Comp Metabolic Hji007 ANION GAP 10 12/02/2014 Comp Metabolic Nxr327 GLUCOSE 107 mg/dL 12/02/2014 Comp Metabolic Rst005 Creat 1.1 mg/dL 12/02/2014 Comp Metabolic Ize947 eGFR 73 ml/min/1.73m2 12/02/2014 Comp Metabolic Yvj946 BUN 16 mg/dL 12/02/2014 Comp Metabolic Cvt263 B/C Ratio 14.5 Ratio 12/02/2014 Comp Metabolic Tit789 CALCIUM 9.5 mg/dL 12/02/2014 Comp Metabolic Txl083 ALK PHOS 39 U/L 12/02/2014 Comp Metabolic Vdg382 AST(SGOT) 18 U/L 12/02/2014 Comp Metabolic Rko632 ALT(SGPT) 24 U/L 12/02/2014 Comp Metabolic Zyt811 BILI T 0.5 mg/dL 12/02/2014 Comp Metabolic Lum470 ALBUMIN 4.2 g/dL 12/02/2014 Comp Metabolic Wcs269 TPRO 6.5 g/dL 12/02/2014 Comp Metabolic Zae025 GLOB 2.3 g/dL 12/02/2014 Comp Metabolic Oqz930 A/G Ratio 1.8 Ratio 12/02/2014 Comp Metabolic Rxm612 Osmo 266 mOsmo 12/02/2014 Tsh Ord6 hTSH [...] Procedure Codes Date IMMUNIZATION ADMIN CPT -4: 97096 01/28/2017 FLU VAC NO PRSV 4 MONTY 3 YRS+ CPT-4: 77855 01/28/2017 TRIAMCINOLONE ACET INJ NOS CPT-4: J3301 05/02/2016 IMMUNIZATION ADMIN CPT -4: 14982 01/02/2016 FLU VACC 4 MONTY 3 YRS PLUS IM Formatting Model/CDA Sections, Assigned to/Ana Bella SNOMED CT: [id number] CPT-4: 96259Yzjyjrt 01/02/2016 IMMUNIZATION ADMIN CPT -4: 94528 12/28/2014 IIV4 FLU VACC NO PRESERV ID Formatting Model/CDA Sections, Assigned to/Ana Bella SNOMED CT: [id number] CPT-4: 57583Vymzknp 12/28/2014 Vital Signs Date Vital 11/27/2017 Blood Pressure 1: 122/76 Code : 8480-6 BMI: 27.2 Code : 06735-4 Heart Rate 1 : 58 bpm Height: 5'8" SpO2: 98% Weight: 179 lbs 09/19/2017 Blood Pressure 1: 122/60 Code : 8480-6 BMI: 29.8 Code : 77835-1 Heart Rate 1 : 57 bpm Height: 5'8" SpO2: 93% Weight: 196 lbs 05/23/2017 Blood Pressure 1: 122/74 Code : 8480-6 BMI: 29.2 Code : 62210-3 Heart Rate 1 : 68 bpm Height: 5'8" SpO2: 97% Weight: 192 lbs 08/02/2016 Blood Pressure 1: 142/80 Code : 8480-6 BMI: 28.1 Code : 78364-3 Heart Rate 1 : 61 bpm Height: 5'8" SpO2: 98% Weight: 185 lbs 05/17/2016 Blood Pressure 1: 126/74 Code : 8480-6 BMI: 27.7 Code : 11230-4 Heart Rate 1 : 60 bpm Height: 5'8" SpO2: 95% Temperature: 37.0 (C) / 98.6 (F) Weight: 182 lbs 05/02/2016 Blood Pressure 1: 106/68 Code : 8480-6 BMI: 27.8 Code : 70385-2 Heart Rate 1 : 58 bpm Height: 5'8" SpO2: 97% Temperature: 36.7 (C) / 98.1 (F) Weight: 183 lbs 02/02/2016 Blood Pressure 1: 124/76 Code : 8480-6 BMI: 28.0 Code : 80734-6 Heart Rate 1 : 68 bpm Height: 5'8" SpO2: 98% Weight: 184 lbs 01/02/2016 Blood Pressure 1: 130/72 Code : 8480-6 BMI: 28.0 Code : 96439-3 Heart Rate 1 : 62 bpm Height: 5'8" SpO2: 96% Weight: 184 lbs 08/04/2015 Blood Pressure 1: 128/76 Code : 8480-6 BMI: 27.7 Code : 33781-9 Heart Rate 1 : 64 bpm Height: 5'8" SpO2: 98% Weight: 182 lbs 06/29/2015 Blood Pressure 1: 142/84 Code : 8480-6 BMI: 28.0 Code : 00728-9 Heart Rate 1 : 55 bpm Height: 5'8" SpO2: 97% Weight: 184 lbs 05/19/2015 Blood Pressure 1: 120/78 Code : 8480-6 BMI: 27.2 Code : 43143-6 Heart Rate 1 : 86 bpm Height: 5'8" Weight: 179 lbs 12/28/2014 Blood Pressure 1: 130/68 Code : 8480-6 BMI: 27.7 Code : 21510-0 Heart Rate 1 : 52 bpm Height: 5'8" SpO2: 98% Weight: 182 lbs 08/12/2014 Blood Pressure 1: 118/70 Code : 8480-6 BMI: 27.7 Code : 56862-1 Heart Rate 1 : 64 bpm Height: [...] Encounters Encounter Performer Location Codes Date ( [id number] EST. PATIENT, LEVEL IV Diagnosis: Mixed hyperlipidemia[ICD10: E78.2] Diagnosis: Essential (primary) hypertension[ICD10: I10] Diagnosis: Atrophy of thyroid (acquired)[ICD10: E03.4] Diagnosis: Pain in right knee[ICD10: M25.561] Laura Hurt MD, [facility] CPT-4: 43807 11/27/2017 22861 EST. PATIENT, LEVEL III Diagnosis: Cellulitis of back [any part except buttock][ICD10: L03.312] [facility] CPT-4: 90056 09/19/2017 ([id number]) PREV VISIT EST AGE 40-64 Diagnosis: Encounter for general adult medical examination without abnormal findings[ICD10: Z00.00] [facility] CPT-4: 91447 05/23/2017 ([id number]) 38603 EST. PATIENT, LEVEL IV Diagnosis: Essential (primary) hypertension[ICD10: I10] Diagnosis: Atrophy of thyroid (acquired)[ICD10: E03.4] Diagnosis: Mixed hyperlipidemia[ICD10: E78.2] Diagnosis: Other allergic rhinitis[ICD10: J30.89] Diagnosis: Melanocytic nevi of left lower limb, including hip[ICD10: D22.72] Diagnosis: Melanocytic nevi of right lower limb, including hip[ICD10: D22.71] Laura Hurt MD, [facility] CPT-4: 48391 08/02/2016 60103 EST. PATIENT, LEVEL III Diagnosis: Other allergic rhinitis[ICD10: J30.89] Diagnosis: Cough[ICD10: R05] Diagnosis: Candidal stomatitis[ICD10: B37.0] Rose Hurt MD, [facility] CPT -4: 50829 05/17/2016 30884 EST. PATIENT, LEVEL III Diagnosis: Acute bronchitis due to other specified organisms[ICD10: J20.8] Rose Hurt MD, [facility] CPT-4: 35377 05/02/2016 ([id number]) PREV VISIT EST AGE 40-64 Diagnosis: Atrophy of thyroid (acquired)[ICD10: E03.4] Diagnosis: Mixed hyperlipidemia[ICD10: E78.2] Diagnosis: Essential (primary) hypertension[ICD10: I10] Diagnosis: Encounter for general adult medical examination without abnormal findings[ICD10: Z00.00] Laura Hurt MD, [facility] CPT-4: 23765 02/02/2016 09336 EST. PATIENT, LEVEL II Diagnosis: Cellulitis of head [any part, except face][ICD10: L03.811] Diagnosis: Rash and other nonspecific skin eruption[ICD10: R21] Diagnosis: VACCIN FOR INFLUENZA[ICD10: Z23] Monae Hurt MD, [facility] CPT-4: 19544 01/02/2016 ([id number]) 09707 EST. PATIENT, LEVEL III Diagnosis: Essential (primary) hypertension[ICD10: I10] Laura Hurt MD, [facility] CPT-4: 85592 08/04/2015 57003 EST. PATIENT, LEVEL IV Diagnosis: Other acute sinusitis[ICD10: J01.80] Diagnosis: Other allergic rhinitis[ICD10: J30.89] Rose Hurt MD, [facility] CPT-4: 63283 06/29/2015 ([id number]) 18540 EST. PATIENT, LEVEL III Diagnosis: Low back pain[ICD10: M54.5] Diagnosis: Rash and other nonspecific skin eruption[ICD10: R21] [facility] CPT-4: 54575 05/19/2015 ([id number]) 69160 EST. PATIENT, LEVEL III Diagnosis: Mixed hyperlipidemia[ICD10: E78.2] Diagnosis: Hypothyroidism, unspecified[ICD10: E03.9] [facility] CPT-4: 04749 12/28/2014 ([id number]) PREV VISIT NEW AGE 40-64 Diagnosis: Well adult exam[ICD9: V70.0] [facility] CPT-4: 83173 08/12/2014 Plan of Care Planned Activity Notes [...] the hydrocodone. 11/27/2017 Appointment: Laura Hurt WPtel: [address] [place], [place] [id number] (15 min) Moderate 11/27/2017 Patient Education: Patient [...] discharge. 09/19/2017 Appointment: Rose Ferrer WPtel: [phone] [phone] (15 min) Moderate 09/19/2017 Patient Education: Patient Medication Summary Completed 09/19/2017 Appointment: Rose Ferrer WPtel: [phone] [phone] (15 min) Moderate 06/18/2017 Visit Plan: Well [...] for colonoscopy 05/23/2017 Appointment: Laura Hurt WPtel: [phone] [facility] (15 min) Moderate 05/23/2017 Patient Education: Patient Medication Summary Completed 05/23/2017 Care Plan: Referral Order SNOMED-CT : [id number] Pending 05/23/2017 Appointment: Injection 01/28/2017 Patient Education: [...] month 08/02/2016 [phone] ([facility] Complex 08/02/2016 Patient Education: [...] allergies 05/17/2016 [phone] ([facility] Moderate 05/17/2016 Patient Education: Patient [...] or if symptoms acutely worsen. 05/02/2016 [facility]ment[phone] [facility] [place] (15 min) Moderate 05/02/2016 Patient Education: Patient [...] medications. 02/02/2016 Appointment: Laura Hurt WPtel: [phone] [facility] (30 min) Complex 02/02/2016 Patient Education: Patient Medication Summary Completed 02/02/2016 Visit Plan: Nthkahilrpdu-tbzdp-qofcpfm of pustule today in the office-will treat as indicated-patient verbalized understanding of plan. 01/02/2016 Visit Plan: Hkcuyggqpwcp-morak-nlhmwej of pustule today in the office-will treat as indicated-patient verbalized understanding of plan. 01/02/2016 Appointment: Monae Berkowitz WPtel: [phone] [phone] (30 min) Complex 01/02/2016 Patient Education: Patient [...] home. 08/04/2015 Appointment: Laura Hurt WPtel: [phone] [facility] (30 min) Complex 08/04/2015 Patient Education: Patient [...] daily in the morning for 2 weeks [facility] allergy medicine - 1 daily for 2 [...] assure normal liver response to medications. . Jjuplfmttwzf-nnwkn-nfssmci of pustule today in the office -will treat as indicated-patient verbalized understanding of plan. . Ddnzlgctxwoi-usvrj-jtxpuxv of pustule today in the office -will [...]
--- OUTSIDE RECORDS SUMMARY | 2018-07-17 11:38 | XMS REPORT | CCD ---
Author Author Monae Berkowitz MD, [facility] Address [address] [place] [address] Phone Care Team Providers Care Fire Protection Equipment Technician Name Role Phone PP Unavailable CCM Unavailable Summary Purpose Interface Exchange Insurance Providers Payer name Policy type / Coverage type Covered alliance party ID Effective Begin Date Effective End Date Blue Cross Blue [facility] Blue Cross/Blue Shield [id number] Unknown Unknown Family history Mother Diagnosis Age At Onset Coronary Artery Disease Unknown Breast cancer Unknown Father Diagnosis Age At Onset Hypertension Unknown Cancer Unknown Social History Social History Element Codes Description Effective Dates Frequency of drinks SNOMED CT: 985716593 10 drinks per week -varies- more on weekends 08/02/2016 Employment Unknown 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 Marital status Unknown Single 08/12/2014 Number of children Unknown 0 08/12/[address]: 4909235 Quit less than 10 years ago 200608/12/[address]: 944405 Currently drinks alcohol 08/12/2014 Allergies, Adverse Reactions, [...] Start Date Stop Date Status Fill Instructions acyclovir 400 mg tablet RxNorm: 339831 TAKE ONE TABLET BY MOUTH DAILY 02/18/2018 05/18/2018 Active acyclovir 400 mg tablet RxNorm: 285560 TAKE ONE TABLET BY MOUTH DAILY 11/11/2017 02/08/2018 Inactive bisoprolol 5 mg-hydrochlorothiazide 6.25 mg tablet RxNorm: 626781 TAKE ONE TABLET BY MOUTH DAILY 09/30/2017 03/28/2018 Active Lipitor 80 mg tablet RxNorm: 264669 TAKE ONE TABLET BY MOUTH EVERY NIGHT AT BEDTIME 09/30/2017 02/26/2018 Active Levothroid 175 mcg tablet RxNorm: 869462 Tablet(s) TAKE ONE TABLET BY MOUTH DAILY ON AN EMPTY STOMACH . 09/30/20172018 Active Bactrim DS 800 mg-160 mg tablet RxNorm: 110552 1 Tablet(s) PO BID 09/19/2017 09/25/2017 Inactive alprazolam 0.5 mg tablet RxNorm: 649235 1/2 Tablet(s) PO BID as needed 07/24/2017 09/21/2017 Inactive Zithromax Z-Bassam 250 mg tablet RxNorm: 987670 1 Tablet(s) PO UD 06/17/2017 07/23/2017 Inactive z pack as directed Levothroid 175 mcg tablet RxNorm: 300665 TAKE ONE TABLET BY MOUTH DAILY ON AN EMPTY STOMACH . NEED TO REPEAT LAB FOR TSH AND FREE T4 201708/31/2017 Inactive gemfibrozil 600 mg tablet RxNorm: 791759 1 Tablet(s) PO BID 03/201702/16/2018 Inactive Penlac 8 % topical solution RxNorm: 825455 1 Application TOP daily 05/23/2017 06/21/2017 Inactive ketoconazole 2 % topical cream RxNorm: 421111 1 Application TOP BID 05/23/2017 06/05/2017 Inactive Cipro 500 mg tablet RxNorm: 667709 1 Tablet(s) PO BID 201705/30/2017 Inactive Flagyl 500 mg tablet RxNorm: 196448 1 Tablet(s) PO TID 201705/30/2017 Inactive acyclovir 400 mg tablet RxNorm: 463951 TAKE ONE TABLET BY MOUTH DAILY 04/26/2017 10/22/2017 Inactive bisoprolol 5 mg-hydrochlorothiazide 6.25 mg tablet RxNorm: 300521 TAKE ONE TABLET BY MOUTH DAILY 03/11/2017 09/06/2017 Inactive Levothroid 175 mcg tablet RxNorm: 669025 TAKE ONE TABLET BY MOUTH DAILY ON AN EMPTY STOMACH . NEED TO REPEAT LAB FOR TSH AND FREE T4 201606/02/2017 Inactive Lipitor 80 mg tablet RxNorm: 382603 Tablet(s) PO TAKE ONE TABLET BY MOUTH EVERY NIGHT AT BEDTIME 12/24/2016 11/26/2017 Inactive Levothroid 175 mcg tablet RxNorm: 697445 TAKE ONE TABLET BY MOUTH DAILY ON AN EMPTY STOMACH . NEED TO REPEAT LAB FOR TSH AND FREE T4 201603/10/2017 Inactive hydrocodone 7.5 mg-acetaminophen 325 mg tablet RxNorm: 942701 1 Tablet(s) PO Q6 PRN 11/06/2016 12/05/2016 Inactive [SAVINGS FOR NON-COVERED DRUGS -- BIN:[id number], PCN: ASPROD1, Group: XXXXX, ID# [id number], Questions: . THIS IS NOT INSURANCE.] Soma 350 mg tablet RxNorm: 883237 1 Tablet(s) PO TID as needed 11/06/2016 No Stop Date Active alprazolam 0.5 mg tablet RxNorm: 310940 1/2 Tablet(s) PO BID as needed 10/05/2016 11/26/2017 Inactive Lipitor 80 mg tablet RxNorm: 207472 Tablet(s) PO TAKE ONE TABLET BY MOUTH EVERY NIGHT AT BEDTIME 09/04/2016 12/23/2016 Inactive Lipitor 40 mg tablet RxNorm: 745885 TAKE ONE TABLET BY MOUTH EVERY NIGHT AT BEDTIME 09/04/2016 09/03/2016 Inactive acyclovir 400 mg tablet RxNorm: 317273 TAKE ONE TABLET BY MOUTH DAILY 08/23/2016 02/18/2017 Inactive bisoprolol 5 mg-hydrochlorothiazide 6.25 mg tablet RxNorm: 134950 TAKE ONE TABLET BY MOUTH DAILY 08/23/2016 02/18/2017 Inactive Levothroid 175 mcg tablet RxNorm: 890998 Tablet(s) TAKE ONE TABLET BY MOUTH DAILY 08/22/2016 11/19/2016 Inactive Needs to repeat TSH et Free T4 labs acyclovir 400 mg tablet RxNorm: 750482 TAKE ONE TABLET BY MOUTH DAILY 08/21/2016 08/22/2016 Inactive prednisone 10 mg tablet RxNorm: 901796 Tablet(s) PO UD dispense a medrol dose pack 08/10/2016 07/23/2017 Inactive 6,5,4,3,2,1 prednisone 10 mg tablet RxNorm: 106905 Tablet(s) PO UD dispense a medrol dose pack 07/30/2016 08/09/2016 Inactive 6,5,4,3,2,1 cefdinir 300 mg capsule RxNorm: 699764 1 Capsule(s) PO BID 10/201608/08/2016 Inactive cefdinir 300 mg capsule RxNorm: 312605 1 Capsule(s) PO BID 10/201607/29/2016 Inactive Lipitor 40 mg tablet RxNorm: 264087 TAKE ONE TABLET BY MOUTH EVERY NIGHT AT BEDTIME 06/25/2016 09/03/2016 Inactive nystatin 100,000 unit/mL oral suspension RxNorm: 083434 5 Milliliter(s) PO TID 05/17/2016 05/21/2016 Inactive Zyrtec 10 mg tablet RxNorm: 3429108 1 Tablet(s) PO daily 05/1706/15/2016 Inactive Levothroid 175 mcg tablet RxNorm: 836761 TAKE ONE TABLET BY MOUTH DAILY 05/16/2016 08/13/2016 Inactive Levaquin 750 mg tablet RxNorm: 434351 1 Tablet(s) PO daily 05/09/2016 Inactive Levaquin 750 mg tablet RxNorm: 937783 1 Tablet(s) PO daily 05/14/2016 Inactive Phenergan-Codeine 6.25 mg-10 mg/5 mL syrup RxNorm: 786267 5-10 Milliliter(s) PO Q6 as needed cough 05/02/2016 No Stop Date Active prednisone 10 mg tablet RxNorm: 579396 Tablet(s) PO UD 201607/29/2016 Inactive 6,5,4,3,2,1 Kenalog 40 mg/mL suspension for injection RxNorm: 0306165 Milliliter(s) Inj 05/02/2016 05/02/2016 Inactive Phenergan-Codeine 6.25 mg-10 mg/5 mL syrup RxNorm: 164855 5-10 Milliliter(s) PO Q6 as needed cough 04/25/2016 05/01/2016 Inactive Zithromax Z-Bassam 250 mg tablet RxNorm: 548763 1 Tablet(s) PO UD 04/25/2016 07/29/2016 Inactive z pack as directed acyclovir 400 mg tablet RxNorm: 232212 TAKE ONE TABLET BY MOUTH DAILY 04/10/2016 07/08/2016 Inactive Zetia 10 mg tablet RxNorm: 594597 1 Tablet(s) PO daily 201505/22/2017 Inactive Zetia 10 mg tablet RxNorm: 383554 1 Tablet(s) PO daily 201503/06/2016 Inactive Lipitor 40 mg tablet RxNorm: 374554 Tablet(s) PO TAKE ONE TABLET BY MOUTH EVERY NIGHT AT BEDTIME 03/07/2016 06/24/2016 Inactive Patient is requesting 90 days supply Diflucan 150 mg tablet RxNorm: 634250 1 Tablet(s) PO daily 01/11/2016 Inactive Diflucan 150 mg tablet RxNorm: 766593 1 Tablet(s) PO daily 01/04/2016 Inactive hydrocodone 7.5 mg-acetaminophen 325 mg tablet RxNorm: 008328 1 Tablet(s) PO Q6 PRN 12/28/2015 01/26/2016 Inactive [SAVINGS FOR NON-COVERED DRUGS -- BIN:[id number], PCN: ASPROD1, Group: XXXXX, ID# [id number], Questions: . THIS IS NOT INSURANCE.] alprazolam 0.5 mg tablet RxNorm: 093827 1/2 Tablet(s) PO BID as needed 11/30/2015 10/04/2016 Inactive Levothroid 175 mcg tablet RxNorm: 216177 Tablet(s) TAKE ONE TABLET BY MOUTH DAILY 10/26/2015 04/22/2016 Inactive hydrocodone 7.5 mg-acetaminophen 325 mg tablet RxNorm: 737129 1 Tablet(s) PO Q6 PRN 08/30/2015 09/28/2015 Inactive [SAVINGS FOR NON-COVERED DRUGS -- BIN:[id number], PCN: ASPROD1, Group: XXXXX, ID# [id number], Questions: . THIS IS NOT INSURANCE.] Ventolin HFA 90 mcg/actuation aerosol inhaler RxNorm: 539499 2 INH PRN dyspnea 08/04/2015 No Stop Date Active bisoprolol 5 mg-hydrochlorothiazide 6.25 mg tablet RxNorm: 631183 TAKE ONE TABLET BY MOUTH DAILY 07/11/2015 01/06/2016 Inactive Patient is requesting 90 days supply bisoprolol 5 mg-hydrochlorothiazide 6.25 mg tablet RxNorm: 445648 TAKE ONE TABLET BY MOUTH DAILY 07/11/2015 01/06/2016 Inactive Lipitor 10 mg tablet RxNorm: 497093 TAKE ONE TABLET BY MOUTH EVERY NIGHT AT BEDTIME 07/11/2015 01/06/2016 Inactive Patient is requesting 90 days supply Lipitor 10 mg tablet RxNorm: 532026 TAKE ONE TABLET BY MOUTH EVERY NIGHT AT BEDTIME 07/11/2015 05/13/2016 Inactive acyclovir 400 mg tablet RxNorm: 016813 1 Tablet(s) PO daily 08/22/2016 Inactive acyclovir 400 mg tablet RxNorm: 935083 1 Tablet(s) PO daily 07/10/2015 Inactive Zithromax Z-Bassam 250 mg tablet RxNorm: 605792 Tablet(s) PO UD 08/03/2015 Inactive acyclovir 400 mg tablet RxNorm: 490165 1 Tablet(s) PO daily 08/201507/05/2015 Inactive meloxicam 15 mg tablet RxNorm: 694336 TAKE ONE TABLET BY MOUTH DAILY 06/27/2015 11/23/2015 Inactive triamcinolone acetonide 0.1 % topical cream RxNorm: 8035738 1 Application TOP BID 05/19/2015 06/01/2015 Inactive apply very thin layer as directed hydrocodone 7.5 mg-acetaminophen 325 mg tablet RxNorm: 335403 1 Tablet(s) PO Q6 PRN 05/19/2015 08/29/2015 Inactive [SAVINGS FOR NON-COVERED DRUGS -- BIN:[id number], PCN: ASPROD1, Group: XXXXX, ID# XXXXXXX, Questions: . THIS IS NOT INSURANCE.] Cipro 500 mg tablet RxNorm: 643300 1 Tablet(s) PO BID 201504/20/2015 Inactive Cipro 500 mg tablet RxNorm: 093363 1 Tablet(s) PO BID 201504/30/2015 Inactive Flagyl 500 mg tablet RxNorm: 328613 1 Tablet(s) PO TID 201504/30/2015 Inactive Flagyl 500 mg tablet RxNorm: 825683 1 Tablet(s) PO TID 201504/20/2015 Inactive bisoprolol 5 mg-hydrochlorothiazide 6.25 mg tablet RxNorm: 630560 1 Tablet(s) PO daily 04/21/2015 07/10/2015 Inactive Levothroid 175 mcg tablet RxNorm: 100899 TAKE ONE TABLET BY MOUTH DAILY 04/18/2015 10/14/2015 Inactive hydrocodone 7.5 mg-acetaminophen 325 mg tablet RxNorm: 293934 1 Tablet(s) PO Q6 PRN 04/04/2015 05/18/2015 Inactive [SAVINGS FOR NON-COVERED DRUGS -- BIN:[id number], PCN: ASPROD1, Group: XXXXX, ID# XXXXXXX, Questions: . THIS IS NOT INSURANCE.] Lipitor 10 mg tablet RxNorm: 518938 1 Tablet(s) PO QHS 201507/02/2015 Inactive azithromycin 250 mg tablet RxNorm: 275421 1 Tablet(s) PO UD Take 2 tabs on day one and 1 tab day 2-5 02/03/20152014 Inactive azithromycin 250 mg tablet RxNorm: 240759 1 Tablet(s) PO UD Take 2 tabs on day one and 1 tab day 2-5 02/03/20152014 Inactive Levothroid 175 mcg tablet RxNorm: 255217 TAKE ONE TABLET BY MOUTH DAILY 12/16/2014 03/15/2015 Inactive Lipitor 10 mg tablet RxNorm: 692042 1 Tablet(s) PO QHS 201403/07/2015 Inactive hydrocodone 7.5 mg-acetaminophen 325 mg tablet RxNorm: 954797 1 Tablet(s) PO Q6 PRN 12/08/2014 04/03/2015 Inactive [SAVINGS FOR NON-COVERED DRUGS -- BIN:[id number], PCN: ASPROD1, Group: XXXXX, ID# [id number], Questions: . THIS IS NOT INSURANCE.] Lipitor 10 mg tablet RxNorm: 911835 1 Tablet(s) PO QHS 201412/07/2014 Inactive meloxicam 15 mg tablet RxNorm: 132627 1 Tablet(s) PO daily 04/01/2015 Inactive Levothroid 175 mcg tablet RxNorm: 704786 1 Tablet(s) PO daily 09/28/2014 12/15/2014 Inactive meloxicam 15 mg tablet RxNorm: 929117 1 Tablet(s) PO daily 09/10/2014 Inactive bisoprolol 2.5 mg-hydrochlorothiazide 6.25 mg tablet RxNorm: 548776 1 Tablet(s) PO daily 08/12/2014 11/09/2014 Inactive Levothroid 175 mcg tablet RxNorm: 792224 1 Tablet(s) PO daily 08/12/2014 09/27/2014 Inactive hydrocodone 7.5 mg-acetaminophen 325 mg tablet RxNorm: 960717 1 Tablet(s) PO Q6 PRN 08/12/2014 12/07/2014 Inactive [SAVINGS FOR NON-COVERED DRUGS -- BIN:[id number], PCN: ASPROD1, Group: XXXXX, ID# [id number], Questions: . THIS IS NOT INSURANCE.] acyclovir 400 mg tablet RxNorm: 715635 1 Tablet(s) PO daily 09/10/2014 Inactive hydrocodone 7.5 mg-acetaminophen 325 mg tablet RxNorm: 125477 1 Tablet(s) PO No Start Date 08/11/2014 Inactive Soma 350 mg tablet RxNorm: 363553 1 Tablet(s) PO TID as needed No Start Date 11/05/2016 Inactive alprazolam 0.5 mg tablet RxNorm: 380922 1/2 Tablet(s) PO BID as needed No Start Date 11/29/2015 Inactive Phenergan-Codeine 6.25 mg-10 mg/5 mL syrup RxNorm: 405247 5-10 Milliliter(s) PO Q6 as needed cough No Start Date 2016 Inactive Medication Administered Medication Codes Instructions Start Date Status Kenalog 40 mg/mL suspension for injection RxNorm: 1649369 Milliliter 05/02/2016 No longer Active Immunizations Vaccine [...] Code Result Date Comp. Metabolic Panel (14) 989925 GLUCOSE 96 MG/DL 11/28 Comp. Metabolic Panel (14) 701024 BUN 15 MG/DL 11/28/2017 Comp. Metabolic Panel (14) 160683 CREATININE 0.91 MG/DL 11/28/2017 Comp. Metabolic Panel (14) 015357 EGFR IF NONAFRICN AM 91 ML/MIN/1.73 11/28/2017 Comp. Metabolic Panel (14) 529385 EGFR IF AFRICN AM 106 ML/MIN/1.73 11/28/2017 Comp. Metabolic Panel (14) 094591 BUN/ CREATININE RATIO 16 11/28/2017 Comp. Metabolic Panel (14) 612607 SODIUM 140 MMOL/L 2017 Comp. Metabolic Panel (14) 790863 POTASSIUM 4.1 MMOL/L 11/28/2017 Comp. Metabolic Panel (14) 329035 CHLORIDE 100 MMOL/L Comp. Metabolic Panel (14) 339800 CARBON DIOXIDE, TOTAL 25 MMOL/L 11/28/2017 Comp. Metabolic Panel (14) 698677 CALCIUM 9.1 MG/DL 08/2017 Comp. Metabolic Panel (14) 699053 Protein , Total 6.9 G/DL 11/28 Comp. Metabolic Panel (14) 174369 ALBUMIN 4.5 G/DL 11/28 Comp. Metabolic Panel (14) 439616 GLOBULIN, TOTAL 2.4 G/DL 11/28/2017 Comp. Metabolic Panel (14) 630623 A/G Ratio 1.9 11/28/2017 Comp. Metabolic Panel (14) 043704 BILIRUBIN, TOTAL 0.5 MG/DL 11/28/2017 Comp. Metabolic Panel (14) 619744 ALKALINE PHOSPHATASE 55 IU/L 11/28/2017 Comp. Metabolic Panel (14) 389435 AST ( SGOT) 18 IU/L 2017 Comp. Metabolic Panel (14) 678205 ALT ( SGPT) 24 IU/L 2017 TSH 933393 TSH 1.530 UIU/ML 11/28/2017 Thyroxine (T4) Free, Direct, S 939636 T4, FREE(DIRECT) 1.56 NG/DL 11/28/2017 CBC With Differential/Platelet 059531 WBC 10.0 X10E3/UL 08/2017 CBC With Differential/Platelet 557850 RBC 4.78 X10E6/UL 08/2017 CBC With Differential/Platelet 384293 HEMOGLOBIN 14.3 G/DL 11/28/2017 CBC With Differential/Platelet 232478 HEMATOCRIT 41.9 % 08/2017 CBC With Differential/Platelet 509487 MCV 88 FL 11/28/2017 CBC With Differential/Platelet 671075 MCH 29.9 PG 2017 CBC With Differential/Platelet 167103 MCHC 34.1 G/DL 2017 CBC With Differential/Platelet 781851 RDW 13.4 % 11/28/2017 CBC With Differential/Platelet 528612 PLATELETS 309 X10E3/UL 11/28/2017 CBC With Differential/Platelet 783227 NEUTROPHILS 61 % 11/28 CBC With Differential/Platelet 911933 LYMPHS 30 % 2017 CBC With Differential/Platelet 041211 MONOCYTES 6 % 2017 CBC With Differential/Platelet 216068 EOS 2 % 11/28/2017 CBC With Differential/Platelet 869621 BASOS 0 % 11/28/2017 CBC With Differential/Platelet 153926 NEUTROPHILS (ABSOLUTE) 6.2 X10E3/UL 11/28/2017 CBC With Differential/Platelet 257042 LYMPHS (ABSOLUTE) 3.0 X10E3/UL 11/28/2017 CBC With Differential/Platelet 584124 MONOCYTES(ABSOLUTE) 0.6 X10E3/UL 11/28/2017 CBC With Differential/Platelet 307451 EOS (ABSOLUTE) 0.2 X10E3/UL 11/28/2017 CBC With Differential/Platelet 606140 BASO (ABSOLUTE) 0.0 X10E3/UL 11/28/2017 CBC With Differential/Platelet 759545 IMMATURE GRANULOCYTES 1 % 11/28/2017 CBC With Differential/Platelet 028098 IMMATURE GRANS (ABS) 0.1 X10E3/UL 11/28/2017 Lipid Panel w/ Chol/HDL Ratio 300847 CHOLESTEROL, TOTAL 145 MG/DL 11/28/2017 Lipid Panel w/ Chol/HDL Ratio 258997 TRIGLYCERIDES 216 MG/DL 11/28/2017 Lipid Panel w/ Chol/HDL Ratio 730799 HDL CHOLESTEROL 60 MG/DL 11/28/2017 Lipid Panel w/ Chol/HDL Ratio 053720 VLDL CHOLESTEROL CINDI 43 MG/DL 11/28/2017 Lipid Panel w/ Chol/HDL Ratio 871280 LDL CHOLESTEROL CALC 42 MG/DL 11/28/2017 Lipid Panel w/ Chol/HDL Ratio 001491 T. CHOL/HDL RATIO 2.4 RATIO 11/28/2017 TSH 206197 TSH 0.749 uIU/mL 06/24/2017 Comp. Metabolic Panel (14) 173783 GLUCOSE 101 mg/dL 04/2017 Comp. Metabolic Panel (14) 475156 BUN 12 mg/dL 06/24/2017 Comp. Metabolic Panel (14) 961402 CREATININE 0.95 mg/dL 06/24/2017 Comp. Metabolic Panel (14) 116231 EGFR IF NONAFRICN AM 87 mL/min/1.73 06/24/2017 Comp. Metabolic Panel (14) 075534 EGFR IF AFRICN AM 100 mL/min/1.73 06/24/2017 Comp. Metabolic Panel (14) 048735 BUN/ CREATININE RATIO 13 06/24/2017 Comp. Metabolic Panel (14) 704207 SODIUM 140 mmol/L 2017 Comp. Metabolic Panel (14) 315406 POTASSIUM 4.1 mmol/L 06/24/2017 Comp. Metabolic Panel (14) 701271 CHLORIDE 99 mmol/L 04/2017 Comp. Metabolic Panel (14) 219978 CARBON DIOXIDE, TOTAL 25 mmol/L 06/24/2017 Comp. Metabolic Panel (14) 193920 CALCIUM 9.5 mg/dL 04/2017 Comp. Metabolic Panel (14) 005416 Protein , Total 7.1 g/dL 06/24 Comp. Metabolic Panel (14) 870105 ALBUMIN 4.6 g/dL 06/24 Comp. Metabolic Panel (14) 751633 GLOBULIN, TOTAL 2.5 g/dL 06/24/2017 Comp. Metabolic Panel (14) 217240 A/G Ratio 1.8 06/24/2017 Comp. Metabolic Panel (14) 290963 BILIRUBIN, TOTAL 0.4 mg/dL 06/24/2017 Comp. Metabolic Panel (14) 883697 ALKALINE PHOSPHATASE 66 IU/L 06/24/2017 Comp. Metabolic Panel (14) 015116 AST ( SGOT) 45 IU/L 2017 Comp. Metabolic Panel (14) 528297 ALT ( SGPT) 41 IU/L 2017 Lipid Panel 211102 CHOLESTEROL, TOTAL 122 mg/dL 06/24/2017 Lipid Panel 994642 TRIGLYCERIDES 155 mg/dL 06/24/2017 Lipid Panel 935186 HDL CHOLESTEROL 52 mg/dL 06/24/2017 Lipid Panel 590541 VLDL CHOLESTEROL CINDI 31 mg/dL 06/24/2017 Lipid Panel 555908 LDL CHOLESTEROL CALC 39 mg/dL 06/24/2017 Thyroxine (T4) Free, Direct, S 384208 T4, FREE(DIRECT) 1.35 ng/dL 06/24/2017 CBC With Differential/Platelet 906729 WBC 6.6 x10E3/uL 06/24 CBC With Differential/Platelet 196505 RBC 4.89 x10E6/uL 04/2017 CBC With Differential/Platelet 457968 HEMOGLOBIN 14.6 g/dL 06/24/2017 CBC With Differential/Platelet 001461 HEMATOCRIT 43.7 % 04/2017 CBC With Differential/Platelet 026965 MCV 89 fL 06/24/2017 CBC With Differential/Platelet 339641 MCH 29.9 pg 2017 CBC With Differential/Platelet 975307 MCHC 33.4 g/dL 2017 CBC With Differential/Platelet 446949 RDW 13.6 % 06/24/2017 CBC With Differential/Platelet 447531 PLATELETS 258 x10E3/uL 06/24/2017 CBC With Differential/Platelet 329863 NEUTROPHILS 51 % 06/24 CBC With Differential/Platelet 797549 LYMPHS 36 % 2017 CBC With Differential/Platelet 169415 MONOCYTES 9 % 2017 CBC With Differential/Platelet 085909 EOS 4 % 06/24/2017 CBC With Differential/Platelet 659662 BASOS 0 % 06/24/2017 CBC With Differential/Platelet 233972 NEUTROPHILS (ABSOLUTE) 3.3 x10E3/uL 06/24/2017 CBC With Differential/Platelet 148498 LYMPHS (ABSOLUTE) 2.3 x10E3/uL 06/24/2017 CBC With Differential/Platelet 463227 MONOCYTES(ABSOLUTE) 0.6 x10E3/uL 06/24/2017 CBC With Differential/Platelet 098963 EOS (ABSOLUTE) 0.3 x10E3/uL 06/24/2017 CBC With Differential/Platelet 282734 BASO (ABSOLUTE) 0.0 x10E3/uL 06/24/2017 CBC With Differential/Platelet 424261 IMMATURE GRANULOCYTES 0 % 06/24/2017 CBC With Differential/Platelet 797479 IMMATURE GRANS (ABS) 0.0 x10E3/uL 06/24/2017 Lipid Panel 186054 CHOLESTEROL, TOTAL 183 MG/DL 02/22/2016 Lipid Panel 290445 TRIGLYCERIDES 509 MG/DL 02/22/2016 Lipid Panel 088641 HDL CHOLESTEROL 47 MG/DL 02/22/2016 Lipid Panel 002810 VLDL CHOLESTEROL CINDI COMMENT MG/DL 2015 Lipid Panel 573650 LDL CHOLESTEROL CALC COMMENT MG/DL 2015 Thyroxine (T4) Free, Direct, S 247918 T4, FREE(DIRECT) 1.39 NG/DL 02/22/2016 TSH 652509 TSH 0.510 UIU/ML 02/22/2016 CBC With Differential/Platelet 613138 WBC 6.9 X10E3/UL 02/21 CBC With Differential/Platelet 015692 RBC 4.79 X10E6/UL CBC With Differential/Platelet 523211 HEMOGLOBIN 14.4 G/DL 02/22/2016 CBC With Differential/Platelet 527271 HEMATOCRIT 43.1 % CBC With Differential/Platelet 955809 MCV 90 FL 02/22/2016 CBC With Differential/Platelet 784003 MCH 30.1 PG 2015 CBC With Differential/Platelet 423131 MCHC 33.4 G/DL 2015 CBC With Differential/Platelet 383868 RDW 13.5 % 02/22/2016 CBC With Differential/Platelet 451736 PLATELETS 257 X10E3/UL 02/22/2016 CBC With Differential/Platelet 022352 NEUTROPHILS 57 % 02/21 CBC With Differential/Platelet 899614 LYMPHS 32 % 2015 CBC With Differential/Platelet 408248 MONOCYTES 8 % 2015 CBC With Differential/Platelet 058537 EOS 3 % 02/22/2016 CBC With Differential/Platelet 270695 BASOS 0 % 02/22/2016 CBC With Differential/Platelet 505787 NEUTROPHILS (ABSOLUTE) 4.0 X10E3/UL 02/22/2016 CBC With Differential/Platelet 216240 LYMPHS (ABSOLUTE) 2.2 X10E3/UL 02/22/2016 CBC With Differential/Platelet 912311 MONOCYTES(ABSOLUTE) 0.5 X10E3/UL 02/22/2016 CBC With Differential/Platelet 002347 EOS (ABSOLUTE) 0.2 X10E3/UL 02/22/2016 CBC With Differential/Platelet 368714 BASO (ABSOLUTE) 0.0 X10E3/UL 02/22/2016 CBC With Differential/Platelet 120029 IMMATURE GRANULOCYTES 0 % 02/22/2016 CBC With Differential/Platelet 594734 IMMATURE GRANS (ABS) 0.0 X10E3/UL 02/22/2016 Comp. Metabolic Panel (14) 888309 GLUCOSE , SERUM 111 MG/DL Comp. Metabolic Panel (14) 018502 BUN 14 MG/DL 02/22/2016 Comp. Metabolic Panel (14) 997148 CREATININE, SERUM 1.03 MG/DL 02/22/2016 Comp. Metabolic Panel (14) 126411 EGFR IF NONAFRICN AM 79 ML/MIN/1.73 02/22/2016 Comp. Metabolic Panel (14) 850095 EGFR IF AFRICN AM 91 ML/MIN/1.73 02/22/2016 Comp. Metabolic Panel (14) 671770 BUN/ CREATININE RATIO 14 02/22/2016 Comp. Metabolic Panel (14) 371320 SODIUM , SERUM 140 MMOL/L Comp. Metabolic Panel (14) 053296 POTASSIUM, SERUM 3.9 MMOL/L 02/22/2016 Comp. Metabolic Panel (14) 238598 CHLORIDE, SERUM 99 MMOL/L 02/22/2016 Comp. Metabolic Panel (14) 309347 CARBON DIOXIDE, TOTAL 25 MMOL/L 02/22/2016 Comp. Metabolic Panel (14) 563838 CALCIUM , SERUM 9.1 MG/DL Comp. Metabolic Panel (14) 438182 PROTEIN , TOTAL, SERUM 6.5 G/DL 02/22/2016 Comp. Metabolic Panel (14) 564050 ALBUMIN , SERUM 4.1 G/DL 02/21 Comp. Metabolic Panel (14) 059152 GLOBULIN, TOTAL 2.4 G/DL 02/22/2016 Comp. Metabolic Panel (14) 692157 A/G Ratio 1.7 02/22/2016 Comp. Metabolic Panel (14) 059615 BILIRUBIN, TOTAL 0.2 MG/DL 02/22/2016 Comp. Metabolic Panel (14) 510906 ALKALINE PHOSPHATASE, S 72 IU/L 02/22/2016 Comp. Metabolic Panel (14) 611564 AST ( SGOT) 30 IU/L 2015 Comp. Metabolic Panel (14) 785539 ALT ( SGPT) 43 IU/L 2015 Comp Metabolic Vid865 NA 132 mEq/L 12/02/2014 Comp Metabolic Hhc139 K 4.1 mEq/L 12/02/2014 Comp Metabolic Ukx146 CL 100 mEq/L 12/02/2014 Comp Metabolic Jum082 CO2 26.0 mEq/L 12/02/2014 Comp Metabolic Sec914 ANION GAP 10 12/02/2014 Comp Metabolic Pme727 GLUCOSE 107 mg/dL 12/02/2014 Comp Metabolic Eni407 Creat 1.1 mg/dL 12/02/2014 Comp Metabolic Obl433 eGFR 73 ml/min/1.73m2 12/02/2014 Comp Metabolic Roi962 BUN 16 mg/dL 12/02/2014 Comp Metabolic Hux325 B/C Ratio 14.5 Ratio 12/02/2014 Comp Metabolic Gfk066 CALCIUM 9.5 mg/dL 12/02/2014 Comp Metabolic Xnu166 ALK PHOS 39 U/L 12/02/2014 Comp Metabolic Pef309 AST(SGOT) 18 U/L 12/02/2014 Comp Metabolic Dyc458 ALT(SGPT) 24 U/L 12/02/2014 Comp Metabolic Cxo618 BILI T 0.5 mg/dL 12/02/2014 Comp Metabolic Drz378 ALBUMIN 4.2 g/dL 12/02/2014 Comp Metabolic Sfw994 TPRO 6.5 g/dL 12/02/2014 Comp Metabolic Xgn869 GLOB 2.3 g/dL 12/02/2014 Comp Metabolic Lrr761 A/G Ratio 1.8 Ratio 12/02/2014 Comp Metabolic Ces574 Osmo 266 mOsmo 12/02/2014 Tsh Ord6 hTSH [...] Procedure Codes Date IMMUNIZATION ADMIN CPT -4: 77114 01/28/2017 FLU VAC NO PRSV 4 MONTY 3 YRS+ CPT-4: 27147 01/28/2017 TRIAMCINOLONE ACET INJ NOS CPT-4: J3301 05/02/2016 IMMUNIZATION ADMIN CPT -4: 22836 01/02/2016 FLU VACC 4 MONTY 3 YRS PLUS IM Formatting Model/CDA Sections, Assigned to/Ana Bella SNOMED CT: [id number] CPT-4: 76728Umomuqt 01/02/2016 IMMUNIZATION ADMIN CPT -4: 77402 12/28/2014 IIV4 FLU VACC NO PRESERV ID Formatting Model/CDA Sections, Assigned to/Ana Bella SNOMED CT: [id number] CPT-4: 47198Jrmgtpz 12/28/2014 Vital Signs Date Vital 11/27/2017 Blood Pressure 1: 122/76 Code : 8480-6 BMI: 27.2 Code : 87270-8 Heart Rate 1 : 58 bpm Height: 5'8" SpO2: 98% Weight: 179 lbs 09/19/2017 Blood Pressure 1: 122/60 Code : 8480-6 BMI: 29.8 Code : 60363-3 Heart Rate 1 : 57 bpm Height: 5'8" SpO2: 93% Weight: 196 lbs 05/23/2017 Blood Pressure 1: 122/74 Code : 8480-6 BMI: 29.2 Code : 30259-4 Heart Rate 1 : 68 bpm Height: 5'8" SpO2: 97% Weight: 192 lbs 08/02/2016 Blood Pressure 1: 142/80 Code : 8480-6 BMI: 28.1 Code : 24318-1 Heart Rate 1 : 61 bpm Height: 5'8" SpO2: 98% Weight: 185 lbs 05/17/2016 Blood Pressure 1: 126/74 Code : 8480-6 BMI: 27.7 Code : 77081-1 Heart Rate 1 : 60 bpm Height: 5'8" SpO2: 95% Temperature: 37.0 (C) / 98.6 (F) Weight: 182 lbs 05/02/2016 Blood Pressure 1: 106/68 Code : 8480-6 BMI: 27.8 Code : 82545-8 Heart Rate 1 : 58 bpm Height: 5'8" SpO2: 97% Temperature: 36.7 (C) / 98.1 (F) Weight: 183 lbs 02/02/2016 Blood Pressure 1: 124/76 Code : 8480-6 BMI: 28.0 Code : 05676-8 Heart Rate 1 : 68 bpm Height: 5'8" SpO2: 98% Weight: 184 lbs 01/02/2016 Blood Pressure 1: 130/72 Code : 8480-6 BMI: 28.0 Code : 17252-5 Heart Rate 1 : 62 bpm Height: 5'8" SpO2: 96% Weight: 184 lbs 08/04/2015 Blood Pressure 1: 128/76 Code : 8480-6 BMI: 27.7 Code : 42873-8 Heart Rate 1 : 64 bpm Height: 5'8" SpO2: 98% Weight: 182 lbs 06/29/2015 Blood Pressure 1: 142/84 Code : 8480-6 BMI: 28.0 Code : 33905-0 Heart Rate 1 : 55 bpm Height: 5'8" SpO2: 97% Weight: 184 lbs 05/19/2015 Blood Pressure 1: 120/78 Code : 8480-6 BMI: 27.2 Code : 05590-1 Heart Rate 1 : 86 bpm Height: 5'8" Weight: 179 lbs 12/28/2014 Blood Pressure 1: 130/68 Code : 8480-6 BMI: 27.7 Code : 61623-2 Heart Rate 1 : 52 bpm Height: 5'8" SpO2: 98% Weight: 182 lbs 08/12/2014 Blood Pressure 1: 118/70 Code : 8480-6 BMI: 27.7 Code : 27980-4 Heart Rate 1 : 64 bpm Height: [...] Encounters Encounter Performer Location Codes Date ( 81180 EST. PATIENT, LEVEL IV Diagnosis: Mixed hyperlipidemia[ICD10: E78.2] Diagnosis: Essential (primary) hypertension[ICD10: I10] Diagnosis: Atrophy of thyroid (acquired)[ICD10: E03.4] Diagnosis: Pain in right knee[ICD10: M25.561] Laura Hurt MD, [facility] CPT-4: 53486 11/27/2017 [id number] EST. PATIENT, LEVEL III Diagnosis: Cellulitis of back [any part except buttock][ICD10: L03.312] Rose Hurt MD , [facility] CPT-4: 02065 09/19/2017 ([id number]) PREV VISIT EST AGE 40-64 Diagnosis: Encounter for general adult medical examination without abnormal findings[ICD10: Z00.00] Laura Hurt MD, [facility] CPT-4: 83904 05/23/2017 ([id number]) 37356 EST. PATIENT, LEVEL IV Diagnosis: Essential (primary) hypertension[ICD10: I10] Diagnosis: Atrophy of thyroid (acquired)[ICD10: E03.4] Diagnosis: Mixed hyperlipidemia[ICD10: E78.2] Diagnosis: Other allergic rhinitis[ICD10: J30.89] Diagnosis: Melanocytic nevi of left lower limb, including hip[ICD10: D22.72] Diagnosis: Melanocytic nevi of right lower limb, including hip[ICD10: D22.71] Laura Hurt MD, [facility] CPT-4: 17300 08/02/2016 28903 EST. PATIENT, LEVEL III Diagnosis: Other allergic rhinitis[ICD10: J30.89] Diagnosis: Cough[ICD10: R05] Diagnosis: Candidal stomatitis[ICD10: B37.0] Rose Hurt MD, [facility] CPT -4: 59959 05/17/2016 80765 EST. PATIENT, LEVEL III Diagnosis: Acute bronchitis due to other specified organisms[ICD10: J20.8] Rose Hurt MD, [facility] CPT-4: 40790 05/02/2016 ([id number]) PREV VISIT EST AGE 40-64 Diagnosis: Atrophy of thyroid (acquired)[ICD10: E03.4] Diagnosis: Mixed hyperlipidemia[ICD10: E78.2] Diagnosis: Essential (primary) hypertension[ICD10: I10] Diagnosis: Encounter for general adult medical examination without abnormal findings[ICD10: Z00.00] Laura Hurt MD, [facility] CPT-4: 25787 02/02/2016 69709 EST. PATIENT, LEVEL II Diagnosis: Cellulitis of head [any part, except face][ICD10: L03.811] Diagnosis: Rash and other nonspecific skin eruption[ICD10: R21] Diagnosis: VACCIN FOR INFLUENZA[ICD10: Z23] Monae Hurt MD, [facility] CPT-4: 76864 01/02/2016 ([id number]) 78324 EST. PATIENT, LEVEL III Diagnosis: Essential (primary) hypertension[ICD10: I10] Laura Hurt MD, [facility] CPT-4: 36271 08/04/2015 83768 EST. PATIENT, LEVEL IV Diagnosis: Other acute sinusitis[ICD10: J01.80] Diagnosis: Other allergic rhinitis[ICD10: J30.89] Rose Hurt MD, [facility] CPT-4: 35822 06/29/2015 ([id number]) 03025 EST. PATIENT, LEVEL III Diagnosis: Low back pain[ICD10: M54.5] Diagnosis: Rash and other nonspecific skin eruption[ICD10: R21] [facility] CPT-4: 27375 05/19/2015 ([id number]) 59733 EST. PATIENT, LEVEL III Diagnosis: Mixed hyperlipidemia[ICD10: E78.2] Diagnosis: Hypothyroidism, unspecified[ICD10: E03.9] [facility] CPT-4: 83779 12/28/2014 ([id number]) PREV VISIT NEW AGE 40-64 Diagnosis: Well adult exam[ICD9: V70.0] Monae Hurt MD, [facility] CPT-4: 52292 08/12/2014 Plan of Care Planned Activity Notes [...] the hydrocodone. 11/27/2017 Appointment: Laura Hurt WPtel: [address] [place], [place] [phone] (15 min) Moderate 11/27/2017 Patient Education: Patient [...] discharge. 09/19/2017 Appointment: Rose Ferrer WPtel: [phone] [facility] (15 min) Moderate 09/19/2017 Patient Education: Patient Medication Summary Completed 09/19/2017 Appointment: Rose Ferrer WPtel: [phone] [facility] (15 min) Moderate 06/18/2017 Visit Plan: Well [...] colonoscopy 05/23/2017 Appointment: Laura Hurt WPtel: [phone] [facility] (15 min) Moderate 05/23/2017 Patient Education: Patient Medication Summary Completed 05/23/2017 Care Plan: Referral Order SNOMED-CT : [id number] Pending 05/23/2017 Appointment: Injection 01/28/2017 Patient Education: [...] month 08/02/2016 [facility]ointment: [phone] (30 min) Complex 08/02/2016 Patient Education: Patient [...] for allergies 05/17/2016 [facility]ment[phone] ([facility] min) Moderate 05/17/2016 Patient Education: Patient [...] acutely worsen. 05/02/2016 Appointment: [phone] [facility] [place] (15 min) Moderate 05/02/2016 Patient Education: [...] medications. 02/02/2016 Appointment: [phone] [facility] (30 min) Complex 02/02/2016 Patient Education: Patient Medication Summary Completed 02/02/2016 Visit Plan: Fhdpxfgrewde-tskpo-gpslpkg of pustule today in the office-will treat as indicated-patient verbalized understanding of plan. 01/02/2016 Visit Plan: Hjsjykcdtsbo-mncgq-qlviiyz of pustule today in the office-will treat as indicated-patient verbalized understanding of plan. 01/02/2016 Appointment: [facility] Berkowitz [facility] [phone] [phone] (30 min) Complex 01/02/2016 Patient Education: Patient [...] home. 08/04/2015 Appointment: [phone] [facility] (30 min) Complex 08/04/2015 Patient Education: Patient [...] daily in the morning for 2 weeks [facility] allergy medicine - 1 daily for [...] assure normal liver response to medications. . Iytddwovyvmr-imwap-exzrrqa of pustule today in the office -will treat as indicated-patient verbalized understanding of plan. . Fjmebckjpopd-qoiqp-zzcbyxw of pustule today in the office -will [...]
[2018-07-17] MEDS ORDERED: LACTATED RINGERS 1,000 ML IV PRN (11:39)
--- OUTSIDE RECORDS SUMMARY | 2018-07-17 11:40 | XMS REPORT | CCD ---
Author Author Monae Berkowitz MD, [facility] Address [address] [place] [address] Phone Care Team Providers Care Online Marketing Coordinator Name Role Phone PP Unavailable CCM Unavailable Summary Purpose Interface Exchange Insurance Providers Payer name Policy type / Coverage type Covered alliance party ID Effective Begin Date Effective End Date Blue Cross Blue [facility] Blue Cross/Blue Shield [id number] Unknown Unknown Family history Mother Diagnosis Age At Onset Coronary Artery Disease Unknown Breast cancer Unknown Father Diagnosis Age At Onset Hypertension Unknown Cancer Unknown Social History Social History Element Codes Description Effective Dates Frequency of drinks SNOMED CT: 507555423 10 drinks per week -varies- more on weekends 08/02/2016 Employment Unknown 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[employer] 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 Marital status Unknown Single 08/12/2014 Number of children Unknown 0 08/12/[address]: 7262666 Quit less than 10 years ago 200608/12/[address]: 761083 Currently drinks alcohol 08/12/2014 Allergies, Adverse Reactions, [...] Fill Instructions acyclovir 400 mg tablet RxNorm: 502586 TAKE ONE TABLET BY MOUTH DAILY 02/18/2018 05/18/2018 Active acyclovir 400 mg tablet RxNorm: 994899 TAKE ONE TABLET BY MOUTH DAILY 11/11/2017 02/08/2018 Inactive bisoprolol 5 mg-hydrochlorothiazide 6.25 mg tablet RxNorm: 233245 TAKE ONE TABLET BY MOUTH DAILY 09/30/2017 03/28/2018 Active Lipitor 80 mg tablet RxNorm: 949474 TAKE ONE TABLET BY MOUTH EVERY NIGHT AT BEDTIME 09/30/2017 02/26/2018 Active Levothroid 175 mcg tablet RxNorm: 774704 Tablet(s) TAKE ONE TABLET BY MOUTH DAILY ON AN EMPTY STOMACH . 09/30/20172018 Active Bactrim DS 800 mg-160 mg tablet RxNorm: 518296 1 Tablet(s) PO BID 09/19/2017 09/25/2017 Inactive alprazolam 0.5 mg tablet RxNorm: 010216 1/2 Tablet(s) PO BID as needed 07/24/2017 09/21/2017 Inactive Zithromax Z-Bassam 250 mg tablet RxNorm: 981884 1 Tablet(s) PO UD 06/17/2017 07/23/2017 Inactive z pack as directed Levothroid 175 mcg tablet RxNorm: 064893 TAKE ONE TABLET BY MOUTH DAILY ON AN EMPTY STOMACH . NEED TO REPEAT LAB FOR TSH AND FREE T4 201708/31/2017 Inactive gemfibrozil 600 mg tablet RxNorm: 754744 1 Tablet(s) PO BID 03/201702/16/2018 Inactive Penlac 8 % topical solution RxNorm: 636167 1 Application TOP daily 05/23/2017 06/21/2017 Inactive ketoconazole 2 % topical cream RxNorm: 493624 1 Application TOP BID 05/23/2017 06/05/2017 Inactive Cipro 500 mg tablet RxNorm: 452238 1 Tablet(s) PO BID 201705/30/2017 Inactive Flagyl 500 mg tablet RxNorm: 881627 1 Tablet(s) PO TID 201705/30/2017 Inactive acyclovir 400 mg tablet RxNorm: 858743 TAKE ONE TABLET BY MOUTH DAILY 04/26/2017 10/22/2017 Inactive bisoprolol 5 mg-hydrochlorothiazide 6.25 mg tablet RxNorm: 310070 TAKE ONE TABLET BY MOUTH DAILY 03/11/2017 09/06/2017 Inactive Levothroid 175 mcg tablet RxNorm: 091186 TAKE ONE TABLET BY MOUTH DAILY ON AN EMPTY STOMACH . NEED TO REPEAT LAB FOR TSH AND FREE T4 201606/02/2017 Inactive Lipitor 80 mg tablet RxNorm: 835265 Tablet(s) PO TAKE ONE TABLET BY MOUTH EVERY NIGHT AT BEDTIME 12/24/2016 11/26/2017 Inactive Levothroid 175 mcg tablet RxNorm: 865967 TAKE ONE TABLET BY MOUTH DAILY ON AN EMPTY STOMACH . NEED TO REPEAT LAB FOR TSH AND FREE T4 201603/10/2017 Inactive hydrocodone 7.5 mg-acetaminophen 325 mg tablet RxNorm: 004352 1 Tablet(s) PO Q6 PRN 11/06/2016 12/05/2016 Inactive [SAVINGS FOR NON-COVERED DRUGS -- BIN:[id number], PCN: ASPROD1, Group: XXXXX, ID# [id number], Questions: . THIS IS NOT INSURANCE.] Soma 350 mg tablet RxNorm: 568356 1 Tablet(s) PO TID as needed 11/06/2016 No Stop Date Active alprazolam 0.5 mg tablet RxNorm: 896734 1/2 Tablet(s) PO BID as needed 10/05/2016 11/26/2017 Inactive Lipitor 80 mg tablet RxNorm: 144871 Tablet(s) PO TAKE ONE TABLET BY MOUTH EVERY NIGHT AT BEDTIME 09/04/2016 12/23/2016 Inactive Lipitor 40 mg tablet RxNorm: 217185 TAKE ONE TABLET BY MOUTH EVERY NIGHT AT BEDTIME 09/04/2016 09/03/2016 Inactive acyclovir 400 mg tablet RxNorm: 738442 TAKE ONE TABLET BY MOUTH DAILY 08/23/2016 02/18/2017 Inactive bisoprolol 5 mg-hydrochlorothiazide 6.25 mg tablet RxNorm: 912443 TAKE ONE TABLET BY MOUTH DAILY 08/23/2016 02/18/2017 Inactive Levothroid 175 mcg tablet RxNorm: 029499 Tablet(s) TAKE ONE TABLET BY MOUTH DAILY 08/22/2016 11/19/2016 Inactive Needs to repeat TSH et Free T4 labs acyclovir 400 mg tablet RxNorm: 036616 TAKE ONE TABLET BY MOUTH DAILY 08/21/2016 08/22/2016 Inactive prednisone 10 mg tablet RxNorm: 642501 Tablet(s) PO UD dispense a medrol dose pack 08/10/2016 07/23/2017 Inactive 6,5,4,3,2,1 prednisone 10 mg tablet RxNorm: 758361 Tablet(s) PO UD dispense a medrol dose pack 07/30/2016 08/09/2016 Inactive 6,5,4,3,2,1 cefdinir 300 mg capsule RxNorm: 892636 1 Capsule(s) PO BID 10/201608/08/2016 Inactive cefdinir 300 mg capsule RxNorm: 802296 1 Capsule(s) PO BID 10/201607/29/2016 Inactive Lipitor 40 mg tablet RxNorm: 992352 TAKE ONE TABLET BY MOUTH EVERY NIGHT AT BEDTIME 06/25/2016 09/03/2016 Inactive nystatin 100,000 unit/mL oral suspension RxNorm: 462725 5 Milliliter(s) PO TID 05/17/2016 05/21/2016 Inactive Zyrtec 10 mg tablet RxNorm: 8867795 1 Tablet(s) PO daily 05/1706/15/2016 Inactive Levothroid 175 mcg tablet RxNorm: 420940 TAKE ONE TABLET BY MOUTH DAILY 05/16/2016 08/13/2016 Inactive Levaquin 750 mg tablet RxNorm: 378329 1 Tablet(s) PO daily 05/09/2016 Inactive Levaquin 750 mg tablet RxNorm: 232925 1 Tablet(s) PO daily 05/14/2016 Inactive Phenergan-Codeine 6.25 mg-10 mg/5 mL syrup RxNorm: 857621 5-10 Milliliter(s) PO Q6 as needed cough 05/02/2016 No Stop Date Active prednisone 10 mg tablet RxNorm: 569239 Tablet(s) PO UD 201607/29/2016 Inactive 6,5,4,3,2,1 Kenalog 40 mg/mL suspension for injection RxNorm: 2203240 Milliliter(s) Inj 05/02/2016 05/02/2016 Inactive Phenergan-Codeine 6.25 mg-10 mg/5 mL syrup RxNorm: 810737 5-10 Milliliter(s) PO Q6 as needed cough 04/25/2016 05/01/2016 Inactive Zithromax Z-Bassam 250 mg tablet RxNorm: 254938 1 Tablet(s) PO UD 04/25/2016 07/29/2016 Inactive z pack as directed acyclovir 400 mg tablet RxNorm: 627737 TAKE ONE TABLET BY MOUTH DAILY 04/10/2016 07/08/2016 Inactive Zetia 10 mg tablet RxNorm: 572684 1 Tablet(s) PO daily 201505/22/2017 Inactive Zetia 10 mg tablet RxNorm: 809032 1 Tablet(s) PO daily 201503/06/2016 Inactive Lipitor 40 mg tablet RxNorm: 548049 Tablet(s) PO TAKE ONE TABLET BY MOUTH EVERY NIGHT AT BEDTIME 03/07/2016 06/24/2016 Inactive Patient is requesting 90 days supply Diflucan 150 mg tablet RxNorm: 826034 1 Tablet(s) PO daily 01/11/2016 Inactive Diflucan 150 mg tablet RxNorm: 989957 1 Tablet(s) PO daily 01/04/2016 Inactive hydrocodone 7.5 mg-acetaminophen 325 mg tablet RxNorm: 817911 1 Tablet(s) PO Q6 PRN 12/28/2015 01/26/2016 Inactive [SAVINGS FOR NON-COVERED DRUGS -- BIN:[id number], PCN: ASPROD1, Group: XXXXX, ID# XXXXXXX, Questions: . THIS IS NOT INSURANCE.] alprazolam 0.5 mg tablet RxNorm: 276616 1/2 Tablet(s) PO BID as needed 11/30/2015 10/04/2016 Inactive Levothroid 175 mcg tablet RxNorm: 078184 Tablet(s) TAKE ONE TABLET BY MOUTH DAILY 10/26/2015 04/22/2016 Inactive hydrocodone 7.5 mg-acetaminophen 325 mg tablet RxNorm: 989836 1 Tablet(s) PO Q6 PRN 08/30/2015 09/28/2015 Inactive [SAVINGS FOR NON-COVERED DRUGS -- BIN:837025, PCN: ASPROD1, Group: XXXXX, ID# XXXXXXX, Questions: . THIS IS NOT INSURANCE.] Ventolin HFA 90 mcg/actuation aerosol inhaler RxNorm: 810300 2 INH PRN dyspnea 08/04/2015 No Stop Date Active bisoprolol 5 mg-hydrochlorothiazide 6.25 mg tablet RxNorm: 013403 TAKE ONE TABLET BY MOUTH DAILY 07/11/2015 01/06/2016 Inactive Patient is requesting 90 days supply bisoprolol 5 mg-hydrochlorothiazide 6.25 mg tablet RxNorm: 703861 TAKE ONE TABLET BY MOUTH DAILY 07/11/2015 01/06/2016 Inactive Lipitor 10 mg tablet RxNorm: 870102 TAKE ONE TABLET BY MOUTH EVERY NIGHT AT BEDTIME 07/11/2015 01/06/2016 Inactive Patient is requesting 90 days supply Lipitor 10 mg tablet RxNorm: 833793 TAKE ONE TABLET BY MOUTH EVERY NIGHT AT BEDTIME 07/11/2015 05/13/2016 Inactive acyclovir 400 mg tablet RxNorm: 921129 1 Tablet(s) PO daily 08/22/2016 Inactive acyclovir 400 mg tablet RxNorm: 561989 1 Tablet(s) PO daily 07/10/2015 Inactive Zithromax Z-Bassam 250 mg tablet RxNorm: 052212 Tablet(s) PO UD 08/03/2015 Inactive acyclovir 400 mg tablet RxNorm: 751261 1 Tablet(s) PO daily 08/201507/05/2015 Inactive meloxicam 15 mg tablet RxNorm: 584205 TAKE ONE TABLET BY MOUTH DAILY 06/27/2015 11/23/2015 Inactive triamcinolone acetonide 0.1 % topical cream RxNorm: 0722867 1 Application TOP BID 05/19/2015 06/01/2015 Inactive apply very thin layer as directed hydrocodone 7.5 mg-acetaminophen 325 mg tablet RxNorm: 270480 1 Tablet(s) PO Q6 PRN 05/19/2015 08/29/2015 Inactive [SAVINGS FOR NON-COVERED DRUGS -- BIN:[id number], PCN: ASPROD1, Group: XXXXX, ID# XXXXXXX, Questions: . THIS IS NOT INSURANCE.] Cipro 500 mg tablet RxNorm: 301304 1 Tablet(s) PO BID 201504/20/2015 Inactive Cipro 500 mg tablet RxNorm: 542957 1 Tablet(s) PO BID 201504/30/2015 Inactive Flagyl 500 mg tablet RxNorm: 591295 1 Tablet(s) PO TID 201504/30/2015 Inactive Flagyl 500 mg tablet RxNorm: 773629 1 Tablet(s) PO TID 201504/20/2015 Inactive bisoprolol 5 mg-hydrochlorothiazide 6.25 mg tablet RxNorm: 057343 1 Tablet(s) PO daily 04/21/2015 07/10/2015 Inactive Levothroid 175 mcg tablet RxNorm: 149349 TAKE ONE TABLET BY MOUTH DAILY 04/18/2015 10/14/2015 Inactive hydrocodone 7.5 mg-acetaminophen 325 mg tablet RxNorm: 819543 1 Tablet(s) PO Q6 PRN 04/04/2015 05/18/2015 Inactive [SAVINGS FOR NON-COVERED DRUGS -- BIN:506425, PCN: ASPROD1, Group: XXXXX, ID# [id number], Questions: . THIS IS NOT INSURANCE.] Lipitor 10 mg tablet RxNorm: 586786 1 Tablet(s) PO QHS 201507/02/2015 Inactive azithromycin 250 mg tablet RxNorm: 061653 1 Tablet(s) PO UD Take 2 tabs on day one and 1 tab day 2-5 02/03/20152014 Inactive azithromycin 250 mg tablet RxNorm: 256575 1 Tablet(s) PO UD Take 2 tabs on day one and 1 tab day 2-5 02/03/20152014 Inactive Levothroid 175 mcg tablet RxNorm: 982043 TAKE ONE TABLET BY MOUTH DAILY 12/16/2014 03/15/2015 Inactive Lipitor 10 mg tablet RxNorm: 687700 1 Tablet(s) PO QHS 201403/07/2015 Inactive hydrocodone 7.5 mg-acetaminophen 325 mg tablet RxNorm: 510159 1 Tablet(s) PO Q6 PRN 12/08/2014 04/03/2015 Inactive [SAVINGS FOR NON-COVERED DRUGS -- BIN:[id number], PCN: ASPROD1, Group: XXXXX, ID# [id number], Questions: . THIS IS NOT INSURANCE.] Lipitor 10 mg tablet RxNorm: 861034 1 Tablet(s) PO QHS 201412/07/2014 Inactive meloxicam 15 mg tablet RxNorm: 003777 1 Tablet(s) PO daily 04/01/2015 Inactive Levothroid 175 mcg tablet RxNorm: 376605 1 Tablet(s) PO daily 09/28/2014 12/15/2014 Inactive meloxicam 15 mg tablet RxNorm: 639604 1 Tablet(s) PO daily 09/10/2014 Inactive bisoprolol 2.5 mg-hydrochlorothiazide 6.25 mg tablet RxNorm: 120346 1 Tablet(s) PO daily 08/12/2014 11/09/2014 Inactive Levothroid 175 mcg tablet RxNorm: 169105 1 Tablet(s) PO daily 08/12/2014 09/27/2014 Inactive hydrocodone 7.5 mg-acetaminophen 325 mg tablet RxNorm: 025280 1 Tablet(s) PO Q6 PRN 08/12/2014 12/07/2014 Inactive [SAVINGS FOR NON-COVERED DRUGS -- BIN:810452, PCN: ASPROD1, Group: XXXXX, ID# [id number], Questions: . THIS IS NOT INSURANCE.] acyclovir 400 mg tablet RxNorm: 736053 1 Tablet(s) PO daily 09/10/2014 Inactive hydrocodone 7.5 mg-acetaminophen 325 mg tablet RxNorm: 418685 1 Tablet(s) PO No Start Date 08/11/2014 Inactive Soma 350 mg tablet RxNorm: 250981 1 Tablet(s) PO TID as needed No Start Date 11/05/2016 Inactive alprazolam 0.5 mg tablet RxNorm: 367811 1/2 Tablet(s) PO BID as needed No Start Date 11/29/2015 Inactive Phenergan-Codeine 6.25 mg-10 mg/5 mL syrup RxNorm: 952200 5-10 Milliliter(s) PO Q6 as needed cough No Start Date 2016 Inactive Medication Administered Medication Codes Instructions Start Date Status Kenalog 40 mg/mL suspension for injection RxNorm: 3887317 Milliliter 05/02/2016 No longer Active Immunizations Vaccine [...] Code Result Date Comp. Metabolic Panel (14) 103706 GLUCOSE 96 MG/DL 11/28 Comp. Metabolic Panel (14) 342326 BUN 15 MG/DL 11/28/2017 Comp. Metabolic Panel (14) 839934 CREATININE 0.91 MG/DL 11/28/2017 Comp. Metabolic Panel (14) 168500 EGFR IF NONAFRICN AM 91 ML/MIN/1.73 11/28/2017 Comp. Metabolic Panel (14) 433144 EGFR IF AFRICN AM 106 ML/MIN/1.73 11/28/2017 Comp. Metabolic Panel (14) 668718 BUN/ CREATININE RATIO 16 11/28/2017 Comp. Metabolic Panel (14) 914317 SODIUM 140 MMOL/L 2017 Comp. Metabolic Panel (14) 268181 POTASSIUM 4.1 MMOL/L 11/28/2017 Comp. Metabolic Panel (14) 471176 CHLORIDE 100 MMOL/L Comp. Metabolic Panel (14) 970783 CARBON DIOXIDE, TOTAL 25 MMOL/L 11/28/2017 Comp. Metabolic Panel (14) 618718 CALCIUM 9.1 MG/DL 08/2017 Comp. Metabolic Panel (14) 737972 Protein , Total 6.9 G/DL 11/28 Comp. Metabolic Panel (14) 073826 ALBUMIN 4.5 G/DL 11/28 Comp. Metabolic Panel (14) 375402 GLOBULIN, TOTAL 2.4 G/DL 11/28/2017 Comp. Metabolic Panel (14) 786216 A/G Ratio 1.9 11/28/2017 Comp. Metabolic Panel (14) 862516 BILIRUBIN, TOTAL 0.5 MG/DL 11/28/2017 Comp. Metabolic Panel (14) 413769 ALKALINE PHOSPHATASE 55 IU/L 11/28/2017 Comp. Metabolic Panel (14) 434097 AST ( SGOT) 18 IU/L 2017 Comp. Metabolic Panel (14) 094990 ALT ( SGPT) 24 IU/L 2017 CBC With Differential/Platelet 787488 WBC 10.0 X10E3/UL 08/2017 CBC With Differential/Platelet 664916 RBC 4.78 X10E6/UL 08/2017 CBC With Differential/Platelet 778568 HEMOGLOBIN 14.3 G/DL 11/28/2017 CBC With Differential/Platelet 567183 HEMATOCRIT 41.9 % 08/2017 CBC With Differential/Platelet 483044 MCV 88 FL 11/28/2017 CBC With Differential/Platelet 052848 MCH 29.9 PG 2017 CBC With Differential/Platelet 053971 MCHC 34.1 G/DL 2017 CBC With Differential/Platelet 969080 RDW 13.4 % 11/28/2017 CBC With Differential/Platelet 082546 PLATELETS 309 X10E3/UL 11/28/2017 CBC With Differential/Platelet 707770 NEUTROPHILS 61 % 11/28 CBC With Differential/Platelet 505034 LYMPHS 30 % 2017 CBC With Differential/Platelet 466185 MONOCYTES 6 % 2017 CBC With Differential/Platelet 410794 EOS 2 % 11/28/2017 CBC With Differential/Platelet 741979 BASOS 0 % 11/28/2017 CBC With Differential/Platelet 718009 NEUTROPHILS (ABSOLUTE) 6.2 X10E3/UL 11/28/2017 CBC With Differential/Platelet 317437 LYMPHS (ABSOLUTE) 3.0 X10E3/UL 11/28/2017 CBC With Differential/Platelet 976522 MONOCYTES(ABSOLUTE) 0.6 X10E3/UL 11/28/2017 CBC With Differential/Platelet 273066 EOS (ABSOLUTE) 0.2 X10E3/UL 11/28/2017 CBC With Differential/Platelet 923423 BASO (ABSOLUTE) 0.0 X10E3/UL 11/28/2017 CBC With Differential/Platelet 775176 IMMATURE GRANULOCYTES 1 % 11/28/2017 CBC With Differential/Platelet 254905 IMMATURE GRANS (ABS) 0.1 X10E3/UL 11/28/2017 TSH 547761 TSH 1.530 UIU/ML 11/28/2017 Thyroxine (T4) Free, Direct, S 315844 T4, FREE(DIRECT) 1.56 NG/DL 11/28/2017 Lipid Panel w/ Chol/HDL Ratio 691141 CHOLESTEROL, TOTAL 145 MG/DL 11/28/2017 Lipid Panel w/ Chol/HDL Ratio 264896 TRIGLYCERIDES 216 MG/DL 11/28/2017 Lipid Panel w/ Chol/HDL Ratio 936885 HDL CHOLESTEROL 60 MG/DL 11/28/2017 Lipid Panel w/ Chol/HDL Ratio 203480 VLDL CHOLESTEROL CINDI 43 MG/DL 11/28/2017 Lipid Panel w/ Chol/HDL Ratio 064364 LDL CHOLESTEROL CALC 42 MG/DL 11/28/2017 Lipid Panel w/ Chol/HDL Ratio 585661 T. CHOL/HDL RATIO 2.4 RATIO 11/28/2017 CBC With Differential/Platelet 900876 WBC 6.6 x10E3/uL 06/24 CBC With Differential/Platelet 696843 RBC 4.89 x10E6/uL 04/2017 CBC With Differential/Platelet 984840 HEMOGLOBIN 14.6 g/dL 06/24/2017 CBC With Differential/Platelet 775110 HEMATOCRIT 43.7 % 04/2017 CBC With Differential/Platelet 051048 MCV 89 fL 06/24/2017 CBC With Differential/Platelet 363249 MCH 29.9 pg 2017 CBC With Differential/Platelet 641524 MCHC 33.4 g/dL 2017 CBC With Differential/Platelet 906696 RDW 13.6 % 06/24/2017 CBC With Differential/Platelet 381268 PLATELETS 258 x10E3/uL 06/24/2017 CBC With Differential/Platelet 939818 NEUTROPHILS 51 % 06/24 CBC With Differential/Platelet 730575 LYMPHS 36 % 2017 CBC With Differential/Platelet 878940 MONOCYTES 9 % 2017 CBC With Differential/Platelet 426390 EOS 4 % 06/24/2017 CBC With Differential/Platelet 899053 BASOS 0 % 06/24/2017 CBC With Differential/Platelet 775134 NEUTROPHILS (ABSOLUTE) 3.3 x10E3/uL 06/24/2017 CBC With Differential/Platelet 343956 LYMPHS (ABSOLUTE) 2.3 x10E3/uL 06/24/2017 CBC With Differential/Platelet 020231 MONOCYTES(ABSOLUTE) 0.6 x10E3/uL 06/24/2017 CBC With Differential/Platelet 185919 EOS (ABSOLUTE) 0.3 x10E3/uL 06/24/2017 CBC With Differential/Platelet 887315 BASO (ABSOLUTE) 0.0 x10E3/uL 06/24/2017 CBC With Differential/Platelet 808192 IMMATURE GRANULOCYTES 0 % 06/24/2017 CBC With Differential/Platelet 193603 IMMATURE GRANS (ABS) 0.0 x10E3/uL 06/24/2017 Thyroxine (T4) Free, Direct, S 429439 T4, FREE(DIRECT) 1.35 ng/dL 06/24/2017 Lipid Panel 263246 CHOLESTEROL, TOTAL 122 mg/dL 06/24/2017 Lipid Panel 001636 TRIGLYCERIDES 155 mg/dL 06/24/2017 Lipid Panel 292912 HDL CHOLESTEROL 52 mg/dL 06/24/2017 Lipid Panel 595156 VLDL CHOLESTEROL CINDI 31 mg/dL 06/24/2017 Lipid Panel 809416 LDL CHOLESTEROL CALC 39 mg/dL 06/24/2017 Comp. Metabolic Panel (14) 630230 GLUCOSE 101 mg/dL 04/2017 Comp. Metabolic Panel (14) 934223 BUN 12 mg/dL 06/24/2017 Comp. Metabolic Panel (14) 750629 CREATININE 0.95 mg/dL 06/24/2017 Comp. Metabolic Panel (14) 151920 EGFR IF NONAFRICN AM 87 mL/min/1.73 06/24/2017 Comp. Metabolic Panel (14) 715079 EGFR IF AFRICN AM 100 mL/min/1.73 06/24/2017 Comp. Metabolic Panel (14) 710703 BUN/ CREATININE RATIO 13 06/24/2017 Comp. Metabolic Panel (14) 133020 SODIUM 140 mmol/L 2017 Comp. Metabolic Panel (14) 070017 POTASSIUM 4.1 mmol/L 06/24/2017 Comp. Metabolic Panel (14) 540659 CHLORIDE 99 mmol/L 04/2017 Comp. Metabolic Panel (14) 683776 CARBON DIOXIDE, TOTAL 25 mmol/L 06/24/2017 Comp. Metabolic Panel (14) 828430 CALCIUM 9.5 mg/dL 04/2017 Comp. Metabolic Panel (14) 942619 Protein , Total 7.1 g/dL 06/24 Comp. Metabolic Panel (14) 479262 ALBUMIN 4.6 g/dL 06/24 Comp. Metabolic Panel (14) 606814 GLOBULIN, TOTAL 2.5 g/dL 06/24/2017 Comp. Metabolic Panel (14) 748735 A/G Ratio 1.8 06/24/2017 Comp. Metabolic Panel (14) 487992 BILIRUBIN, TOTAL 0.4 mg/dL 06/24/2017 Comp. Metabolic Panel (14) 065022 ALKALINE PHOSPHATASE 66 IU/L 06/24/2017 Comp. Metabolic Panel (14) 075479 AST ( SGOT) 45 IU/L 2017 Comp. Metabolic Panel (14) 261512 ALT ( SGPT) 41 IU/L 2017 TSH 605916 TSH 0.749 uIU/mL 06/24/2017 Thyroxine (T4) Free, Direct, S 872883 T4, FREE(DIRECT) 1.39 NG/DL 02/22/2016 Lipid Panel 315444 CHOLESTEROL, TOTAL 183 MG/DL 02/22/2016 Lipid Panel 501436 TRIGLYCERIDES 509 MG/DL 02/22/2016 Lipid Panel 128958 HDL CHOLESTEROL 47 MG/DL 02/22/2016 Lipid Panel 832210 VLDL CHOLESTEROL CINDI COMMENT MG/DL 2015 Lipid Panel 377988 LDL CHOLESTEROL CALC COMMENT MG/DL 2015 TSH 752719 TSH 0.510 UIU/ML 02/22/2016 CBC With Differential/Platelet 617390 WBC 6.9 X10E3/UL 02/21 CBC With Differential/Platelet 551091 RBC 4.79 X10E6/UL CBC With Differential/Platelet 299924 HEMOGLOBIN 14.4 G/DL 02/22/2016 CBC With Differential/Platelet 333602 HEMATOCRIT 43.1 % CBC With Differential/Platelet 844974 MCV 90 FL 02/22/2016 CBC With Differential/Platelet 622959 MCH 30.1 PG 2015 CBC With Differential/Platelet 646494 MCHC 33.4 G/DL 2015 CBC With Differential/Platelet 011181 RDW 13.5 % 02/22/2016 CBC With Differential/Platelet 818989 PLATELETS 257 X10E3/UL 02/22/2016 CBC With Differential/Platelet 035361 NEUTROPHILS 57 % 02/21 CBC With Differential/Platelet 666644 LYMPHS 32 % 2015 CBC With Differential/Platelet 249837 MONOCYTES 8 % 2015 CBC With Differential/Platelet 127853 EOS 3 % 02/22/2016 CBC With Differential/Platelet 730891 BASOS 0 % 02/22/2016 CBC With Differential/Platelet 652175 NEUTROPHILS (ABSOLUTE) 4.0 X10E3/UL 02/22/2016 CBC With Differential/Platelet 306042 LYMPHS (ABSOLUTE) 2.2 X10E3/UL 02/22/2016 CBC With Differential/Platelet 628959 MONOCYTES(ABSOLUTE) 0.5 X10E3/UL 02/22/2016 CBC With Differential/Platelet 142373 EOS (ABSOLUTE) 0.2 X10E3/UL 02/22/2016 CBC With Differential/Platelet 738779 BASO (ABSOLUTE) 0.0 X10E3/UL 02/22/2016 CBC With Differential/Platelet 133515 IMMATURE GRANULOCYTES 0 % 02/22/2016 CBC With Differential/Platelet 472905 IMMATURE GRANS (ABS) 0.0 X10E3/UL 02/22/2016 Comp. Metabolic Panel (14) 725201 GLUCOSE , SERUM 111 MG/DL Comp. Metabolic Panel (14) 385103 BUN 14 MG/DL 02/22/2016 Comp. Metabolic Panel (14) 784342 CREATININE, SERUM 1.03 MG/DL 02/22/2016 Comp. Metabolic Panel (14) 457993 EGFR IF NONAFRICN AM 79 ML/MIN/1.73 02/22/2016 Comp. Metabolic Panel (14) 486682 EGFR IF AFRICN AM 91 ML/MIN/1.73 02/22/2016 Comp. Metabolic Panel (14) 464677 BUN/ CREATININE RATIO 14 02/22/2016 Comp. Metabolic Panel (14) 784198 SODIUM , SERUM 140 MMOL/L Comp. Metabolic Panel (14) 079071 POTASSIUM, SERUM 3.9 MMOL/L 02/22/2016 Comp. Metabolic Panel (14) 312505 CHLORIDE, SERUM 99 MMOL/L 02/22/2016 Comp. Metabolic Panel (14) 163564 CARBON DIOXIDE, TOTAL 25 MMOL/L 02/22/2016 Comp. Metabolic Panel (14) 962041 CALCIUM , SERUM 9.1 MG/DL Comp. Metabolic Panel (14) 106463 PROTEIN , TOTAL, SERUM 6.5 G/DL 02/22/2016 Comp. Metabolic Panel (14) 487333 ALBUMIN , SERUM 4.1 G/DL 02/21 Comp. Metabolic Panel (14) 875002 GLOBULIN, TOTAL 2.4 G/DL 02/22/2016 Comp. Metabolic Panel (14) 629079 A/G Ratio 1.7 02/22/2016 Comp. Metabolic Panel (14) 893324 BILIRUBIN, TOTAL 0.2 MG/DL 02/22/2016 Comp. Metabolic Panel (14) 171941 ALKALINE PHOSPHATASE, S 72 IU/L 02/22/2016 Comp. Metabolic Panel (14) 792130 AST ( SGOT) 30 IU/L 2015 Comp. Metabolic Panel (14) 419600 ALT ( SGPT) 43 IU/L 2015 Total Psa Ord10 PSA 1.04 ng/mL 12/02/2014 Comp Metabolic Lvx664 NA 132 mEq/L 12/02/2014 Comp Metabolic Hey259 K 4.1 mEq/L 12/02/2014 Comp Metabolic Cdu741 CL 100 mEq/L 12/02/2014 Comp Metabolic Tvw018 CO2 26.0 mEq/L 12/02/2014 Comp Metabolic Xge751 ANION GAP 10 12/02/2014 Comp Metabolic Znh473 GLUCOSE 107 mg/dL 12/02/2014 Comp Metabolic Cty280 Creat 1.1 mg/dL 12/02/2014 Comp Metabolic Wga848 eGFR 73 ml/min/1.73m2 12/02/2014 Comp Metabolic Ruy295 BUN 16 mg/dL 12/02/2014 Comp Metabolic Kby042 B/C Ratio 14.5 Ratio 12/02/2014 Comp Metabolic Sht460 CALCIUM 9.5 mg/dL 12/02/2014 Comp Metabolic Iej750 ALK PHOS 39 U/L 12/02/2014 Comp Metabolic Fly142 AST(SGOT) 18 U/L 12/02/2014 Comp Metabolic Nny649 ALT(SGPT) 24 U/L 12/02/2014 Comp Metabolic Rko974 BILI T 0.5 mg/dL 12/02/2014 Comp Metabolic Kru485 ALBUMIN 4.2 g/dL 12/02/2014 Comp Metabolic Yaw542 TPRO 6.5 g/dL 12/02/2014 Comp Metabolic Ekz464 GLOB 2.3 g/dL 12/02/2014 Comp Metabolic Jqb727 A/G Ratio 1.8 Ratio 12/02/2014 Comp Metabolic Hdw569 Osmo 266 mOsmo 12/02/2014 Tsh Ord6 hTSH [...] With Differential Ord2 RDW 13.2 % 12/02/2014 Lipid Ord30 CHOL 226 mg/dL 12/02/2014 [...] Procedure Codes Date IMMUNIZATION ADMIN CPT -4: 56567 01/28/2017 FLU VAC NO PRSV 4 MONTY 3 YRS+ CPT-4: 63155 01/28/2017 TRIAMCINOLONE ACET INJ NOS CPT-4: J3301 05/02/2016 IMMUNIZATION ADMIN CPT -4: 75830 01/02/2016 FLU VACC 4 MONTY 3 YRS PLUS IM Formatting Model/CDA Sections, Assigned to/Ana Bella SNOMED CT: [id number] CPT-4: [id number] 01/02/2016 IMMUNIZATION ADMIN CPT -4: 56761 12/28/2014 IIV4 FLU VACC NO PRESERV ID Formatting Model/CDA Sections, Assigned to/Ana Bella SNOMED CT: [id number] CPT-4: 68957Bpyknyv 12/28/2014 Vital Signs Date Vital 11/27/2017 Blood Pressure 1: 122/76 Code : 8480-6 BMI: 27.2 Code : 29541-5 Heart Rate 1 : 58 bpm Height: 5'8" SpO2: 98% Weight: 179 lbs 09/19/2017 Blood Pressure 1: 122/60 Code : 8480-6 BMI: 29.8 Code : 21188-5 Heart Rate 1 : 57 bpm Height: 5'8" SpO2: 93% Weight: 196 lbs 05/23/2017 Blood Pressure 1: 122/74 Code : 8480-6 BMI: 29.2 Code : 11008-7 Heart Rate 1 : 68 bpm Height: 5'8" SpO2: 97% Weight: 192 lbs 08/02/2016 Blood Pressure 1: 142/80 Code : 8480-6 BMI: 28.1 Code : 63495-2 Heart Rate 1 : 61 bpm Height: 5'8" SpO2: 98% Weight: 185 lbs 05/17/2016 Blood Pressure 1: 126/74 Code : 8480-6 BMI: 27.7 Code : 54121-3 Heart Rate 1 : 60 bpm Height: 5'8" SpO2: 95% Temperature: 37.0 (C) / 98.6 (F) Weight: 182 lbs 05/02/2016 Blood Pressure 1: 106/68 Code : 8480-6 BMI: 27.8 Code : 32823-5 Heart Rate 1 : 58 bpm Height: 5'8" SpO2: 97% Temperature: 36.7 (C) / 98.1 (F) Weight: 183 lbs 02/02/2016 Blood Pressure 1: 124/76 Code : 8480-6 BMI: 28.0 Code : 20909-4 Heart Rate 1 : 68 bpm Height: 5'8" SpO2: 98% Weight: 184 lbs 01/02/2016 Blood Pressure 1: 130/72 Code : 8480-6 BMI: 28.0 Code : 27639-5 Heart Rate 1 : 62 bpm Height: 5'8" SpO2: 96% Weight: 184 lbs 08/04/2015 Blood Pressure 1: 128/76 Code : 8480-6 BMI: 27.7 Code : 28591-1 Heart Rate 1 : 64 bpm Height: 5'8" SpO2: 98% Weight: 182 lbs 06/29/2015 Blood Pressure 1: 142/84 Code : 8480-6 BMI: 28.0 Code : 95965-3 Heart Rate 1 : 55 bpm Height: 5'8" SpO2: 97% Weight: 184 lbs 05/19/2015 Blood Pressure 1: 120/78 Code : 8480-6 BMI: 27.2 Code : 94314-6 Heart Rate 1 : 86 bpm Height: 5'8" Weight: 179 lbs 12/28/2014 Blood Pressure 1: 130/68 Code : 8480-6 BMI: 27.7 Code : 87951-8 Heart Rate 1 : 52 bpm Height: 5'8" SpO2: 98% Weight: 182 lbs 08/12/2014 Blood Pressure 1: 118/70 Code : 8480-6 BMI: 27.7 Code : 42092-5 Heart Rate 1 : 64 bpm Height: [...] Encounters Encounter Performer Location Codes Date ( 85558 EST. PATIENT, LEVEL IV Diagnosis: Mixed hyperlipidemia[ICD10: E78.2] Diagnosis: Essential (primary) hypertension[ICD10: I10] Diagnosis: Atrophy of thyroid (acquired)[ICD10: E03.4] Diagnosis: Pain in right knee[ICD10: M25.561] Laura Hurt MD, [facility] CPT-4: 43305 11/27/2017 [id number] EST. PATIENT, LEVEL III Diagnosis: Cellulitis of back [any part except buttock][ICD10: L03.312] Rose Hurt MD , [facility] CPT-4: 49116 09/19/2017 ([id number]) PREV VISIT EST AGE 40-64 Diagnosis: Encounter for general adult medical examination without abnormal findings[ICD10: Z00.00] Laura Hurt MD, [facility] CPT-4: 20049 05/23/2017 ([id number]) 64825 EST. PATIENT, LEVEL IV Diagnosis: Essential (primary) hypertension[ICD10: I10] Diagnosis: Atrophy of thyroid (acquired)[ICD10: E03.4] Diagnosis: Mixed hyperlipidemia[ICD10: E78.2] Diagnosis: Other allergic rhinitis[ICD10: J30.89] Diagnosis: Melanocytic nevi of left lower limb, including hip[ICD10: D22.72] Diagnosis: Melanocytic nevi of right lower limb, including hip[ICD10: D22.71] Laura Hurt MD, [facility] CPT-4: 52259 08/02/2016 94722 EST. PATIENT, LEVEL III Diagnosis: Other allergic rhinitis[ICD10: J30.89] Diagnosis: Cough[ICD10: R05] Diagnosis: Candidal stomatitis[ICD10: B37.0] Rose Hurt MD, [facility] CPT -4: 13596 05/17/2016 [id number] EST. PATIENT, LEVEL III Diagnosis: Acute bronchitis due to other specified organisms[ICD10: J20.8] Rose Hurt MD, [facility] CPT-4: 72938 05/02/2016 ([id number]) PREV VISIT EST AGE 40-64 Diagnosis: Atrophy of thyroid (acquired)[ICD10: E03.4] Diagnosis: Mixed hyperlipidemia[ICD10: E78.2] Diagnosis: Essential (primary) hypertension[ICD10: I10] Diagnosis: Encounter for general adult medical examination without abnormal findings[ICD10: Z00.00] Laura Hurt MD, [facility] CPT-4: 44765 02/02/2016 13767 EST. PATIENT, LEVEL II Diagnosis: Cellulitis of head [any part, except face][ICD10: L03.811] Diagnosis: Rash and other nonspecific skin eruption[ICD10: R21] Diagnosis: VACCIN FOR INFLUENZA[ICD10: Z23] Monae Hurt MD, [facility] CPT-4: 11427 01/02/2016 ([id number]) 68761 EST. PATIENT, LEVEL III Diagnosis: Essential (primary) hypertension[ICD10: I10] Laura Hurt MD, [facility] CPT-4: 85095 08/04/2015 21288 EST. PATIENT, LEVEL IV Diagnosis: Other acute sinusitis[ICD10: J01.80] Diagnosis: Other allergic rhinitis[ICD10: J30.89] Rose Hurt MD, [facility] CPT-4: 91881 06/29/2015 ([id number]) 61790 EST. PATIENT, LEVEL III Diagnosis: Low back pain[ICD10: M54.5] Diagnosis: Rash and other nonspecific skin eruption[ICD10: R21] [facility] CPT-4: 98569 05/19/2015 ([id number]) 93486 EST. PATIENT, LEVEL III Diagnosis: Mixed hyperlipidemia[ICD10: E78.2] Diagnosis: Hypothyroidism, unspecified[ICD10: E03.9] [facility] CPT-4: 99907 12/28/2014 ([id number]) PREV VISIT NEW AGE 40-64 Diagnosis: Well adult exam[ICD9: V70.0] Monae Hurt MD, [facility] CPT-4: 67703 08/12/2014 Plan of Care Planned Activity Notes [...] the hydrocodone. 11/27/2017 Appointment: Laura Hurt WPtel: [address] [place], [place] [id number] (15 min) Moderate 11/27/2017 Patient Education: Patient [...] discharge. 09/19/2017 Appointment: Rose Ferrer WPtel: [phone] [facility] (15 min) Moderate 09/19/2017 Patient Education: Patient Medication Summary Completed 09/19/2017 Appointment: Rose Ferrer WPtel: [phone] [facility] (15 min) Moderate 06/18/2017 Visit Plan: Well [...] colonoscopy 05/23/2017 Appointment: Laura Hurt WPtel: [phone] [facility] (15 min) Moderate 05/23/2017 Patient Education: Patient Medication Summary Completed 05/23/2017 Care Plan: Referral Order SNOMED-CT : [id number] Pending 05/23/2017 Appointment: Injection 01/28/2017 Patient Education: [...] month 08/02/2016 [facility]: [facility] [phone] [facility] (30 min) Complex 08/02/2016 Patient [...] for allergies 05/17/2016 [phone] ([facility]) Moderate 05/17/2016 Patient Education: [...] worsen. 05/02/2016 [facility]ment[phone] [facility] [place] (15 min) Moderate 05/02/2016 Patient Education: [...] medications. 02/02/2016 App[facility]ment: [facility] [phone] [facility] (30 min) Complex 02/02/2016 Patient Education: Patient Medication Summary Completed 02/02/2016 Visit Plan: Qnibctzztkqg-dmkry-vbygzld of pustule today in the office-will treat as indicated-patient verbalized understanding of plan. 01/02/2016 Visit Plan: Pyhedaweusqg-wfngf-iwsdtlu of pustule today in the office-will treat as indicated-patient verbalized understanding of plan. 01/02/2016 App[facility]ment[phone] [phone] (30 min) Complex 01/02/2016 Patient Education: Patient [...] home. 08/04/2015 Appointment: [facility] [phone] [facility] (30 min) Complex 08/04/2015 Patient [...] daily in the morning for 2 weeks [facility] allergy medicine - 1 daily for 2 [...] assure normal liver response to medications. . Ukkrkbidvwcb-kxjvd-ojkeynj of pustule today in the office -will treat as indicated-patient verbalized understanding of plan. . Bvvaakapaqit-rufni-qwsugut of pustule today in the office -will [...]
--- OUTSIDE RECORDS SUMMARY | 2018-07-17 11:42 | XMS REPORT | CCD ---
Author Author Monae Berkowitz MD, [facility] Address [address] [place] [address] Phone Care Team Providers Care Change Number Operator Name Role Phone PP Unavailable CCM Unavailable Summary Purpose Interface Exchange Insurance Providers Payer name Policy type / Coverage type Covered alliance party ID Effective Begin Date Effective End Date Blue Cross Blue [facility] Blue Cross/Blue Shield [id number] Unknown Unknown Family history Mother Diagnosis Age At Onset Coronary Artery Disease Unknown Breast cancer Unknown Father Diagnosis Age At Onset Hypertension Unknown Cancer Unknown Social History Social History Element Codes Description Effective Dates Frequency of drinks SNOMED CT: 974510072 10 drinks per week -varies- more on weekends 08/02/2016 Employment Unknown 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 Marital status Unknown Single 08/12/2014 Number of children Unknown 0 08/12/[address]: 6881910 Quit less than 10 years ago 200608/12/[address]: 865975 Currently drinks alcohol 08/12/2014 Allergies, Adverse Reactions, Alerts Substance Reaction Codes Entered Date Inactivated Date Status * NO KNOWN DRUG ALLERGIES Unknown 08/12/2014 No Inactive Date Active Past Medical History Illness Codes Condition Status Onset Date Resolved Date Cellulitis of back [any part except buttock] ICD-9: 682.2 ICD-10: L03.312 Active 09/19/2017 Unknown Encounter for general adult medical examination without abnormal findings ICD-9: V70.0 ICD-10: Z00.00 Active 08/11/2014 Unknown VACCIN FOR INFLUENZA ICD-9: V04.81 ICD-10: Z23 Active 01/01/2016 Unknown Atrophy of thyroid (acquired) ICD-9: 244.8 ICD-10: E03.4 Active 02/01/2016 Unknown Essential (primary) hypertension ICD-9: 401.1 ICD-10: I10 Active 02/01/2016 Unknown Melanocytic nevi of left lower limb, including hip ICD-9: 216.7 ICD-10: D22.72 Active 08/02/2016 Unknown Melanocytic nevi of right lower limb, including hip ICD-9: 216.7 ICD-10: D22.71 Active 08/02/2016 Unknown Mixed hyperlipidemia ICD-9: 272.2 ICD-10: E78.2 Active 02/01/2016 Unknown Other allergic rhinitis ICD-9: 477.8 ICD-10: [...] Problems Condition Codes Effective Dates Condition Status Cellulitis of back [any part except buttock] ICD-9: 682.2 ICD-10: L03.312 09/19/2017 Active Encounter for general adult medical examination without abnormal findings ICD-9: V70.0 ICD-10: Z00.00 08/11/2014 Active VACCIN FOR INFLUENZA ICD-9: V04.81 ICD-10: Z23 01/01/2016 Active Atrophy of thyroid (acquired) ICD-9: 244.8 ICD-10: E03.4 02/01/2016 Active Essential (primary) hypertension ICD-9: 401.1 ICD-10: I10 02/01/2016 Active Melanocytic nevi of left lower limb, including hip ICD-9: 216.7 ICD-10: D22.72 08/02/2016 Active Melanocytic nevi of right lower limb, including hip ICD-9: 216.7 ICD-10: D22.71 08/02/2016 Active Mixed hyperlipidemia ICD-9: 272.2 ICD-10: E78.2 02/01/2016 Active Other allergic rhinitis ICD-9: 477.8 ICD-10: [...] Fill Instructions acyclovir 400 mg tablet RxNorm: 103057 TAKE ONE TABLET BY MOUTH DAILY 11/11/2017 02/08/2018 Active bisoprolol 5 mg-hydrochlorothiazide 6.25 mg tablet RxNorm: 053517 TAKE ONE TABLET BY MOUTH DAILY 09/30/2017 03/28/2018 Active Lipitor 80 mg tablet RxNorm: 126108 TAKE ONE TABLET BY MOUTH EVERY NIGHT AT BEDTIME 09/30/2017 02/26/2018 Active Levothroid 175 mcg tablet RxNorm: 472572 Tablet(s) TAKE ONE TABLET BY MOUTH DAILY ON AN EMPTY STOMACH . 09/30/20172018 Active Bactrim DS 800 mg-160 mg tablet RxNorm: 475739 1 Tablet(s) PO BID 09/19/2017 09/25/2017 Inactive alprazolam 0.5 mg tablet RxNorm: 303825 1/2 Tablet(s) PO BID as needed 07/24/2017 09/21/2017 Inactive Zithromax Z-Bassam 250 mg tablet RxNorm: 065781 1 Tablet(s) PO UD 06/17/2017 07/23/2017 Inactive z pack as directed Levothroid 175 mcg tablet RxNorm: 870843 TAKE ONE TABLET BY MOUTH DAILY ON AN EMPTY STOMACH . NEED TO REPEAT LAB FOR TSH AND FREE T4 201708/31/2017 Inactive gemfibrozil 600 mg tablet RxNorm: 183141 1 Tablet(s) PO BID 03/201702/16/2018 Active Penlac 8 % topical solution RxNorm: 477723 1 Application TOP daily 05/23/2017 06/21/2017 Inactive ketoconazole 2 % topical cream RxNorm: 913263 1 Application TOP BID 05/23/2017 06/05/2017 Inactive Cipro 500 mg tablet RxNorm: 224510 1 Tablet(s) PO BID 201705/30/2017 Inactive Flagyl 500 mg tablet RxNorm: 570815 1 Tablet(s) PO TID 201705/30/2017 Inactive acyclovir 400 mg tablet RxNorm: 527175 TAKE ONE TABLET BY MOUTH DAILY 04/26/2017 10/22/2017 Inactive bisoprolol 5 mg-hydrochlorothiazide 6.25 mg tablet RxNorm: 077069 TAKE ONE TABLET BY MOUTH DAILY 03/11/2017 09/06/2017 Inactive Levothroid 175 mcg tablet RxNorm: 427240 TAKE ONE TABLET BY MOUTH DAILY ON AN EMPTY STOMACH . NEED TO REPEAT LAB FOR TSH AND FREE T4 201606/02/2017 Inactive Lipitor 80 mg tablet RxNorm: 649927 Tablet(s) PO TAKE ONE TABLET BY MOUTH EVERY NIGHT AT BEDTIME 12/24/2016 06/21/2017 Inactive Levothroid 175 mcg tablet RxNorm: 669173 TAKE ONE TABLET BY MOUTH DAILY ON AN EMPTY STOMACH . NEED TO REPEAT LAB FOR TSH AND FREE T4 201603/10/2017 Inactive hydrocodone 7.5 mg-acetaminophen 325 mg tablet RxNorm: 682903 1 Tablet(s) PO Q6 PRN 11/06/2016 12/05/2016 Inactive [SAVINGS FOR NON-COVERED DRUGS -- BIN:[id number], PCN: ASPROD1, Group: XXXXX, ID# [id number], Questions: . THIS IS NOT INSURANCE.] Soma 350 mg tablet RxNorm: 719945 1 Tablet(s) PO TID as needed 11/06/2016 No Stop Date Active alprazolam 0.5 mg tablet RxNorm: 693063 1/2 Tablet(s) PO BID as needed 10/05/2016 No Stop Date Active Lipitor 80 mg tablet RxNorm: 938772 Tablet(s) PO TAKE ONE TABLET BY MOUTH EVERY NIGHT AT BEDTIME 09/04/2016 12/23/2016 Inactive Lipitor 40 mg tablet RxNorm: 487193 TAKE ONE TABLET BY MOUTH EVERY NIGHT AT BEDTIME 09/04/2016 09/03/2016 Inactive acyclovir 400 mg tablet RxNorm: 087656 TAKE ONE TABLET BY MOUTH DAILY 08/23/2016 02/18/2017 Inactive bisoprolol 5 mg-hydrochlorothiazide 6.25 mg tablet RxNorm: 214860 TAKE ONE TABLET BY MOUTH DAILY 08/23/2016 02/18/2017 Inactive Levothroid 175 mcg tablet RxNorm: 391658 Tablet(s) TAKE ONE TABLET BY MOUTH DAILY 08/22/2016 11/19/2016 Inactive Needs to repeat TSH et Free T4 labs acyclovir 400 mg tablet RxNorm: 920603 TAKE ONE TABLET BY MOUTH DAILY 08/21/2016 08/22/2016 Inactive prednisone 10 mg tablet RxNorm: 791970 Tablet(s) PO UD dispense a medrol dose pack 08/10/2016 07/23/2017 Inactive 6,5,4,3,2,1 prednisone 10 mg tablet RxNorm: 185069 Tablet(s) PO UD dispense a medrol dose pack 07/30/2016 08/09/2016 Inactive 6,5,4,3,2,1 cefdinir 300 mg capsule RxNorm: 407913 1 Capsule(s) PO BID 10/201608/08/2016 Inactive cefdinir 300 mg capsule RxNorm: 508295 1 Capsule(s) PO BID 10/201607/29/2016 Inactive Lipitor 40 mg tablet RxNorm: 532423 TAKE ONE TABLET BY MOUTH EVERY NIGHT AT BEDTIME 06/25/2016 09/03/2016 Inactive nystatin 100,000 unit/mL oral suspension RxNorm: 013529 5 Milliliter(s) PO TID 05/17/2016 05/21/2016 Inactive Zyrtec 10 mg tablet RxNorm: 5655822 1 Tablet(s) PO daily 05/1706/15/2016 Inactive Levothroid 175 mcg tablet RxNorm: 017234 TAKE ONE TABLET BY MOUTH DAILY 05/16/2016 08/13/2016 Inactive Levaquin 750 mg tablet RxNorm: 003034 1 Tablet(s) PO daily 05/09/2016 Inactive Levaquin 750 mg tablet RxNorm: 713037 1 Tablet(s) PO daily 05/14/2016 Inactive Phenergan-Codeine 6.25 mg-10 mg/5 mL syrup RxNorm: 141614 5-10 Milliliter(s) PO Q6 as needed cough 05/02/2016 No Stop Date Active prednisone 10 mg tablet RxNorm: 578924 Tablet(s) PO UD 201607/29/2016 Inactive 6,5,4,3,2,1 Kenalog 40 mg/mL suspension for injection RxNorm: 8180206 Milliliter(s) Inj 05/02/2016 05/02/2016 Inactive Phenergan-Codeine 6.25 mg-10 mg/5 mL syrup RxNorm: 145200 5-10 Milliliter(s) PO Q6 as needed cough 04/25/2016 05/01/2016 Inactive Zithromax Z-Bassam 250 mg tablet RxNorm: 906147 1 Tablet(s) PO UD 04/25/2016 07/29/2016 Inactive z pack as directed acyclovir 400 mg tablet RxNorm: 601226 TAKE ONE TABLET BY MOUTH DAILY 04/10/2016 07/08/2016 Inactive Zetia 10 mg tablet RxNorm: 532522 1 Tablet(s) PO daily 201505/22/2017 Inactive Zetia 10 mg tablet RxNorm: 249739 1 Tablet(s) PO daily 201503/06/2016 Inactive Lipitor 40 mg tablet RxNorm: 566219 Tablet(s) PO TAKE ONE TABLET BY MOUTH EVERY NIGHT AT BEDTIME 03/07/2016 06/24/2016 Inactive Patient is requesting 90 days supply Diflucan 150 mg tablet RxNorm: 468099 1 Tablet(s) PO daily 01/11/2016 Inactive Diflucan 150 mg tablet RxNorm: 168444 1 Tablet(s) PO daily 01/04/2016 Inactive hydrocodone 7.5 mg-acetaminophen 325 mg tablet RxNorm: 729199 1 Tablet(s) PO Q6 PRN 12/28/2015 01/26/2016 Inactive [SAVINGS FOR NON-COVERED DRUGS -- BIN:202479, PCN: ASPROD1, Group: XXXXX, ID# [id number], Questions: . THIS IS NOT INSURANCE.] alprazolam 0.5 mg tablet RxNorm: 697642 1/2 Tablet(s) PO BID as needed 11/30/2015 10/04/2016 Inactive Levothroid 175 mcg tablet RxNorm: 958785 Tablet(s) TAKE ONE TABLET BY MOUTH DAILY 10/26/2015 04/22/2016 Inactive hydrocodone 7.5 mg-acetaminophen 325 mg tablet RxNorm: 360455 1 Tablet(s) PO Q6 PRN 08/30/2015 09/28/2015 Inactive [SAVINGS FOR NON-COVERED DRUGS -- BIN:545792, PCN: ASPROD1, Group: XXXXX, ID# [id number], Questions: . THIS IS NOT INSURANCE.] Ventolin HFA 90 mcg/actuation aerosol inhaler RxNorm: 837168 2 INH PRN dyspnea 08/04/2015 No Stop Date Active bisoprolol 5 mg-hydrochlorothiazide 6.25 mg tablet RxNorm: 656418 TAKE ONE TABLET BY MOUTH DAILY 07/11/2015 01/06/2016 Inactive Patient is requesting 90 days supply bisoprolol 5 mg-hydrochlorothiazide 6.25 mg tablet RxNorm: 923098 TAKE ONE TABLET BY MOUTH DAILY 07/11/2015 01/06/2016 Inactive Lipitor 10 mg tablet RxNorm: 630908 TAKE ONE TABLET BY MOUTH EVERY NIGHT AT BEDTIME 07/11/2015 01/06/2016 Inactive Patient is requesting 90 days supply Lipitor 10 mg tablet RxNorm: 788998 TAKE ONE TABLET BY MOUTH EVERY NIGHT AT BEDTIME 07/11/2015 05/13/2016 Inactive acyclovir 400 mg tablet RxNorm: 242043 1 Tablet(s) PO daily 08/22/2016 Inactive acyclovir 400 mg tablet RxNorm: 716940 1 Tablet(s) PO daily 07/10/2015 Inactive Zithromax Z-Bassam 250 mg tablet RxNorm: 381578 Tablet(s) PO UD 08/03/2015 Inactive acyclovir 400 mg tablet RxNorm: 179018 1 Tablet(s) PO daily 08/201507/05/2015 Inactive meloxicam 15 mg tablet RxNorm: 654779 TAKE ONE TABLET BY MOUTH DAILY 06/27/2015 11/23/2015 Inactive triamcinolone acetonide 0.1 % topical cream RxNorm: 6419539 1 Application TOP BID 05/19/2015 06/01/2015 Inactive apply very thin layer as directed hydrocodone 7.5 mg-acetaminophen 325 mg tablet RxNorm: 863478 1 Tablet(s) PO Q6 PRN 05/19/2015 08/29/2015 Inactive [SAVINGS FOR NON-COVERED DRUGS -- BIN:591714, PCN: ASPROD1, Group: XXXXX, ID# [id number], Questions: . THIS IS NOT INSURANCE.] Cipro 500 mg tablet RxNorm: 239312 1 Tablet(s) PO BID 201504/20/2015 Inactive Cipro 500 mg tablet RxNorm: 414443 1 Tablet(s) PO BID 201504/30/2015 Inactive Flagyl 500 mg tablet RxNorm: 216740 1 Tablet(s) PO TID 201504/30/2015 Inactive Flagyl 500 mg tablet RxNorm: 623392 1 Tablet(s) PO TID 201504/20/2015 Inactive bisoprolol 5 mg-hydrochlorothiazide 6.25 mg tablet RxNorm: 099662 1 Tablet(s) PO daily 04/21/2015 07/10/2015 Inactive Levothroid 175 mcg tablet RxNorm: 966755 TAKE ONE TABLET BY MOUTH DAILY 04/18/2015 10/14/2015 Inactive hydrocodone 7.5 mg-acetaminophen 325 mg tablet RxNorm: 979358 1 Tablet(s) PO Q6 PRN 04/04/2015 05/18/2015 Inactive [SAVINGS FOR NON-COVERED DRUGS -- BIN:568625, PCN: ASPROD1, Group: XXXXX, ID# [id number], Questions: . THIS IS NOT INSURANCE.] Lipitor 10 mg tablet RxNorm: 907439 1 Tablet(s) PO QHS 201507/02/2015 Inactive azithromycin 250 mg tablet RxNorm: 802860 1 Tablet(s) PO UD Take 2 tabs on day one and 1 tab day 2-5 02/03/20152014 Inactive azithromycin 250 mg tablet RxNorm: 095494 1 Tablet(s) PO UD Take 2 tabs on day one and 1 tab day 2-5 02/03/20152014 Inactive Levothroid 175 mcg tablet RxNorm: 141344 TAKE ONE TABLET BY MOUTH DAILY 12/16/2014 03/15/2015 Inactive Lipitor 10 mg tablet RxNorm: 013372 1 Tablet(s) PO QHS 201403/07/2015 Inactive hydrocodone 7.5 mg-acetaminophen 325 mg tablet RxNorm: 344408 1 Tablet(s) PO Q6 PRN 12/08/2014 04/03/2015 Inactive [SAVINGS FOR NON-COVERED DRUGS -- BIN:801493, PCN: ASPROD1, Group: XXXXX, ID# [id number], Questions: . THIS IS NOT INSURANCE.] Lipitor 10 mg tablet RxNorm: 826801 1 Tablet(s) PO QHS 201412/07/2014 Inactive meloxicam 15 mg tablet RxNorm: 991341 1 Tablet(s) PO daily 04/01/2015 Inactive Levothroid 175 mcg tablet RxNorm: 029333 1 Tablet(s) PO daily 09/28/2014 12/15/2014 Inactive meloxicam 15 mg tablet RxNorm: 975830 1 Tablet(s) PO daily 09/10/2014 Inactive bisoprolol 2.5 mg-hydrochlorothiazide 6.25 mg tablet RxNorm: 185300 1 Tablet(s) PO daily 08/12/2014 11/09/2014 Inactive Levothroid 175 mcg tablet RxNorm: 172753 1 Tablet(s) PO daily 08/12/2014 09/27/2014 Inactive hydrocodone 7.5 mg-acetaminophen 325 mg tablet RxNorm: 546089 1 Tablet(s) PO Q6 PRN 08/12/2014 12/07/2014 Inactive [SAVINGS FOR NON-COVERED DRUGS -- BIN:998190, PCN: ASPROD1, Group: XXXXX, ID# [id number], Questions: . THIS IS NOT INSURANCE.] acyclovir 400 mg tablet RxNorm: 167347 1 Tablet(s) PO daily 09/10/2014 Inactive hydrocodone 7.5 mg-acetaminophen 325 mg tablet RxNorm: 321449 1 Tablet(s) PO No Start Date 08/11/2014 Inactive Soma 350 mg tablet RxNorm: 152277 1 Tablet(s) PO TID as needed No Start Date 11/05/2016 Inactive alprazolam 0.5 mg tablet RxNorm: 452128 1/2 Tablet(s) PO BID as needed No Start Date 11/29/2015 Inactive Phenergan-Codeine 6.25 mg-10 mg/5 mL syrup RxNorm: 854298 5-10 Milliliter(s) PO Q6 as needed cough No Start Date 2016 Inactive Medication Administered Medication Codes Instructions Start Date Status Kenalog 40 mg/mL suspension for injection RxNorm: 7402264 Milliliter 05/02/2016 No longer Active Immunizations Vaccine Codes Date Status Influenza CVX: 141 01/28/2017 completed Influenza CVX: 141 01/02/2016 completed Influenza CVX: 141 12/28/2014 completed Assessments Condition Codes Effective Dates Cellulitis of back [any part except buttock] ICD-10: L03.312 ICD-9: 682.2 09/19/2017 Encounter for general adult medical examination without abnormal findings ICD-10: Z00.00 ICD-9: V70.0 05/23/2017 VACCIN FOR INFLUENZA ICD-10: Z23 ICD-9: V04.81 01/28/2017 Melanocytic nevi of left lower limb, including hip ICD-10: D22.72 ICD-9: 216.7 08/02/2016 Melanocytic nevi of right lower limb, including hip ICD-10: D22.71 ICD-9: 216.7 08/02/2016 Essential (primary) hypertension ICD-10: I10 ICD-9: 401.1 08/02/2016 Mixed hyperlipidemia ICD-10: E78.2 ICD-9: 272.2 08/02/2016 Other allergic rhinitis ICD-10: J30.89 ICD-9: 477.8 08/02/2016 Atrophy of thyroid (acquired) ICD-10: E03.4 ICD-9: 244.8 08/02/2016 Cough ICD-10: R05 ICD-9: 786.2 05/17/2016 [...] Visit Reason For Visit Effective Dates Notes arthropod bite 09/19/2017 hypertension 05/23/2017 vaccination against influenza 01/28/2017 hypertension 08/02/2016 sinus congestion 05/17/2016 sinus congestion 05/02/2016 hypertension 02/02/2016 rash 01/02/2016 scalp hypertension 08/04/2015 cough 06/29/2015 rash 05/19/2015 dry skin to upper eye lids cyst 12/28/2014 hypothyroid 08/12/2014 Results Observation Observation Code Item Item Code Result Date TSH 654951 TSH 0.749 uIU/mL 06/24/2017 Comp. Metabolic Panel (14) 591672 GLUCOSE 101 mg/dL 04/2017 Comp. Metabolic Panel (14) 414797 BUN 12 mg/dL 06/24/2017 Comp. Metabolic Panel (14) 706363 CREATININE 0.95 mg/dL 06/24/2017 Comp. Metabolic Panel (14) 287659 EGFR IF NONAFRICN AM 87 mL/min/1.73 06/24/2017 Comp. Metabolic Panel (14) 968904 EGFR IF AFRICN AM 100 mL/min/1.73 06/24/2017 Comp. Metabolic Panel (14) 107116 BUN/ CREATININE RATIO 13 06/24/2017 Comp. Metabolic Panel (14) 308973 SODIUM 140 mmol/L 2017 Comp. Metabolic Panel (14) 259411 POTASSIUM 4.1 mmol/L 06/24/2017 Comp. Metabolic Panel (14) 430197 CHLORIDE 99 mmol/L 04/2017 Comp. Metabolic Panel (14) 376020 CARBON DIOXIDE, TOTAL 25 mmol/L 06/24/2017 Comp. Metabolic Panel (14) 457715 CALCIUM 9.5 mg/dL 04/2017 Comp. Metabolic Panel (14) 011211 Protein , Total 7.1 g/dL 06/24 Comp. Metabolic Panel (14) 791793 ALBUMIN 4.6 g/dL 06/24 Comp. Metabolic Panel (14) 144466 GLOBULIN, TOTAL 2.5 g/dL 06/24/2017 Comp. Metabolic Panel (14) 580130 A/G Ratio 1.8 06/24/2017 Comp. Metabolic Panel (14) 340350 BILIRUBIN, TOTAL 0.4 mg/dL 06/24/2017 Comp. Metabolic Panel (14) 451870 ALKALINE PHOSPHATASE 66 IU/L 06/24/2017 Comp. Metabolic Panel (14) 674166 AST ( SGOT) 45 IU/L 2017 Comp. Metabolic Panel (14) 064459 ALT ( SGPT) 41 IU/L 2017 Lipid Panel 093834 CHOLESTEROL, TOTAL 122 mg/dL 06/24/2017 Lipid Panel 284123 TRIGLYCERIDES 155 mg/dL 06/24/2017 Lipid Panel 063580 HDL CHOLESTEROL 52 mg/dL 06/24/2017 Lipid Panel 700184 VLDL CHOLESTEROL CINDI 31 mg/dL 06/24/2017 Lipid Panel 732473 LDL CHOLESTEROL CALC 39 mg/dL 06/24/2017 CBC With Differential/Platelet 974449 WBC 6.6 x10E3/uL 06/24 CBC With Differential/Platelet 455766 RBC 4.89 x10E6/uL 04/2017 CBC With Differential/Platelet 908200 HEMOGLOBIN 14.6 g/dL 06/24/2017 CBC With Differential/Platelet 845095 HEMATOCRIT 43.7 % 04/2017 CBC With Differential/Platelet 861660 MCV 89 fL 06/24/2017 CBC With Differential/Platelet 500037 MCH 29.9 pg 2017 CBC With Differential/Platelet 660478 MCHC 33.4 g/dL 2017 CBC With Differential/Platelet 759673 RDW 13.6 % 06/24/2017 CBC With Differential/Platelet 796562 PLATELETS 258 x10E3/uL 06/24/2017 CBC With Differential/Platelet 501673 NEUTROPHILS 51 % 06/24 CBC With Differential/Platelet 172493 LYMPHS 36 % 2017 CBC With Differential/Platelet 287784 MONOCYTES 9 % 2017 CBC With Differential/Platelet 874275 EOS 4 % 06/24/2017 CBC With Differential/Platelet 432684 BASOS 0 % 06/24/2017 CBC With Differential/Platelet 510417 NEUTROPHILS (ABSOLUTE) 3.3 x10E3/uL 06/24/2017 CBC With Differential/Platelet 722473 LYMPHS (ABSOLUTE) 2.3 x10E3/uL 06/24/2017 CBC With Differential/Platelet 660100 MONOCYTES(ABSOLUTE) 0.6 x10E3/uL 06/24/2017 CBC With Differential/Platelet 760483 EOS (ABSOLUTE) 0.3 x10E3/uL 06/24/2017 CBC With Differential/Platelet 109042 BASO (ABSOLUTE) 0.0 x10E3/uL 06/24/2017 CBC With Differential/Platelet 317813 IMMATURE GRANULOCYTES 0 % 06/24/2017 CBC With Differential/Platelet 778475 IMMATURE GRANS (ABS) 0.0 x10E3/uL 06/24/2017 Thyroxine (T4) Free, Direct, S 007305 T4, FREE(DIRECT) 1.35 ng/dL 06/24/2017 Comp. Metabolic Panel (14) 707443 GLUCOSE , SERUM 111 MG/DL Comp. Metabolic Panel (14) 415747 BUN 14 MG/DL 02/22/2016 Comp. Metabolic Panel (14) 310755 CREATININE, SERUM 1.03 MG/DL 02/22/2016 Comp. Metabolic Panel (14) 156111 EGFR IF NONAFRICN AM 79 ML/MIN/1.73 02/22/2016 Comp. Metabolic Panel (14) 383366 EGFR IF AFRICN AM 91 ML/MIN/1.73 02/22/2016 Comp. Metabolic Panel (14) 103426 BUN/ CREATININE RATIO 14 02/22/2016 Comp. Metabolic Panel (14) 568090 SODIUM , SERUM 140 MMOL/L Comp. Metabolic Panel (14) 105544 POTASSIUM, SERUM 3.9 MMOL/L 02/22/2016 Comp. Metabolic Panel (14) 044894 CHLORIDE, SERUM 99 MMOL/L 02/22/2016 Comp. Metabolic Panel (14) 277270 CARBON DIOXIDE, TOTAL 25 MMOL/L 02/22/2016 Comp. Metabolic Panel (14) 080497 CALCIUM , SERUM 9.1 MG/DL Comp. Metabolic Panel (14) 143140 PROTEIN , TOTAL, SERUM 6.5 G/DL 02/22/2016 Comp. Metabolic Panel (14) 941050 ALBUMIN , SERUM 4.1 G/DL 02/21 Comp. Metabolic Panel (14) 200081 GLOBULIN, TOTAL 2.4 G/DL 02/22/2016 Comp. Metabolic Panel (14) 302064 A/G Ratio 1.7 02/22/2016 Comp. Metabolic Panel (14) 063850 BILIRUBIN, TOTAL 0.2 MG/DL 02/22/2016 Comp. Metabolic Panel (14) 896539 ALKALINE PHOSPHATASE, S 72 IU/L 02/22/2016 Comp. Metabolic Panel (14) 030204 AST ( SGOT) 30 IU/L 2015 Comp. Metabolic Panel (14) 673262 ALT ( SGPT) 43 IU/L 2015 CBC With Differential/Platelet 629133 WBC 6.9 X10E3/UL 02/21 CBC With Differential/Platelet 366774 RBC 4.79 X10E6/UL CBC With Differential/Platelet 826519 HEMOGLOBIN 14.4 G/DL 02/22/2016 CBC With Differential/Platelet 793520 HEMATOCRIT 43.1 % CBC With Differential/Platelet 731856 MCV 90 FL 02/22/2016 CBC With Differential/Platelet 078691 MCH 30.1 PG 2015 CBC With Differential/Platelet 307664 MCHC 33.4 G/DL 2015 CBC With Differential/Platelet 794487 RDW 13.5 % 02/22/2016 CBC With Differential/Platelet 986859 PLATELETS 257 X10E3/UL 02/22/2016 CBC With Differential/Platelet 788148 NEUTROPHILS 57 % 02/21 CBC With Differential/Platelet 353924 LYMPHS 32 % 2015 CBC With Differential/Platelet 973378 MONOCYTES 8 % 2015 CBC With Differential/Platelet 615399 EOS 3 % 02/22/2016 CBC With Differential/Platelet 660185 BASOS 0 % 02/22/2016 CBC With Differential/Platelet 377198 NEUTROPHILS (ABSOLUTE) 4.0 X10E3/UL 02/22/2016 CBC With Differential/Platelet 417842 LYMPHS (ABSOLUTE) 2.2 X10E3/UL 02/22/2016 CBC With Differential/Platelet 588950 MONOCYTES(ABSOLUTE) 0.5 X10E3/UL 02/22/2016 CBC With Differential/Platelet 160211 EOS (ABSOLUTE) 0.2 X10E3/UL 02/22/2016 CBC With Differential/Platelet 366211 BASO (ABSOLUTE) 0.0 X10E3/UL 02/22/2016 CBC With Differential/Platelet 515848 IMMATURE GRANULOCYTES 0 % 02/22/2016 CBC With Differential/Platelet 526585 IMMATURE GRANS (ABS) 0.0 X10E3/UL 02/22/2016 TSH 844782 TSH 0.510 UIU/ML 02/22/2016 Lipid Panel 929514 CHOLESTEROL, TOTAL 183 MG/DL 02/22/2016 Lipid Panel 986408 TRIGLYCERIDES 509 MG/DL 02/22/2016 Lipid Panel 651404 HDL CHOLESTEROL 47 MG/DL 02/22/2016 Lipid Panel 256580 VLDL CHOLESTEROL CINDI COMMENT MG/DL 2015 Lipid Panel 905353 LDL CHOLESTEROL CALC COMMENT MG/DL 2015 Thyroxine (T4) Free, Direct, S 780947 T4, FREE(DIRECT) 1.39 NG/DL 02/22/2016 Comp Metabolic Lto424 NA 132 mEq/L 12/02/2014 Comp Metabolic Hkg024 K 4.1 mEq/L 12/02/2014 Comp Metabolic Bhp301 CL 100 mEq/L 12/02/2014 Comp Metabolic Ivh098 CO2 26.0 mEq/L 12/02/2014 Comp Metabolic Fnr854 ANION GAP 10 12/02/2014 Comp Metabolic Kfa536 GLUCOSE 107 mg/dL 12/02/2014 Comp Metabolic Dsb432 Creat 1.1 mg/dL 12/02/2014 Comp Metabolic Zbz137 eGFR 73 ml/min/1.73m2 12/02/2014 Comp Metabolic Fix700 BUN 16 mg/dL 12/02/2014 Comp Metabolic Pmc869 B/C Ratio 14.5 Ratio 12/02/2014 Comp Metabolic Apa331 CALCIUM 9.5 mg/dL 12/02/2014 Comp Metabolic Nmh646 ALK PHOS 39 U/L 12/02/2014 Comp Metabolic Kki369 AST(SGOT) 18 U/L 12/02/2014 Comp Metabolic Hkj433 ALT(SGPT) 24 U/L 12/02/2014 Comp Metabolic Rnn893 BILI T 0.5 mg/dL 12/02/2014 Comp Metabolic Zoa038 ALBUMIN 4.2 g/dL 12/02/2014 Comp Metabolic Xzx124 TPRO 6.5 g/dL 12/02/2014 Comp Metabolic Vce105 GLOB 2.3 g/dL 12/02/2014 Comp Metabolic Tzu593 A/G Ratio 1.8 Ratio 12/02/2014 Comp Metabolic Qjt255 Osmo 266 mOsmo 12/02/2014 Tsh Ord6 hTSH [...] of Systems System Result Effective Dates Constitutional No recent illness 2017 Constitutional No [...] Result Effective Dates Notes Full Exam - Dermatology Constitutional general appearance [...] Procedure Codes Date IMMUNIZATION ADMIN CPT -4: 13376 01/28/2017 FLU VAC NO PRSV 4 MONTY 3 YRS+ CPT-4: 06912 01/28/2017 TRIAMCINOLONE ACET INJ NOS CPT-4: J3301 05/02/2016 IMMUNIZATION ADMIN CPT -4: 19153 01/02/2016 FLU VACC 4 MONTY 3 YRS PLUS IM Formatting Model/CDA Sections, Assigned to/Ana Bella SNOMED CT: [id number] CPT-4: 11307Vbktmcl 01/02/2016 IMMUNIZATION ADMIN CPT -4: 02644 12/28/2014 IIV4 FLU VACC NO PRESERV ID Formatting Model/CDA Sections, Assigned to/Ana Bella SNOMED CT: 83683612 CPT-4: 36004Svywvgu 12/28/2014 Vital Signs Date Vital 09/19/2017 Blood Pressure 1: 122/60 Code : 8480-6 BMI: 29.8 Code : 35676-1 Heart Rate 1 : 57 bpm Height: 5'8" SpO2: 93% Weight: 196 lbs 05/23/2017 Blood Pressure 1: 122/74 Code : 8480-6 BMI: 29.2 Code : 66282-2 Heart Rate 1 : 68 bpm Height: 5'8" SpO2: 97% Weight: 192 lbs 08/02/2016 Blood Pressure 1: 142/80 Code : 8480-6 BMI: 28.1 Code : 30611-7 Heart Rate 1 : 61 bpm Height: 5'8" SpO2: 98% Weight: 185 lbs 05/17/2016 Blood Pressure 1: 126/74 Code : 8480-6 BMI: 27.7 Code : 37462-7 Heart Rate 1 : 60 bpm Height: 5'8" SpO2: 95% Temperature: 37.0 (C) / 98.6 (F) Weight: 182 lbs 05/02/2016 Blood Pressure 1: 106/68 Code : 8480-6 BMI: 27.8 Code : 79842-4 Heart Rate 1 : 58 bpm Height: 5'8" SpO2: 97% Temperature: 36.7 (C) / 98.1 (F) Weight: 183 lbs 02/02/2016 Blood Pressure 1: 124/76 Code : 8480-6 BMI: 28.0 Code : 55731-5 Heart Rate 1 : 68 bpm Height: 5'8" SpO2: 98% Weight: 184 lbs 01/02/2016 Blood Pressure 1: 130/72 Code : 8480-6 BMI: 28.0 Code : 42190-0 Heart Rate 1 : 62 bpm Height: 5'8" SpO2: 96% Weight: 184 lbs 08/04/2015 Blood Pressure 1: 128/76 Code : 8480-6 BMI: 27.7 Code : 55063-7 Heart Rate 1 : 64 bpm Height: 5'8" SpO2: 98% Weight: 182 lbs 06/29/2015 Blood Pressure 1: 142/84 Code : 8480-6 BMI: 28.0 Code : 15600-7 Heart Rate 1 : 55 bpm Height: 5'8" SpO2: 97% Weight: 184 lbs 05/19/2015 Blood Pressure 1: 120/78 Code : 8480-6 BMI: 27.2 Code : 50863-2 Heart Rate 1 : 86 bpm Height: 5'8" Weight: 179 lbs 12/28/2014 Blood Pressure 1: 130/68 Code : 8480-6 BMI: 27.7 Code : 60441-9 Heart Rate 1 : 52 bpm Height: 5'8" SpO2: 98% Weight: 182 lbs 08/12/2014 Blood Pressure 1: 118/70 Code : 8480-6 BMI: 27.7 Code : 55346-5 Heart Rate 1 : 64 bpm Height: 5'8" Weight: 182 lbs Functional Status No Functional Status data History of Present Illness Symptom Name Status Result Effective Date Notes arthropod bite Location on the back 09/19/2017 [...] data Encounters Encounter Performer Location Codes Date EST. PATIENT, LEVEL III Diagnosis: Cellulitis of back [any part except buttock][ICD10: L03.312] [facility] CPT-4: 91328 09/19/2017 ([id number]) PREV VISIT EST AGE 40-64 Diagnosis: Encounter for general adult medical examination without abnormal findings[ICD10: Z00.00] [facility] CPT-4: 89386 05/23/2017 ([id number]) 14472 EST. PATIENT, LEVEL IV Diagnosis: Essential (primary) hypertension[ICD10: I10] Diagnosis: Atrophy of thyroid (acquired)[ICD10: E03.4] Diagnosis: Mixed hyperlipidemia[ICD10: E78.2] Diagnosis: Other allergic rhinitis[ICD10: J30.89] Diagnosis: Melanocytic nevi of left lower limb, including hip[ICD10: D22.72] Diagnosis: Melanocytic nevi of right lower limb, including hip[ICD10: D22.71] Laura Hurt MD, [facility] CPT-4: 05558 08/02/2016 [id number] EST. PATIENT, LEVEL III Diagnosis: Other allergic rhinitis[ICD10: J30.89] Diagnosis: Cough[ICD10: R05] Diagnosis: Candidal stomatitis[ICD10: B37.0] Rose Hurt MD, [facility] CPT -4: 37978 05/17/2016 09577 EST. PATIENT, LEVEL III Diagnosis: Acute bronchitis due to other specified organisms[ICD10: J20.8] Rose Hurt MD, [facility] CPT-4: 91293 05/02/2016 ([id number]) PREV VISIT EST AGE 40-64 Diagnosis: Atrophy of thyroid (acquired)[ICD10: E03.4] Diagnosis: Mixed hyperlipidemia[ICD10: E78.2] Diagnosis: Essential (primary) hypertension[ICD10: I10] Diagnosis: Encounter for general adult medical examination without abnormal findings[ICD10: Z00.00] Laura Hurt MD, [facility] CPT-4: 59212 02/02/2016 63293 EST. PATIENT, LEVEL II Diagnosis: Cellulitis of head [any part, except face][ICD10: L03.811] Diagnosis: Rash and other nonspecific skin eruption[ICD10: R21] Diagnosis: VACCIN FOR INFLUENZA[ICD10: Z23] Monae Hurt MD, [facility] CPT-4: 17218 01/02/2016 ([id number]) 91683 EST. PATIENT, LEVEL III Diagnosis: Essential (primary) hypertension[ICD10: I10] Laura Hurt MD, [facility] CPT-4: 21662 08/04/2015 03287 EST. PATIENT, LEVEL IV Diagnosis: Other acute sinusitis[ICD10: J01.80] Diagnosis: Other allergic rhinitis[ICD10: J30.89] Rose Hurt MD, [facility] CPT-4: 23843 06/29/2015 ([id number]) 39056 EST. PATIENT, LEVEL III Diagnosis: Low back pain[ICD10: M54.5] Diagnosis: Rash and other nonspecific skin eruption[ICD10: R21] [facility] CPT-4: 53148 05/19/2015 ([id number]) 63825 EST. PATIENT, LEVEL III Diagnosis: Mixed hyperlipidemia[ICD10: E78.2] Diagnosis: Hypothyroidism, unspecified[ICD10: E03.9] [facility] CPT-4: 65715 12/28/2014 ([id number]) PREV VISIT NEW AGE 40-64 Diagnosis: Well adult exam[ICD9: V70.0] [facility] CPT-4: 47583 08/12/2014 Plan of Care Planned Activity Notes Codes Status Date Visit Plan: Cellulitis - continue with oral antibiotics as previously directed, return to clinic as previously directed, call for acute change in symptoms, worsening redness, warmth, discharge. 09/19/2017 Appointment: Rose Ferrer WPtel: [facility]5 [facility] (15 min) Moderate 09/19/2017 Patient Education: Patient Medication Summary Completed 09/19/2017 Appointment: Rose Ferrer WPtel: [address] [place], [place] [id number] (15 min) Moderate 06/18/2017 Visit Plan: Well [...] for colonoscopy 05/23/2017 Appointment: Laura Hurt WPtel: [facility]2 [facility] [place] (15 min) Moderate 05/23/2017 Patient Education: Patient Medication Summary Completed 05/23/2017 Care Plan: Referral Order SNOMED-CT : [id number] Pending 05/23/2017 Appointment: Injection 01/28/2017 Patient Education: [...] one month 08/02/2016 Appointment: Laura Hurt WPtel: [address] [place], [place] [id number] (30 min) Complex 08/02/2016 Patient Education: Patient [...] for allergies 05/17/2016 Appointment: Rose Fer[facility]Ptel[facility] ([facility] min) Moderate 05/17/2016 Patient [...] worsen. 05/02/2016 [facility]ment: [phone] (15 min) Moderate 05/02/2016 Patient Education: Patient [...] medications. 02/02/2016 Appointment: Laura Hurt WPtel: [phone] [facility] (30 min) Complex 02/02/2016 Patient Education: Patient Medication Summary Completed 02/02/2016 Visit Plan: Rxkevkhzfngc-xpyhe-ramtozt of pustule today in the office-will treat as indicated-patient verbalized understanding of plan. 01/02/2016 Visit Plan: Ebfudvmffqso-hzezc-tainleg of pustule today in the office-will treat as indicated-patient verbalized understanding of plan. 01/02/2016 Appointment: Monae Berkowitz WPtel: [phone] [phone] (30 min) Complex 01/02/2016 Patient Education: [...] [phone] (30 min) Complex 08/04/2015 Patient Education: Patient [...] change in blood pressure readings at home. Prevacid - daily in the morning for 2 weeks [facility] allergy medicine - 1 daily for 2 [...] assure normal liver response to medications. . Xootraldthzs-frvjr-jeugbwy of pustule today in the office -will treat as indicated-patient verbalized understanding of plan. . Rlhvlrfjarce-nyfpf-qxuwcmu of pustule today in the office -will [...]
--- OUTSIDE RECORDS SUMMARY | 2018-07-17 11:44 | XMS REPORT | Continuity of Care Document ---
Author Organization Unknown Address Unknown Allergies Active Description Code Type Severity Reaction Onset Reported/Identified Relationship to Patient Clinical Status Yes No Known Drug Allergies [id number] Drug Allergy Unknown N/A 10/15/2011 Medications There is no data. 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 06/27/2012 KIRSTIE VALDEZ DO 726.90 CAPSULITIS 08/21/2016 GERALDINE JOSE, ARIADNA Saunders Ot R05 COUGH 07/03/2017 SHASHA JOSE, RICHARD Medina Ot 719.45 JOINT PAIN-PELVIS 07/03/2017 SHASHA JOSE, RICHARD Medina Ot 721.3 LUMBOSACRAL SPONDYLOSIS 07/03/2017 SHASHA JOSE, RICHARD Medina Ot 724.02 SPINAL STENOSIS, LUMBAR REG, W/OUT NEURO 07/03/2017 SHASHA JOSE, RICHARD Medina Ot 789.01 ABDOMINAL PAIN, RIGHT UPPER QUADRANT 07/03/2017 GERALDINE JOSE, ARIADNA Saunders Ot R05 COUGH 07/08/2017 YADIRA BEATTY MD Ot R19.4 CHANGE IN BOWEL HABIT 07/08/2017 JACI JOSE, YADIRA Medina Ot Z01.818 ENCOUNTER FOR OTHER PREPROCEDURAL EXAMIN 07/08/2017 JACI JOSE, YADIRA Medina Ot Z87.19 PERSONAL HISTORY OF OTHER DISEASES OF 07/15/2017 SHASHA JOSE, RICHARD Medina Ot 719.45 JOINT PAIN-PELVIS 07/15/2017 SHASHA JOSE, RICHARD Medina Ot 721.3 LUMBOSACRAL SPONDYLOSIS 07/15/2017 RICHARD PULLIAM MD Ot 724.02 SPINAL STENOSIS, LUMBAR REG, W/OUT NEURO 07/15/2017 RICHARD PULLIAM MD Ot 789.01 ABDOMINAL PAIN, RIGHT UPPER QUADRANT 07/15/2017 GERALDINE JOSE, ARIADNA Saunders Ot R05 COUGH 07/15/2017 YADIRA BEATTY MD Ot E78.00 PURE HYPERCHOLESTEROLEMIA, UNSPECIFIED 07/15/2017 YADIRA BEATTY MD Ot I10 ESSENTIAL (PRIMARY) HYPERTENSION 07/15/2017 YADIRA BEATTY MD Ot K57.30 DVRTCLOS OF LG INT W/O PERFORATION OR AB 07/15/2017 YADIRA BEATTY MD Ot Z79.899 OTHER PRISON (CURRENT) DRUG THERAPY 07/16/2017 YADIRA BEATTY MD Ot E78.00 PURE HYPERCHOLESTEROLEMIA, UNSPECIFIED 07/16/2017 YADIRA BEATTY MD Ot I10 ESSENTIAL (PRIMARY) HYPERTENSION 07/16/2017 YADIRA BEATTY MD Ot K57.30 DVRTCLOS OF LG INT W/O PERFORATION OR AB 07/16/2017 YADIRA BEATTY MD Ot Z79.899 OTHER PRISON (CURRENT) DRUG THERAPY Procedures Code Description Performed By Performed On [place] 03/10/201224436 INJ TENDON SHEATH/LIGAMENT 06/27/2012 Results There is no data. Encounters ACCT No. Visit Date/Time Discharge Status Pt. Type Provider Facility Loc./Unit Complaint [id number] 06/27/2012 09:43:00 06/27/2012 23:59:59 CLS Outpatient KIRSTIE VALDEZ DO [id number] 03/10/2012 17:39:00 03/10/2012 23:59:59 CLS Outpatient [id number] 07/16/2018 10:35:00 07/16/2018 13:32:00 DIS Outpatient CHERYL JOSE, [facility] PREOP LEFT INGUINAL HERNIA [id number] 07/15/2017 07:53:00 07/15/2017 10:15:00 DIS Outpatient YADIRA BEATTY MD [facility] ENDO CHANGE IN BOWEL/HX DIVERT [id number] 07/08/2017 05:38:00 07/08/2017 13:01:00 DIS Outpatient YADIRA BEATTY MD [facility] PREOP COLONOSCOPY [id number] 08/02/2016 15:04:00 08/02/2016 23:59:59 CLS Outpatient ARIADNA CHANDLER MD [facility] RAD COUGH [id number] 05/28/2013 07:58:00 05/28/2013 23:59:59 CLS Outpatient RICHARD PULLIAM MD [facility] RAD RUQ PAIN [id number] 12/25/2012 14:14:00 12/25/2012 23:59:59 CLS Outpatient RICHARD PULLIAM MD [facility] RAD LEFT LEG PAIN [id number] 12/18/2012 09:57:00 12/18/2012 23:59:59 CLS Outpatient RICHARD PULLIAM MD [facility] RAD LT HIP AND BACK PAIN [id number] 07/17/2018 11:14:00 ACT Outpatient SAPPHIRE LUNA MD [facility] SDC LEFT INGUINAL HERNIA
--- OUTSIDE RECORDS SUMMARY | 2018-07-17 11:44 | XMS REPORT | CCD ---
Author Author Monae Berkowitz MD, [facility] Address [address] [place] [address] Phone Care Team Providers Care Side Seam Envelope Machine Operator Name Role Phone PP Unavailable CCM Unavailable Summary Purpose Interface Exchange Insurance Providers Payer name Policy type / Coverage type Covered republican ID Effective Begin Date Effective End Date Blue Cross Blue [facility] Blue Cross/Blue Shield [id number] Unknown Unknown Family history Mother Diagnosis Age At Onset Coronary Artery Disease Unknown Breast cancer Unknown Father Diagnosis Age At Onset Hypertension Unknown Cancer Unknown Social History Social History Element Codes Description Effective Dates Frequency of drinks SNOMED CT: 181758679 10 drinks per week -varies- more on weekends 08/02/2016 Employment Unknown 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 Marital status Unknown Single 08/12/2014 Number of children Unknown 0 08/12/[address]: 8639029 Quit less than 10 years ago 200608/12/[address]: 469692 Currently drinks alcohol 08/12/2014 Allergies, Adverse Reactions, Alerts Allergies, Adverse Reactions, Alerts data not found Past Medical History Illness Codes Condition Status Onset Date Resolved Date VACCIN FOR INFLUENZA ICD-9: V04.81 ICD-10: Z23 [...] ICD-9: 466.0 ICD-10: J20.8 Active 05/02/2016 Unknown Encounter for general adult medical examination without abnormal findings ICD-9: V70.0 ICD-10: Z00.00 Active 08/11/2014 Unknown Cellulitis of head [any part, except [...] Problems Condition Codes Effective Dates Condition Status VACCIN FOR INFLUENZA ICD-9: V04.81 ICD-10: Z23 [...] organisms ICD-9: 466.0 ICD-10: J20.8 05/02/2016 Active Encounter for general adult medical examination without abnormal findings ICD-9: V70.0 ICD-10: Z00.00 08/11/2014 Active Cellulitis of head [any part, except [...] Fill Instructions acyclovir 400 mg tablet RxNorm: 857443 TAKE ONE TABLET BY MOUTH DAILY 04/26/2017 10/22/2017 Active bisoprolol 5 mg-hydrochlorothiazide 6.25 mg tablet RxNorm: 666056 TAKE ONE TABLET BY MOUTH DAILY 03/11/2017 09/06/2017 Active Levothroid 175 mcg tablet RxNorm: 326948 TAKE ONE TABLET BY MOUTH DAILY ON AN EMPTY STOMACH . NEED TO REPEAT LAB FOR TSH AND FREE T4 201606/08/2017 Active Lipitor 80 mg tablet RxNorm: 299057 Tablet(s) PO TAKE ONE TABLET BY MOUTH EVERY NIGHT AT BEDTIME 12/24/2016 06/21/2017 Active Levothroid 175 mcg tablet RxNorm: 382161 TAKE ONE TABLET BY MOUTH DAILY ON AN EMPTY STOMACH . NEED TO REPEAT LAB FOR TSH AND FREE T4 201603/10/2017 Inactive hydrocodone 7.5 mg-acetaminophen 325 mg tablet RxNorm: 731398 1 Tablet(s) PO Q6 PRN 11/06/2016 12/05/2016 Inactive [SAVINGS FOR NON-COVERED DRUGS -- BIN:052324, PCN: ASPROD1, Group: XXXXX, ID# [id number], Questions: . THIS IS NOT INSURANCE.] Soma 350 mg tablet RxNorm: 711186 1 Tablet(s) PO TID as needed 11/06/2016 No Stop Date Active alprazolam 0.5 mg tablet RxNorm: 331424 1/2 Tablet(s) PO BID as needed 10/05/2016 No Stop Date Active Lipitor 80 mg tablet RxNorm: 550967 Tablet(s) PO TAKE ONE TABLET BY MOUTH EVERY NIGHT AT BEDTIME 09/04/2016 12/23/2016 Inactive Lipitor 40 mg tablet RxNorm: 595746 TAKE ONE TABLET BY MOUTH EVERY NIGHT AT BEDTIME 09/04/2016 09/03/2016 Inactive acyclovir 400 mg tablet RxNorm: 635096 TAKE ONE TABLET BY MOUTH DAILY 08/23/2016 02/18/2017 Inactive bisoprolol 5 mg-hydrochlorothiazide 6.25 mg tablet RxNorm: 880524 TAKE ONE TABLET BY MOUTH DAILY 08/23/2016 02/18/2017 Inactive Levothroid 175 mcg tablet RxNorm: 997033 Tablet(s) TAKE ONE TABLET BY MOUTH DAILY 08/22/2016 11/19/2016 Inactive Needs to repeat TSH et Free T4 labs acyclovir 400 mg tablet RxNorm: 420976 TAKE ONE TABLET BY MOUTH DAILY 08/21/2016 08/22/2016 Inactive prednisone 10 mg tablet RxNorm: 507654 Tablet(s) PO UD dispense a medrol dose pack 08/10/2016 No Stop Date Active 6,5,4,3,2,1 prednisone 10 mg tablet RxNorm: 728985 Tablet(s) PO UD dispense a medrol dose pack 07/30/2016 08/09/2016 Inactive 6,5,4,3,2,1 cefdinir 300 mg capsule RxNorm: 908124 1 Capsule(s) PO BID 10/201608/08/2016 Inactive cefdinir 300 mg capsule RxNorm: 308523 1 Capsule(s) PO BID 10/201607/29/2016 Inactive Lipitor 40 mg tablet RxNorm: 654796 TAKE ONE TABLET BY MOUTH EVERY NIGHT AT BEDTIME 06/25/2016 09/03/2016 Inactive nystatin 100,000 unit/mL oral suspension RxNorm: 783937 5 Milliliter(s) PO TID 05/17/2016 05/21/2016 Inactive Zyrtec 10 mg tablet RxNorm: 5692996 1 Tablet(s) PO daily 05/1706/15/2016 Inactive Levothroid 175 mcg tablet RxNorm: 549289 TAKE ONE TABLET BY MOUTH DAILY 05/16/2016 08/13/2016 Inactive Levaquin 750 mg tablet RxNorm: 134368 1 Tablet(s) PO daily 05/09/2016 Inactive Levaquin 750 mg tablet RxNorm: 578866 1 Tablet(s) PO daily 05/14/2016 Inactive Phenergan-Codeine 6.25 mg-10 mg/5 mL syrup RxNorm: 612394 5-10 Milliliter(s) PO Q6 as needed cough 05/02/2016 No Stop Date Active prednisone 10 mg tablet RxNorm: 980406 Tablet(s) PO UD 201607/29/2016 Inactive 6,5,4,3,2,1 Kenalog 40 mg/mL suspension for injection RxNorm: 1168726 Milliliter(s) Inj 05/02/2016 05/02/2016 Inactive Phenergan-Codeine 6.25 mg-10 mg/5 mL syrup RxNorm: 899916 5-10 Milliliter(s) PO Q6 as needed cough 04/25/2016 05/01/2016 Inactive Zithromax Z-Bassam 250 mg tablet RxNorm: 228698 1 Tablet(s) PO UD 04/25/2016 07/29/2016 Inactive z pack as directed acyclovir 400 mg tablet RxNorm: 169582 TAKE ONE TABLET BY MOUTH DAILY 04/10/2016 07/08/2016 Inactive Zetia 10 mg tablet RxNorm: 471002 1 Tablet(s) PO daily 201507/04/2016 Inactive Zetia 10 mg tablet RxNorm: 649829 1 Tablet(s) PO daily 201503/06/2016 Inactive Lipitor 40 mg tablet RxNorm: 697410 Tablet(s) PO TAKE ONE TABLET BY MOUTH EVERY NIGHT AT BEDTIME 03/07/2016 06/24/2016 Inactive Patient is requesting 90 days supply Diflucan 150 mg tablet RxNorm: 091393 1 Tablet(s) PO daily 01/11/2016 Inactive Diflucan 150 mg tablet RxNorm: 242111 1 Tablet(s) PO daily 01/04/2016 Inactive hydrocodone 7.5 mg-acetaminophen 325 mg tablet RxNorm: 937907 1 Tablet(s) PO Q6 PRN 12/28/2015 01/26/2016 Inactive [SAVINGS FOR NON-COVERED DRUGS -- BIN:109841, PCN: ASPROD1, Group: XXXXX, ID# [id number], Questions: . THIS IS NOT INSURANCE.] alprazolam 0.5 mg tablet RxNorm: 647758 1/2 Tablet(s) PO BID as needed 11/30/2015 10/04/2016 Inactive Levothroid 175 mcg tablet RxNorm: 728459 Tablet(s) TAKE ONE TABLET BY MOUTH DAILY 10/26/2015 04/22/2016 Inactive hydrocodone 7.5 mg-acetaminophen 325 mg tablet RxNorm: 095515 1 Tablet(s) PO Q6 PRN 08/30/2015 09/28/2015 Inactive [SAVINGS FOR NON-COVERED DRUGS -- BIN:152927, PCN: ASPROD1, Group: XXXXX, ID# [id number], Questions: . THIS IS NOT INSURANCE.] Ventolin HFA 90 mcg/actuation aerosol inhaler RxNorm: 582574 2 INH PRN dyspnea 08/04/2015 No Stop Date Active bisoprolol 5 mg-hydrochlorothiazide 6.25 mg tablet RxNorm: 519070 TAKE ONE TABLET BY MOUTH DAILY 07/11/2015 01/06/2016 Inactive Patient is requesting 90 days supply bisoprolol 5 mg-hydrochlorothiazide 6.25 mg tablet RxNorm: 986980 TAKE ONE TABLET BY MOUTH DAILY 07/11/2015 01/06/2016 Inactive Lipitor 10 mg tablet RxNorm: 647651 TAKE ONE TABLET BY MOUTH EVERY NIGHT AT BEDTIME 07/11/2015 01/06/2016 Inactive Patient is requesting 90 days supply Lipitor 10 mg tablet RxNorm: 059404 TAKE ONE TABLET BY MOUTH EVERY NIGHT AT BEDTIME 07/11/2015 05/13/2016 Inactive acyclovir 400 mg tablet RxNorm: 228388 1 Tablet(s) PO daily 08/22/2016 Inactive acyclovir 400 mg tablet RxNorm: 253687 1 Tablet(s) PO daily 07/10/2015 Inactive Zithromax Z-Bassam 250 mg tablet RxNorm: 575064 Tablet(s) PO UD 08/03/2015 Inactive acyclovir 400 mg tablet RxNorm: 723108 1 Tablet(s) PO daily 08/201507/05/2015 Inactive meloxicam 15 mg tablet RxNorm: 852284 TAKE ONE TABLET BY MOUTH DAILY 06/27/2015 11/23/2015 Inactive triamcinolone acetonide 0.1 % topical cream RxNorm: 6672933 1 Application TOP BID 05/19/2015 06/01/2015 Inactive apply very thin layer as directed hydrocodone 7.5 mg-acetaminophen 325 mg tablet RxNorm: 859591 1 Tablet(s) PO Q6 PRN 05/19/2015 08/29/2015 Inactive [SAVINGS FOR NON-COVERED DRUGS -- BIN:058812, PCN: ASPROD1, Group: XXXXX, ID# [id number], Questions: . THIS IS NOT INSURANCE.] Cipro 500 mg tablet RxNorm: 810009 1 Tablet(s) PO BID 201504/20/2015 Inactive Cipro 500 mg tablet RxNorm: 856969 1 Tablet(s) PO BID 201504/30/2015 Inactive Flagyl 500 mg tablet RxNorm: 300335 1 Tablet(s) PO TID 201504/30/2015 Inactive Flagyl 500 mg tablet RxNorm: 677549 1 Tablet(s) PO TID 201504/20/2015 Inactive bisoprolol 5 mg-hydrochlorothiazide 6.25 mg tablet RxNorm: 945862 1 Tablet(s) PO daily 04/21/2015 07/10/2015 Inactive Levothroid 175 mcg tablet RxNorm: 849050 TAKE ONE TABLET BY MOUTH DAILY 04/18/2015 10/14/2015 Inactive hydrocodone 7.5 mg-acetaminophen 325 mg tablet RxNorm: 322314 1 Tablet(s) PO Q6 PRN 04/04/2015 05/18/2015 Inactive [SAVINGS FOR NON-COVERED DRUGS -- BIN:410348, PCN: ASPROD1, Group: XXXXX, ID# [id number], Questions: . THIS IS NOT INSURANCE.] Lipitor 10 mg tablet RxNorm: 838918 1 Tablet(s) PO QHS 201507/02/2015 Inactive azithromycin 250 mg tablet RxNorm: 167866 1 Tablet(s) PO UD Take 2 tabs on day one and 1 tab day 2-5 02/03/20152014 Inactive azithromycin 250 mg tablet RxNorm: 198289 1 Tablet(s) PO UD Take 2 tabs on day one and 1 tab day 2-5 02/03/20152014 Inactive Levothroid 175 mcg tablet RxNorm: 159269 TAKE ONE TABLET BY MOUTH DAILY 12/16/2014 03/15/2015 Inactive Lipitor 10 mg tablet RxNorm: 252943 1 Tablet(s) PO QHS 201403/07/2015 Inactive hydrocodone 7.5 mg-acetaminophen 325 mg tablet RxNorm: 408306 1 Tablet(s) PO Q6 PRN 12/08/2014 04/03/2015 Inactive [SAVINGS FOR NON-COVERED DRUGS -- BIN:883484, PCN: ASPROD1, Group: XXXXX, ID# [id number], Questions: . THIS IS NOT INSURANCE.] Lipitor 10 mg tablet RxNorm: 174696 1 Tablet(s) PO QHS 201412/07/2014 Inactive meloxicam 15 mg tablet RxNorm: 829450 1 Tablet(s) PO daily 04/01/2015 Inactive Levothroid 175 mcg tablet RxNorm: 012521 1 Tablet(s) PO daily 09/28/2014 12/15/2014 Inactive meloxicam 15 mg tablet RxNorm: 370367 1 Tablet(s) PO daily 09/10/2014 Inactive bisoprolol 2.5 mg-hydrochlorothiazide 6.25 mg tablet RxNorm: 028348 1 Tablet(s) PO daily 08/12/2014 11/09/2014 Inactive Levothroid 175 mcg tablet RxNorm: 554144 1 Tablet(s) PO daily 08/12/2014 09/27/2014 Inactive hydrocodone 7.5 mg-acetaminophen 325 mg tablet RxNorm: 423964 1 Tablet(s) PO Q6 PRN 08/12/2014 12/07/2014 Inactive [SAVINGS FOR NON-COVERED DRUGS -- BIN:084608, PCN: ASPROD1, Group: XXXXX, ID# [id number], Questions: . THIS IS NOT INSURANCE.] acyclovir 400 mg tablet RxNorm: 152259 1 Tablet(s) PO daily 09/10/2014 Inactive hydrocodone 7.5 mg-acetaminophen 325 mg tablet RxNorm: 896982 1 Tablet(s) PO No Start Date 08/11/2014 Inactive Soma 350 mg tablet RxNorm: 334082 1 Tablet(s) PO TID as needed No Start Date 11/05/2016 Inactive alprazolam 0.5 mg tablet RxNorm: 322905 1/2 Tablet(s) PO BID as needed No Start Date 11/29/2015 Inactive Phenergan-Codeine 6.25 mg-10 mg/5 mL syrup RxNorm: 303344 5-10 Milliliter(s) PO Q6 as needed cough No Start Date 2016 Inactive Medication Administered Medication Codes Instructions Start Date Status Kenalog 40 mg/mL suspension for injection RxNorm: 9840929 Milliliter 05/02/2016 No longer Active Immunizations Vaccine Codes Date Status Influenza CVX: 141 01/28/2017 completed Influenza CVX: 141 01/02/2016 completed Influenza CVX: 141 12/28/2014 completed Assessments Condition Codes Effective Dates VACCIN FOR INFLUENZA ICD-10: Z23 ICD-9: V04.81 [...] specified organisms ICD-10: J20.8 ICD-9: 466.0 05/02/2016 Encounter for general adult medical examination without abnormal findings ICD-10: Z00.00 ICD-9: V70.0 02/02/2016 Rash and other nonspecific skin eruption ICD-10: R21 ICD-9: 782.1 01/02/2016 Cellulitis of head [any part, except face] ICD-10: L03.811 ICD-9: 682.8 01/02/2016 Other acute sinusitis ICD-10: J01.80 ICD-9: 461.8 06/29/2015 Low back pain ICD-10: M54.5 ICD-9: 724.2 05/19/2015 Hypothyroidism, unspecified ICD-10: E03.9 ICD-9: 244.9 12/28/2014 Well adult exam ICD-9: V70.0 08/12/2014 Reason For Visit Reason For Visit Effective Dates Notes vaccination against influenza 01/28/2017 hypertension 08/02/2016 sinus congestion 05/17/2016 sinus congestion 05/02/2016 hypertension 02/02/2016 rash 01/02/2016 scalp hypertension 08/04/2015 cough 06/29/2015 rash 05/19/2015 dry skin to upper eye lids cyst 12/28/2014 hypothyroid 08/12/2014 Results Observation Observation Code Item Item Code Result Date Comp. Metabolic Panel (14) 405995 GLUCOSE , SERUM 111 MG/DL Comp. Metabolic Panel (14) 910132 BUN 14 MG/DL 02/22/2016 Comp. Metabolic Panel (14) 759800 CREATININE, SERUM 1.03 MG/DL 02/22/2016 Comp. Metabolic Panel (14) 715355 EGFR IF NONAFRICN AM 79 ML/MIN/1.73 02/22/2016 Comp. Metabolic Panel (14) 345077 EGFR IF AFRICN AM 91 ML/MIN/1.73 02/22/2016 Comp. Metabolic Panel (14) 816265 BUN/ CREATININE RATIO 14 02/22/2016 Comp. Metabolic Panel (14) 676676 SODIUM , SERUM 140 MMOL/L Comp. Metabolic Panel (14) 110221 POTASSIUM, SERUM 3.9 MMOL/L 02/22/2016 Comp. Metabolic Panel (14) 300487 CHLORIDE, SERUM 99 MMOL/L 02/22/2016 Comp. Metabolic Panel (14) 779811 CARBON DIOXIDE, TOTAL 25 MMOL/L 02/22/2016 Comp. Metabolic Panel (14) 468636 CALCIUM , SERUM 9.1 MG/DL Comp. Metabolic Panel (14) 889957 PROTEIN , TOTAL, SERUM 6.5 G/DL 02/22/2016 Comp. Metabolic Panel (14) 619929 ALBUMIN , SERUM 4.1 G/DL 02/21 Comp. Metabolic Panel (14) 374838 GLOBULIN, TOTAL 2.4 G/DL 02/22/2016 Comp. Metabolic Panel (14) 943669 A/G Ratio 1.7 02/22/2016 Comp. Metabolic Panel (14) 890503 BILIRUBIN, TOTAL 0.2 MG/DL 02/22/2016 Comp. Metabolic Panel (14) 591273 ALKALINE PHOSPHATASE, S 72 IU/L 02/22/2016 Comp. Metabolic Panel (14) 356374 AST ( SGOT) 30 IU/L 2015 Comp. Metabolic Panel (14) 339896 ALT ( SGPT) 43 IU/L 2015 CBC With Differential/Platelet 062145 WBC 6.9 X10E3/UL 02/21 CBC With Differential/Platelet 749666 RBC 4.79 X10E6/UL CBC With Differential/Platelet 854997 HEMOGLOBIN 14.4 G/DL 02/22/2016 CBC With Differential/Platelet 400795 HEMATOCRIT 43.1 % CBC With Differential/Platelet 958026 MCV 90 FL 02/22/2016 CBC With Differential/Platelet 265849 MCH 30.1 PG 2015 CBC With Differential/Platelet 040467 MCHC 33.4 G/DL 2015 CBC With Differential/Platelet 057350 RDW 13.5 % 02/22/2016 CBC With Differential/Platelet 108399 PLATELETS 257 X10E3/UL 02/22/2016 CBC With Differential/Platelet 473337 NEUTROPHILS 57 % 02/21 CBC With Differential/Platelet 426041 LYMPHS 32 % 2015 CBC With Differential/Platelet 415299 MONOCYTES 8 % 2015 CBC With Differential/Platelet 800210 EOS 3 % 02/22/2016 CBC With Differential/Platelet 654967 BASOS 0 % 02/22/2016 CBC With Differential/Platelet 619830 NEUTROPHILS (ABSOLUTE) 4.0 X10E3/UL 02/22/2016 CBC With Differential/Platelet 587042 LYMPHS (ABSOLUTE) 2.2 X10E3/UL 02/22/2016 CBC With Differential/Platelet 089186 MONOCYTES(ABSOLUTE) 0.5 X10E3/UL 02/22/2016 CBC With Differential/Platelet 242561 EOS (ABSOLUTE) 0.2 X10E3/UL 02/22/2016 CBC With Differential/Platelet 624991 BASO (ABSOLUTE) 0.0 X10E3/UL 02/22/2016 CBC With Differential/Platelet 531881 IMMATURE GRANULOCYTES 0 % 02/22/2016 CBC With Differential/Platelet 955798 IMMATURE GRANS (ABS) 0.0 X10E3/UL 02/22/2016 TSH 891705 TSH 0.510 UIU/ML 02/22/2016 Lipid Panel 078307 CHOLESTEROL, TOTAL 183 MG/DL 02/22/2016 Lipid Panel 565116 TRIGLYCERIDES 509 MG/DL 02/22/2016 Lipid Panel 416568 HDL CHOLESTEROL 47 MG/DL 02/22/2016 Lipid Panel 803070 VLDL CHOLESTEROL CINDI COMMENT MG/DL 2015 Lipid Panel 044644 LDL CHOLESTEROL CALC COMMENT MG/DL 2015 Thyroxine (T4) Free, Direct, S 508115 T4, FREE(DIRECT) 1.39 NG/DL 02/22/2016 Comp Metabolic Teo650 NA 132 mEq/L 12/02/2014 Comp Metabolic Mla921 K 4.1 mEq/L 12/02/2014 Comp Metabolic Bpn601 CL 100 mEq/L 12/02/2014 Comp Metabolic Kcu561 CO2 26.0 mEq/L 12/02/2014 Comp Metabolic Ihi612 ANION GAP 10 12/02/2014 Comp Metabolic Ikg148 GLUCOSE 107 mg/dL 12/02/2014 Comp Metabolic Bmi104 Creat 1.1 mg/dL 12/02/2014 Comp Metabolic Fyt954 eGFR 73 ml/min/1.73m2 12/02/2014 Comp Metabolic Ewj857 BUN 16 mg/dL 12/02/2014 Comp Metabolic Mar775 B/C Ratio 14.5 Ratio 12/02/2014 Comp Metabolic Jle450 CALCIUM 9.5 mg/dL 12/02/2014 Comp Metabolic Ulz988 ALK PHOS 39 U/L 12/02/2014 Comp Metabolic Gtx043 AST(SGOT) 18 U/L 12/02/2014 Comp Metabolic Jnc099 ALT(SGPT) 24 U/L 12/02/2014 Comp Metabolic Fge488 BILI T 0.5 mg/dL 12/02/2014 Comp Metabolic Ean256 ALBUMIN 4.2 g/dL 12/02/2014 Comp Metabolic Fjf660 TPRO 6.5 g/dL 12/02/2014 Comp Metabolic Stf494 GLOB 2.3 g/dL 12/02/2014 Comp Metabolic Aqy696 A/G Ratio 1.8 Ratio 12/02/2014 Comp Metabolic Ezs170 Osmo 266 mOsmo 12/02/2014 Tsh Ord6 hTSH [...] System Result Effective Dates Constitutional recent illness 08/02/2016 Constitutional No anorexia [...] Procedure Codes Date IMMUNIZATION ADMIN CPT -4: 03373 01/28/2017 FLU VAC NO PRSV 4 MONTY 3 YRS+ CPT-4: 34935 01/28/2017 TRIAMCINOLONE ACET INJ NOS CPT-4: J3301 05/02/2016 IMMUNIZATION ADMIN CPT -4: 23288 01/02/2016 FLU VACC 4 MONTY 3 YRS PLUS IM Formatting Model/CDA Sections, Assigned to/Ana Bella SNOMED CT: 07375994 CPT-4: 75585Vzyczpp 01/02/2016 IMMUNIZATION ADMIN CPT -4: 05707 12/28/2014 IIV4 FLU VACC NO PRESERV ID Formatting Model/CDA Sections, Assigned to/Ana Bella SNOMED CT: 16540124 CPT-4: 34552Sllenzu 12/28/2014 Vital Signs Date Vital 08/02/2016 Blood Pressure 1: 142/80 Code : 8480-6 BMI: 28.1 Code : 38437-2 Heart Rate 1 : 61 bpm Height: 5'8" SpO2: 98% Weight: 185 lbs 05/17/2016 Blood Pressure 1: 126/74 Code : 8480-6 BMI: 27.7 Code : 75065-8 Heart Rate 1 : 60 bpm Height: 5'8" SpO2: 95% Temperature: 37.0 (C) / 98.6 (F) Weight: 182 lbs 05/02/2016 Blood Pressure 1: 106/68 Code : 8480-6 BMI: 27.8 Code : 98127-3 Heart Rate 1 : 58 bpm Height: 5'8" SpO2: 97% Temperature: 36.7 (C) / 98.1 (F) Weight: 183 lbs 02/02/2016 Blood Pressure 1: 124/76 Code : 8480-6 BMI: 28.0 Code : 65072-7 Heart Rate 1 : 68 bpm Height: 5'8" SpO2: 98% Weight: 184 lbs 01/02/2016 Blood Pressure 1: 130/72 Code : 8480-6 BMI: 28.0 Code : 85996-1 Heart Rate 1 : 62 bpm Height: 5'8" SpO2: 96% Weight: 184 lbs 08/04/2015 Blood Pressure 1: 128/76 Code : 8480-6 BMI: 27.7 Code : 39659-7 Heart Rate 1 : 64 bpm Height: 5'8" SpO2: 98% Weight: 182 lbs 06/29/2015 Blood Pressure 1: 142/84 Code : 8480-6 BMI: 28.0 Code : 99023-4 Heart Rate 1 : 55 bpm Height: 5'8" SpO2: 97% Weight: 184 lbs 05/19/2015 Blood Pressure 1: 120/78 Code : 8480-6 BMI: 27.2 Code : 49334-6 Heart Rate 1 : 86 bpm Height: 5'8" Weight: 179 lbs 12/28/2014 Blood Pressure 1: 130/68 Code : 8480-6 BMI: 27.7 Code : 25985-7 Heart Rate 1 : 52 bpm Height: 5'8" SpO2: 98% Weight: 182 lbs 08/12/2014 Blood Pressure 1: 118/70 Code : 8480-6 BMI: 27.7 Code : 02565-1 Heart Rate 1 : 64 bpm Height: 5'8" Weight: 182 lbs Functional Status No Functional Status data History of Present Illness Symptom Name Status Result Effective Date Notes hypertension Onset and Resolution ongoing 08/02/2016 None [...] data Encounters Encounter Performer Location Codes Date ([id number]) 27011 EST. PATIENT, LEVEL IV Diagnosis: Essential (primary) hypertension[ICD10: I10] Diagnosis: Atrophy of thyroid (acquired)[ICD10: E03.4] Diagnosis: Mixed hyperlipidemia[ICD10: E78.2] Diagnosis: Other allergic rhinitis[ICD10: J30.89] Diagnosis: Melanocytic nevi of left lower limb, including hip[ICD10: D22.72] Diagnosis: Melanocytic nevi of right lower limb, including hip[ICD10: D22.71] Laura Hurt MD, [facility] CPT-4: 10804 08/02/2016 04096 EST. PATIENT, LEVEL III Diagnosis: Other allergic rhinitis[ICD10: J30.89] Diagnosis: Cough[ICD10: R05] Diagnosis: Candidal stomatitis[ICD10: B37.0] Rose Hurt MD, [facility] CPT -4: 58072 05/17/2016 92283 EST. PATIENT, LEVEL III Diagnosis: Acute bronchitis due to other specified organisms[ICD10: J20.8] Rose Hurt MD, [facility] CPT-4: 80475 05/02/2016 ([id number]) PREV VISIT EST AGE 40-64 Diagnosis: Atrophy of thyroid (acquired)[ICD10: E03.4] Diagnosis: Mixed hyperlipidemia[ICD10: E78.2] Diagnosis: Essential (primary) hypertension[ICD10: I10] Diagnosis: Encounter for general adult medical examination without abnormal findings[ICD10: Z00.00] Laura Hurt MD, [facility] CPT-4: 90596 02/02/2016 36754 EST. PATIENT, LEVEL II Diagnosis: Cellulitis of head [any part, except face][ICD10: L03.811] Diagnosis: Rash and other nonspecific skin eruption[ICD10: R21] Diagnosis: VACCIN FOR INFLUENZA[ICD10: Z23] [facility] CPT-4: 59660 01/02/2016 ([id number]) 72576 EST. PATIENT, LEVEL III Diagnosis: Essential (primary) hypertension[ICD10: I10] Laura Hurt MD, [facility] CPT-4: 58095 08/04/2015 60080 EST. PATIENT, LEVEL IV Diagnosis: Other acute sinusitis[ICD10: J01.80] Diagnosis: Other allergic rhinitis[ICD10: J30.89] [facility] CPT-4: 25800 06/29/2015 ([id number]) 76841 EST. PATIENT, LEVEL III Diagnosis: Low back pain[ICD10: M54.5] Diagnosis: Rash and other nonspecific skin eruption[ICD10: R21] [facility] CPT-4: 83200 05/19/2015 ([id number]) 63805 EST. PATIENT, LEVEL III Diagnosis: Mixed hyperlipidemia[ICD10: E78.2] Diagnosis: Hypothyroidism, unspecified[ICD10: E03.9] [facility] CPT-4: 78338 12/28/2014 ([id number]) PREV VISIT NEW AGE 40-64 Diagnosis: Well adult exam[ICD9: V70.0] [facility] CPT-4: 94083 08/12/2014 Plan of Care Planned Activity Notes Codes Status Date Appointment: Injection 01/28/2017 Patient Education: Patient Medication [...] one month 08/02/2016 Appointment: Laura Hurt WPtel: [address] [place], [place] [phone] (30 min) Complex 08/02/2016 Patient Education: Patient [...] for allergies 05/17/2016 Appointment: Rose Ferrer WPtel: [facility] (15 min) Moderate 05/17/2016 Patient Education: Patient [...] worsen. 05/02/2016 Appointment: Rose Ferrer WPtel: [phone] [facility] (15 min) Moderate 05/02/2016 Patient Education: [...] medications. 02/02/2016 Appointment: [facility] [phone] [facility] [place] (30 min) Complex 02/02/2016 Patient Education: Patient Medication Summary Completed 02/02/2016 Visit Plan: Xifjhqrunrmp-mcfez-oawvfcf of pustule today in the office-will treat as indicated-patient verbalized understanding of plan. 01/02/2016 Visit Plan: Byahsvsqanuu-rtdrg-jpfnawb of pustule today in the office-will treat as indicated-patient verbalized understanding of plan. 01/02/2016 App[facility]ment[facility] [phone] [phone] [place] (30 min) Complex 01/02/2016 Patient Education: Patient Medication Summary Completed 01/02/2016 Visit Plan: Hypertension - well controlled - continue with current medications, continue with no added salt diet. Pt has been encouraged to exercise daily. The pt has been advised to call the office if there are any acute concerns about change in blood pressure readings at home. 08/04/2015 Appointment: Lich[facility] [phone] [facility] [place] ([place] [...] Completed 08/12/2014 Appointment: (S) New Patient 08/10/2014 Instructions Comment carbon fiber arch support spray [...] daily in the morning for 2 weeks [email or web address]] allergy medicine - 1 daily for 2 [...] assure normal liver response to medications. . Lcxkfnxskkbc-nbiet-bjgigez of pustule today in the office -will treat as indicated-patient verbalized understanding of plan. . Shnwtysvowfn-ufsaf-uqavjap of pustule today in the office -will [...] if not improved in one month . Chronic Back pain - the patient [...]
[2018-07-17] MEDS ORDERED: ceFAZolin 2 GM IV Premixed 50 ML IV ONE (11:45)
--- NOTE | 2018-07-17 12:05 | Progress Note-Pre Operative ---
Pre-Operative Progress Note H&P Reviewed The H&P was reviewed, patient examined and no changes noted. Date Seen by Provider: Jul 17, 2018 Time Seen by Provider: 12:00 Date H&P Reviewed: Jul 17, 2018 Time H&P Reviewed: 12:00 Pre-Operative Diagnosis: symptomatic reducible left inguinal hernia SAPPHIRE LUNA MD Jul 17, 2018 12:05
[2018-07-17] MEDS ORDERED: HYDR-34 PO (12:08)
--- NOTE | 2018-07-17 12:08 | Discharge Inst-Surgical ---
D/C Lap Instructions-CHERYL New, Converted, or Re-Newed RX: RX on Chart Follow Up Appt in 2 weeks Activity as tolerated No driving for 24 hours No driving while on pain medications Incentive Spirometry use every 2 hours while awake Regular Diet Symptoms to Report: Fever over 101 degree F, Nausea/Vomiting Infection Signs and Symptoms to report: Increased redness, Foul odor of wound, Increased drainage Bathing instructions: May shower Operative Area Clean/Dry; Keep incision clean/dry If any problems/questions: Contact your physician or go to Emergency Room SAPPHIRE LUNA MD Jul 17, 2018 12:08
[2018-07-17] MEDS ORDERED: fentaNYL INJECTION 100 MCG/2 ML AMP ONE ×2 (12:14→13:44)
[2018-07-17] MEDS ORDERED: MIDAZOLAM 2 MG/2 ML (VERSED) VIAL ONE (12:14)
[2018-07-17] MEDS ORDERED: SEVOFLURANE (ULTANE) 15 ML INHAL SOLN ONE (12:15)
[2018-07-17] MEDS ORDERED: LIDOCAINE PF 2% 5 ML (XYLOCAINE) VIAL ONE (12:15)
[2018-07-17] MEDS ORDERED: ONDANSETRON 4 MG/2 ML (SDV) Z0FRAN ONE (12:15)
[2018-07-17] MEDS ORDERED: oxyCODONE/APAP 5/325MG (PERCOCET 5) TABLET PO PRN (12:15)
[2018-07-17] MEDS ORDERED: morphine INJ 10 MG/ML 1ML (SYR OR VIAL) IVP PRN (12:15)
[2018-07-17] MEDS ORDERED: ONDANSETRON 4 MG/2 ML (SDV) Z0FRAN IVP PRN ×2 (12:15→14:15)
[2018-07-17] MEDS ORDERED: proPOfol 200 MG/20 ML (DIPRIVAN) VIAL IV ONE (12:15)
[2018-07-17] MEDS ORDERED: ACETAMINOPHEN 325 MG TABLET PO PRN (12:15)
[2018-07-17] MEDS ORDERED: DEXAMETHASONE 10 MG/ML (DECADRON) 1 ML VIAL ONE (12:15)
[2018-07-17] MEDS ORDERED: BUP/EPI 0.5% 1:200,000 (SENSORCAINE) 30 ML VIAL ONE (12:16)
[2018-07-17] MEDS ORDERED: ROCURONIUM 10 MG/ML 5 ML SYRINGE IV ONE (12:16)
[2018-07-17] MEDS ORDERED: NEOSTIGMINE 1 MG/ML 5 ML SYRINGE ONE (13:25)
[2018-07-17] MEDS ORDERED: GLYCOPYRROLATE 0.2 MG/ML (ROBINUL) 2 ML VIAL ONE (13:25)
--- NOTE | 2018-07-17 13:57 | Progress Note-Post Operative ---
Post-Operative Progess Note Surgeon (s)/Media Assistant (s) Surgeon SAPPHIRE LUNA MD Media Assistant: lida payton TAX SPECIALIST Pre-Operative Diagnosis symptomatic reducible left inguinal hernia Post-Operative Diagnosis symptomatic left spigellian hernia Procedure & Operative Findings Date of Procedure 07/17/18 Procedure Performed/Findings laparoscopic left spigellian hernia repair with mesh. Anesthesia Type GET Estimated Blood Loss Estimated blood loss (mL): minimal Specimens/Packing Specimens Removed none SAPPHIRE LUNA MD Jul 17, 2018 13:56
[2018-07-17] MEDS ORDERED: KETOROLAC 30 MG/ML VIAL ONE (14:01)
[2018-07-17] MEDS ORDERED: morphine INJ 10 MG/ML 1ML (SYR OR VIAL) IVP ONE (14:15)
[2018-07-17] MEDS ORDERED: KETOROLAC 30 MG/ML VIAL IVP ONE (14:15)
[2018-07-17] MEDS ORDERED: HYDROmorphone 2 MG/ML VIAL (DILAUDID) ONE (14:28)
--- NOTE | 2018-07-17 14:39 | Anesthesia-General Post-Op ---
General Patient Condition Mental Status/LOC: Same as Preop Cardiovascular: Satisfactory Nausea/Vomiting: Absent Respiratory: Satisfactory Pain: Controlled Complications: Absent Post Op Complications Complications None Follow Up Care/Instructions Patient Instructions None needed. Anesthesia/Patient Condition Patient Condition Patient is doing well, no complaints, stable vital signs, no apparent adverse anesthesia problems. No complications reported per nursing. D/C home per [facility] [place] Criteria: Yes MANDA BIRMINGHAM CRNA Jul 17, 2018 14:39
[2018-07-17] MEDS ORDERED: HYDROmorphone 2 MG/ML VIAL (DILAUDID) IV ONE (14:45)
--- NOTE | 2018-07-17 16:31 | OPERATIVE REPORT ---
DATE OF SERVICE: 07/17/2018 ATTENDING PRIMARY CARE PHYSICIAN: Dr. Diaz. PREOPERATIVE DIAGNOSIS: Symptomatic reducible left inguinal hernia. POSTOPERATIVE DIAGNOSIS: Symptomatic reducible left spigelian hernia. There is no left inguinal hernia component as well as no recurrent right inguinal hernia. PROCEDURE: Laparoscopic spigelian hernia repair with mesh. SURGEON: Sapphire Luna MD SVP [employer] AD SALES: Erwin West APRN. ANESTHESIA: General endotracheal. ESTIMATED BLOOD LOSS: Minimal. FINDINGS: Spigelian hernia along the left linea semilunaris which was identifiable upon muscle relaxant as well as abdominal insufflation. There was no left inguinal hernia component as well as no recurrent right inguinal hernia. DISPOSITION: The patient tolerated the procedure well. The patient is a 63-year-old male who was referred over to us for left groin pain. He had reported that he has done significant amount of heavy lifting over the past several years for work. He also does have extensive garden of greater than one acre and does do a lot of lifting work. He states that he did develop a bulge in the left groin region and this reduced on its own, however, the pain persisted. Upon examination, we felt that he did have pain in the left inguinal region and at initial thought; we thought he had a reducible left inguinal hernia. He has a previous scar on the right inguinal region from a previous right open inguinal hernia repair. He states that he again was doing work with repetitive motion and moderate lifting and did develop continued pain in the left groin region. DESCRIPTION OF PROCEDURE: The patient was brought to the operating room, laid supine on the table. After adequate IV pain and sedative medications and general endotracheal intubation, the abdomen was prepped and draped in standard surgical fashion. A 0.5% Marcaine with epinephrine was then used to anesthetize the overlying skin in the infraumbilical rim and a transverse skin incision made using a 15-blade. The abdominal wall was retracted towards the anterior abdominal wall and a Veress needle inserted with a low opening pressure of 0 mmHg. The abdomen was then insufflated to 15 mmHg pressure. The Veress needle removed and a 10 mm Xcel trocar placed followed by a 10 mm 45-degree angle laparoscope visualizing the peritoneal cavity. A 4-quadrant abdominal exploration was performed. There was no recurrent right inguinal hernia. There was no left inguinal hernia component identifiable; however, upon looking more lateral, there was a fascial defect as well as peritoneal lining, hernia sac identified which was infraumbilical and along the linea semilunaris line consistent with a left spigelian hernia. This would account for his pain in the region and minimal swelling or bulge observed. Under direct visualization, we then proceed to place 2 right lower abdominal quadrant 5 mm ports under direct visualization after the skin and peritoneal lining were anesthetized using 0.5% Marcaine with epinephrine and a transverse skin incision made using a 15 blade. A wide rim of mesentery peritoneal lining was then opened using a Sonicision and dissected inferiorly encompassing the entire hernia sac exposing the fascial defect, which was small and only approximately 1.5 cm in size. Good hemostasis was observed and a lightweight polypropylene mesh was then placed into the region and few tacks placed around the fascial defect with absorbable tacks. The entire peritoneal lining was then placed over the mesh and few tacks placed to hold this into place with visualization of good hemostasis. The 10 mm port site fascia and peritoneum were then closed under direct visualization using Titi-Rex device and 0 Vicryl suture. The abdomen was desufflated and remaining ports removed. All skin incisions were closed using 4-0 Monocryl running subcuticular sutures. Wounds were then cleaned and covered with Dermabond. The patient tolerated the procedure well. We will start IV normal pain medication as well as a clear liquid diet. Once he is tolerating clears, has good pain control with oral pain medication and is ambulating well, we will discharge him home. He was instructed to do no heavy lifting or exertion for the next four to six weeks as well. Job ID: [id number] DocumentID: [id number] Dictated Date: 07/17/2018 13:47:22 Senior Examiner Date: 07/17/2018 16:30:39 Dictated By: SAPPHIRE LUNA MD
== END 2018-07-17 17:00 | disposition home or self-care (01) ==
LOC: SDC 11:14
PROVIDERS: ATTEND Surgery
DX: K43.9 Ventral hernia without obstruction or gangrene (principal); I10 Essential (primary) hypertension; E78.00 Pure hypercholesterolemia, unspecified; E03.9 Hypothyroidism, unspecified; M19.91 Primary osteoarthritis, unspecified site; Z87.891 Personal history of nicotine dependence; Z79.899 Other long term (current) drug therapy
CPT/HCPCS: 87081

== ENCOUNTER → 2018-12-31 | Outpatient (CLI) | payer BC ==
[~2018-12-31] MED LIST changes: +HYDR-34 PO
--- NOTE | 2018-12-31 09:46 | Diagnostic Imaging Report ---
PATIENT HISTORY: ABD PAIN. TECHNIQUE: Ultrasound of the abdomen. COMPARISON: 05/28/2013. FINDINGS: The pancreas is mostly obscured by bowel gas. Visible portions of the aorta and IVC demonstrate no acute abnormality, although much is obscured by bowel gas. There is calcific atherosclerosis. The liver demonstrates no focal lesions. Echogenicity is mildly increased. No biliary dilatation is seen. The main portal vein is hepatopetal. The gallbladder is somewhat contracted, with borderline prominence of the wall. No stones or pericholecystic fluid are seen. Sonographic Sheridan sign is negative. The common bile duct measures 5 mm in diameter. The right kidney measures 10.8 cm in length and the left measures 11.1 cm in length. There is no hydronephrosis bilaterally. No masses or shadowing calculi are seen. The spleen is normal in size, measuring 9.9 cm in length. No free fluid is seen. IMPRESSION: 1. Mildly echogenic liver, may be due to fatty infiltration. 2. Mildly contracted gallbladder with no evidence of cholecystitis or cholelithiasis. Dictated by: Dictated on workstation # [id number]
== END ==
LOC: RAD 06:44
PROVIDERS: ATTEND Nurse Practitioner
DX: K82.0 Obstruction of gallbladder (principal); K76.89 Other specified diseases of liver
CPT/HCPCS: 76700

== ENCOUNTER → 2019-02-13 | Outpatient (CLI) | payer BC | LOC: CARD 08:33 | PROVIDERS: ATTEND Internal Medicine Cardiovascular Disease | DX: E78.2 Mixed hyperlipidemia (principal); I10 Essential (primary) hypertension; R07.89 Other chest pain; Z82.49 Family history of ischemic heart disease and other diseases of the circulatory system | CPT/HCPCS: 93306 ==

== ENCOUNTER → 2019-02-23 | Outpatient (CLI) | payer BC | LOC: CARD 10:07 | PROVIDERS: ATTEND Internal Medicine Cardiovascular Disease | DX: I10 Essential (primary) hypertension (principal); I25.10 Atherosclerotic heart disease of native coronary artery without angina pectoris; E78.2 Mixed hyperlipidemia; Z82.49 Family history of ischemic heart disease and other diseases of the circulatory system | CPT/HCPCS: 93351 ==

== ENCOUNTER → 2019-10-14 | Outpatient (CLI) | payer BC ==
[~2019-10-14] MED LIST changes: +HOLD METFORMIN - RECEIVED CONTRAST 20 ML VIAL IV SCH; +IOHEXOL 350 MG/ML 100 ML (OMNIPAQUE 350) VIAL IV ONE; +NS 100 ML (IVPB) BAG IV ONE
--- NOTE | 2019-10-14 09:29 | Diagnostic Imaging Report ---
PROCEDURE: CT abdomen and pelvis with contrast. TECHNIQUE: Multiple contiguous axial images were obtained through the abdomen and pelvis after administration of intravenous contrast. Auto Exposure Controls were utilized during the CT exam to meet ALARA standards for radiation dose reduction. INDICATION: Abdominal pain. Change in bowel habits. COMPARISON: CT abdomen and pelvis performed on 04/18/2010. FINDINGS: LOWER THORAX: Lung bases are clear. Visualized heart is normal in size. LIVER: Normal. GALLBLADDER: Normal CT appearance. BILE DUCTS: No biliary ductal dilatation. SPLEEN: Normal. PANCREAS: Normal. No pancreatic ductal dilatation. ADRENAL GLANDS: No nodules. KIDNEYS AND URETERS: No hydronephrosis. Normal renal enhancement. No suspicious mass. No abnormality in the visualized ureters. STOMACH AND BOWEL: Stomach is physiologically-distended. No bowel obstruction. There is mild apparent wall thickening involving the distal descending and proximal sigmoid colon. There is no pronounced pericolonic inflammatory change. There is moderate fairly diffuse diverticulosis. There are no discretely inflamed diverticula in the region of the aforementioned bowel wall thickening. APPENDIX: Not visualized. No pericecal inflammation. PELVIC ORGANS/BLADDER: Bladder is normal. Prostate gland is normal in size. PERITONEUM AND RETROPERITONEUM: No pneumoperitoneum. No abdominal free fluid or loculated collection. LYMPH NODES: No lymphadenopathy. VESSELS: Moderate atherosclerotic calcification. Abdominal aorta is nonaneurysmal. No venous thrombosis. ABDOMINAL WALL: Unremarkable. BONES: Mild degenerative changes involve the spine. No acute osseous abnormality. IMPRESSION: There is apparent mild wall thickening involving the distal descending and proximal sigmoid colon, without appreciable pericolonic inflammatory change in the affected region. Findings may be artifactual in nature secondary to underdistention, however, an infectious/inflammatory colitis could have a similar appearance. Although there is rather diffuse diverticular disease, the findings are not felt to be related to acute diverticulitis. There is no pneumoperitoneum, focal fluid collection, obstruction, or other acute abnormality appreciated. Dictated by: Dictated on workstation # [id number]
== END ==
LOC: RAD 08:38
PROVIDERS: ATTEND Internal Medicine
DX: K57.90 Diverticulosis of intestine, part unspecified, without perforation or abscess without bleeding (principal)
CPT/HCPCS: 74177

== ENCOUNTER 2019-10-21 05:38 | Outpatient (RCR) | payer BC ==
[~2019-10-21] VITALS: Ht 172 cm; Wt 81.8 kg
[~2019-10-21 05:38] MED LIST changes: -HOLD METFORMIN - RECEIVED CONTRAST 20 ML VIAL IV SCH; -IOHEXOL 350 MG/ML 100 ML (OMNIPAQUE 350) VIAL IV ONE; -NS 100 ML (IVPB) BAG IV ONE
[2019-10-21] MEDS ORDERED: LEVO137T2 PO (10:06)
[2019-10-21] MEDS ORDERED: ZOLP5TAB PO (10:06)
[2019-10-21] MEDS ORDERED: ACYC400T PO (10:06)
[2019-10-21] MEDS ORDERED: ATOR40TA70 PO (10:06)
[2019-10-21] MEDS ORDERED: BISO-1 PO (10:06)
[2019-10-21] MEDS ORDERED: FLUT15.845 NS (10:06)
[2019-10-21] MEDS ORDERED: ALPR0.5T7 PO (10:06)
== END 2019-10-21 10:19 | disposition home or self-care (01) ==
LOC: PREOP 05:38
PROVIDERS: ATTEND Surgery
DX: Z01.818 Encounter for other preprocedural examination (principal); M25.852 Other specified joint disorders, left hip; R10.32 Left lower quadrant pain; Z87.19 Personal history of other diseases of the digestive system

== ENCOUNTER → 2020-01-18 | Outpatient (CLI) | payer BC ==
[~2020-01-18] MED LIST changes: +ACYC400T PO; +ALPR0.5T7 PO; +ATOR40TA70 PO; +BISO-1 PO; +FLUT15.845 NS; +LEVO137T2 PO; +ZOLP5TAB PO
--- NOTE | 2020-01-18 10:41 | Diagnostic Imaging Report ---
Indication: Chest pain and cough. Time of exam: 9:58 AM Correlation is made with prior chest 08/02/2016. The heart size is normal. The pulmonary vascularity is unremarkable. The lungs are clear. No infiltrate, effusion or pneumothorax is detected. Impression: No acute cardiopulmonary process is detected. Dictated by: Dictated on workstation # [id number]
== END ==
LOC: RAD 09:40
PROVIDERS: ATTEND Internal Medicine
DX: R07.9 Chest pain, unspecified (principal); R05 Cough
CPT/HCPCS: 71046

== ENCOUNTER → 2020-03-24 | Outpatient (CLI) | payer BC | LOC: LABNPT 05:33 | PROVIDERS: ATTEND Internal Medicine Gastroenterology | DX: Z01.812 Encounter for preprocedural laboratory examination (principal); Z20.828 Contact with and (suspected) exposure to other viral communicable diseases | CPT/HCPCS: 87635 ==

== ENCOUNTER → 2023-01-14 | Outpatient (CLI) | payer MEDICARE, OTHER ==
[~2023-01-14] MED LIST changes: -ACYC400T PO; +ACYC400T21 PO; +BISO-2 PO; -BISO1TAB3 PO; -GEMF600T8 PO; +GEMF600T88 PO; +HOLD METFORMIN - RECEIVED CONTRAST 20 ML VIAL IV SCH; +IOHEXOL 350 MG/ML 100 ML (OMNIPAQUE 350) VIAL IV ONE; +NS 100 ML (IVPB) BAG IV ONE
--- NOTE | 2023-01-14 16:11 | Diagnostic Imaging Report ---
PROCEDURE: CT abdomen and pelvis with contrast. TECHNIQUE: Multiple contiguous axial images were obtained through the abdomen and pelvis after administration of intravenous contrast. Auto Exposure Controls were utilized during the CT exam to meet ALARA standards for radiation dose reduction. All CT scans use one or more of the following dose optimizing techniques: automated exposure control, MA and/or KvP adjustment based on patient size and exam type or iterative reconstruction. INDICATION: Diverticulitis. COMPARISON: Correlation is made with prior CT of 10/14/2019. FINDINGS: Lung bases are clear. Liver shows diffuse low attenuation, consistent with hepatic steatosis. Gallbladder is unremarkable. There is no biliary ductal dilatation. Pancreas and spleen are unremarkable. No adrenal mass is identified. Kidneys are unremarkable. There are no calculi or hydronephrosis. Aorta is heavily calcified but nonaneurysmal. There is generalized colonic diverticulosis. In addition, there does appear to be some mild perisigmoidal inflammation, suggestive of mild diverticulitis. No abscess formation is identified. No definite microperforation or bowel obstruction is identified. Bladder is unremarkable. Prostate is unremarkable. There is a right-sided fat-containing inguinal hernia. IMPRESSION: 1. Hepatic steatosis. 2. Features suggestive of acute sigmoid diverticulitis without evidence of abscess formation or bowel obstruction. Dictated by: Dictated on workstation # [id number]
== END ==
LOC: RAD 15:02
PROVIDERS: ATTEND Internal Medicine
DX: K76.0 Fatty (change of) liver, not elsewhere classified (principal); K57.32 Diverticulitis of large intestine without perforation or abscess without bleeding
CPT/HCPCS: 74177